=== PATIENT | female | born 2000 | race Caucasian/White ===

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

== ENCOUNTER 2023-02-05 18:27 | Emergency (ER) | payer MEDICAID, SELFPAY ==
[2023-02-05 18:28] VITALS: BP 110/66; PULSE 81; RESP 18; TEMP 35.9; O2SAT 100; BMI 25.7
[2023-02-05 19:43] LABS: Absolute Lymphocyte Count 2.12 X10^3/uL (0.83-4.51); Absolute Neutrophil Count 4.5 X10^3/uL (2.0-7.7); Basophil# 0.04 X10^3/uL; Basophil% 0.5 % (0-1); Eosinophil# 0.07 X10^3/uL; Hematocrit 36.8 % (37-47); Hemoglobin 12.6 g/dL (12.0-15.0); Lymphocyte # 2.12 X10^3/ul (0.83-4.51); Lymphocyte % 28.8 % (19-41); Mean Corp Hgb Conc 34.2 g/dL (32-36); Mean Corpuscular Hgb 31.5 pg (27.0-32.0); Monocyte# 0.61 X10^3/uL; Monocyte% 8.3 % (0-10); NRBC Flagged by Analyzer 0 % (0-5); Neutrophil % 61.1 % (47-70); Platelet Count 237 K/mm3 (150-450); RBC Distribution Width CV 12.6 % (11.6-14.6); RBC Distribution Width SD 42.7 fl (35.1-43.9); White Blood Count 7.4 K/mm3 (4.4-11.0)
[2023-02-05] MEDS: Ondansetron 4 MG/2 ML Vial IV (19:43)
[2023-02-05] MEDS: 0.9% Normal Saline (1000mL) 1,000 ML 1000 ML IV (19:43)
[2023-02-05 20:00] LABS: Internal QC Validated? YES +Cl - CLEAR BKGD; Pregnancy, Serum, hCG Quali. NEGATIVE Negative
[2023-02-05 20:07] LABS: ALB/GLOB Ratio 1.2 RATIO (0.9-2.4); AST(SGOT) 24 U/L (15-37); Alanine Aminotransfer ALT/SGPT 29 U/L (13-56); Alkaline Phosphatase 79 U/L (45-117); Anion Gap 4 (5-15); BUN 9 mg/dL (7-18); BUN/Creat Ratio 10.3 RATIO (10-20); Calcium,Total 8.7 mg/dL (8.5-10.1); Chloride 106 mmol/L (98-107); Creatinine, Serum 0.87 mg/dL (0.55-1.02); EST Glomerular Filtration Rate 88 mL/min (>60); Est Glom Filt Rate - Afr Amer 106 mL/min (>60); Estimated Creatinine Clearance 81.58 ml/min; Globulin 3.4 g/dL (2.2-4.2); Glucose 99 mg/dL (74-106); Lipase 32 U/L (13-75); Potassium 3.3 mmol/L (3.5-5.1); Protein, Total 7.4 g/dL (6.4-8.2); Sodium Level 138 mmol/L (136-145)
[2023-02-05 20:13] LABS: Bacteria 0 SEEN /hpf (None Seen); Color, Urine Yellow (Yellow); Glucose, Dipstick Normal (Normal); Ketone-Dipstick Negative (Negative); Leukocyte Esterase-Dipstick 500 /ul (Negative); Mucous, Urine 0 SEEN /hpf (<or=2+); Nitrite-Dipstick Negative (Negative); Occult Blood-Urine Negative /ul (Negative); Protein-Dipstick 15 mg/dl (Negative); Red Blood Cells-Urine 0 SEEN /hpf (0-5); Specific Gravity, Urine 1.015 (1.002-1.030); Urine Bilirubin Dipstick Negative (Negative); Urine Clarity Clear (Clear); Urine Urobilinogen Normal (Normal)
[2023-02-05 20:29] LABS: Squamous Epithelial Cells - UA 0-5 SEEN /hpf (5-10); White Blood Cells 5-10 SEEN /hpf (0-5)
--- NOTE | 2023-02-05 20:29 | ED.VIS.GI ---
HPI HPI - GI History of Present Illness Chief Complaint: Abd Pain Informant: patient Abdominal Pain/Flank Pain Onset: Today Context: Sudden Onset Timing: Continuous Quality: Aching and Cramping Location: RLQ and LLQ Worsened by: Nothing Relieved by: Nothing Nausea/Vomiting/Emesis GI Symptom: Positive for Nausea; Negative for Vomiting Diarrhea/Melena/Hematochezia GI Symptom: Negative for Diarrhea, Melena or Hematochezia Associated Symptoms Associated Symptoms: Positive for Frequency; Negative for Dysuria or Hematuria Narrative Narrative: Patient presents with abdominal pain that began today. Patient states she was having intercourse when the pain began. Patient states her pain is over her lower abdomen. Patient describes the pain as aching and cramping. Patient states everything makes it worse. Patient states nothing makes it better. Patient states the pain has been constant. Patient denies any fevers or chills. Patient admits to some nausea but denies any vomiting. Patient admits to some urinary frequency but denies any dysuria or hematuria. Patient denies any diarrhea, melena, or hematochezia. Patient denies any abnormal vaginal bleeding or discharge. [facility] Medical History ADHD Anxiety Contusion of right ankle Contusion of right foot Depression Kidney infection in mother during , antepartum Recurrent UTI (urinary tract infection) complicating Home Medications aripiprazole 5 mg tablet 5 mg PO DAILY 02/05/23 [History Last Taken Unknown] iron-vitamin B complex 50 mg-0.4 mg tablet 1 tab PO DAILY 02/05/23 [History Last Taken Unknown] sertraline 50 mg tablet 75 mg PO DAILY 02/05/23 [History Last Taken Unknown] sulfamethoxazole 800 mg-trimethoprim 160 mg tablet 1 tab PO BID #6 TABLETS 02/05/23 [Rx Last Taken Unknown] Allergy/AdvReac Type Severity Reaction Status Date / Time No Known Allergies Allergy Verified 02/05/23 18:28 Family History (Updated 02/09/21 @ 10:35 by Ana María Tay) Grandfather CVA (cerebral vascular accident) Grandmother Breast cancer Surgical History no surgical history no surgical history Social History (Updated 02/05/23 @ 20:[address] Alejandro Nunez, ) Electronic Cigarette Use: with nicotine ROS ROS ED Constitutional Constitutional ED: Denies chills or fever(s) Eyes Eyes: Denies blurry vision or change in vision ENT ENT ED: Denies rhinorrhea or sore throat Cardiovascular Cardiovascular: Denies chest pain or palpitations Respiratory/Chest Respiratory/Chest: Denies cough or dyspnea Gastrointestinal Gastrointestinal: Reports abdominal pain and nausea; Denies vomiting Genitourinary Genitourinary ED: Reports urinary frequency; Denies dysuria or hematuria Musculoskeletal Musculoskeletal: Denies back pain or neck pain Integumentary Denies abscess or rash Neurologic Neurologic: Denies headache(s) or weakness Allergic/Immunologic Allergic/Immunologic ED: Denies mouth swelling or urticaria EXAM Physical Exam Const Vital Signs: 02/05/23 18:28 Temperature 96.6 F L Temperature Source Temporal Pulse Rate 81 Respiratory Rate 18 Blood Pressure 110/66 Blood Pressure Mean 80 Pulse Ox 100 Oxygen Delivery Method Room Air Positive well nourished and well developed General Appearance ED: well developed and NAD HEENT Reports moist mucous membranes Neck supple and no JVD Resp normal respiratory effort and clear to auscultation bilaterally Cardio regular rate, regular rhythm and no murmurs GI normal to inspection, nondistended, normoactive bowel sounds Palpation: soft and tender LLQ, RLQ and suprapubic; Negative for guarding or rebound tenderness present Extremity normal to inspection General Extremety ED: Negative for edema or tenderness General Extremity: Negative for edema Neuro oriented x3, CN's II-XII intact bilaterally and no sensory deficits noted Sensorium / Orientation: alert Motor Exam: strength 5/5 throughout Psych mental status grossly normal Skin no rashes or lesions noted MDM MDM MDM Narrative Medical decision making narrative: Differential diagnosis includes appendicitis, urinary tract infection, ectopic , ureteral calculus, ovarian cyst, pyelonephritis, mesenteric adenitis, dehydration, and electrolyte abnormality. CBC will be obtained to assess for leukocytosis and anemia. Comprehensive metabolic profile will be obtained to assess for electrolyte abnormality, renal function, and hepatic function. Serum hCG will be obtained to assess for . Urinalysis will be obtained to assess for urinary tract infection. Lab Data Attestation: I reviewed the patient's lab results. Lab results narrative: CBC was reviewed and was within normal limits. Comprehensive metabolic profile was reviewed. Potassium was slightly low at 3.3. The remainder is within normal limits. Serum lipase was reviewed and was normal at 32. Serum hCG was reviewed and was negative. Urinalysis was reviewed. There is a leukocyte esterase of 500. There are 5-10 white blood cells. Labs: Laboratory Results - last 24 hr 02/05/23 02/05/23 18:45 20:05 WBC 7.4 RBC 4.00 L Hgb 12.6 Hct 36.8 L MCV 92.0 MCH 31.5 MCHC 34.2 RDW Std Deviation 42.7 RDW Coeff of Saleem 12.6 Plt Count 237 MPV 10.0 Immature Gran % (Auto) 0.300 Neut % (Auto) 61.1 Lymph % (Auto) 28.8 [place] % (Auto) 8.3 Eos % (Auto) 1.0 Baso % (Auto) 0.5 Absolute Neuts (auto) 4.5 Absolute Lymphs (auto) 2.12 Nucleated RBC % 0 Sodium 138 Potassium 3.3 L Chloride 106 Carbon Dioxide 28.0 Anion Gap 4 L BUN 9 Creatinine 0.87 Estim Creat Clear Calc 81.58 Est GFR (MDRD) Af Amer 106 Est GFR (MDRD) Non-Af 88 BUN/Creatinine Ratio 10.3 Glucose 99 Calcium 8.7 Total Bilirubin 1.00 AST 24 ALT 29 Alkaline Phosphatase 79 Total Protein 7.4 Albumin 4.0 Globulin 3.4 Albumin/Globulin Ratio 1.2 Lipase 32 Serum , Qual NEGATIVE Urine Color Yellow Urine Clarity Clear Urine pH 6.0 Ur Specific [place] 1.015 Urine Protein 15 H Urine Glucose (UA) Normal Urine Ketones Negative Urine Occult Blood Negative Urine Nitrite Negative Urine Bilirubin Negative Urine Urobilinogen Normal Ur Leukocyte Esterase 500 H Urine RBC 0 SEEN Urine WBC 5-10 SEEN Ur Squamous Epith Cells 0-5 SEEN Urine Bacteria 0 SEEN Urine Mucus 0 SEEN Treatment and Re-Evaluation :: Patient was given IV fluids and Zofran. Patient was advised of her findings. Urine culture was ordered. Patient was given a prescription for a short course of Bactrim. Patient was instructed to take Tylenol or ibuprofen as needed for pain. Patient was instructed to drink plenty of fluids. Patient was instructed to follow-up with her primary care physician in 5 to 7 days for further evaluation. Patient was instructed return if worse in any way. Patient understood and was agreeable with the plan. All questions were answered. Discharge Plan Triage Chief Complaint: Abd Pain ED Provider: Alejandro Nunez Dx/Rx/DC Orders Clinical Impression: Urinary tract infection, Lower abdominal pain Instructions: ED Cystitis Female Adult Prescriptions: New sulfamethoxazole-trimethoprim [sulfamethoxazole-trimethoprim] 800-160 mg tablet 1 tab PO BID Qty: 6 0RF No Action aripiprazole 5 mg tablet 5 mg PO DAILY Patient Comments: Take 1 tablet by mouth once daily. sertraline 50 mg tablet 75 mg PO DAILY Patient Comments: Take 1 and 1/2 tablets by mouth once daily. iron-vitamin B complex 50-0.4 mg tablet 1 tab PO DAILY Primary Care Provider: Tiara Mendez NP Referrals: Tiara Mendez NP, [employer] [Primary Care Provider] - 3-5 Days Disposition Disposition: Home, Self Care
[2023-02-05 21:23] VITALS: BP 101/61; PULSE 68; RESP 16; O2SAT 99
[2023-02-05] MEDS: Potassium Chloride Oral Tablet 20 MEQ 40 MEQ PO (21:24)
== END 2023-02-05 21:29 | disposition home or self-care (01) ==
PROVIDERS: Emergency Provider Emergency Medicine; PCP Nurse Practitioner Primary Care; Visit Provider Emergency Medicine
DX: N39.0 Urinary tract infection, site not specified (principal); R10.30 Lower abdominal pain, unspecified; F17.290 Nicotine dependence, other tobacco product, uncomplicated; F41.9 Anxiety disorder, unspecified; F32.A Depression, unspecified; Z79.899 Other long term (current) drug therapy
CPT/HCPCS: 80053; 81001; 83690; 84703; 85025; 96361; 96374; 99284; J7030; A4216; J2405

== ENCOUNTER 2023-02-17 07:32 | Emergency (ER) | payer MEDICAID, SELFPAY ==
[2023-02-17 07:33] VITALS: BP 93/60; PULSE 86; RESP 14; TEMP 36.6; O2SAT 99; BMI 26.4
--- NOTE | 2023-02-17 07:54 | ED.VIS.FEGU ---
HPI HPI - Female History of Present Illness Chief Complaint: Vag Bleeding Informant: patient Bleeding Issue: Positive for Vaginal bleeding Onset: Yesterday Current Severity: Heavy Maximum Severity: Heavy Associated Symptoms Associated Symptoms: Positive for Frequency; Negative for Dysuria, Urgency or Hematuria Narrative Narrative: 22-year-old female on Mirena usually has menstrual cycles every other month, presenting for abnormal heavy uterine bleeding that started yesterday and continued overnight about a pad every 1.5 hours, her last cycle was about a month ago so this 1 is unexpected. She is having pelvic cramping, soreness in her upper abdomen, nausea. No lightheadedness or near syncopal episodes or severe weakness. She presents here after she got off of work, around 7:30 AM. 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 Sexually active denies known has not tried a test. She denies any discharge prior to this. No fevers or chills. [facility] Medical History (Updated 02/17/23 @ 09:[address] Alonzo Martinez MD) ADHD Anxiety Bipolar disorder Contusion of right ankle Contusion of right foot Depression Kidney infection in mother during , antepartum Recurrent UTI (urinary tract infection) complicating Scoliosis Home Medications aripiprazole 5 mg tablet 5 mg PO DAILY 02/05/23 [History Last Taken Unknown] iron-vitamin B complex 50 mg-0.4 mg tablet 1 tab PO DAILY 02/05/23 [History Last Taken Unknown] sertraline 50 mg tablet 75 mg PO DAILY 02/05/23 [History Last Taken Unknown] Allergy/AdvReac Type Severity Reaction Status Date / Time No Known Allergies Allergy Verified 02/17/23 07:36 Family History (Updated 02/09/21 @ 10:35 by Ana María Tay) Grandfather CVA (cerebral vascular accident) Grandmother Breast cancer Social History Smoking Status: Current every day smoker tobacco type: e-cigarettes Electronic Cigarette Use: with nicotine ROS ROS ED Constitutional Constitutional ED: Denies chills or fever(s) Eyes Eyes: Denies change in vision or diplopia ENT ENT ED: Denies rhinorrhea or sore throat Cardiovascular Cardiovascular: Denies chest pain or palpitations Respiratory/Chest Respiratory/Chest: Denies cough or dyspnea Gastrointestinal Gastrointestinal: Reports abdominal pain and nausea; Denies diarrhea or vomiting Genitourinary Genitourinary ED: Reports as per HPI, urinary frequency and vaginal bleeding; Denies dysuria or hematuria Musculoskeletal Musculoskeletal: Denies back pain or neck pain Integumentary Denies abscess or rash Neurologic Neurologic: Denies headache(s), paresthesias or weakness Psychiatric Psychiatric: Denies depression or suicidal thoughts EXAM Physical Exam Const Vital Signs: 02/17/23 07:33 Temperature 97.8 F Temperature Source Temporal Pulse Rate 86 Respiratory Rate 14 Blood Pressure 93/60 Blood Pressure Mean 71 Pulse Ox 99 Oxygen Delivery Method Room Air Positive well nourished and well developed General Appearance ED: well developed and NAD HEENT Reports moist mucous membranes normocephalic and atraumatic Eyes PERRL and EOMs intact bilaterally Neck full ROM and supple Resp normal respiratory effort and clear to auscultation bilaterally Cardio regular rate, regular rhythm and no murmurs Rate: Negative for tachycardic GI non-distended GI Narrative: Subjectively tender throughout lower abdomen. Benign exam. Auscultation: normoactive bowel sounds Palpation: soft Speculum Exam - Vagina: vaginal bleeding Back/Spine no CVA tenderness General Back: other FROM Extremity normal to inspection General Extremety ED: Negative for edema, pulses abnormal or tenderness General Extremity: Negative for edema or pulses abnormal Neuro oriented x3, CN's II-XII intact bilaterally and no sensory deficits noted Sensorium / Orientation: awake and alert Motor Exam: strength 5/5 throughout Psych Mood & Affect: anxious Skin no rashes or lesions noted and no wounds MDM MDM MDM Narrative Medical decision making narrative: Obtained CBC in order to evaluate for anemia/blood loss, patient's hemoglobin is 14.5 and she clinically is not dehydrated or tachycardic, so I do not think this is hemoconcentrated, this is reassuring. serum negative. Stable clinically throughout her ER visit, urine was obtained given her urinary frequency today, it is negative for anything acute including infection, at this time uncomfortable with her going home and following up with her [employer] as an outpatient we discussed reasons to return she comfortable with that plan. Lab Data Attestation: I reviewed the patient's lab results. Labs: Laboratory Results - last 24 hr 02/17/23 02/17/23 08:02 08:32 WBC 6.4 RBC 4.67 Hgb 14.5 Hct 42.6 MCV 91.2 MCH 31.0 MCHC 34.0 RDW Std Deviation 41.7 RDW Coeff of Saleem 12.6 Plt Count 294 MPV 9.5 Immature Gran % (Auto) 0.300 Neut % (Auto) 66.7 Lymph % (Auto) 26.7 [place] % (Auto) 4.5 Eos % (Auto) 1.2 Baso % (Auto) 0.6 Absolute Neuts (auto) 4.3 Absolute Lymphs (auto) 1.71 Nucleated RBC % 0 Serum , Qual NEGATIVE Urine Color Straw Urine Clarity Clear Urine pH 7.0 Ur Specific [place] 1.005 Urine Protein Negative Urine Glucose (UA) Normal Urine Ketones Negative Urine Occult Blood 50 H Urine Nitrite Negative Urine Bilirubin Negative Urine Urobilinogen Normal Ur Leukocyte Esterase 100 H Urine RBC 0 SEEN Urine WBC 0-5 SEEN Ur Squamous Epith Cells 0 SEEN Urine Bacteria RARE Urine Mucus 0 SEEN Discharge Plan Triage Chief Complaint: Vag Bleeding ED Provider: Alonzo Martinez Dx/Rx/DC Orders Clinical Impression: DUB (dysfunctional uterine bleeding) Instructions: ED Dysfunctional Uterine Bleeding Prescriptions: No Action aripiprazole 5 mg tablet 5 mg PO DAILY Patient Comments: Take 1 tablet by mouth once daily. sertraline 50 mg tablet 75 mg PO DAILY Patient Comments: Take 1 and 1/2 tablets by mouth once daily. iron-vitamin B complex 50-0.4 mg tablet 1 tab PO DAILY Primary Care Provider: Tiara Mendez NP Referrals: Tiara Mendez NP, CERTIFIED [employer] INTERPRETER-C [Primary Care Provider] - 3-5 Days if not improving (or your gynecology practice) Disposition Disposition: Home, Self Care
[2023-02-17] MEDS: 0.9% Normal Saline (500mL Bag) 500 ML 999 ML IV (08:00)
[2023-02-17] MEDS: Ondansetron 4 MG/2 ML Vial IV (08:03)
[2023-02-17] MEDS: Ketorolac 15 MG/ML Vial IV (08:03)
[2023-02-17 08:15] LABS: Absolute Lymphocyte Count 1.71 X10^3/uL (0.83-4.51); Absolute Neutrophil Count 4.3 X10^3/uL (2.0-7.7); Basophil# 0.04 X10^3/uL; Basophil% 0.6 % (0-1); Eosinophil# 0.08 X10^3/uL; Eosinophils% 1.2 % (0-5); Hematocrit 42.6 % (37-47); Hemoglobin 14.5 g/dL (12.0-15.0); Lymphocyte # 1.71 X10^3/ul (0.83-4.51); Lymphocyte % 26.7 % (19-41); Mean Corpuscular Volume 91.2 fL (81-99); Mean Platelet Vol. 9.5 fl (6.2-12.0); Monocyte# 0.29 X10^3/uL; Monocyte% 4.5 % (0-10); NRBC Flagged by Analyzer 0 % (0-5); Neutrophil # 4.27 X10^3/uL (2.7-7.7); Neutrophil % 66.7 % (47-70); Platelet Count 294 K/mm3 (150-450); RBC Distribution Width CV 12.6 % (11.6-14.6); RBC Distribution Width SD 41.7 fl (35.1-43.9); Red Blood Count 4.67 M/mm3 (4.2-5.4); White Blood Count 6.4 K/mm3 (4.4-11.0)
[2023-02-17 08:23] LABS: Internal QC Validated? YES +Cl - CLEAR BKGD; Pregnancy, Serum, hCG Quali. NEGATIVE Negative
[2023-02-17 08:38] LABS: Mucous, Urine 0 SEEN /hpf (<or=2+); Red Blood Cells-Urine 0 SEEN /hpf (0-5); Squamous Epithelial Cells - UA 0 SEEN /hpf (5-10)
[2023-02-17 08:53] LABS: Color, Urine Straw (Yellow); Glucose, Dipstick Normal (Normal); Ketone-Dipstick Negative (Negative); Leukocyte Esterase-Dipstick 100 /ul (Negative); Nitrite-Dipstick Negative (Negative); Occult Blood-Urine 50 /ul (Negative); Protein-Dipstick Negative (Negative); Specific Gravity, Urine 1.005 (1.002-1.030); Urine Bilirubin Dipstick Negative (Negative); Urine Clarity Clear (Clear); Urine Urobilinogen Normal (Normal)
[2023-02-17 08:59] LABS: Bacteria RARE /hpf (None Seen); White Blood Cells 0-5 SEEN /hpf (0-5)
== END 2023-02-17 09:17 | disposition home or self-care (01) ==
PROVIDERS: Emergency Provider Emergency Medicine; PCP Nurse Practitioner Primary Care; Visit Provider Emergency Medicine
DX: N93.8 Other specified abnormal uterine and vaginal bleeding (principal); F31.9 Bipolar disorder, unspecified; F17.290 Nicotine dependence, other tobacco product, uncomplicated; F41.9 Anxiety disorder, unspecified; Z79.899 Other long term (current) drug therapy
CPT/HCPCS: 81001; 84703; 85025; 96374; 96375; 99283; J7040; A4216; J2405

== ENCOUNTER → 2023-05-22 | Outpatient (CLI) | payer MEDICAID, SELFPAY ==
--- OUTSIDE RECORDS SUMMARY | 2023-05-22 17:13 | XMS RPT_ITS | CCD ---
Author Name Unknown Address [address] [place] [address] Organization [facility] Care Team Providers Care Patient Liaison Name Role Phone Alvaro Godwin MD Primary Care Provider PHYSICIAN, NONE Primary Care Physician Unavailab Alvaro Alexander MD Primary Care Provider Alvaro Godwin MD Primary Care Provider KATHY GARCIA, SUMEET Primary Care Physician Unavailable Primary Care Provider UnavailLAXMI Arango Attending Unavailable SUMEET CHAVEZ Referring Unavailable ALVARO GODWIN Primary Care Unavailable SAMANTHA ALTMAN Attending Unavailable SELF Referring Unavailable MAIN HERNANDEZ Attending Unavailable SAMANTHA ALTMAN Referring Unavailable SAMANTHA ALTMAN Attending Unavailable TERRIE GUZMAN Attending Unavailable KATHY GARCIA, SUMEET Primary Care Jensen GARCIA, SUMEET Primary Care OSCAR [place] Attending Unavailable KATHY GARCIA, [facility] Primary Care ALBERTO Royal MD Attending Unavail able KATHY GARCIA, SUMEET Primary Care Unavai labdanny GARCIA, SUMEET Attending Jensen GARCIA, [facility] Primary Care OMAIRA Elaine Attending Un available ROSA GUERRERO DO Attending Unavailable KATHY GARCIA, [facility] Primary Care Unavai labdanny Medications Current Medications Medication Drug Class(es) Dates Sig (Normalized) Sig (Original) acetaminophen 500 mg oral tablet (2 sources) Start: 06-20-2022 take 1 tablet by mouth every four to six hours as needed for pain acetaminophen 500 mg oral tablet TAKE 1 TABLET EVERY 4 TO 6 HOURS NEEDED FOR PAIN Start Date: 06/20/22 Status: Ordered amoxicillin 500 mg oral capsule (1 source) Penicillin-class Antibacterial Start: 06-20-2022 take 1 capsule by mouth three times daily amoxicillin 500 mg oral capsule TAKE 1 CAPSULE THREE TIMES DAILY UNTIL GONE Start Date: 06/20/22 Status: Ordered ARIPiprazole 5 mg oral tablet (16 sources) Atypical Antipsychotic Start: 05-20-2022 End: 04-01-2023 Abilify 5 mg oral tablet Dose : 5 mg = 1 tab(s), Oral, qDay, # 30 tab(s), 0 Refill(s) Start Date: 05/30/22 Status: Ordered Completed/Discontinued Medications Medication Drug Class(es) Dates Sig (Normalized) Sig (Original) FLUoxetine 20 mg oral capsule (16 sources) Serotonin Reuptake Inhibitor Start: 02-14-2022 End: 03-16-2022 take 2 capsules by mouth once daily FLUoxetine (PROZAC) 20 mg capsule Take 2 capsules by mouth once daily. 60 capsule 0 02/14/2022 03/13/2022 Discontinued Problems Active Problems Problem Classification Problem Date Documented Date Episodic/Chronic Abdominal pain (1 source) Finding of sensation of abdomen; Translations: [Unspecified abdominal pain] Episodic Anxiety disorders (20 sources) Anxiety; Translations: [Anxiety disorder, unspecified] Onset: 02-20-2020 02-20-2020 Chronic Attention-deficit, conduct, and disruptive behavior disorders (20 sources) Attention deficit hyperactivity disorder, combined type; Translations: [Attention-deficit hyperactivity disorder, combined type] Onset: 04-10-2015 04-10-2015 Chronic Coma; stupor; and brain damage (4 sources) Daytime somnolence 06-20-2022 Episodic Complication of device; implant or graft (2 sources) Mechanical complication of intrauterine contraceptive device; Translations: [Displacement of intrauterine contraceptive device, initial encounter] Episodic Deficiency and other anemia (5 sources) Iron deficiency anemia 05-30-2022 Episodic Joint disorders and dislocations; trauma-related (20 sources) Disorder of left patellofemoral joint; Translations: [Patellofemoral disorders, left knee] Onset: 02-24-2019 02-24-2019 Chronic Malaise and fatigue (6 sources) Malaise and fatigue; Translations: [Other malaise] Episodic Menstrual disorders (2 sources) Menorrhagia; Translations: [Excessive and frequent menstruation with regular cycle] Chronic Mood disorders (20 sources) Depressive disorder; Translations: [Depression] Onset: 02-20-2020 02-20-2020 Chronic Other acquired deformities (20 sources) Scoliosis deformity of spine; Translations: [Scoliosis, unspecified] Onset: 08-20-2018 08-20-2018 Chronic Other complications of (1 source) Vomiting of ; Translations: [Vomiting of , unspecified] Onset: 05-06-2023 Episodic Other complications of (1 source) Urinary tract infection in ; Translations: [Unspecified infection of urinary tract in , unspecified trimester] Onset: 05-06-2023 Episodic Other connective tissue disease (2 sources) Pain in both feet; Translations: [Pain in right foot] Episodic Other connective tissue disease (1 source) Dysfunction of posterior tibial tendon; Translations: [Posterior tibial tendinitis, unspecified leg] Episodic Other injuries and conditions due to external causes (1 source) Injury of hip region; Translations: [Unspecified injury of right hip, initial encounter] Episodic Other non-traumatic joint disorders (1 source) Pain in right knee; Translations: [Pain in joint, lower leg] Episodic Other upper respiratory disease (1 source) Pain in throat; Translations: [Pain in throat] Episodic Other upper respiratory infections (1 source) Acute upper respiratory infection; Translations: [Acute upper respiratory infection, unspecified] Episodic Residual codes; unclassified (2 sources) Hypersomnia, unspecified; Translations: [Hypersomnia, unspecified] Onset: 10-14-2022 Chronic Spondylosis; intervertebral disc disorders; other back problems (1 source) Backache; Translations: [Dorsalgia, unspecified] Onset: 12-06-2022 Episodic Unclassified (4 sources) Wakes up during night 06-20-2022 Urinary tract infections (12 sources) Acute pyelonephritis; Translations: [Urinary tract infectious disease] Onset: 02-22-2023 11-19-2020 Episodic Past or Other Problems Problem Classification Problem Date Documented Date Episodic/Chronic Acquired foot deformities (20 sources) Acquired bilateral pes planus; Translations: [Flat foot [pes planus] (acquired), right foot] Onset: 08-14-2015 08-14-2015 Episodic Contraceptive and procreative management (20 sources) Patient encounter status; Translations: [Encounter for insertion of intrauterine contraceptive device] Onset: 07-07-2021 07-07-2021 Episodic Deficiency and other anemia (20 sources) Anemia; Translations: [Anemia, unspecified] Onset: 07-09-2021 07-09-2021 Episodic Genitourinary symptoms and ill-defined conditions (2 sources) Frequency of micturition; Translations: [Frequency of micturition] Onset: 05-30-2022 Episodic Headache; including migraine (20 sources) Headache; Translations: [Nonintractable headache] Onset: 07-28-2017 07-28-2017 Episodic Other aftercare (1 source) Other fdc (current) drug therapy; Translations: [Encounter for long-term (current) use of medications] Onset: 01-02-2023 Episodic Other connective tissue disease (20 sources) Tendinitis; Translations: [Enthesopathy, unspecified] Onset: 11-05-2021 11-05-2021 Episodic Other and delivery including normal (7 sources) ; Translations: [Urine test positive] Onset: 11-19-2020 11-19-2020 Episodic Results Test Name Value Interpretation Reference Range Facil ity Vital Signs Date Time Vital Sign Value Performing Clinician Facility 05-06-2023 20:45-0500 Diastolic Blood Pressure Non-Invasive 68 mm[Hg] [facility] 05-06-2023 20:45-0500 Heart rate 78 /min [facility] CHOUJAA DO [facility] 05-06-2023 20:45-0500 Systolic Blood Pressure Non-Invasive 126 mm[Hg] [facility] CHOUJAA DO [facility] 05-06-2023 19:42-0500 Body height 160 cm [facility] CHOUJAA DO [facility] 12-27-2023 19:42-0500 Body temperature 98.24 [degF] NIDAL CHOUJAA DO [facility] 05-06-2023 19:42-0500 Body weight 65.9 kg NIDAL CHOUJAA DO [facility] 05-06-2023 19:42-0500 Diastolic Blood Pressure Non-Invasive 86 mm[Hg] NIDAL CHOUJAA DO [facility] 05-06-2023 19:42-0500 Heart rate 66 /min NIDAL CHOUJAA DO [facility] 05-06-2023 19:42-0500 Respiratory rate 18 /min NIDAL CHOUJAA DO [facility] 05-06-2023 19:42-0500 Systolic Blood Pressure Non-Invasive 124 mm[Hg] NIDAL CHOUJAA DO [facility] 04-18-2023 13:41-0500 Body temperature 98.4 [degF] Ana María Cates PAPER CARRIER.FLANGING MACHINE OPERATOR Work Phone: [facility] 04-18-2023 13:41-0500 Body weight 66.68 kg Ana María Cates PAPER CARRIER.FLANGING MACHINE OPERATOR Work Phone: [facility] 04-18-2023 13:41-0500 Diastolic blood pressure 62 mm[Hg] Ana María Cates PAPER CARRIER.FLANGING MACHINE OPERATOR Work Phone: [facility] 04-18-2023 13:41-0500 Heart rate 95 /min Ana María Cates PAPER CARRIER.FLANGING MACHINE OPERATOR Work Phone: [facility] 04-18-2023 13:41-0500 Respiratory rate 16 /min Ana María Cates PAPER CARRIER.FLANGING MACHINE OPERATOR Work Phone: [facility] 04-18-2023 13:41-0500 SaO2% (BldA) [Mass fraction] 99 % Ana María Cates PAPER CARRIER.FLANGING MACHINE OPERATOR Work Phone: [facility] 04-18-2023 13:41-0500 Systolic blood pressure 110 mm[Hg] Ana María Sosags PAPER CARRIER.FLANGING MACHINE OPERATOR Work Phone: [facility] 02-22-2023 16:28-0400 Blood Pressure Location ROSA GUERRERO DO [facility] 02-22-2023 16:28-0400 Body temperature 98.6 [degF] ROSA GUERRERO DO [facility] 02-22-2023 16:28-0400 Diastolic Blood Pressure Non-Invasive 60 1 ROSA GUERRERO DO [facility] 02-22-2023 16:28-0400 Heart rate 98 /min ROSA GUERRERO DO [facility] 02-22-2023 16:28-0400 Respiratory rate 16 /min ROSA GUERRERO DO [facility] 02-22-2023 16:28-0400 Systolic Blood Pressure Non-Invasive 97 1 ROSA GUERRERO DO [facility] 02-19-2023 09:00-0400 Body height 157.5 cm Main Hernandez PAPER CARRIER.FLANGING MACHINE OPERATOR Work Phone: [facility] 02-19-2023 09:00-0400 Body weight 63.96 kg Main Hewilma PAPER CARRIER.FLANGING MACHINE OPERATOR Work Phone: [facility] 02-19-2023 09:00-0400 Diastolic blood pressure 70 mm[Hg] Main Heers PAPER CARRIER.FLANGING MACHINE OPERATOR Work Phone: [facility] 02-19-2023 09:00-0400 Systolic blood pressure 108 mm[Hg] Main Hernandez PAPER CARRIER.FLANGING MACHINE OPERATOR Work Phone: [facility] 12-06-2022 20:16-0400 Body temperature 98.6 [degF] ALBERTO SAWANT MD [facility] 12-06-2022 20:16-0400 Diastolic Blood Pressure Non-Invasive 65 1 ALBERTO SAWANT MD [facility] 12-06-2022 20:16-0400 Heart rate 106 /min ALBERTO SAWANT MD [facility] 12-06-2022 20:16-0400 Respiratory rate 25 /min ALBERTO SAWANT MD [facility] 12-06-2022 20:16-0400 Systolic Blood Pressure Non-Invasive 106 1 ALBERTO SAWANT MD [facility] 07-27-2022 14:58-0400 Diastolic Blood Pressure Non-Invasive [address] OSCAR ROBERTS MD [facility] 07-27-2022 14:58-0400 Heart rate 70 /min DR OSCAR ROBERTS MD [facility] 07-27-2022 14:58-0400 Respiratory rate 20 /min DR OSCAR ROBERTS MD [facility] 07-27-2022 14:58-0400 Systolic Blood Pressure Non-Invasive [address] OSCAR ROBERTS MD [facility] 07-27-2022 12:44-0400 Body temperature 97.52 [degF] DR OSCAR ROBERTS MD [facility] 07-27-2022 12:44-0400 Diastolic Blood Pressure Non-Invasive [address] OSCAR ROBERTS MD [facility] 07-27-2022 12:44-0400 Heart rate 96 /min DR OSCAR ROBERTS MD [facility] 07-27-2022 12:44-0400 Respiratory rate 20 /min DR OSCAR ROBERTS MD [facility] 07-27-2022 12:44-0400 Systolic Blood Pressure Non-Invasive [address] OSCAR ROBERTS MD [facility] 07-24-2022 14:56-0400 Body temperature 97.81 [degF] Hermann Elder PAPER CARRIER.FLANGING MACHINE OPERATOR Work Phone: [facility] 07-24-2022 14:56-0400 Body weight 61.51 kg Hermann Friedman PAPER CARRIER.FLANGING MACHINE OPERATOR Work Phone: [facility] 07-24-2022 14:56-0400 Diastolic blood pressure 58 mm[Hg] Hermann Elder PAPER CARRIER.FLANGING MACHINE OPERATOR Work Phone: [facility] 07-24-2022 14:56-0400 Heart rate 90 /min Hermann Elder PAPER CARRIER.FLANGING MACHINE OPERATOR Work Phone: [facility] 07-24-2022 14:56-0400 Respiratory rate 18 /min Hermann Elder PAPER CARRIER.FLANGING MACHINE OPERATOR Work Phone: [facility] 07-24-2022 14:56-0400 SaO2% (BldA) [Mass fraction] 98 % Hermann Elder PAPER CARRIER.FLANGING MACHINE OPERATOR Work Phone: [facility] 07-24-2022 14:56-0400 Systolic blood pressure 90 mm[Hg] Hermann Elder PAPER CARRIER.FLANGING MACHINE OPERATOR Work Phone: [facility] 02-28-2022 19:37-0400 Body height 157.5 cm JACKY MARTINEZ MD [facility] 02-28-2022 19:37-0400 Body temperature 97.88 [degF] JACKY MARTINEZ MD [facility] 02-28-2022 19:37-0400 Body weight 50 kg JACKY MARTINEZ MD [facility] 02-28-2022 19:37-0400 Diastolic blood pressure 68 mm[Hg] JACKY MARTINEZ MD [facility] 02-28-2022 19:37-0400 Heart rate 102 /min JACKY MARTINEZ MD [facility] 02-28-2022 19:37-0400 Height ZScore -0.90 JACKY MARTINEZ MD [facility] Encounters Encounter Date Encounter Type Care Provider Facility Start: 05-06-2023 End: 05-06-2023 Emergency department patient visit TERRIE PLATA Facility:B Start: 05-06-2023 End: 05-06-2023 Emergency department patient visit [facility] Start: 04-18-2023 End: 04-18-2023 ambulatory SELF Facility:[facility] Start: 04-18-2023 End: 04-18-2023 Patient encounter procedure Ana María Cates APRN.CNP Work Phone: [facility] Procedures Date Procedure Procedure Detail Performing Clinician Start: 04-18-2023 Urine test visual color cmprsn meths Ana María Cates APRN.CNP Work Phone: Start: 07-24-2022 STREP A MOLECULAR (POC) Tammi Mckeon PA-C Work Phone: Start: 05-20-2022 Follow-up visit Follow Up SAMANTHA ALTMAN Start: 01-14-2022 Adult depression scr eening assessment Alvaro Godwin MD Work Phone: Start: 01-07-2022 Radex foot complete minimum 3 views Dino Garzon Work Phone: Start: 11-12-2021 Us pelvic nonobstetr ic real-time image complete Mckenzie Garcia APRN.CNM Work Phone: Start: 10-03-2021 Adult depression scr eening assessment Alvaro Godwin MD Work Phone: Start: 08-29-2021 Urnls dip stick/tabl et rgnt auto w/o microscopy Amelia Benites MD Work Phone: Start: 04-16-2020 Adult depression scr eening assessment Amelia Benites MD Work Phone: Plan of Treatment Date Care Activity Detail Author Start: 08-11-2024 Urine microalbumin profile [facility] Start: 10-01-2023 CHLAMYDIA SCREENING (24) CHLAMYDIA SCREENING () [facility] Start: 10-01-2023 GC (GONORRHEA) SCREE HOLLY (18-24) GC (GONORRHEA) SCREENING () [facility] Start: 01-14-2023 Adult depression screening assessment DEPRESSION SCREENING [facility] Start: 01-09-2023 Covid-19 Vaccine (2022- season) Covid-19 Vaccine (2022- season) [facility] Start: 01-09-2023 Influenza vaccination [facility] Start: 10-03-2022 Adult depression screening assessment DEPRESSION SCREENING [facility] Start: 06-12-2022 CHLAMYDIA SCREENING (1824) CHLAMYDIA SCREENING (18-24) [facility] Start: 06-12-2022 GC (GONORRHEA) SCREE HOLLY (18-24) GC (GONORRHEA) SCREENING () [facility] Start: 04-16-2022 COVID-19 VACCINE (2 - Moderna series) COVID-19 VACCINE (2 - Moderna series) [facility] Start: 03-19-2022 COVID-19 VACCINE (2 - Moderna series) COVID-19 VACCINE (2 - Moderna series) [facility] Start: 01-09-2022 Influenza vaccination [facility] Start: 08-29-2021 End: 10-29-2021 Bacteria identified in Urine by Culture [facility] Work Phone: Immunizations Immunization Date Immunization Notes Care Provider Sara ball 02-19-2022 SARS-CoV-2 (COVID-19 ) mRNA-1273 vaccine SUMEET CHAVEZ PAPER CARRIER-FLANGING MACHINE OPERATOR [facility] [employer] 01-19-2020 influenza virus vacc ine, unspecified formulation SUMEET CHAVEZ PAPER CARRIER-FLANGING MACHINE OPERATOR [facility] [place] 01-19-2020 influenza, live, intranasal, quadrivalent Amelia Benites MD Work Phone: [facility] Work Phone: 02-11-2019 influenza virus vacc ine, unspecified formulation SUMEET CHAVEZ PAPER CARRIER-FLANGING MACHINE OPERATOR [facility] [employer] 02-11-2019 influenza, injectabl e, quadrivalent, preservative free Amelia Benites MD Work Phone: [facility] 08-16-2018 meningococcal polysaccharide (groups A, C, Y and W-135) diphtheria toxoid conjugate vaccine (MCV4P) Amelia Benites MD Work Phone: [facility] 06-19-2017 influenza virus vacc ine, unspecified formulation SUMEET WEEKSGAVIN PAPER CARRIER-FLANGING MACHINE OPERATOR [facility] [employer] 06-19-2017 influenza, injectabl e, quadrivalent, contains preservative Amelia Benites MD Work Phone: [facility] Work Phone: 04-25-2016 influenza, injectabl e, quadrivalent, preservative free Amelia Benites MD Work Phone: [facility] Work Phone: 08-14-2015 Human Papillomavirus 9-valent vaccine Amelia Benites MD Work Phone: [facility] 08-14-2015 Human Papillomavirus Quadval SUMEET CHAVEZ PAPER CARRIER-FLANGING MACHINE OPERATOR [facility] [employer] 04-10-2015 human papilloma viru s vaccine, quadrivalent Amelia Benites MD Work Phone: [facility] Work Phone: 04-10-2015 Human Papillomavirus Quadval SUMEET CHAVEZ PAPER CARRIER-FLANGING MACHINE OPERATOR [facility] [place] 04-10-2015 influenza virus vacc ine, unspecified formulation SUMEET CHAVEZ PAPER CARRIER-[facility] [place] 04-10-2015 influenza, injectabl e, quadrivalent, preservative free Amelia Benites MD Work Phone: [facility] Work Phone: 08-11-2014 human papilloma viru s vaccine, quadrivalent Amelia Benites MD Work Phone: [facility] 08-11-2014 Human Papillomavirus Quadval SUMEET WEEKSGAVIN PAPER CARRIER-[facility] 08-11-2014 meningococcal oligosaccharide (groups A, C, Y and W-135) diphtheria toxoid conjugate vaccine (MCV4O) Amelia Benites MD Work Phone: [facility] 08-11-2014 meningococcal polysaccharide (groups A, C, Y and W-135) diphtheria toxoid conjugate vaccine (MCV4P) SUMEET CHAVEZ PAPER CARRIER-[facility] 08-11-2014 tetanus toxoid, redu wade diphtheria toxoid, and acellular pertussis vaccine, adsorbed Amelia Benites MD Work Phone: [facility] 03-26-2013 influenza virus vacc ine, unspecified formulation Amelia Benites MD Work Phone: [facility] Work Phone: 05-21-2012 influenza virus vacc ine, unspecified formulation Amelia Benites MD Work Phone: [facility] 04-18-2011 influenza virus vacc ine, live, attenuated, for intranasal use Amelia Benites MD Work Phone: [facility] 03-02-2009 influenza virus vacc ine, unspecified formulation Amelia Benites MD Work Phone: [facility] Work Phone: 06-14-2008 hepatitis A vaccine, unspecified formulation Amelia Benites MD Work Phone: [facility] Work Phone: 06-14-2008 influenza virus vacc ine, unspecified formulation Amelia Benites MD Work Phone: [facility] Work Phone: 06-14-2008 varicella virus vaccine Amelia Benites MD Work Phone: [facility] Work Phone: 06-04-2007 diphtheria, tetanus toxoids and acellular pertussis vaccine Amelia Benites MD Work Phone: [facility] Work Phone: 06-04-2007 hepatitis A vaccine, unspecified formulation Amelia Benites MD Work Phone: [facility] Work Phone: 06-04-2007 poliovirus vaccine, inactivated Amelia Benites MD Work Phone: [facility] Work Phone: 06-08-2006 measles, mumps and rubella virus vaccine Amelia Benites MD Work Phone: [facility] Work Phone: 06-08-2006 measles, mumps, rube lla, and varicella virus vaccine Amelia Benites MD Work Phone: [facility] Work Phone: 06-18-2004 pneumococcal conjuga te vaccine, 7 valent Amelia Benites MD Work Phone: [facility] Work Phone: 09-07-2003 diphtheria, tetanus toxoids and acellular pertussis vaccine Amelia Benites MD Work Phone: [facility] Work Phone: 09-07-2003 haemophilus influenz ae type b vaccine, HbOC conjugate Amelia Benites MD Work Phone: [facility] Work Phone: 06-21-2003 measles, mumps and rubella virus vaccine Amelia Benites MD Work Phone: [facility] Work Phone: 06-21-2003 measles/mumps/rubell a virus vaccine SUMEET HCAVEZ PAPER CARRIER-FLANGING MACHINE OPERATOR [facility] [place] 03-10-2003 hepatitis B pediatri c vaccine SUMEET CHAVEZ PAPER CARRIER-FLANGING MACHINE OPERATOR [facility] [place] 03-10-2003 hepatitis B vaccine, pediatric or pediatric/adolescent dosage Amelia Benites MD Work Phone: [facility] Work Phone: 2002 diphtheria, tetanus toxoids and acellular pertussis vaccine Amelia Benites MD Work Phone: [facility] Work Phone: 2002 haemophilus influenz ae type b vaccine, HbOC conjugate Amelia Benites MD Work Phone: [facility] Work Phone: 2002 pneumococcal conjuga te vaccine, 7 valent Amelia Benites MD Work Phone: [facility] Work Phone: 2002 poliovirus vaccine, inactivated Amelia Benites MD Work Phone: [facility] Work Phone: 2002 diphtheria, tetanus toxoids and acellular pertussis vaccine Amelia Benites MD Work Phone: [facility] Work Phone: 2002 haemophilus influenz ae type b vaccine, HbOC conjugate Amelia Benites MD Work Phone: [facility] Work Phone: 2002 pneumococcal conjuga te vaccine, 7 valent Amelia Benites MD Work Phone: [facility] Work Phone: 2002 poliovirus vaccine, inactivated Amelia Benites MD Work Phone: [facility] Work Phone: 2002 diphtheria, tetanus toxoids and acellular pertussis vaccine Amelia Benites MD Work Phone: [facility] Work Phone: 2002 haemophilus influenz ae type b vaccine, HbOC conjugate Amelia Benites MD Work Phone: [facility] Work Phone: 2002 pneumococcal conjuga te vaccine, 7 valent Amelia Beniets MD Work Phone: [facility] Work Phone: 2002 poliovirus vaccine, inactivated Amelia Benites MD Work Phone: [facility] Work Phone: 2002 hepatitis B pediatri c vaccine [employer]ET [employer] [facility] 2002 hepatitis B vaccine, pediatric or pediatric/adolescent dosage Amelia Benites MD Work Phone: [facility] Work Phone: 2002 hepatitis B vaccine, pediatric or pediatric/adolescent dosage Amelia Benites MD Work Phone: [facility] Work Phone: Payers Date Payer Category Payer Medicaid [id number] 2019 Medicaid [employer] [id number] 2019-Present [phone] [address] [place] [address] Medicaid [id number] 2019 Medicaid [id number] 2019 Medicaid [id number] 2002 Unknown [id number] 2002 Unknown [id number] 2002 Unknown [id number] 2002 Unknown [id number] 2002 Unknown [id number] 2002 Unknown [id number] Social History Date Type Detail Facility Start: 10-13-2020 End: 12-27-2021 Tobacco smoking status NHIS Never smoked tobacco [facility] Start: 08-29-2021 End: 04-18-2023 Alcohol intake Current non-drinker of alcohol (finding) [facility] Start: 04-23-2011 End: 12-27-2021 Tobacco Comment mother outdoors [facility] Start: 2002 Sex Assigned At Not on file [facility] Start: 08-19-2021 End: 02-14-2022 Exposure to SARS-CoV-2 (event) Not sure [facility] Start: 10-04-2021 History SDOH Alcohol Frequency 1 [facility] Start: 10-04-2021 History SDOH Alcohol Std Drinks 98 [facility] Start: 10-04-2021 History SDOH Social Connections Phone 5 [facility] Start: 10-04-2021 End: 02-13-2022 History SDOH Social Connections Membership 2 [facility] Start: 10-04-2021 History SDOH Social Connections Living 7 [facility] Start: 10-04-2021 History SDOH Physica l Activity MPS 15 [facility] History of tobacco use Passive smoker [facility] Start: 12-27-2021 End: 02-19-2023 Tobacco use and exposure Smokeless tobacco non-user [facility] Sex Assigned At Female [facility] Start: 10-03-2021 End: 09-30-2022 History of Social function [facility] Start: 10-03-2021 End: 05-23-2023 Social connection and isolation panel [facility] Do you belong to any clubs or organizations such as alevism groups, unions, fraternal or athletic groups, or school groups? No [facility] How often do you att end meetings of the clubs or organizations you belong to? Patient refused [facility] Are you now , , , , never or living with a partner? Never [facility] How often to you hav e a drink containing alcohol? Never [facility] Do you feel stress - tense, restless, nervous, or anxious, or unable to sleep at night because your mind is troubled all the time - these days [OSQ] Very much [facility] (I/We) worried wheth er (my/our) food would run out before (I/we) got money to buy more. Never true [facility] Start: 02-19-2023 Tobacco Comment Vape only [facility] Functional Status Date Assessment Result Facility 05-06-2023 Functional Status Assistive Device None A [facility] 02-22-2023 Functional Status Independent [facility] 02-22-2023 Functional Status ID band on [facility] 12-06-2022 Functional Status Activity Yasmineglen yanghuan Independent [facility] 12-06-2022 Functional Status Standard Safet y ID band on, Call device within reach, Bed in low position, Wheels locked, Upper/Half-Length side-rails up, Phone within reach, personal items within reach, Bedside Cart Locked, Visitor at bedside [facility] 07-27-2022 Functional Status Independent [facility] 07-27-2022 Functional Status Standard Safet y ID band on, Call device within reach, Bed in low position, Wheels locked [facility] 02-28-2022 Functional Status ID band on, Call device within reach, Bed in low position, Wheels locked, Visitor at bedside [facility] Mental Status Date Assessment Result Facility 05-06-2023 Mental Status Orientation Oriented x 4 [facility] 02-22-2023 Mental Status Orientation Oriented x 4 [facility] 02-22-2023 Mental Status [facility]22 Mental Status Orientation Oriented x 4 [facility] 12-06-2022 Mental Status [facility] 07-27-2022 Mental Status Orientation Oriented x 4 [facility] 02-28-2022 Mental Status Orientation Oriented x 4 [facility] Clinical Notes 06-23-2016 to 05-10-2023 Ana María España APRN.[employer] - 04/18/2023 1:59 PM ESTTelephone Encounter - Mckenzie Tang RN - 02/23/2023 9:44 AM Main Moore APRN.[facility] - 02/19/2023 9:04 AM EDTLaboratory Note Date & Type Note Facility 05-10-2023 Note . MICRO - Microbiology PROCEDURE: Urine Culture [*1] SOURCE: Urine, Clean Catch BODY SITE: COLLECTED DATE/TIME: 05/06/2023 20:04 EST RECEIVED DATE/TIME: 05/07/2023 15:08 EST START DATE/TIME: 05/07/2023 15:08 EST FREE TEXT SOURCE: FINAL REPORTS Final Report [] Verified Date/Time/Personnel: 05/10/2023 08:01 EST >100,000 cfu/ml Escherichia coli >100,000 cfu/ml Lactobacillus jensenii Sensitivity testing is not recommended for one of the following reasons: 1. Established susceptibility patterns are available or 2. Interpretative criteria are not available. PRELIMINARY REPORTS Preliminary Report [] Verified Date/Time/Personnel: 05/09/2023 11:31 EST >100,000 cfu/ml Escherichia coli JULIO to follow >100,000 cfu/ml Lactobacillus jensenii Sensitivity testing is not recommended for one of the following reasons: 1. Established susceptibility patterns are available or 2. Interpretative criteria are not available. Preliminary Report [] Verified Date/Time/Personnel: 05/08/2023 08:55 EST Culture results pending. SUSCEPTIBILITY RESULTS Escherichia coli Antibiotic JULIO Dilut JULIO Inter Ampicillin >16 Resistant Ampicillin/ >16/8 Resistant Sulbactam Aztreonam <=4 Susceptible Cefazolin >16 Resistant Cefotaxime <=2 Susceptible Cefuroxime <=4 Susceptible Ciprofloxacin <=0.25 Susceptible Ertapenem <=0.5 Susceptible Gentamicin >8 Resistant ID Panel Not Not Applicable Applicable Imipenem <=1 Susceptible Levofloxacin <=0.5 Susceptible Meropenem <=1 Susceptible Minocycline <=4 Susceptible Nitrofurantoin <=32 Susceptible Piperacillin/ <=8 Susceptible Tazobactam Tobramycin 4 Susceptible Trimethoprim/ >2/38 Resistant Sulfa Lactobacillus jensenii Antibiotic JULIO Dilut JULIO Inter ID Panel Not Not Applicable Applicable Performing Locations *1: This test was performed at: [facility], [address] [place] [address], [id number] , [facility] ([place]) 05-06-2023 Hospital Discharg e instructions Patient Education 05/06/2023 20:08:11 Hyperemesis Gravidarum Hyperemesis Gravidarum Hyperemesis gravidarum is a severe form of morning sickness that can affect some women during . It may develop around the 5th week and last until the 16th week of . In some women, it may last longer. Symptoms include severe nausea and vomiting. This can lead to problems such as weight loss and dehydration. It's not clear what causes hyperemesis gravidarum. It may be from rising hormone levels early in the . It can be a serious threat to mother and fetus if symptoms are severe. Follow the advice below carefully. If your symptoms don't get better with home care measures, you may need to stay in the hospital. In the hospital, you may get IV (intravenous) fluids and medicines. Home care Diet Keep a log of the foods you eat and how they affect your symptoms. Don't eat foods that trigger your symptoms. Eat small meals often throughout the day rather than 3 large meals. This can help keep your stomach from being empty. An empty stomach can make nausea worse. Choose foods that are high in carbohydrates. Eating foods high in protein may also help. Limit greasy or spicy foods. Before getting out of bed in the morning, try eating crackers or dry toast. This may help settle your stomach. Drink cold, clear liquids. Drinking small amounts of liquids with electrolytes, such as sports drinks, may help as well. Medicine If needed, your healthcare provider may prescribe certain medicines to help ease nausea and vomiting. Your provider may suggest vitamin B6 and kymberly. Don t try any oyok-gmy-imiwtrz medicines or home remedies without talking with your provider first. Follow-up care Follow up with your healthcare provider, or as advised. When to seek medical advice Call your healthcare provider right away if any of these occur: Signs of dehydration. These include dry mouth, extreme thirst, dark urine or little urine output, dizziness, weakness, or fainting. Vomiting that won t stop Inability to keep down liquids Frequent diarrhea Weight loss or no weight gain over a 2-week period Severe constant pain in the lower right abdomen Fever of 100.4 F (38 C) or higher, or as directed by your healthcare provider [phone] [employer]. [address] [place] [address]. All rights reserved. This information is not intended as a substitute for professional medical care. Always follow your healthcare professional's instructions. Follow Up Care 05/06/2023 19:36:49 With:SUMEET CHAVEZ Address: [address] [place] [phone] When:2-4 days [facility] 05-06-2023 Note Discharge Instructions Thank you for allowing [facility] to assist you with your healthcare needs. The following is important discharge information regarding your hospital visit. Diagnosis from Today's Visit Nausea Nausea/vomiting in UTI (urinary tract infection) during What to Do Next Instructions from Your Care Team Discharge Return to Work, School, or Sports (Return to Work, School, or Sports) - Ordered -- 05/07/23, May return to: work, 05/06/23 20:04:00 EST Post Acute Orders No qualifying data available. You Need to Schedule the Following Appointments Follow Up with SUMEET CHAVEZ When Within 2-4 days Where: [address] [place] [phone] Allergies NKA Medications Please ask your primary doctor or pharmacist before taking any other medication not listed, including over the counter drugs, herbal medications, vitamins and or supplements as they may interact with your home medications. What How Much When Instructions Last Dose New cephalexin (cephalexin 500 mg oral capsule) 1 cap by mouth Four (4) times a day Duration: 7 Days Printed Prescription New doxylamine (doxylamine 25 mg oral tablet) 0.5 tab(s) by mouth Every 6 hours as needed for Nausea/Vomiting Duration: 7 Days Printed Prescription New pyridoxine (Vitamin B6 50 mg oral tablet) 0.5 tab(s) by mouth Every 6 hours as needed for Nausea/Vomiting Duration: 7 Days Printed Prescription Unchanged ARIPiprazole (Abilify 5 mg oral tablet) 1 tab(s) by mouth Once a day Unchanged multivitamin with minerals (Geritol Complete oral tablet) Take 1 tablet by mouth once daily. Unchanged sertraline (Zoloft 50 mg oral tablet) 1.5 tab(s) by mouth Once a day Duration: 90 Days Please take this list to your next doctor s visit. Bring all medications you take, including over the counter medications, herbals and other supplements with you to your doctor s visit. Patients and families are reminded to discard old lists and to update any records with all medication providers or retail pharmacies. Medication Leaflets cephalexin (sef a ISMAEL in) What is the most important information I should know about cephalexin? You should not use this medicine if you are allergic to cephalexin or to similar antibiotics, such as Ceftin, Cefzil, Omnicef, and others. Tell your doctor if you are allergic to any drugs, especially penicillins or other antibiotics. What is cephalexin? Cephalexin is a cephalosporin (SEF a low spor in) antibiotic that is used to treat bacterial infections of the lungs, ear, skin, bones, bladder, and kidneys. Cephalexin is used to treat infections in adults and children who are at least 1 year old. Cephalexin may also be used for purposes not listed in this medication guide. What should I discuss with my healthcare provider before taking cephalexin? You should not use this medicine if you are allergic to cephalexin or any other cephalosporin antibiotic (cefdinir, cefadroxil, cefoxitin, cefprozil, ceftriaxone, cefuroxime, Omnicef, and others). Tell your doctor if you have ever had: an allergy to any drug (especially penicillin); liver or kidney disease; or intestinal problems, such as colitis. The liquid form of cephalexin may contain sugar. This may affect you if you have diabetes. Tell your doctor if you are or breast-feeding. How should I take cephalexin? Follow all directions on your prescription label and read all medication guides or instruction sheets. Use the medicine exactly as directed. Do not use cephalexin to treat any condition that has not been checked by your doctor. Measure liquid medicine carefully. Use the dosing syringe provided, or use a medicine dose-measuring device (not a kitchen spoon). Use this medicine for the full prescribed length of time, even if your symptoms quickly improve. Skipping doses can increase your risk of infection that is resistant to medication. Cephalexin will not treat a viral infection such as the flu or a common cold. Do not share cephalexin with another person, even if they have the same symptoms you have. This medicine can affect the results of certain medical tests. Tell any doctor who treats you that you are using cephalexin. Store the tablets and capsules at room temperature away from moisture, heat, and light. Store the liquid medicine in the refrigerator. Throw away any unused liquid after 14 days. What happens if I miss a dose? Take the medicine as soon as you can, but skip the missed dose if it is almost time for your next dose. Do not take two doses at one time. What happens if I overdose? Seek emergency medical attention or call the Poison Help line at . Overdose symptoms may include nausea, vomiting, stomach pain, diarrhea, and blood in your urine. What should I avoid while taking cephalexin? Antibiotic medicines can cause diarrhea, which may be a sign of a new infection. If you have diarrhea that is watery or bloody, call your doctor before using anti-diarrhea medicine. What are the possible side effects of cephalexin? Get emergency medical help if you have signs of an allergic reaction (hives, difficult breathing, swelling in your face or throat) or a severe skin reaction (fever, sore throat, burning eyes, skin pain, red or purple skin rash with blistering and peeling). Call your doctor at once if you have: severe stomach pain, diarrhea that is watery or bloody (even if it occurs months after your last dose); unusual tiredness, feeling light-headed or short of breath; easy bruising, unusual bleeding, purple or red spots under your skin; a seizure; pale skin, cold hands and feet; yellowed skin, dark colored urine; fever, weakness; or pain in your side or lower back, painful urination. Common side effects may include: diarrhea; nausea, vomiting; indigestion, stomach pain; or vaginal itching or discharge. This is not a complete list of side effects and others may occur. Call your doctor for medical advice about side effects. You may report side effects to FDA at 0-026-TIZ-8267. What other drugs will affect cephalexin? Tell your doctor about all your other medicines, especially: metformin; or probenecid. This list is not complete. Other drugs may affect cephalexin, including prescription and wlgg-bvl-cmykmab medicines, vitamins, and herbal products. Not all possible drug interactions are listed here. Where can I get more information? Your pharmacist can provide more information about cephalexin. Remember, keep this and all other medicines out of the reach of children, never share your medicines with others, and use this medication only for the indication prescribed. Every effort has been made to ensure that the information provided by [employer]') is accurate, up-to-date, and complete, but no guarantee is made to that effect. Drug information contained herein may be time sensitive. [employer] information has been compiled for use by healthcare practitioners and consumers in the [place] and therefore [employer] does not warrant that uses outside of the [place] are appropriate, unless specifically indicated otherwise. [employer]'s drug information does not endorse drugs, diagnose patients or recommend therapy. [employer] drug information is an informational resource designed to assist licensed healthcare practitioners in caring for their patients and/or to serve consumers viewing this service as a supplement to, and not a substitute for, the expertise, skill, knowledge and judgment of healthcare practitioners. The absence of a warning for a given drug or drug combination in no way should be construed to indicate that the drug or drug combination is safe, effective or appropriate for any given patient. [employer] does not assume any responsibility for any aspect of healthcare administered with the aid of information [employer] provides. The information contained herein is not intended to cover all possible uses, directions, precautions, warnings, drug interactions, allergic reactions, or adverse effects. If you have questions about the drugs you are taking, check with your doctor, nurse or pharmacist. Copyright 3370-2559 [employer] Version: 12.. Revision Date: 12/10/2022. doxylamine (dox IL a en) [employer] What is the most important information I should know about doxylamine? Follow all directions on your medicine label and package. Tell each of your healthcare providers about all your medical conditions, allergies, and all medicines you use. What is doxylamine? Doxylamine is an antihistamine that reduces the effects of natural chemical histamine in the body. Histamine can produce symptoms of sneezing, itching, watery eyes, and runny nose. Antihistamines can cause drowsiness and are sometimes used a sleep aids. Doxylamine is used to treat sneezing, runny nose, watery eyes, hives, skin rash, itching, and other cold or allergy symptoms. Doxylamine is also used as a short-term treatment for sleep problems (insomnia). Doxylamine may also be used for purposes not listed in this medication guide. What should I discuss with my health care provider before taking doxylamine? You should not use doxylamine if you are allergic to it. Ask a doctor or pharmacist if it is safe for you to take this medicine if you have other medical conditions, especially: glaucoma; an enlarged prostate; problems with urination; or asthma, bronchitis, emphysema, or other chronic lung disease. Older adults may be more sensitive to the effects of this medicine. Doxylamine is not expected to be harmful to an unborn baby. Do not use this medicine without a doctor's advice if you are . Doxylamine may pass into breast milk and may harm a nursing baby. Antihistamines may also slow breast milk production. Do not use this medicine without a doctor's advice if you are breast-feeding a baby. How should I take doxylamine? Use exactly as directed on the label, or as prescribed by your doctor. Do not use in larger or smaller amounts or for longer than recommended. This medicine is usually taken only for a short time until your symptoms clear up. Do not use doxylamine to treat insomnia in a child younger than 12 years old. Ask a doctor before using this medicine to treat cold or allergy symptoms in a child younger than 6 years old. Always ask a doctor before giving a cold or allergy medicine to a child. can occur from the misuse of these medicines in very young children. Take this medicine with food or milk if it upsets your stomach. To treat insomnia, it is best to take doxylamine only when you can devote several hours to sleep. Follow your doctor's instructions. Call your doctor if your cold or allergy symptoms do not improve after 7 days of treatment, or if your sleep problems do not improve after 2 weeks of treatment. This medication can cause you to have unusual results with allergy skin tests. Tell any doctor who treats you that you are taking an antihistamine. Store at room temperature away from moisture and heat. What happens if I miss a dose? Take the missed dose as soon as you remember. Skip the missed dose if it is almost time for your next scheduled dose. Do not take extra medicine to make up the missed dose. When treating insomnia, if it is almost your normal waking hour, skip the missed dose and wait until you are ready for bed again. What happens if I overdose? Seek emergency medical attention or call the Poison Help line at . Overdose symptoms may include severe forms of some of the side effects listed in this medication guide. What should I avoid while taking doxylamine? This medicine may cause blurred vision and may impair your thinking or reactions. Be careful if you drive or do anything that requires you to be alert and able to see clearly. Ask a doctor or pharmacist before using any other cold, cough, allergy, or sleep medicine. Many combination medicines contain antihistamines. Taking certain products together can cause you to get too much of this medicine. Ask a doctor or pharmacist before using any other cold, cough, allergy, or sleep medicine. Antihistamines are contained in many combination medicines. Taking certain products together can cause you to get too much of a certain drug. Check the label to see if a medicine contains an antihistamine. Drinking alcohol can increase certain side effects of doxylamine. Avoid becoming overheated or dehydrated during exercise and in hot weather. Doxylamine can decrease sweating and you may be more prone to heat stroke. What are the possible side effects of doxylamine? Get emergency medical help if you have signs of an allergic reaction: hives; difficulty breathing; swelling of your face, lips, tongue, or throat. Call your doctor at once if you have: confusion, hallucinations; severe dizziness or drowsiness; or little or no urinating. Common side effects may include: blurred vision; dry mouth, nose, or throat; constipation; or mild dizziness or drowsiness. Side effects such as dry mouth, constipation, and confusion may be more likely in older adults. This is not a complete list of side effects and others may occur. Call your doctor for medical advice about side effects. You may report side effects to FDA at 6-389-FVK-3861. What other drugs will affect doxylamine? Ask a doctor or pharmacist before using this medicine if you are also using any other drugs, including prescription and hnvs-ubm-mybqlen medicines, vitamins, and herbal products. Some medicines can cause unwanted or dangerous effects when used together. Not all possible interactions are listed in this medication guide. Taking this medicine with other drugs that make you sleepy or slow your breathing can worsen these effects. Ask your doctor before taking doxylamine with a sleeping pill, narcotic pain medicine, muscle relaxer, or medicine for anxiety, depression, or seizures. Where can I get more information? Your pharmacist can provide more information about doxylamine. Remember, keep this and all other medicines out of the reach of children, never share your medicines with others, and use this medication only for the indication prescribed. Every effort has been made to ensure that the information provided by [employer]') is accurate, up-to-date, and complete, but no guarantee is made to that effect. Drug information contained herein may be time sensitive. [employer] information has been compiled for use by healthcare practitioners and consumers in the [place] and therefore [employer] does not warrant that uses outside of the [place] are appropriate, unless specifically indicated otherwise. [employer] drug information does not endorse drugs, diagnose patients or recommend therapy. [employer] drug information is an informational resource designed to assist licensed healthcare practitioners in caring for their patients and/or to serve consumers viewing this service as a supplement to, and not a substitute for, the expertise, skill, knowledge and judgment of healthcare practitioners. The absence of a warning for a given drug or drug combination in no way should be construed to indicate that the drug or drug combination is safe, effective or appropriate for any given patient. [employer] does not assume any responsibility for any aspect of healthcare administered with the aid of information [employer] provides. The information contained herein is not intended to cover all possible uses, directions, precautions, warnings, drug interactions, allergic reactions, or adverse effects. If you have questions about the drugs you are taking, check with your doctor, nurse or pharmacist. Copyright 9355-4625 [employer] Version: 3.03. Revision Date: 05/21/2015. pyridoxine (vitamin B6) (PIR ih DOX een) Vitamin B6 What is the most important information I should know about pyridoxine? Follow all directions on your medicine label and package. Tell each of your healthcare providers about all your medical conditions, allergies, and all medicines you use. What is pyridoxine? Pyridoxine is vitamin B6. Vitamins occur naturally in foods such as meat, poultry, nuts, whole grains, bananas, and avocados. Vitamin B6 is important for many processes in the body. Pyridoxine is used to treat or prevent vitamin B6 deficiency. It is also used to treat a certain type of anemia (lack of red blood cells). Pyridoxine injection is also used to treat some types of seizure in babies. Pyridoxine taken by mouth (oral) is available without a prescription. Injectable pyridoxine must be given by a healthcare professional. Pyridoxine may also be used for purposes not listed in this medication guide. What should I discuss with my healthcare provider before using pyridoxine? You should not use pyridoxine if you have ever had an allergic reaction to it. Ask a doctor or pharmacist if it is safe for you to use this medicine if: you have any other medical conditions; you take other medications or herbal products; or you are allergic to any drugs or foods. To make sure you can safely receive injectable pyridoxine, tell your doctor if you have heart disease or kidney disease. Ask a doctor before using this medicine if you are or breast-feeding. Your dose needs may be different. High doses of pyridoxine can harm a nursing baby. Do not give this medicine to a child without medical advice. How should I use pyridoxine? Follow all directions on your prescription label. Do not use this medicine in larger or smaller amounts or for longer than recommended. Pyridoxine tablets are taken by mouth. Injectable pyridoxine is injected into a muscle or into a vein through an IV. You may be shown how to use injections at home. Do not give yourself this medicine if you do not understand how to use the injection and properly dispose of needles, IV tubing, and other items used. The recommended dietary allowance of pyridoxine increases with age. Follow your healthcare provider's instructions. You may also consult the Office of Dietary Supplements of the National Institutes of Health, or the U.S. Department of Agriculture (USDA) Nutrient Database (formerly 'Recommended Daily Allowances') listings for more information. Pyridoxine may be only part of a complete program of treatment that also includes a special diet. Follow the diet plan created for you by your doctor or nutrition counselor. Get familiar with the list of foods you should eat or avoid to help control your condition. Store at room temperature away from moisture and heat. What happens if I miss a dose? Use the missed dose as soon as you remember. Skip the missed dose if it is almost time for your next scheduled dose. Do not Use extra medicine to make up the missed dose. What happens if I overdose? Seek emergency medical attention or call the Poison Help line at . What should I avoid while using pyridoxine? Follow your doctor's instructions about any restrictions on food, beverages, or activity. What are the possible side effects of pyridoxine? Get emergency medical help if you have signs of an allergic reaction: hives; difficult breathing; swelling of your face, lips, tongue, or throat. Call your doctor at once if you have: decreased sensation to touch, temperature, and vibration; loss of balance or coordination; numbness in your feet or around your mouth; clumsiness in your hands; or feeling tired. Common side effects may include: nausea; headache; drowsiness; or mild numbness or tingling. This is not a complete list of side effects and others may occur. Call your doctor for medical advice about side effects. You may report side effects to FDA at 9-464-HSS-8237. What other drugs will affect pyridoxine? Other drugs may interact with pyridoxine, including prescription and kbpv-dxk-furmtxp medicines, vitamins, and herbal products. Tell each of your health care providers about all medicines you use now and any medicine you start or stop using. Where can I get more information? Your pharmacist can provide more information about pyridoxine. Remember, keep this and all other medicines out of the reach of children, never share your medicines with others, and use this medication only for the indication prescribed. Every effort has been made to ensure that the information provided by [employer]') is accurate, up-to-date, and complete, but no guarantee is made to that effect. Drug information contained herein may be time sensitive. [employer] information has been compiled for use by healthcare practitioners and consumers in the [place] and therefore [employer] does not warrant that uses outside of the [place] are appropriate, unless specifically indicated otherwise. [employer] drug information does not endorse drugs, diagnose patients or recommend therapy. [employer] drug information is an informational resource designed to assist licensed healthcare practitioners in caring for their patients and/or to serve consumers viewing this service as a supplement to, and not a substitute for, the expertise, skill, knowledge and judgment of healthcare practitioners. The absence of a warning for a given drug or drug combination in no way should be construed to indicate that the drug or drug combination is safe, effective or appropriate for any given patient. [employer] does not assume any responsibility for any aspect of healthcare administered with the aid of information [employer] provides. The information contained herein is not intended to cover all possible uses, directions, precautions, warnings, drug interactions, allergic reactions, or adverse effects. If you have questions about the drugs you are taking, check with your doctor, nurse or pharmacist. Copyright 7486-6762 [employer] Version: 2.04. Revision Date: 09/12/2016. Education Materials Hyperemesis Gravidarum Hyperemesis gravidarum is a severe form of morning sickness that can affect some women during . It may develop around the 5th week and last until the 16th week of . In some women, it may last longer. Symptoms include severe nausea and vomiting. This can lead to problems such as weight loss and dehydration. It's not clear what causes hyperemesis gravidarum. It may be from rising hormone levels early in the . It can be a serious threat to mother and fetus if symptoms are severe. Follow the advice below carefully. If your symptoms don't get better with home care measures, you may need to stay in the hospital. In the hospital, you may get IV (intravenous) fluids and medicines. Home care Diet Keep a log of the foods you eat and how they affect your symptoms. Don't eat foods that trigger your symptoms. Eat small meals often throughout the day rather than 3 large meals. This can help keep your stomach from being empty. An empty stomach can make nausea worse. Choose foods that are high in carbohydrates. Eating foods high in protein may also help. Limit greasy or spicy foods. Before getting out of bed in the morning, try eating crackers or dry toast. This may help settle your stomach. Drink cold, clear liquids. Drinking small amounts of liquids with electrolytes, such as sports drinks, may help as well. Medicine If needed, your healthcare provider may prescribe certain medicines to help ease nausea and vomiting. Your provider may suggest vitamin B6 and kymberly. Don t try any dtoh-pqe-pntpodp medicines or home remedies without talking with your provider first. Follow-up care Follow up with your healthcare provider, or as advised. When to seek medical advice Call your healthcare provider right away if any of these occur: Signs of dehydration. These include dry mouth, extreme thirst, dark urine or little urine output, dizziness, weakness, or fainting. Vomiting that won t stop Inability to keep down liquids Frequent diarrhea Weight loss or no weight gain over a 2-week period Severe constant pain in the lower right abdomen Fever of 100.4 F (38 C) or higher, or as directed by your healthcare provider [id number] [employer]. [address] [place] [address], [place] [address]. All rights reserved. This information is not intended as a substitute for professional medical care. Always follow your healthcare professional's instructions. Additional Information VACCINATE! IT SAVES LIVES! Members of the community who have not yet received the COVID-19 vaccine and would like to receive it can visit one of [facility] vaccine clinics. There are many vaccine clinic locations within the [facility]. For locations and available times, please visit [email or web address] .[email or web address] It is important to note that some COVID mobile vaccine clinics are held outdoors and may be canceled in rainy or stormy conditions. To learn more about pediatric vaccinations (ages 5-11), we invite you to visit the [facility] webpage. [email or web address].[email or web address].org/ pages/9281-Hcgua-Aqbfgkmysla-Fr njdyyqaq-Mcnsa-Urfmscrzv.html To learn more about the COVID-19 vaccine, we invite you to visit the CDC website for a list of frequently asked questions. https://www.cdc.gov/coronavirus /2019-ncov/vaccines/faq.html [facility] Patient Portal Access Instructions: Stay connected with your healthcare team and access your personal medical information anytime with the [employer] Patient Portal. If you would like a full copy of your medical records please contact the [facility] Medical Records Department Thursday through Thursday between 8a.m. and 4:30p.m. Please follow the directions below to access the portal: 1.Access the email account you provided upon registration to the [facility].2.Look for an invitation email from [facility].3.Open the email and access the invitation link: Accept Invitation to [facility]4.Fill in the required condon to create your account. Sign into [email or web address] with your username and password that you created in the above steps to stay up to date. You can then view a summary of results, a summary of your visits, and the ability to download your summaries to your computer or send the information securely to a physician. Remember that your healthcare information is confidential, so carefully consider who you will allow to register on the [facility] Patient Portal for access to your information. You can also access the [facility] Patient Portal on the [employer] yamileth. Simply click on Health Records under Health Data and then click on the [employer] logo. HOW TO SAFELY DISPOSE OF PRESCRIPTION MEDICATIONS Please use one of the following methods to safely dispose of your unused medications. 1.Use a drug disposal kit: the drug disposal pouch allows you to safely discard your old and unused drugs. Ask your nurse to give you one when you are discharged.2.Visit a local take-back location: Many local pharmacies and police departments have programs that collect old and unwanted prescription drugs. Call your local pharmacy or go to http://bit.Lotame/1S9Zd1r to find one close to you.3.Make use of household items: Use cat litter or old coffee grounds to dispose medications if other options are not available. Mix your drugs with these household products, seal them in an airtight container and throw it into the garbage. Call [facility]: [phone] to be sure your drugs can be disposed of in this way. Some medicines may require a different approach.4.Never flush your medications down the toilet. IF YOU HAVE BEEN PRESCRIBED AN OPIOIDS FOR PAIN If you have been prescribed an opioid (such as hydrocodone, oxycodone or morphine), it is critical to understand the possible side effects and risks of opioid pain medications. Even when taken as directed, opioids can have several side effects including: Tolerance, meaning you might need to take more of a medication for the same pain relief. Nausea, vomiting and/or constipation. Sleepiness, dizziness, dry mouth, confusion, depression or itching. Physical dependence, meaning you have withdrawal symptoms when a medication is stopped ? this can develop within a few days. KNOW YOUR RESPONSIBILITIES It is important to know exactly how much and how often to take the opioid pain medications you are prescribed. Never take opioids in higher amounts or more often than prescribed. Do not combine opioids with alcohol or other drugs that cause drowsiness, such as benzodiazepines, also known as benzos, including diazepam and alprazolam, muscle relaxants or sleep aids. Never sell or share prescription opioids. This is illegal. Store opioids in a secure place and out of reach of others (including children, family, friends and visitors). The last page(s) of this document has been signed and retained as a CHART COPY Signatures Patient Education Materials Hyperemesis Gravidarum Medication Leaflets cephalexin, doxylamine, pyridoxine (vitamin B6) My discharge plan and instructions have been reviewed and explained to me and I,XIN GARCIA understand my current condition and have read and understand these discharge instructions. I have received a written copy of the plan/instructions. If I have questions, I am aware that I should contact my doctor. 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 Jese 04-18-2023 Note HNO ID: [id number] Author: Ana María Cates APRN.KYRA Service: ? Author Type: Nurse Practitioner Type: Progress Notes Filed: 04/18/2023 2:13 PM Note Text: This note was created using [employer]. Subjective Xin Garcia is a 22 year old female. 22 year old female with PMH ADHD, depression and bipolar presents for confirmation. Home this morning POSITIVE. LMP-03/23/23 Denies vaginal bleeding Denies vaginal discharge. Denies abdominal pain Denies N/V/D This would maker her a States this is a wanted and expected They present today as the lines were faint this morning. Endorses she vapes, and will be quitting. Has vitamins at home. The history is provided by the patient. No bilingual speech language pathologist was used. Female Gu Problem The problem occurs continuously. The problem has been unchanged. The patient is experiencing no pain. Pertinent negatives include no chest pain, no anorexia, no chills, no fever, no abdominal pain, no diarrhea, no nausea, no vomiting, no dysuria, no frequency, no hematuria, no pelvic pain, no urgency, no vaginal bleeding, no vaginal discharge, no vaginal pain, no headaches, no sore throat, no back pain, no flank pain, no joint pain, no cough, no shortness of breath, no rash and no dyspareunia. There has been no history of trauma. Urine output has been normal. The last void occurred Less than 6 hours ago. She is currently Sexually active. She has 1 sexual partner. Contraceptives used include nothing. She is . She has missed her period. The patient's menstrual history has been irregular. She has had prior pregnancies. There were no sick contacts. She has received no recent medical care. PAST MEDICAL HISTORY Diagnosis Date Achilles tendonitis, bilateral 01/23/2016 Nonorganic enuresis Pyelonephritis during 11/05/2021 Sprain of ankle 06/23/2016 PAST SURGICAL HISTORY Procedure Laterality Date NONE ALLERGIES Patient has no known allergies. MEDICATIONS ARIPiprazole (ABILIFY) 5 mg tablet Take 1 tablet by mouth once daily. sertraline (ZOLOFT) 50 mg tablet Take 1.5 tablets by mouth once daily. mv, min #36-iron,carbonyl-FA (GERITOL COMPLETE) 16 mg iron- 0.38 mg tab Take 1 tablet by mouth once daily. FAMILY HISTORY Problem Relation Age of Onset Allergies Mother sulfa, naproxine Allergies Father PCN No Known Problems Sister No Known Problems Sister No Known Problems Brother No Known Problems Maternal Grandmother No Known Problems Maternal Grandfather No Known Problems Paternal Grandmother No Known Problems Paternal Grandfather Social History Tobacco Use Smoking status: Never Passive exposure: Yes Smokeless tobacco: Never Tobacco comments: Vape only Vaping Use Vaping Use: Never used Substance Use Topics Alcohol use: No Drug use: No Review of Systems Constitutional: Negative for chills and fever. HENT: Negative for sore throat. Respiratory: Negative for cough and shortness of breath. Cardiovascular: Negative for chest pain. Gastrointestinal: Negative for abdominal pain, anorexia, diarrhea, nausea and vomiting. Genitourinary: Negative for dyspareunia, dysuria, flank pain, frequency, hematuria, pelvic pain, urgency, vaginal bleeding, vaginal discharge and vaginal pain. Musculoskeletal: Negative for back pain and joint pain. Skin: Negative for rash. Neurological: Negative for headaches. Objective BP 110/62 Pulse 95 Temp 36.9 ?C (98.4 ?F) Resp 16 Wt 66.7 kg (147 lb) LMP 03/23/2023 SpO2 99% BMI 26.89 kg/m? Physical Exam Vitals and nursing note reviewed. Constitutional: General: She is not in acute distress. Appearance: Normal appearance. She is normal weight. She is not ill-appearing, toxic-appearing or diaphoretic. HENT: Head: Normocephalic and atraumatic. Right Ear: Ear canal and external ear normal. Left Ear: Ear canal and external ear normal. Nose: Nose normal. No congestion or rhinorrhea. Mouth/Throat: Mouth: Mucous membranes are moist. Pharynx: No oropharyngeal exudate or posterior oropharyngeal erythema. Eyes: General: Right eye: No discharge. Left eye: No discharge. Extraocular Movements: Extraocular movements intact. Conjunctiva/sclera: Conjunctivae normal. Pupils: Pupils are equal, round, and reactive to light. Cardiovascular: Rate and Rhythm: Normal rate and regular rhythm. Pulses: Normal pulses. Heart sounds: Normal heart sounds. No murmur heard. No friction rub. Pulmonary: Effort: Pulmonary effort is normal. No respiratory distress. Breath sounds: Normal breath sounds. No stridor. No wheezing, rhonchi or rales. Chest: Chest wall: No tenderness. Abdominal: General: Abdomen is flat. There is no distension. Palpations: Abdomen is soft. There is no mass. Tenderness: There is no abdominal tenderness. There is no right CVA tenderness, left CVA tenderness, guarding or octavia (more content not included)... [facility] 04-18-2023 History of Presen t illness Narrative This note was created using [employer]. Subjective Xin Garcia is a 22 year old female. 22 year old female with PMH ADHD, depression and bipolar presents for confirmation. Home this morning POSITIVE. LMP-03/23/23 Denies vaginal bleeding Denies vaginal discharge. Denies abdominal pain Denies N/V/D This would maker her a States this is a wanted and expected They present today as the lines were faint this morning. Endorses she vapes, and will be quitting. Has vitamins at home. The history is provided by the patient. No bilingual speech language pathologist was used. Female Gu Problem The problem occurs continuously. The problem has been unchanged. The patient is experiencing no pain. Pertinent negatives include no chest pain, no anorexia, no chills, no fever, no abdominal pain, no diarrhea, no nausea, no vomiting, no dysuria, no frequency, no hematuria, no pelvic pain, no urgency, no vaginal bleeding, no vaginal discharge, no vaginal pain, no headaches, no sore throat, no back pain, no flank pain, no joint pain, no cough, no shortness of breath, no rash and no dyspareunia. There has been no history of trauma. Urine output has been normal. The last void occurred Less than 6 hours ago. She is currently Sexually active. She has 1 sexual partner. Contraceptives used include nothing. She is . She has missed her period. The patient's menstrual history has been irregular. She has had prior pregnancies. There were no sick contacts. She has received no recent medical care. PAST MEDICAL HISTORY Diagnosis Date Achilles tendonitis, bilateral 01/23/2016 Nonorganic enuresis Pyelonephritis during 11/05/2021 Sprain of ankle 06/23/2016 PAST SURGICAL HISTORY Procedure Laterality Date NONE ALLERGIES Patient has no known allergies. MEDICATIONS ARIPiprazole (ABILIFY) 5 mg tablet Take 1 tablet by mouth once daily. sertraline (ZOLOFT) 50 mg tablet Take 1.5 tablets by mouth once daily. mv, min #36-iron,carbonyl-FA (GERITOL COMPLETE) 16 mg iron- 0.38 mg tab Take 1 tablet by mouth once daily. FAMILY HISTORY Problem Relation Age of Onset Allergies Mother sulfa, naproxine Allergies Father PCN No Known Problems Sister No Known Problems Sister No Known Problems Brother No Known Problems Maternal Grandmother No Known Problems Maternal Grandfather No Known Problems Paternal Grandmother No Known Problems Paternal Grandfather Social History Tobacco Use Smoking status: Never Passive exposure: Yes Smokeless tobacco: Never Tobacco comments: Vape only Vaping Use Vaping Use: Never used Substance Use Topics Alcohol use: No Drug use: No Review of Systems Constitutional: Negative for chills and fever. HENT: Negative for sore throat. Respiratory: Negative for cough and shortness of breath. Cardiovascular: Negative for chest pain. Gastrointestinal: Negative for abdominal pain, anorexia, diarrhea, nausea and vomiting. Genitourinary: Negative for dyspareunia, dysuria, flank pain, frequency, hematuria, pelvic pain, urgency, vaginal bleeding, vaginal discharge and vaginal pain. Musculoskeletal: Negative for back pain and joint pain. Skin: Negative for rash. Neurological: Negative for headaches. Objective BP 110/62 Pulse 95 Temp 36.9 C (98.4 F) Resp 16 Wt 66.7 kg (147 lb) LMP 03/23/2023 SpO2 99% BMI 26.89 kg/m Physical Exam Vitals and nursing note reviewed. Constitutional: General: She is not in acute distress. Appearance: Normal appearance. She is normal weight. She is not ill-appearing, toxic-appearing or diaphoretic. HENT: Head: Normocephalic and atraumatic. Right Ear: Ear canal and external ear normal. Left Ear: Ear canal and external ear normal. Nose: Nose normal. No congestion or rhinorrhea. Mouth/Throat: Mouth: Mucous membranes are moist. Pharynx: No oropharyngeal exudate or posterior oropharyngeal erythema. Eyes: General: Right eye: No discharge. Left eye: No discharge. Extraocular Movements: Extraocular movements intact. Conjunctiva/sclera: Conjunctivae normal. Pupils: Pupils are equal, round, and reactive to light. Cardiovascular: Rate and Rhythm: Normal rate and regular rhythm. Pulses: Normal pulses. Heart sounds: Normal heart sounds. No murmur heard. No friction rub. Pulmonary: Effort: Pulmonary effort is normal. No respiratory distress. Breath sounds: Normal breath sounds. No stridor. No wheezing, rhonchi or rales. Chest: Chest wall: No tenderness. Abdominal: General: Abdomen is flat. There is no distension. Palpations: Abdomen is soft. There is no mass. Tenderness: There is no abdominal tenderness. There is no right CVA tenderness, left CVA tenderness, guarding or rebound. Hernia: No hernia is present. Musculoskeletal: General: No swelling, tenderness, deformity or signs of injury. Normal range of motion. Cervical back: Normal range of motion and neck supple. No rigidity. Right lower leg: No edema. Left lower leg: No edema. Lymphadenopathy: Cervical: No cervical adenopathy. Skin: General: Skin is warm and dry. Capillary Refill: Capillary refill takes less than 2 seconds. Coloration: Skin is not jaundiced or pale. Findings: No bruising, erythema, lesion or rash. Neurological: General: No focal deficit present. Mental Status: She is alert and oriented to person, place, and time. Cranial Nerves: No cranial nerve deficit. Sensory: No sensory deficit. Motor: No weakness. Coordination: Coordination normal. Gait: Gait normal. Psychiatric: Mood and Affect: Mood normal. Behavior: Behavior normal. Thought Content: Thought content normal. Judgment: Judgment normal. Assessment and Plan ASSESSMENT/PLAN: 1. Missed period - ICD9: 626.4, ICD10: N92.6 (primary diagnosis) LMP 03/23/23 - HCG QUAL UR B/O 2. Positive urine test - ICD9: V72.42, ICD10: Z32.01 Positive units-HCG here in clinic Advised patient to stop smoking Call [facility] Thursday to set up first appointment. Ana María Cates, SUNNY.FLANGING MACHINE OPERATOR documented in this encounter [facility] 02-23-2023 Miscellaneous Notes Pt calling states having irregular bleeding since IUD removed last week. Went to [facility] ER- just advised to follow up with FURNITURE PAINTER. Pt is using tampons- advised to use asha pads as easier to gauge amount and frequency. Denies being symptomatic. Advised cycles may be irregular as well as bleeding for a couple months while body adjusts to no hormones. Bleeding and pain precautions reviewed. documented in this encounter [facility] 02-22-2023 Hospital Discharg e instructions Patient Education 02/22/2023 17:21:26 Urinary Tract Infections in Women Urinary Tract Infections in Women Urinary tract infections (UTIs) are most often caused by bacteria. These bacteria enter the urinary tract. The bacteria may come from outside the body. Or they may travel from the skin outside the rectum or vagina into the urethra. Female anatomy makes it easy for bacteria from the bowel to enter a woman s urinary tract, which is the most common source of UTI. This means women develop UTIs more often than men. Pain in or around the urinary tract is a common UTI symptom. But the only way to know for sure if you have a UTI for the healthcare provider to test your urine. The two tests that may be done are the urinalysis and urine culture. Types of UTIs Cystitis. A bladder infection (cystitis) is the most common UTI in women. You may have urgent or frequent urination. You may also have pain, burning when you urinate, and bloody urine. Urethritis. This is an inflamed urethra, which is the tube that carries urine from the bladder to outside the body. You may have lower stomach or back pain. You may also have urgent or frequent urination. Pyelonephritis. This is a kidney infection. If not treated, it can be serious and damage your kidneys. In severe cases, you may need to stay in the hospital. You may have a fever and lower back pain. Medicines to treat a UTI Most UTIs are treated with antibiotics. These kill the bacteria. The length of time you need to take them depends on the type of infection. It may be as short as 3 days. If you have repeated UTIs, you may need a low-dose antibiotic for several months. Take antibiotics exactly as directed. Don t stop taking them until all of the medicine is gone. If you stop taking the antibiotic too soon, the infection may not go away. You may also develop a resistance to the antibiotic. This can make it much harder to treat. Lifestyle changes to treat and prevent UTIs The lifestyle changes below will help get rid of your UTI. They may also help prevent future UTIs. Drink plenty of fluids. This includes water, juice, or other caffeine-free drinks. Fluids help flush bacteria out of your body. Empty your bladder. Always empty your bladder when you feel the urge to urinate. And always urinate before going to sleep. Urine that stays in your bladder can lead to infection. Try to urinate before and after sex as well. Practice good personal hygiene. Wipe yourself from front to back after using the toilet. This helps keep bacteria from getting into the urethra. Use condoms during sex. These help prevent UTIs caused by sexually transmitted bacteria. Also don't use spermicides during sex. These can increase the risk for UTIs. Choose other forms of control instead. For women who tend to get UTIs after sex, a low-dose of a preventive antibiotic may be used. Be sure to discuss this option with your healthcare provider. Follow up with your healthcare provider as directed. He or she may test to make sure the infection has cleared. If needed, more treatment may be started. [id number] [employer]. [address] [place] [address]. All rights reserved. This information is not intended as a substitute for professional medical care. Always follow your healthcare professional's instructions. Follow Up Care 02/22/2023 16:14:10 With:SUMEET CHAVEZ APRN-FLANGING MACHINE OPERATOR Address: [address] [place] [address] [place] [address] [phone] When:2-4 days [facility] 02-22-2023 Emergency department Discharge summary Discharge Instructions Thank you for allowing [facility] to assist you with your healthcare needs. The following is important discharge information regarding your hospital visit. Diagnosis from Today's Visit UTI - Urinary tract infection Vaginal bleeding What to Do Next Instructions from Your Care Team No qualifying data available. Post Acute Orders No qualifying data available. You Need to Schedule the Following Appointments Follow Up with SUMEET CHAEVZ When Within 2-4 days Where: [address] [facility] [place] [address]- [phone] Allergies NKA Medications Please ask your primary doctor or pharmacist before taking any other medication not listed, including over the counter drugs, herbal medications, vitamins and or supplements as they may interact with your home medications. What How Much When Instructions Last Dose New cephalexin (cephalexin 500 mg oral capsule) 1 cap by mouth Every 12 hours Duration: 7 Days Printed Prescription Unchanged ARIPiprazole (Abilify 5 mg oral tablet) 1 tab(s) by mouth Once a day Unchanged multivitamin with minerals (Geritol Complete oral tablet) Take 1 tablet by mouth once daily. Unchanged sertraline (Zoloft 50 mg oral tablet) 1.5 tab(s) by mouth Once a day Duration: 90 Days Please take this list to your next doctor s visit. Bring all medications you take, including over the counter medications, herbals and other supplements with you to your doctor s visit. Patients and families are reminded to discard old lists and to update any records with all medication providers or retail pharmacies. Education Materials Urinary Tract Infections in Women Urinary tract infections (UTIs) are most often caused by bacteria. These bacteria enter the urinary tract. The bacteria may come from outside the body. Or they may travel from the skin outside the rectum or vagina into the urethra. Female anatomy makes it easy for bacteria from the bowel to enter a woman s urinary tract, which is the most common source of UTI. This means women develop UTIs more often than men. Pain in or around the urinary tract is a common UTI symptom. But the only way to know for sure if you have a UTI for the healthcare provider to test your urine. The two tests that may be done are the urinalysis and urine culture. Types of UTIs Cystitis. A bladder infection (cystitis) is the most common UTI in women. You may have urgent or frequent urination. You may also have pain, burning when you urinate, and bloody urine. Urethritis. This is an inflamed urethra, which is the tube that carries urine from the bladder to outside the body. You may have lower stomach or back pain. You may also have urgent or frequent urination. Pyelonephritis. This is a kidney infection. If not treated, it can be serious and damage your kidneys. In severe cases, you may need to stay in the hospital. You may have a fever and lower back pain. Medicines to treat a UTI Most UTIs are treated with antibiotics. These kill the bacteria. The length of time you need to take them depends on the type of infection. It may be as short as 3 days. If you have repeated UTIs, you may need a low-dose antibiotic for several months. Take antibiotics exactly as directed. Don t stop taking them until all of the medicine is gone. If you stop taking the antibiotic too soon, the infection may not go away. You may also develop a resistance to the antibiotic. This can make it much harder to treat. Lifestyle changes to treat and prevent UTIs The lifestyle changes below will help get rid of your UTI. They may also help prevent future UTIs. Drink plenty of fluids. This includes water, juice, or other caffeine-free drinks. Fluids help flush bacteria out of your body. Empty your bladder. Always empty your bladder when you feel the urge to urinate. And always urinate before going to sleep. Urine that stays in your bladder can lead to infection. Try to urinate before and after sex as well. Practice good personal hygiene. Wipe yourself from front to back after using the toilet. This helps keep bacteria from getting into the urethra. Use condoms during sex. These help prevent UTIs caused by sexually transmitted bacteria. Also don't use spermicides during sex. These can increase the risk for UTIs. Choose other forms of control instead. For women who tend to get UTIs after sex, a low-dose of a preventive antibiotic may be used. Be sure to discuss this option with your healthcare provider. Follow up with your healthcare provider as directed. He or she may test to make sure the infection has cleared. If needed, more treatment may be started. [id number] [employer]. [address] [place] [address], [place] [address]. All rights reserved. This information is not intended as a substitute for professional medical care. Always follow your healthcare professional's instructions. Additional Information VACCINATE! IT SAVES LIVES! Members of the community who have not yet received the COVID-19 vaccine and would like to receive it can visit one of [facility] vaccine clinics. There are many vaccine clinic locations within the [facility]. For locations and available times, please visit www.gettheshot.coronavirus.[place] .gov/. It is important to note that some COVID mobile vaccine clinics are held outdoors and may be canceled in rainy or stormy conditions. To learn more about pediatric vaccinations (ages 5-11), we invite you to visit the [facility] webpage. https://[email or web address].org/ [email or web address]-Cagxj-Ngpdvvlavby-Fr zeyxoxgu-Eqfrj-[email or web address].html To learn more about the COVID-19 vaccine, we invite you to visit the CDC website for a list of frequently asked questions. https://www.cdc.gov/coronavirus /2019-ncov/vaccines/faq.html [facility] Patient Portal Access Instructions: Stay connected with your healthcare team and access your personal medical information anytime with the [facility] Patient Portal. If you would like a full copy of your medical records please contact the [facility] Medical Records Department Thursday through Thursday between 8a.m. and 4:30p.m. Please follow the directions below to access the portal: 1.Access the email account you provided upon registration to the hospital.2.Look for an invitation email from [facility].3.Open the email and access the invitation link: Accept Invitation to [facility]4.Fill in the required condon to create your account. Sign into www.Well with your username and password that you created in the above steps to stay up to date. You can then view a summary of results, a summary of your visits, and the ability to download your summaries to your computer or send the information securely to a physician. Remember that your healthcare information is confidential, so carefully consider who you will allow to register on the [facility] Patient Portal for access to your information. You can also access the [facility] Patient Portal on the [employer] yamileth. Simply click on Health Records under Health Data and then click on the [employer] logo. HOW TO SAFELY DISPOSE OF PRESCRIPTION MEDICATIONS Please use one of the following methods to safely dispose of your unused medications. 1.Use a drug disposal kit: the drug disposal pouch allows you to safely discard your old and unused drugs. Ask your nurse to give you one when you are discharged.2.Visit a local take-back location: Many local pharmacies and police departments have programs that collect old and unwanted prescription drugs. Call your local pharmacy or go to http://[employer].Lotame/7Y1Jk7j to find one close to you.3.Make use of household items: Use cat litter or old coffee grounds to dispose medications if other options are not available. Mix your drugs with these household products, seal them in an airtight container and throw it into the garbage. Call [facility]: [phone] to be sure your drugs can be disposed of in this way. Some medicines may require a different approach.4.Never flush your medications down the toilet. IF YOU HAVE BEEN PRESCRIBED AN OPIOIDS FOR PAIN If you have been prescribed an opioid (such as hydrocodone, oxycodone or morphine), it is critical to understand the possible side effects and risks of opioid pain medications. Even when taken as directed, opioids can have several side effects including: Tolerance, meaning you might need to take more of a medication for the same pain relief. Nausea, vomiting and/or constipation. Sleepiness, dizziness, dry mouth, confusion, depression or itching. Physical dependence, meaning you have withdrawal symptoms when a medication is stopped ? this can develop within a few days. KNOW YOUR RESPONSIBILITIES It is important to know exactly how much and how often to take the opioid pain medications you are prescribed. Never take opioids in higher amounts or more often than prescribed. Do not combine opioids with alcohol or other drugs that cause drowsiness, such as benzodiazepines, also known as benzos, including diazepam and alprazolam, muscle relaxants or sleep aids. Never sell or share prescription opioids. This is illegal. Store opioids in a secure place and out of reach of others (including children, family, friends and visitors). The last page(s) of this document has been signed and retained as a CHART COPY Signatures Patient Education Materials Urinary Tract Infections in Women Medication Leaflets My discharge plan and instructions have been reviewed and explained to me and I,XIN GARCIA understand my current condition and have read and understand these discharge instructions. I have received a written copy of the plan/instructions. If I have questions, I am aware that I should contact my doctor. 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 Author Type: Nurse Practitioner Type: Progress Notes Filed: 02/19/2023 9:12 AM Note Text: Xin presents for removal of IUD due to desire for . Pt had Mirena IUD placed 06/12/2021. UNIVERSAL PROTOCOL / SAFETY CHECKLIST Procedure to be Performed: IUD removal Sign In: A Moment of CARE was completed. Personnel directly involved with the procedure wore the appropriate PPE (Personal Protective Equipment). Special equipment: ring forceps Patient/Surrogate Stated/Verified: PATIENT VERIFIED(optional for EMERGENT procedures): Patient name, Date of , Relevant allergies, and The intended procedure Time Out Communication: Intended patient and procedure match the source documents. Consent documented and matches the intended procedure. No relevant labs, photos, and/or imaging studies were applicable for review. No correct side/site applicable for marking and visibility. No medications required for procedure. No fire risk assessment and interventions applicable. No implant(s) inserted. Sign Out: SIGN OUT (optional for EMERGENT procedures): No specimen collected. All instruments, equipment, possible retained foreign bodies accounted for. Post-procedure follow-up management communicated and Plan of Care Visit completed when applicable. Main Hernandez APRN.FLANGING MACHINE OPERATOR PROCEDURE: Speculum placed in vagina, IUD string visualized and grasped with ring forceps. ASSESSMENT/PLAN: IUD removed without difficulty, intact, and patient tolerated procedure well. Contraception plans: none Reviewed pre-conception guidelines including folic acid supplementation, optimal timing of intercourse, avoidance of smoking, alcohol, exposure to environmental chemicals and need for evaluation if not within 12 months. Main Hernandez APRN.CNP [facility] 02-19-2023 History of Presen t illness Narrative Xin presents for removal of IUD due to desire for . Pt had Mirena IUD placed 06/12/2021. UNIVERSAL PROTOCOL / SAFETY CHECKLIST Procedure to be Performed: IUD removal Sign In: A Moment of CARE was completed. Personnel directly involved with the procedure wore the appropriate PPE (Personal Protective Equipment). Special equipment: ring forceps Patient/Surrogate Stated/Verified: PATIENT VERIFIED(optional for EMERGENT procedures): Patient name, Date of , Relevant allergies, and The intended procedure Time Out Communication: Intended patient and procedure match the source documents. Consent documented and matches the intended procedure. No relevant labs, photos, and/or imaging studies were applicable for review. No correct side/site applicable for marking and visibility. No medications required for procedure. No fire risk assessment and interventions applicable. No implant(s) inserted. Sign Out: SIGN OUT (optional for EMERGENT procedures): No specimen collected. All instruments, equipment, possible retained foreign bodies accounted for. Post-procedure follow-up management communicated and Plan of Care Visit completed when applicable. Main Hernandez APRN.CNP PROCEDURE: Speculum placed in vagina, IUD string visualized and grasped with ring forceps. ASSESSMENT/PLAN: IUD removed without difficulty, intact, and patient tolerated procedure well. Contraception plans: none Reviewed pre-conception guidelines including folic acid supplementation, optimal timing of intercourse, avoidance of smoking, alcohol, exposure to environmental chemicals and need for evaluation if not within 12 months. Main Hernandez APRN.CNP documented in this encounter [facility] 01-01-2023 Note HNO ID: [id number] Author: Samantha Altman APRN.CNP Service: ? Author Type: Nurse Practitioner Type: Progress Notes Filed: 01/01/2023 10:44 PM Note Text: PSYC FOLLOW UP - PSYCHIATRIC PROGRESS NOTE DIAGNOSIS: Bipolar 2 disorder Generalized Anxiety Disorder GAF: -70-61 Some mild symptoms or some difficulty in social, occupational, or school functioning, but generally functioning pretty well. TREATMENT PLAN: Continue Abilify and Zoloft at the same dose. Complete monitoring lab work prior to the next appointment. Follow up in 3 months. Collaborate with her sleep medicine provider at [facility]. The effects and side effects of all the medications were reviewed in detail with the patient. She is in agreement with the treatment plan and aware to reach out with any questions, concerns, or worsening of symptoms prior to the next appointment. Patient denies any involuntary movement related side effects. CC: Follow up regarding mood and anxiety symptoms. With the patient consent, visit was performed virtually. I have communicated my name and active licensure. The patient's identity and physical location were verified at the time of this visit. Either the patient or their legal telephone claims representative has been informed of the risks and benefits of -- and alternatives to -- treatment through a remote evaluation and consents to proceed with the evaluation remotely. HPI: Xin Garcia is a 22 year old Female with a history of Bipolar disorder and Generalized Anxiety Disorder presenting today for follow-up. Date of last visit: 05/20/2022 Plan from last visit: Increase Abilify to address her mood and irritability related symptoms. Continue Zoloft at the same dose. Follow up in 4 weeks. Today Xin shares that she is doing okay. Her son is struggling with some viral illness. He is doing better now than he was before. Son will be 2 in February. She is trying to find a new job. Lost job at [employer]. She was working an overnight shift and it was hard with sleep and her son. 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 She has been consistent in taking her Abilify and Zoloft. Reports doing well in managing her symptoms. Her sleep has been difficult to maintain. She has been struggling to stay asleep. Feels tired during the day. She has a hard time falling back asleep if she wakes up. She has been eating more. She has gained more weight. Reports craving sugar. Has a PCP through [facility]. Interval Progress: Slightly improved Risks and benefits of the medication, including any black box warnings, were discussed with the patient. Social History: See HPI PATIENT DATA: Generalized Anxiety Disorder Scale (BALJINDER-7) BALJINDER - 7 SCORES 05/20/2022 08/25/2022 12/28/2022 BALJINDER-7 Score 10 8 8 (0-4) minimal anxiety, (5-9) mild anxiety, (10-14) moderate anxiety, (15-21) severe anxiety Patient Health Questionnaire (PHQ-9) PHQ-9 05/20/2022 08/25/2022 12/28/2022 Score 11 8 9 (0-4) minimal depression, (5-9) mild depression, (10-14) moderate depression, (15-19) moderately severe depression, (20-27) severe depression ROS: See HPI General: Negative for fever, malaise, unintentional weight loss HEENT: Negative for recent changes in vision or hearing, no nasal drainage Respiratory: Negative for cough, wheezing or SOB Cardiovascular: Negative for chest pain GI: Negative for nausea, vomiting, change in bowel habits MUSCULOSKELETAL: Negative for acute back or joint pain SKIN: Negative for rash NEURO: Negative for headaches, seizures, focal neurological deficits All other systems negative. VITAL SIGNS: BP Temp Pulse Resp SpO2 MENTAL STATUS EXAMINATION: Appearance: Appropriately groomed, appears stated age Behavior: Appropriately engaged Psychomotor: No psychomotor agitation Cognition Level of Consciousness: Awake and alert. No fluctuation in wakefulness. Orientation: Grossly oriented Memory: Intact Attention/Concentration: Good Fund of Knowledge: Able to demonstrate an awareness of current events. Mood: Euthymic Affect: Congruent to mood Speech/Language: Appropriate tone, prosody, duy, phonetics, and syntax Thought Form: Goal-directed. No loosening of associations. Thought Content: No delusions noted or endorsed. Perceptual Disturbances: Did not appear to respond to auditory stimuli. Safety: Suicidal Ideations: No suicidal ideation, intent or plan. Homicidal Ideations: No homicidal ideation, intent or plan. Insight: Appropriate Judgment: Appropriate I spent a total of 28 minutes on the date of the service which included preparing to see the patient, lioe-ut-imme patient care, completing clinical documentation, communicating with other healthcare providers and counseling and educating the patient/family/caregiver, ordering medications/labs. Samantha Altman, SUNNY.FLANGING MACHINE OPERATOR January 01, 2023 11:09 AM This note was partially generated using [employer] (more content not included)... [facility] 12-23-2022 Miscellaneous Notes Pt called back and scheduled appt for 01/01. She is completely out of her medications. Asking if these can be sent now that she has f/u. LMTC needs to schedule FU prior to refills being sent Patient has been identified by name and date of : Yes Last office visit in this department: Visit date not found RX INSTRUCTIONS: Patient aware RX will be sent to pharmacy. No need to notify patient. Patient phones requesting refills as follows: Requested Prescriptions Pending Prescriptions Disp Refills ARIPiprazole (ABILIFY) 5 mg tablet 30 tablet 1 Sig: Take 1 tablet by mouth once daily. Please review and advise. Ruth Jose documented in this encounter [facility] 12-15-2022 Miscellaneous Notes Spoke to sleep center and she will fax recent note over. Spoke to patient and she will call in to schedule a Fu with Samantha since we have not seen her since May. Please refer to tele enc from 12/01/22. Patient calling again to report that her sleep specialist is still trying to contact provider's office to get clearance on a new medication they would like to prescribe. They have sent fax and have been attempting to contact the office multiple times. Please contact Omaira Burns CNP in [facility] at [phone] to discuss plan of care. documented in this encounter [facility] 12-06-2022 Hospital Discharg e instructions Patient Education 12/06/2022 21:07:34 Back Exercises, Lumbar Exercises to Strengthen Your Lower Back Strong lower back and abdominal muscles work together to support your spine. The exercises below will help strengthen the lower back. It is important that you begin exercising slowly and increase levels gradually. Always begin any exercise program with stretching. If you feel pain while doing any of these exercises, stop and talk to your doctor about a more specific exercise program that better suits your condition. Low back stretch The point of stretching is to make you more flexible and increase your range of motion. Stretch only as much as you are able. Stretch slowly. Do not push your stretch to the limit. If at any point you feel pain while stretching, this is your (temporary) limit. Lie on your back with your knees bent and both feet on the ground. Slowly raise your left knee to your chest as you flatten your lower back against the floor. Hold for 5 seconds. Relax and repeat the exercise with your right knee. Do 10 of these exercises for each leg. Repeat hugging both knees to your chest at the same time. Building lower back strength Start your exercise routine with 10 to 30 minutes a day, 1 to 3 times a day. Initial exercises Lying on your back: 1. Ankle pumps: Move your foot up and down, towards your head, and then away. Repeat 10 times with each foot. 2. Heel slides: Slowly bend your knee, drawing the heel of your foot towards you. Then slide your heel/foot from you, straightening your knee. Do not lift your foot off the floor (this is not a leg lift). 3. Abdominal contraction: Bend your knees and put your hands on your stomach. Tighten your stomach muscles. Hold for 5 seconds, then relax. Repeat 10 times. 4. Straight leg raise: Bend one leg at the knee and keep the other leg straight. Tighten your stomach muscles. Slowly lift your straight leg 6 to 12 inches off the floor and hold for up to 5 seconds. Repeat 10 times on each side. Standin. Wall squats: Stand with your back against the wall. Move your feet about 12 inches away from the wall. Tighten your stomach muscles, and slowly bend your knees until they are at about a 45 degree angle. Do not go down too far. Hold about 5 seconds. Then slowly return to your starting position. Repeat 10 times. 2. Heel raises: Stand facing the wall. Slowly raise the heels of your feet up and down, while keeping your toes on the floor. If you have trouble balancing, you can touch the wall with your hands. Repeat 10 times. More advanced exercises When you feel comfortable enough, try these exercises. 1. Kneeling lumbar extension: Begin on your hands and knees. At the same time, raise and straighten your right arm and left leg until they are parallel to the ground. Hold for 2 seconds and come back slowly to a starting position. Repeat with left arm and right leg, alternating 10 times. 2. Prone lumbar extension: Lie face down, arms extended overhead, palms on the floor. At the same time, raise your right arm and left leg as high as comfortably possible. Hold for 10 seconds and slowly return to start. Repeat with left arm and right leg, alternating 10 times. Gradually build up to 20 times. (Advanced: Repeat this exercise raising both arms and both legs a few inches off the floor at the same time. Hold for 5 seconds and release.) 3. Pelvic tilt: Lie on the floor on your back with your knees bent at 90 degrees. Your feet should be flat on the floor. Inhale, exhale, then slowly contract your abdominal muscles bringing your navel toward your spine. Let your pelvis rock back until your lower back is flat on the floor. Hold for 10 seconds while breathing smoothly. 4. Abdominal crunch: Perform a pelvic tilt (above) flattening your lower back against the floor. Holding the tension in your abdominal muscles, take another breath and raise your shoulder blades off the ground (this is not a full sit-up). Keep your head in line with your body (don t bend your neck forward). Hold for 2 seconds, then slowly lower. [id number] [employer]. [address] [place] [address]. All rights reserved. This information is not intended as a substitute for professional medical care. Always follow your healthcare professional's instructions. Follow Up Care 12/06/2022 20:09:52 With:SUMEET CHAVEZ Address: [address] [place] [address] [place] [address] [phone] When:2-4 days [facility] 12-06-2022 Note Discharge Instructions Thank you for allowing [facility] to assist you with your healthcare needs. The following is important discharge information regarding your hospital visit. Diagnosis from Today's Visit Back pain What to Do Next Instructions from Your Care Team Discharge Return to Work, School, or Sports (Return to Work, School, or Sports) - Ordered -- May return to: work, please excuse on 12/03/22, 12/06/22 21:07:00 EDT Post Acute Orders No qualifying data available. You Need to Schedule the Following Appointments Follow Up with SUMEET CHAVEZ When Within 2-4 days Where: [address] [facility] [place] [address]- [phone] Allergies NKA Medications Please ask your primary doctor or pharmacist before taking any other medication not listed, including over the counter drugs, herbal medications, vitamins and or supplements as they may interact with your home medications. What How Much When Instructions Last Dose New cyclobenzaprine (cyclobenzaprine 10 mg oral tablet) 1 tab(s) by mouth Three (3) times a day Duration: 7 Days Printed Prescription Please take this list to your next doctor s visit. Bring all medications you take, including over the counter medications, herbals and other supplements with you to your doctor s visit. Patients and families are reminded to discard old lists and to update any records with all medication providers or retail pharmacies. Education Materials Exercises to Strengthen Your Lower Back Strong lower back and abdominal muscles work together to support your spine. The exercises below will help strengthen the lower back. It is important that you begin exercising slowly and increase levels gradually. Always begin any exercise program with stretching. If you feel pain while doing any of these exercises, stop and talk to your doctor about a more specific exercise program that better suits your condition. Low back stretch The point of stretching is to make you more flexible and increase your range of motion. Stretch only as much as you are able. Stretch slowly. Do not push your stretch to the limit. If at any point you feel pain while stretching, this is your (temporary) limit. Lie on your back with your knees bent and both feet on the ground. Slowly raise your left knee to your chest as you flatten your lower back against the floor. Hold for 5 seconds. Relax and repeat the exercise with your right knee. Do 10 of these exercises for each leg. Repeat hugging both knees to your chest at the same time. Building lower back strength Start your exercise routine with 10 to 30 minutes a day, 1 to 3 times a day. Initial exercises Lying on your back: 1. Ankle pumps: Move your foot up and down, towards your head, and then away. Repeat 10 times with each foot. 2. Heel slides: Slowly bend your knee, drawing the heel of your foot towards you. Then slide your heel/foot from you, straightening your knee. Do not lift your foot off the floor (this is not a leg lift). 3. Abdominal contraction: Bend your knees and put your hands on your stomach. Tighten your stomach muscles. Hold for 5 seconds, then relax. Repeat 10 times. 4. Straight leg raise: Bend one leg at the knee and keep the other leg straight. Tighten your stomach muscles. Slowly lift your straight leg 6 to 12 inches off the floor and hold for up to 5 seconds. Repeat 10 times on each side. Standin. Wall squats: Stand with your back against the wall. Move your feet about 12 inches away from the wall. Tighten your stomach muscles, and slowly bend your knees until they are at about a 45 degree angle. Do not go down too far. Hold about 5 seconds. Then slowly return to your starting position. Repeat 10 times. 2. Heel raises: Stand facing the wall. Slowly raise the heels of your feet up and down, while keeping your toes on the floor. If you have trouble balancing, you can touch the wall with your hands. Repeat 10 times. More advanced exercises When you feel comfortable enough, try these exercises. 1. Kneeling lumbar extension: Begin on your hands and knees. At the same time, raise and straighten your right arm and left leg until they are parallel to the ground. Hold for 2 seconds and come back slowly to a starting position. Repeat with left arm and right leg, alternating 10 times. 2. Prone lumbar extension: Lie face down, arms extended overhead, palms on the floor. At the same time, raise your right arm and left leg as high as comfortably possible. Hold for 10 seconds and slowly return to start. Repeat with left arm and right leg, alternating 10 times. Gradually build up to 20 times. (Advanced: Repeat this exercise raising both arms and both legs a few inches off the floor at the same time. Hold for 5 seconds and release.) 3. Pelvic tilt: Lie on the floor on your back with your knees bent at 90 degrees. Your feet should be flat on the floor. Inhale, exhale, then slowly contract your abdominal muscles bringing your navel toward your spine. Let your pelvis rock back until your lower back is flat on the floor. Hold for 10 seconds while breathing smoothly. 4. Abdominal crunch: Perform a pelvic tilt (above) flattening your lower back against the floor. Holding the tension in your abdominal muscles, take another breath and raise your shoulder blades off the ground (this is not a full sit-up). Keep your head in line with your body (don t bend your neck forward). Hold for 2 seconds, then slowly lower. [phone] [employer]. [address] [place] [address], [place] [address]. All rights reserved. This information is not intended as a substitute for professional medical care. Always follow your healthcare professional's instructions. Additional Information VACCINATE! IT SAVES LIVES! Members of the community who have not yet received the COVID-19 vaccine and would like to receive it can visit one of [facility] vaccine clinics. There are many vaccine clinic locations within the [facility]. For locations and available times, please visit www.[email or web address].[place] .gov/. It is important to note that some COVID mobile vaccine clinics are held outdoors and may be canceled in rainy or stormy conditions. To learn more about pediatric vaccinations (ages 5-11), we invite you to visit the [facility] webpage. [email or web address].[email or web address].org/ pages/4040-Onxoz-Syhzbjxrxsi-Fr uqjeyezl-Uhqku-Qlgbccigq.html To learn more about the COVID-19 vaccine, we invite you to visit the CDC website for a list of frequently asked questions. https://www.cdc.gov/coronavirus /2019-ncov/vaccines/faq.html [facility] Patient Portal Access Instructions: Stay connected with your healthcare team and access your personal medical information anytime with the [facility] Patient Portal. If you would like a full copy of your medical records please contact the [facility] Medical Records Department Thursday through Thursday between 8a.m. and 4:30p.m. Please follow the directions below to access the portal: 1.Access the email account you provided upon registration to the [facility].2.Look for an invitation email from [facility].3.Open the email and access the invitation link: Accept Invitation to [facility]4.Fill in the required condon to create your account. Sign into [email or web address] with your username and password that you created in the above steps to stay up to date. You can then view a summary of results, a summary of your visits, and the ability to download your summaries to your computer or send the information securely to a physician. Remember that your healthcare information is confidential, so carefully consider who you will allow to register on the [facility] Patient Portal for access to your information. You can also access the [facility] Patient Portal on the [employer]. Simply click on Health Records under Health Data and then click on the [facility] logo. HOW TO SAFELY DISPOSE OF PRESCRIPTION MEDICATIONS Please use one of the following methods to safely dispose of your unused medications. 1.Use a drug disposal kit: the drug disposal pouch allows you to safely discard your old and unused drugs. Ask your nurse to give you one when you are discharged.2.Visit a local take-back location: Many local pharmacies and police departments have programs that collect old and unwanted prescription drugs. Call your local pharmacy or go to http://[employer].Lotame/6H4Ki7i to find one close to you.3.Make use of household items: Use cat litter or old coffee grounds to dispose medications if other options are not available. Mix your drugs with these household products, seal them in an airtight container and throw it into the garbage. Call [facility]: [phone] to be sure your drugs can be disposed of in this way. Some medicines may require a different approach.4.Never flush your medications down the toilet. IF YOU HAVE BEEN PRESCRIBED AN OPIOIDS FOR PAIN If you have been prescribed an opioid (such as hydrocodone, oxycodone or morphine), it is critical to understand the possible side effects and risks of opioid pain medications. Even when taken as directed, opioids can have several side effects including: Tolerance, meaning you might need to take more of a medication for the same pain relief. Nausea, vomiting and/or constipation. Sleepiness, dizziness, dry mouth, confusion, depression or itching. Physical dependence, meaning you have withdrawal symptoms when a medication is stopped ? this can develop within a few days. KNOW YOUR RESPONSIBILITIES It is important to know exactly how much and how often to take the opioid pain medications you are prescribed. Never take opioids in higher amounts or more often than prescribed. Do not combine opioids with alcohol or other drugs that cause drowsiness, such as benzodiazepines, also known as benzos, including diazepam and alprazolam, muscle relaxants or sleep aids. Never sell or share prescription opioids. This is illegal. Store opioids in a secure place and out of reach of others (including children, family, friends and visitors). The last page(s) of this document has been signed and retained as a CHART COPY Signatures Patient Education Materials Back Exercises, Lumbar Medication Leaflets My discharge plan and instructions have been reviewed and explained to me and I,XIN GARCIA understand my current condition and have read and understand these discharge instructions. I have received a written copy of the plan/instructions. If I have questions, I am aware that I should contact my doctor. 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 Author Type: Floral Specialist Type: Progress Notes Filed: 09/30/2022 2:40 PM Note Text: Xin is a 22 year old who presents for an annual gynecologic exam with complaints, pelvic pain. Started about 3 days ago and her menses started about 5 days ago. She says that she needs a super plus tampon even though she has Mirena. She says that she has not been able to feel the strings lately. And my ovaries hurt. Presents: alone Menses: cycles every 60 days and 3-5 days of flow. Contraception: IUD, MIrena HPV vaccine: N/A Last pap smear: never Sexually active: Yes OB History T1 L0 SAB0 IAB0 Ectopic0 Multiple0 Live Births0 Datapower Developer History LMP: LMP Unknown, IUD Age at Menarche: Age at First : 20 Age at Menopause: Datapower Developer History Comments: Sexual Activity: Not Asked; No partner data on record Contraception: No contraception data on record PAST MEDICAL HISTORY Diagnosis Date Achilles tendonitis, bilateral 01/23/2016 Nonorganic enuresis Pyelonephritis during 11/05/2021 Sprain of ankle 06/23/2016 PAST SURGICAL HISTORY Procedure Laterality Date NONE FAMILY HISTORY Problem Relation Age of Onset Allergies Mother sulfa, naproxine Allergies Father PCN No Known Problems Sister No Known Problems Sister No Known Problems Brother No Known Problems Maternal Grandmother No Known Problems Maternal Grandfather No Known Problems Paternal Grandmother No Known Problems Paternal Grandfather SOCIAL HISTORY Social History Tobacco Use Smoking status: Never Passive exposure: Yes Smokeless tobacco: Never Tobacco comments: mother outdoors Vaping Use Vaping Use: Never used Substance Use Topics Alcohol use: No Drug use: No REVIEW OF SYSTEMS Abdomen: No bloating, early satiety, indigestion, or increased flatulence. Attests to abdominal pain but no nausea, vomiting, diarrhea, or constipation. Bladder: No dysuria, gross hematuria, urinary frequency, urinary urgency, or incontinence. Breast: No breast lumps, nipple d/c, overlying skin changes, redness or skin retraction. Allergies and current medication updated:Yes EXAM: There were no vitals taken for this visit. GENERAL: pleasant, in no apparent distress HEENT: Normocephalic, atraumatic, mucus membranes moist, and no lesions NECK: full range of motion DERMATOLOGY: Normal, without lesions, non-icteric, and non-hirsute BREAST: deferred CHEST: Normal inspiratory effort ABDOMEN: soft, non-tender, no hernia, and no masses PELVIC: external genitalia normal, normal Bartholin's glands, urethra, Merced's glands, no vulvar lesions, good vaginal support, physiologic discharge present, normal appearing perineal body and perianal region, strings are visible, but there is significant odor and the cervix is friable BIMANUAL: uterus normal size, shape and consistency, no adnexal masses, but with CMT and uterine tenderness NEURO: alert and oriented x3,exam grossly non-focal EXTREMITIES: normal ASSESSMENT/PLAN: 1) Health maintenance: Pap starting at the age of 21. IUD strings visible 2) Contraception: IUD. 3) STD screening: Accepted STD check for Gonorrhea and Chlamydia. 4) Follow up one year or sooner as needed. 5) Likely PID. Treat with 500mg rocephin, 500mg metronidazole bid x14 days plus 100mg doxycycline bid for 14 days. Follow up in 3 weeks. 6) Gc/CH today. Medical Decision Making: Problems: Moderate: New problem with uncertain prognosis Data: Unique test(s) ordered: 1 Risk: Moderate: Drug management and Moderate risk from testing/treatment Medical Decision Making Level: 4 - Moderate Laxmi Jessica APRN.CNM [facility] 08-18-2022 Miscellaneous Notes Message to call office to schedule. Needs to schedule an appointment and then refills will be provided. Was last seen in May. documented in this encounter [facility] 07-29-2022 Note . MICRO - Microbiology PROCEDURE: Urine Culture [*1] SOURCE: Urine BODY SITE: COLLECTED DATE/TIME: 07/27/2022 13:12 EDT RECEIVED DATE/TIME: 07/28/2022 15:13 EDT START DATE/TIME: 07/28/2022 15:13 EDT FREE TEXT SOURCE: FINAL REPORTS Final Report [] Verified Date/Time/Personnel: 07/29/2022 14:59 EDT >100,000 cfu/ml Multiple bacterial morphotypes present. Probable Contamination. Suggest recollection if clinically indicated. Performing Locations *1: This test was performed at: [facility], [address] [place] [address], [phone] , [facility] ([place]) 07-27-2022 Hospital Discharg e instructions Patient Education 07/27/2022 14:53:46 Bladder Infection, Female (Adult) Bladder Infection, Female (Adult) Urine is normally doesn't have any bacteria in it. But bacteria can get into the urinary tract from the skin around the rectum. Or they can travel in the blood from elsewhere in the body. Once they are in your urinary tract, they can cause infection in the urethra (urethritis), the bladder (cystitis), or the kidneys (pyelonephritis). The most common place for an infection is in the bladder. This is called a bladder infection. This is one of the most common infections in women. Most bladder infections are easily treated. They are not serious unless the infection spreads to the kidney. The phrases bladder infection, UTI, and cystitis are often used to describe the same thing. But they are not always the same. Cystitis is an inflammation of the bladder. The most common cause of cystitis is an infection. Symptoms The infection causes inflammation in the urethra and bladder. This causes many of the symptoms. The most common symptoms of a bladder infection are: Pain or burning when urinating Having to urinate more often than usual Urgent need to urinate Only a small amount of urine comes out Blood in urine Abdominal discomfort. This is usually in the lower abdomen above the pubic bone. Cloudy urine Strong- or bad-smelling urine Unable to urinate (urinary retention) Unable to hold urine in (urinary incontinence) Fever Loss of appetite Confusion (in older adults) Causes Bladder infections are not contagious. You can't get one from someone else, from a toilet seat, or from sharing a bath. The most common cause of bladder infections is bacteria from the bowels. The bacteria get onto the skin around the opening of the urethra. From there, they can get into the urine and travel up to the bladder, causing inflammation and infection. This usually happens because of: Wiping improperly after urinating. Always wipe from front to back. Bowel incontinence Procedures such as having a catheter inserted Older age Not emptying your bladder. This can allow bacteria a chance to grow in your urine. Dehydration Constipation Sex Use of a diaphragm for control Treatment Bladder infections are diagnosed by a urine test. They are treated with antibiotics and usually clear up quickly without complications. Treatment helps prevent a more serious kidney infection. Medicines Medicines can help in the treatment of a bladder infection: Take antibiotics until they are used up, even if you feel better. It is important to finish them to make sure the infection has cleared. You can use acetaminophen or ibuprofen for pain, fever, or discomfort, unless another medicine was prescribed. If you have chronic liver or kidney disease, talk with your healthcare provider before using these medicines. Also talk with your provider if you've ever had a stomach ulcer or gastrointestinal bleeding, or are taking blood-thinner medicines. If you are given phenazopydridine to reduce burning with urination, it will cause your urine to become a bright orange color. This can stain clothing. Care and prevention These self-care steps can help prevent future infections: Drink plenty of fluids to prevent dehydration and flush out your bladder. Do this unless you must restrict fluids for other health reasons, or your doctor told you not to. Proper cleaning after going to the bathroom is important. Wipe from front to back after using the toilet to prevent the spread of bacteria. Urinate more often. Don't try to hold urine in for a long time. Wear loose-fitting clothes and cotton underwear. Avoid tight-fitting pants. Improve your diet and prevent constipation. Eat more fresh fruit and vegetables, and fiber, and less junk and fatty foods. Avoid sex until your symptoms are gone. Avoid caffeine, alcohol, and spicy foods. These can irritate your bladder. Urinate right after intercourse to flush out your bladder. If you use control pills and have frequent bladder infections, discuss it with your doctor. Follow-up care Call your healthcare provider if all symptoms are not gone after 3 days of treatment. This is especially important if you have repeat infections. If a culture was done, you will be told if your treatment needs to be changed. If directed, you can call to find out the results. If X-rays were done, you will be told if the results will affect your treatment. Call 911 Call 911 if any of the following occur: Trouble breathing Hard to wake up or confusion Fainting or loss of consciousness Rapid heart rate When to seek medical advice Call your healthcare provider right away if any of these occur: Fever of 100.4 F (38.0 C) or higher, or as directed by your healthcare provider Symptoms are not better by the third day of treatment Back or belly (abdominal) pain that gets worse Repeated vomiting, or unable to keep medicine down Weakness or dizziness Vaginal discharge Pain, redness, or swelling in the outer vaginal area (labia) [id number] [employer]. [address] [place] [address], [place] [address]. All rights reserved. This information is not intended as a substitute for professional medical care. Always follow your healthcare professional's instructions. 07/27/2022 13:19:32 Neck Spasm, No Trauma Neck Spasm A spasm of the neck muscles can happen after a sudden awkward neck movement. Sleeping with your neck in a crooked position can also cause spasm. Some people respond to emotional stress by tensing the muscles of their neck, shoulders, and upper back. If neck spasm lasts long enough, it can cause a headache. The treatment described below will usually help the pain to go away in 5 to 7 days. Pain that continues may need further evaluation or other types of treatment such as physical therapy. Home care Rest and relax the muscles. Use a comfortable pillow that supports the head and keeps the spine in a neutral position. The position of the head should not be tilted forward or backward. A rolled up towel may help for a custom fit. Some people find relief with heat. Heat can be applied with either a warm shower or bath or a moist towel heated in the microwave and massage. Others prefer cold packs. You can make an ice pack by filling a plastic bag that seals at the top with ice cubes or crushed ice and then wrapping it with a thin towel. Try both and use the method that feels best for 15 to 20 minutes, several times a day. Whether using ice or heat, be careful that you don't injure your skin. Never put ice directly on the skin. Always wrap the ice in a towel or other type of cloth. This is very important, especially in people with poor skin sensation. Try to reduce your stress level. Emotional stress can lead to neck muscle tension and get in the way of or delay the healing process. You may use rzhb-kws-lpbzedx pain medicine to control pain, unless another medicine was prescribed. If you have chronic liver or kidney disease or ever had a stomach ulcer or gastrointestinal bleeding, talk with your healthcare provider before using these medicines. Follow-up care Follow up with your healthcare provider if your symptoms don't show signs of improvement after one week. Physical therapy or further tests may be needed. If X-rays, CT scans, or MRI scans were taken, you will be told of any new findings that may affect your care. Call 911 Call 911 if you have: Sudden weakness or numbness in one or both arms or legs Neck swelling, trouble with or painful swallowing Trouble breathing Chest pain When to seek medical advice Call your healthcare provider right away if any of these occur: Pain becomes worse or spreads into one or both arms or legs Increasing headache with nausea or vomiting Fever of 100.4 F (38 C) or higher, or as directed by your healthcare provider Bree [phone] [employer]. [address] [place] [address]. All rights reserved. This information is not intended as a substitute for professional medical care. Always follow your healthcare professional's instructions. 07/27/2022 13:19:25 Neck Pain Neck Pain There are several possible causes of neck pain when there is no injury: You can get a minor ligament sprain or muscle strain from a sudden minor neck movement. Sleeping with your neck in an awkward position can also cause this. Some people respond to emotional stress by tensing the muscles of their neck, shoulders, and upper back. Chronic spasm in these muscles can cause neck pain and sometimes headaches. Gradual wear and tear of the joints in the spine can cause degenerative arthritis. This can be a source of occasional or chronic neck pain. The spinal disks may bulge and put pressure on a nearby spinal nerve. This can happen as a natural result of aging or repeated small injuries to the neck. The spinal disks are the cushions between each spinal bone. This causes tingling, pain, or numbness that spreads from the neck to the shoulder, arm, or hand on one side. Acute neck pain usually gets better in 1 to 2 weeks. Neck pain related to disk disease, arthritis in the spinal joints, or spinal stenosis can become chronic and last for months or years. Spinal stenosis is narrowing of the spinal canal. X-rays are usually not ordered for the initial evaluation of neck pain. However, X-rays may be done if you had a forceful physical injury, such as a car accident or fall. If pain continues and doesn t respond to medical treatment, X-rays and other tests may be done at a later time. Home care Rest and relax the muscles. Use a comfortable pillow that supports the head. It should also help keep the spine in a neutral position. The position of the head should not be tilted forward or backward. A rolled up towel may help for a custom fit. Some people find relief with heat. Heat can be applied with either a warm shower or bath or a moist towel heated in the microwave and massage. Others prefer cold packs. You can make an ice pack by filling a plastic bag that seals at the top with ice cubes or crushed ice and then wrapping it with a thin towel. Try both and use the method that feels best for 15 to 20 minutes, several times a day. Whether using ice or heat, be careful that you do not injure your skin. Never put ice directly on the skin. Always wrap the ice in a towel or other type of cloth.This is very important, especially in people with poor skin sensations. Try to reduce your stress level. Emotional stress can lead to neck muscle tension and get in the way of or delay the healing process. You may use bnkm-vuk-hyfnnwo pain medicine to control pain, unless another medicine was prescribed. If you have chronic liver or kidney disease or ever had a stomach ulcer or GI bleeding, talk with your healthcare provider before using these medicines. Follow-up care Follow up with your healthcare provider if your symptoms do not show signs of improvement after one week. Physical therapy or further tests may be needed. If X-rays, CT scans, or MRI scans were taken, you will be told of any new findings that may affect your care. Call 911 Call 911 if you have: Sudden weakness or numbness in one or both arms Neck swelling, difficulty or painful swallowing Difficulty breathing Chest pain When to seek medical advice Call your healthcare provider right away if any of these occur: Pain becomes worse or spreads into one or both arm Increasing headache Fever of 100.4 F (38 C) or higher, or as directed by your healthcare provider [id number] [employer]. [address] [place] [address], [place] [address]. All rights reserved. This information is not intended as a substitute for professional medical care. Always follow your healthcare professional's instructions. 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 The following is important discharge information regarding your hospital visit. Diagnosis from Today's Visit Neck pain What to Do Next Instructions from Your Care Team No qualifying data available. Post Acute Orders No qualifying data available. You Need to Schedule the Following Appointments Follow Up with SUMEET CHAVEZ When Within 2-4 days Where: [address] [facility] [place] [address]- [phone] Allergies NKA Medications Please ask your primary doctor or pharmacist before taking any other medication not listed, including over the counter drugs, herbal medications, vitamins and or supplements as they may interact with your home medications. What How Much When Instructions Last Dose New cephalexin (cephalexin 500 mg oral capsule) 1 cap by mouth Every 12 hours Duration: 3 Days Printed Prescription New cyclobenzaprine (cyclobenzaprine 5 mg oral tablet) 1 tab(s) by mouth Three (3) times a day as needed for Muscle spasm Duration: 3 Days Printed Prescription Unchanged acetaminophen (acetaminophen 500 mg oral tablet) TAKE 1 TABLET EVERY 4 TO 6 HOURS NEEDED FOR PAIN Unchanged amoxicillin (amoxicillin 500 mg oral capsule) TAKE 1 CAPSULE THREE TIMES DAILY UNTIL GONE Unchanged ARIPiprazole (Abilify 5 mg oral tablet) 1 tab(s) by mouth Once a day Unchanged multivitamin with minerals (Geritol Complete oral tablet) Take 1 tablet by mouth once daily. Unchanged sertraline (Zoloft) 75 Milligram by mouth Once a day Please take this list to your next doctor s visit. Bring all medications you take, including over the counter medications, herbals and other supplements with you to your doctor s visit. Patients and families are reminded to discard old lists and to update any records with all medication providers or retail pharmacies. Medication Leaflets cephalexin (sef a ISMAEL in) Keflex What is the most important information I should know about cephalexin? You should not use this medicine if you are allergic to cephalexin or to similar antibiotics, such as Ceftin, Cefzil, Omnicef, and others. Tell your doctor if you are allergic to any drugs, especially penicillins or other antibiotics. What is cephalexin? Cephalexin is a cephalosporin (SEF a low spor in) antibiotic that is used to treat bacterial infections of the lungs, ear, skin, bones, bladder, and kidneys. Cephalexin is used to treat infections in adults and children who are at least 1 year old. Cephalexin may also be used for purposes not listed in this medication guide. What should I discuss with my healthcare provider before taking cephalexin? You should not use this medicine if you are allergic to cephalexin or any other cephalosporin antibiotic (cefdinir, cefadroxil, cefoxitin, cefprozil, ceftriaxone, cefuroxime, Omnicef, and others). Tell your doctor if you have ever had: an allergy to any drug (especially penicillin); liver or kidney disease; or intestinal problems, such as colitis. The liquid form of cephalexin may contain sugar. This may affect you if you have diabetes. Tell your doctor if you are or breast-feeding. How should I take cephalexin? Follow all directions on your prescription label and read all medication guides or instruction sheets. Use the medicine exactly as directed. Do not use cephalexin to treat any condition that has not been checked by your doctor. Measure liquid medicine carefully. Use the dosing syringe provided, or use a medicine dose-measuring device (not a kitchen spoon). Use this medicine for the full prescribed length of time, even if your symptoms quickly improve. Skipping doses can increase your risk of infection that is resistant to medication. Cephalexin will not treat a viral infection such as the flu or a common cold. Do not share cephalexin with another person, even if they have the same symptoms you have. This medicine can affect the results of certain medical tests. Tell any doctor who treats you that you are using cephalexin. Store the tablets and capsules at room temperature away from moisture, heat, and light. Store the liquid medicine in the refrigerator. Throw away any unused liquid after 14 days. What happens if I miss a dose? Take the medicine as soon as you can, but skip the missed dose if it is almost time for your next dose. Do not take two doses at one time. What happens if I overdose? Seek emergency medical attention or call the Poison Help line at . Overdose symptoms may include nausea, vomiting, stomach pain, diarrhea, and blood in your urine. What should I avoid while taking cephalexin? Antibiotic medicines can cause diarrhea, which may be a sign of a new infection. If you have diarrhea that is watery or bloody, call your doctor before using anti-diarrhea medicine. What are the possible side effects of cephalexin? Get emergency medical help if you have signs of an allergic reaction (hives, difficult breathing, swelling in your face or throat) or a severe skin reaction (fever, sore throat, burning eyes, skin pain, red or purple skin rash with blistering and peeling). Call your doctor at once if you have: severe stomach pain, diarrhea that is watery or bloody (even if it occurs months after your last dose); unusual tiredness, feeling light-headed or short of breath; easy bruising, unusual bleeding, purple or red spots under your skin; a seizure; pale skin, cold hands and feet; yellowed skin, dark colored urine; fever, weakness; or pain in your side or lower back, painful urination. Common side effects may include: diarrhea; nausea, vomiting; indigestion, stomach pain; or vaginal itching or discharge. This is not a complete list of side effects and others may occur. Call your doctor for medical advice about side effects. You may report side effects to FDA at 9-462-FDK-9619. What other drugs will affect cephalexin? Tell your doctor about all your other medicines, especially: metformin; or probenecid. This list is not complete. Other drugs may affect cephalexin, including prescription and vyvy-vcz-vxawhyb medicines, vitamins, and herbal products. Not all possible drug interactions are listed here. Where can I get more information? Your pharmacist can provide more information about cephalexin. Remember, keep this and all other medicines out of the reach of children, never share your medicines with others, and use this medication only for the indication prescribed. Every effort has been made to ensure that the information provided by [employer] is accurate, up-to-date, and complete, but no guarantee is made to that effect. Drug information contained herein may be time sensitive. [employer] information has been compiled for use by healthcare practitioners and consumers in the [place] and therefore [employer] does not warrant that uses outside of the [place] are appropriate, unless specifically indicated otherwise. [employer]'s drug information does not endorse drugs, diagnose patients or recommend therapy. [employer] drug information is an informational resource designed to assist licensed healthcare practitioners in caring for their patients and/or to serve consumers viewing this service as a supplement to, and not a substitute for, the expertise, skill, knowledge and judgment of healthcare practitioners. The absence of a warning for a given drug or drug combination in no way should be construed to indicate that the drug or drug combination is safe, effective or appropriate for any given patient. [facility] does not assume any responsibility for any aspect of healthcare administered with the aid of information [employer] provides. The information contained herein is not intended to cover all possible uses, directions, precautions, warnings, drug interactions, allergic reactions, or adverse effects. If you have questions about the drugs you are taking, check with your doctor, nurse or pharmacist. Copyright 7630-8465 [employer] Version: 10.03. Revision Date: 05/14/2020. cyclobenzaprine (kylie baum) Waylon, Halima Pac with Cyclobenzaprine, Fexmid What is the most important information I should know about cyclobenzaprine? You should not use cyclobenzaprine if you have a thyroid disorder, heart block, congestive heart failure, a heart rhythm disorder, or you have recently had a heart attack. Do not use cyclobenzaprine if you have taken an MAO inhibitor in the past 14 days, such as isocarboxazid, linezolid, phenelzine, rasagiline, selegiline, or tranylcypromine. What is cyclobenzaprine? Cyclobenzaprine is a muscle relaxant. It works by blocking nerve impulses (or pain sensations) that are sent to your brain. Cyclobenzaprine is used together with rest and physical therapy to relieve muscle spasms caused by painful conditions such as an injury. Cyclobenzaprine may also be used for purposes not listed in this medication guide. What should I discuss with my healthcare provider before taking cyclobenzaprine? You should not use cyclobenzaprine if you are allergic to it, or if you have: a thyroid disorder; heart block, heart rhythm disorder, congestive heart failure; or if you have recently had a heart attack. Cyclobenzaprine is not approved for use by anyone younger than 15 years old. Do not use cyclobenzaprine if you have taken an MAO inhibitor in the past 14 days. A dangerous drug interaction could occur. MAO inhibitors include isocarboxazid, linezolid, phenelzine, rasagiline, selegiline, and tranylcypromine. Some medicines can interact with cyclobenzaprine and cause a serious condition called serotonin syndrome. Be sure your doctor knows if you also take stimulant medicine, opioid medicine, herbal products, or medicine for depression, mental illness, Parkinson's disease, migraine headaches, serious infections, or prevention of nausea and vomiting. Ask your doctor before making any changes in how or when you take your medications. Tell your doctor if you have ever had: liver disease; glaucoma; enlarged prostate; or problems with urination. It is not known whether this medicine will harm an unborn baby. Tell your doctor if you are or plan to become . It may not be safe to breast-feed while using this medicine. Ask your doctor about any risk. Older adults may be more sensitive to the effects of this medicine. How should I take cyclobenzaprine? Follow all directions on your prescription label and read all medication guides or instruction sheets. Your doctor may occasionally change your dose. Use the medicine exactly as directed. Cyclobenzaprine is usually taken once daily for only 2 or 3 weeks. Follow your doctor's dosing instructions very carefully. Swallow the capsule whole and do not crush, chew, break, or open it. Take the medicine at the same time each day. Call your doctor if your symptoms do not improve after 3 weeks, or if they get worse. Store at room temperature away from moisture, heat, and light. What happens if I miss a dose? Take the medicine as soon as you can, but skip the missed dose if it is almost time for your next dose. Do not take two doses at one time. What happens if I overdose? Seek emergency medical attention or call the Poison Help line at . An overdose of cyclobenzaprine can be fatal. Overdose symptoms may include severe drowsiness, vomiting, fast heartbeats, tremors, agitation, or hallucinations. What should I avoid while taking cyclobenzaprine? Avoid driving or hazardous activity until you know how this medicine will affect you. Your reactions could be impaired. Avoid drinking alcohol. Dangerous side effects could occur. What are the possible side effects of cyclobenzaprine? Get emergency medical help if you have signs of an allergic reaction: hives; difficult breathing; swelling of your face, lips, tongue, or throat. Stop using cyclobenzaprine and call your doctor at once if you have: fast or irregular heartbeats; chest pain or pressure, pain spreading to your jaw or shoulder; or sudden numbness or weakness (especially on one side of the body), slurred speech, balance problems. Seek medical attention right away if you have symptoms of serotonin syndrome, such as: agitation, hallucinations, fever, sweating, shivering, fast heart rate, muscle stiffness, twitching, loss of coordination, nausea, vomiting, or diarrhea. Serious side effects may be more likely in older adults. Common side effects may include: drowsiness, tiredness; headache, dizziness; dry mouth; or upset stomach, nausea, constipation. This is not a complete list of side effects and others may occur. Call your doctor for medical advice about side effects. You may report side effects to FDA at 8-464-TAT-0568. What other drugs will affect cyclobenzaprine? Using cyclobenzaprine with other drugs that make you drowsy can worsen this effect. Ask your doctor before using opioid medication, a sleeping pill, a muscle relaxer, or medicine for anxiety or seizures. Tell your doctor about all your other medicines, especially: bupropion (Zyban, for smoking cessation); meperidine; tramadol; verapamil; cold or allergy medicine that contains an antihistamine (Benadryl and others); medicine to treat Parkinson's disease; medicine to treat excess stomach acid, stomach ulcer, motion sickness, or irritable bowel syndrome; medicine to treat overactive bladder; or bronchodilator asthma medication. This list is not complete. Other drugs may affect cyclobenzaprine, including prescription and fpeh-mkc-diszcsf medicines, vitamins, and herbal products. Not all possible drug interactions are listed here. Where can I get more information? Your pharmacist can provide more information about cyclobenzaprine. Remember, keep this and all other medicines out of the reach of children, never share your medicines with others, and use this medication only for the indication prescribed. Every effort has been made to ensure that the information provided by [employer] ('[employer]') is accurate, up-to-date, and complete, but no guarantee is made to that effect. Drug information contained herein may be time sensitive. [employer] information has been compiled for use by healthcare practitioners and consumers in the [place] and therefore [employer] does not warrant that uses outside of the [place] are appropriate, unless specifically indicated otherwise. [employer] drug information does not endorse drugs, diagnose patients or recommend therapy. [employer] drug information is an informational resource designed to assist licensed healthcare practitioners in caring for their patients and/or to serve consumers viewing this service as a supplement to, and not a substitute for, the expertise, skill, knowledge and judgment of healthcare practitioners. The absence of a warning for a given drug or drug combination in no way should be construed to indicate that the drug or drug combination is safe, effective or appropriate for any given patient. [facility] does not assume any responsibility for any aspect of healthcare administered with the aid of information [employer] provides. The information contained herein is not intended to cover all possible uses, directions, precautions, warnings, drug interactions, allergic reactions, or adverse effects. If you have questions about the drugs you are taking, check with your doctor, nurse or pharmacist. Copyright 7177-6184 [employer] Version: 5.01. Revision Date: 02/03/2018. Education Materials Bladder Infection, Female (Adult) Urine is normally doesn't have any bacteria in it. But bacteria can get into the urinary tract from the skin around the rectum. Or they can travel in the blood from elsewhere in the body. Once they are in your urinary tract, they can cause infection in the urethra (urethritis), the bladder (cystitis), or the kidneys (pyelonephritis). The most common place for an infection is in the bladder. This is called a bladder infection. This is one of the most common infections in women. Most bladder infections are easily treated. They are not serious unless the infection spreads to the kidney. The phrases bladder infection, UTI, and cystitis are often used to describe the same thing. But they are not always the same. Cystitis is an inflammation of the bladder. The most common cause of cystitis is an infection. Symptoms The infection causes inflammation in the urethra and bladder. This causes many of the symptoms. The most common symptoms of a bladder infection are: Pain or burning when urinating Having to urinate more often than usual Urgent need to urinate Only a small amount of urine comes out Blood in urine Abdominal discomfort. This is usually in the lower abdomen above the pubic bone. Cloudy urine Strong- or bad-smelling urine Unable to urinate (urinary retention) Unable to hold urine in (urinary incontinence) Fever Loss of appetite Confusion (in older adults) Causes Bladder infections are not contagious. You can't get one from someone else, from a toilet seat, or from sharing a bath. The most common cause of bladder infections is bacteria from the bowels. The bacteria get onto the skin around the opening of the urethra. From there, they can get into the urine and travel up to the bladder, causing inflammation and infection. This usually happens because of: Wiping improperly after urinating. Always wipe from front to back. Bowel incontinence Procedures such as having a catheter inserted Older age Not emptying your bladder. This can allow bacteria a chance to grow in your urine. Dehydration Constipation Sex Use of a diaphragm for control Treatment Bladder infections are diagnosed by a urine test. They are treated with antibiotics and usually clear up quickly without complications. Treatment helps prevent a more serious kidney infection. Medicines Medicines can help in the treatment of a bladder infection: Take antibiotics until they are used up, even if you feel better. It is important to finish them to make sure the infection has cleared. You can use acetaminophen or ibuprofen for pain, fever, or discomfort, unless another medicine was prescribed. If you have chronic liver or kidney disease, talk with your healthcare provider before using these medicines. Also talk with your provider if you've ever had a stomach ulcer or gastrointestinal bleeding, or are taking blood-thinner medicines. If you are given phenazopydridine to reduce burning with urination, it will cause your urine to become a bright orange color. This can stain clothing. Care and prevention These self-care steps can help prevent future infections: Drink plenty of fluids to prevent dehydration and flush out your bladder. Do this unless you must restrict fluids for other health reasons, or your doctor told you not to. Proper cleaning after going to the bathroom is important. Wipe from front to back after using the toilet to prevent the spread of bacteria. Urinate more often. Don't try to hold urine in for a long time. Wear loose-fitting clothes and cotton underwear. Avoid tight-fitting pants. Improve your diet and prevent constipation. Eat more fresh fruit and vegetables, and fiber, and less junk and fatty foods. Avoid sex until your symptoms are gone. Avoid caffeine, alcohol, and spicy foods. These can irritate your bladder. Urinate right after intercourse to flush out your bladder. If you use control pills and have frequent bladder infections, discuss it with your doctor. Follow-up care Call your healthcare provider if all symptoms are not gone after 3 days of treatment. This is especially important if you have repeat infections. If a culture was done, you will be told if your treatment needs to be changed. If directed, you can call to find out the results. If X-rays were done, you will be told if the results will affect your treatment. Call 911 Call 911 if any of the following occur: Trouble breathing Hard to wake up or confusion Fainting or loss of consciousness Rapid heart rate When to seek medical advice Call your healthcare provider right away if any of these occur: Fever of 100.4 F (38.0 C) or higher, or as directed by your healthcare provider Symptoms are not better by the third day of treatment Back or belly (abdominal) pain that gets worse Repeated vomiting, or unable to keep medicine down Weakness or dizziness Vaginal discharge Pain, redness, or swelling in the outer vaginal area (labia) [id number] [employer]. [address] [place] [address]. All rights reserved. This information is not intended as a substitute for professional medical care. Always follow your healthcare professional's instructions. Neck Spasm A spasm of the neck muscles can happen after a sudden awkward neck movement. Sleeping with your neck in a crooked position can also cause spasm. Some people respond to emotional stress by tensing the muscles of their neck, shoulders, and upper back. If neck spasm lasts long enough, it can cause a headache. The treatment described below will usually help the pain to go away in 5 to 7 days. Pain that continues may need further evaluation or other types of treatment such as physical therapy. Home care Rest and relax the muscles. Use a comfortable pillow that supports the head and keeps the spine in a neutral position. The position of the head should not be tilted forward or backward. A rolled up towel may help for a custom fit. Some people find relief with heat. Heat can be applied with either a warm shower or bath or a moist towel heated in the microwave and massage. Others prefer cold packs. You can make an ice pack by filling a plastic bag that seals at the top with ice cubes or crushed ice and then wrapping it with a thin towel. Try both and use the method that feels best for 15 to 20 minutes, several times a day. Whether using ice or heat, be careful that you don't injure your skin. Never put ice directly on the skin. Always wrap the ice in a towel or other type of cloth. This is very important, especially in people with poor skin sensation. Try to reduce your stress level. Emotional stress can lead to neck muscle tension and get in the way of or delay the healing process. You may use oksn-xhs-kswyglg pain medicine to control pain, unless another medicine was prescribed. If you have chronic liver or kidney disease or ever had a stomach ulcer or gastrointestinal bleeding, talk with your healthcare provider before using these medicines. Follow-up care Follow up with your healthcare provider if your symptoms don't show signs of improvement after one week. Physical therapy or further tests may be needed. If X-rays, CT scans, or MRI scans were taken, you will be told of any new findings that may affect your care. Call 911 Call 911 if you have: Sudden weakness or numbness in one or both arms or legs Neck swelling, trouble with or painful swallowing Trouble breathing Chest pain When to seek medical advice Call your healthcare provider right away if any of these occur: Pain becomes worse or spreads into one or both arms or legs Increasing headache with nausea or vomiting Fever of 100.4 F (38 C) or higher, or as directed by your healthcare provider Bree [id number] [employer]. [address] [place] [address]. All rights reserved. This information is not intended as a substitute for professional medical care. Always follow your healthcare professional's instructions. Neck Pain There are several possible causes of neck pain when there is no injury: You can get a minor ligament sprain or muscle strain from a sudden minor neck movement. Sleeping with your neck in an awkward position can also cause this. Some people respond to emotional stress by tensing the muscles of their neck, shoulders, and upper back. Chronic spasm in these muscles can cause neck pain and sometimes headaches. Gradual wear and tear of the joints in the spine can cause degenerative arthritis. This can be a source of occasional or chronic neck pain. The spinal disks may bulge and put pressure on a nearby spinal nerve. This can happen as a natural result of aging or repeated small injuries to the neck. The spinal disks are the cushions between each spinal bone. This causes tingling, pain, or numbness that spreads from the neck to the shoulder, arm, or hand on one side. Acute neck pain usually gets better in 1 to 2 weeks. Neck pain related to disk disease, arthritis in the spinal joints, or spinal stenosis can become chronic and last for months or years. Spinal stenosis is narrowing of the spinal canal. X-rays are usually not ordered for the initial evaluation of neck pain. However, X-rays may be done if you had a forceful physical injury, such as a car accident or fall. If pain continues and doesn t respond to medical treatment, X-rays and other tests may be done at a later time. Home care Rest and relax the muscles. Use a comfortable pillow that supports the head. It should also help keep the spine in a neutral position. The position of the head should not be tilted forward or backward. A rolled up towel may help for a custom fit. Some people find relief with heat. Heat can be applied with either a warm shower or bath or a moist towel heated in the microwave and massage. Others prefer cold packs. You can make an ice pack by filling a plastic bag that seals at the top with ice cubes or crushed ice and then wrapping it with a thin towel. Try both and use the method that feels best for 15 to 20 minutes, several times a day. Whether using ice or heat, be careful that you do not injure your skin. Never put ice directly on the skin. Always wrap the ice in a towel or other type of cloth.This is very important, especially in people with poor skin sensations. Try to reduce your stress level. Emotional stress can lead to neck muscle tension and get in the way of or delay the healing process. You may use kneb-jpc-qbcbtio pain medicine to control pain, unless another medicine was prescribed. If you have chronic liver or kidney disease or ever had a stomach ulcer or GI bleeding, talk with your healthcare provider before using these medicines. Follow-up care Follow up with your healthcare provider if your symptoms do not show signs of improvement after one week. Physical therapy or further tests may be needed. If X-rays, CT scans, or MRI scans were taken, you will be told of any new findings that may affect your care. Call 911 Call 911 if you have: Sudden weakness or numbness in one or both arms Neck swelling, difficulty or painful swallowing Difficulty breathing Chest pain When to seek medical advice Call your healthcare provider right away if any of these occur: Pain becomes worse or spreads into one or both arm Increasing headache Fever of 100.4 F (38 C) or higher, or as directed by your healthcare provider [id number] [employer]. [address] [place] [address], [place] [address]. All rights reserved. This information is not intended as a substitute for professional medical care. Always follow your healthcare professional's instructions. Additional Information VACCINATE! IT SAVES LIVES! Members of the community who have not yet received the COVID-19 vaccine and would like to receive it can visit one of [facility] vaccine clinics. There are many vaccine clinic locations within the [facility]. For locations and available times, please visit www.[email or web address].[place] .gov/. It is important to note that some COVID mobile vaccine clinics are held outdoors and may be canceled in rainy or stormy conditions. To learn more about pediatric vaccinations (ages 5-11), we invite you to visit the [facility] webpage. [email or web address].[email or web address]/ pages/[email or web address]-Jnoao-Zsjuqjclctl-Fr ubeksyid-Yjlqv-Bezrpfnit.html To learn more about the COVID-19 vaccine, we invite you to visit the CDC website for a list of frequently asked questions. https://www.cdc.gov/coronavirus /2019-ncov/vaccines/faq.html [facility] Patient Portal Access Instructions: Stay connected with your healthcare team and access your personal medical information anytime with the [facility] Patient Portal. If you would like a full copy of your medical records please contact the [facility] Medical Records Department Thursday through Thursday between 8a.m. and 4:30p.m. Please follow the directions below to access the portal: 1.Access the email account you provided upon registration to the [facility].2.Look for an invitation email from [facility].3.Open the email and access the invitation link: Accept Invitation to [employer]4.Fill in the required condon to create your account. Sign into [email or web address] with your username and password that you created in the above steps to stay up to date. You can then view a summary of results, a summary of your visits, and the ability to download your summaries to your computer or send the information securely to a physician. Remember that your healthcare information is confidential, so carefully consider who you will allow to register on the [facility] Patient Portal for access to your information. You can also access the [facility] Patient Portal on the [employer]. Simply click on Health Records under Health Data and then click on the [facility] logo. HOW TO SAFELY DISPOSE OF PRESCRIPTION MEDICATIONS Please use one of the following methods to safely dispose of your unused medications. 1.Use a drug disposal kit: the drug disposal pouch allows you to safely discard your old and unused drugs. Ask your nurse to give you one when you are discharged.2.Visit a local take-back location: Many local pharmacies and police departments have programs that collect old and unwanted prescription drugs. Call your local pharmacy or go to http://[employer].Lotame/7H6Fy3m to find one close to you.3.Make use of household items: Use cat litter or old coffee grounds to dispose medications if other options are not available. Mix your drugs with these household products, seal them in an airtight container and throw it into the garbage. Call [facility]: [phone] to be sure your drugs can be disposed of in this way. Some medicines may require a different approach.4.Never flush your medications down the toilet. IF YOU HAVE BEEN PRESCRIBED AN OPIOIDS FOR PAIN If you have been prescribed an opioid (such as hydrocodone, oxycodone or morphine), it is critical to understand the possible side effects and risks of opioid pain medications. Even when taken as directed, opioids can have several side effects including: Tolerance, meaning you might need to take more of a medication for the same pain relief. Nausea, vomiting and/or constipation. Sleepiness, dizziness, dry mouth, confusion, depression or itching. Physical dependence, meaning you have withdrawal symptoms when a medication is stopped ? this can develop within a few days. KNOW YOUR RESPONSIBILITIES It is important to know exactly how much and how often to take the opioid pain medications you are prescribed. Never take opioids in higher amounts or more often than prescribed. Do not combine opioids with alcohol or other drugs that cause drowsiness, such as benzodiazepines, also known as benzos, including diazepam and alprazolam, muscle relaxants or sleep aids. Never sell or share prescription opioids. This is illegal. Store opioids in a secure place and out of reach of others (including children, family, friends and visitors). The last page(s) of this document has been signed and retained as a CHART COPY Signatures Patient Education Materials Bladder Infection, Female (Adult) Neck Spasm, No Trauma Neck Pain Medication Leaflets cephalexin, cyclobenzaprine My discharge plan and instructions have been reviewed and explained to me and I,XIN GARCIA understand my current condition and have read and understand these discharge instructions. I have received a written copy of the plan/instructions. If I have questions, I am aware that I should contact my doctor. 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 Multiplanar reformatted images are provided for review. MIP images are provided for review. Stenosis of the internal carotid arteries measured using NASCET criteria. Automated exposure control, iterative reconstruction, and/or weight based adjustment of the mA/kV was utilized to reduce the radiation dose to as low as reasonably achievable. COMPARISON: None. HISTORY: ORDERING SYSTEM PROVIDED HISTORY: Reason for Exam: neck pain, dizziness, radiculopathy FINDINGS: AORTIC ARCH/ARCH VESSELS: No dissection or arterial injury. No significant stenosis of the brachiocephalic or subclavian arteries. CAROTID ARTERIES: No dissection, arterial injury, or hemodynamically significant stenosis by NASCET criteria. VERTEBRAL ARTERIES: No dissection, arterial injury, or significant stenosis. SOFT TISSUES: The lung apices are clear. No cervical or superior mediastinal lymphadenopathy. The larynx and pharynx are unremarkable. No acute abnormality of the salivary and thyroid glands. BONES: No acute osseous abnormality. IMPRESSION: No hemodynamically significant stenosis, occlusion, or evidence of vascular injury. I have personally reviewed the images of this examination and agree with the resident's findings and interpretation. Interpreted by: Angelito Mishra DO Preliminary Report By: Zoila Thompson Electronically signed By Angelito Mishra DO Dictated Date: 07/27/2022 2:23:06 PM Prelim Date: 07/27/2022 2:27:13 PM Sign Date: 07/27/2022 2:37:27 PM Ordering Provider: [facility] 07-27-2022 Note ORIGINAL EXAMINATION: CTA OF THE NECK 07/27/2022 2:10 pm TECHNIQUE: CTA of the neck was performed with the administration of intravenous contrast. Multiplanar reformatted images are provided for review. MIP images are provided for review. Stenosis of the internal carotid arteries measured using NASCET criteria. Automated exposure control, iterative reconstruction, and/or weight based adjustment of the mA/kV was utilized to reduce the radiation dose to as low as reasonably achievable. COMPARISON: None. HISTORY: ORDERING SYSTEM PROVIDED HISTORY: Reason for Exam: neck pain, dizziness, radiculopathy FINDINGS: AORTIC ARCH/ARCH VESSELS: No dissection or arterial injury. No significant stenosis of the brachiocephalic or subclavian arteries. CAROTID ARTERIES: No dissection, arterial injury, or hemodynamically significant stenosis by NASCET criteria. VERTEBRAL ARTERIES: No dissection, arterial injury, or significant stenosis. SOFT TISSUES: The lung apices are clear. No cervical or superior mediastinal lymphadenopathy. The larynx and pharynx are unremarkable. No acute abnormality of the salivary and thyroid glands. BONES: No acute osseous abnormality. IMPRESSION: No hemodynamically significant stenosis, occlusion, or evidence of vascular injury. I have personally reviewed the images of this examination and agree with the resident's findings and interpretation. Interpreted by: Angelito Tad, DO Preliminary Report By: Zoila Thompson Electronically signed By Angelito Mishra DO Dictated Date: 07/27/2022 2:23:06 PM Prelim Date: 07/27/2022 2:27:13 PM Sign Date: 07/27/2022 2:37:27 PM Ordering Provider: [facility] 07-25-2022 Miscellaneous Notes Patient notified of results. Patient verbalizes understanding. Daisy Bartlett RN Left message for pt to call back. Ailyn Trinidad MA Negative for COVID and flu documented in this encounter [facility] 07-24-2022 Note HNO ID: [id number] Author: Hermann Friedman APRN.FLANGING MACHINE OPERATOR Service: ? Author Type: Nurse Practitioner Type: Progress Notes Filed: 07/24/2022 3:50 PM Note Text: Subjective HPI HPI Xin Garcia is a 22 year old female who presents today for CC of cough, st, headache. This started 3 days ago. Has tried otc medication for relief. Symptoms are worsened by nothing. Risk factors sick exposures at work. Nonsmoker. Denies possibility of being . .Patient presents with: Throat Problem: Pt reported throat pain, x3 days. PAST MEDICAL HISTORY Diagnosis Date Achilles tendonitis, bilateral 01/23/2016 Nonorganic enuresis Pyelonephritis during 11/05/2021 Sprain of ankle 06/23/2016 PAST SURGICAL HISTORY Procedure Laterality Date NONE ALLERGIES Patient has no known allergies. MEDICATIONS mv, min #36-iron,carbonyl-FA (GERITOL COMPLETE) 16 mg iron- 0.38 mg tab Take 1 tablet by mouth once daily. ARIPiprazole (ABILIFY) 5 mg tablet Take 1 tablet by mouth once daily. sertraline (ZOLOFT) 50 mg tablet Take 1.5 tablets by mouth once daily. FAMILY HISTORY Problem Relation Age of Onset Allergies Mother sulfa, naproxine Allergies Father PCN No Known Problems Sister No Known Problems Sister No Known Problems Brother No Known Problems Maternal Grandmother No Known Problems Maternal Grandfather No Known Problems Paternal Grandmother No Known Problems Paternal Grandfather Social History Tobacco Use Smoking status: Never Passive exposure: Yes Smokeless tobacco: Never Tobacco comments: mother outdoors Vaping Use Vaping Use: Never used Substance Use Topics Alcohol use: No Drug use: No ROS Objective Blood pressure 90/58, pulse 90, temperature 36.6 ?C (97.8 ?F), temperature source Tympanic, resp. rate 18, weight 61.5 kg (135 lb 9.6 oz), SpO2 98 %, not currently . Physical Exam Constitutional: General: She is not in acute distress. Appearance: She is not toxic-appearing or diaphoretic. HENT: Head: Normocephalic and atraumatic. Right Ear: Hearing, tympanic membrane, ear canal and external ear normal. Left Ear: Hearing, tympanic membrane, ear canal and external ear normal. Nose: Nose normal. Mouth/Throat: Pharynx: Uvula midline. Posterior oropharyngeal erythema present. No pharyngeal swelling, oropharyngeal exudate or uvula swelling. Eyes: General: Lids are normal. No scleral icterus. Right eye: No discharge. Left eye: No discharge. Conjunctiva/sclera: Conjunctivae normal. Pupils: Pupils are equal, round, and reactive to light. Neck: Trachea: Trachea normal. Cardiovascular: Rate and Rhythm: Normal rate and regular rhythm. Heart sounds: Normal heart sounds. Pulmonary: Effort: Pulmonary effort is normal. Breath sounds: Normal breath sounds. Musculoskeletal: Cervical back: Normal range of motion and neck supple. Lymphadenopathy: Cervical: Cervical adenopathy present. Right cervical: Superficial cervical adenopathy present. Left cervical: Superficial cervical adenopathy present. Skin: Findings: No rash. Neurological: Mental Status: She is alert and oriented to person, place, and time. ASSESSMENT/PLAN: 1. URI, acute - ICD9: 465.9, ICD10: J06.9 (primary diagnosis) - Discussed viral etiology and rationale for treatment. - Symptomatic treatment with prn analgesia - Supportive care with fluids and rest - Follow up in 3-5 days if symptoms persist or sooner if worsening of symptoms - PREDNISONE 20 MG TABLET - COVID WITH FLUA+B, ROUTINE 2. Throat pain - ICD9: 784.1, ICD10: R07.0 Neg, viral - STREP A MOLECULAR (POC) - PREDNISONE 20 MG TABLET - COVID WITH FLUA+B, ROUTINE Hermann Friedman APRN.KYRA [facility] 07-24-2022 History of Presen t illness Narrative Subjective HPI HPI Xin Garcia is a 22 year old female who presents today for CC of cough, st, headache. This started 3 days ago. Has tried otc medication for relief. Symptoms are worsened by nothing. Risk factors sick exposures at work. Nonsmoker. Denies possibility of being . .Patient presents with: Throat Problem: Pt reported throat pain, x3 days. PAST MEDICAL HISTORY Diagnosis Date Achilles tendonitis, bilateral 01/23/2016 Nonorganic enuresis Pyelonephritis during 11/05/2021 Sprain of ankle 06/23/2016 PAST SURGICAL HISTORY Procedure Laterality Date NONE ALLERGIES Patient has no known allergies. MEDICATIONS mv, min #36-iron,carbonyl-FA (GERITOL COMPLETE) 16 mg iron- 0.38 mg tab Take 1 tablet by mouth once daily. ARIPiprazole (ABILIFY) 5 mg tablet Take 1 tablet by mouth once daily. sertraline (ZOLOFT) 50 mg tablet Take 1.5 tablets by mouth once daily. FAMILY HISTORY Problem Relation Age of Onset Allergies Mother sulfa, naproxine Allergies Father PCN No Known Problems Sister No Known Problems Sister No Known Problems Brother No Known Problems Maternal Grandmother No Known Problems Maternal Grandfather No Known Problems Paternal Grandmother No Known Problems Paternal Grandfather Social History Tobacco Use Smoking status: Never Passive exposure: Yes Smokeless tobacco: Never Tobacco comments: mother outdoors Vaping Use Vaping Use: Never used Substance Use Topics Alcohol use: No Drug use: No ROS Objective Blood pressure 90/58, pulse 90, temperature 36.6 C (97.8 F), temperature source Tympanic, resp. rate 18, weight 61.5 kg (135 lb 9.6 oz), SpO2 98 %, not currently . Physical Exam Constitutional: General: She is not in acute distress. Appearance: She is not toxic-appearing or diaphoretic. HENT: Head: Normocephalic and atraumatic. Right Ear: Hearing, tympanic membrane, ear canal and external ear normal. Left Ear: Hearing, tympanic membrane, ear canal and external ear normal. Nose: Nose normal. Mouth/Throat: Pharynx: Uvula midline. Posterior oropharyngeal erythema present. No pharyngeal swelling, oropharyngeal exudate or uvula swelling. Eyes: General: Lids are normal. No scleral icterus. Right eye: No discharge. Left eye: No discharge. Conjunctiva/sclera: Conjunctivae normal. Pupils: Pupils are equal, round, and reactive to light. Neck: Trachea: Trachea normal. Cardiovascular: Rate and Rhythm: Normal rate and regular rhythm. Heart sounds: Normal heart sounds. Pulmonary: Effort: Pulmonary effort is normal. Breath sounds: Normal breath sounds. Musculoskeletal: Cervical back: Normal range of motion and neck supple. Lymphadenopathy: Cervical: Cervical adenopathy present. Right cervical: Superficial cervical adenopathy present. Left cervical: Superficial cervical adenopathy present. Skin: Findings: No rash. Neurological: Mental Status: She is alert and oriented to person, place, and time. ASSESSMENT/PLAN: 1. URI, acute - ICD9: 465.9, ICD10: J06.9 (primary diagnosis) - Discussed viral etiology and rationale for treatment. - Symptomatic treatment with prn analgesia - Supportive care with fluids and rest - Follow up in 3-5 days if symptoms persist or sooner if worsening of symptoms - PREDNISONE 20 MG TABLET - COVID WITH FLUA+B, ROUTINE 2. Throat pain - ICD9: 784.1, ICD10: R07.0 Neg, viral - STREP A MOLECULAR (POC) - PREDNISONE 20 MG TABLET - COVID WITH FLUA+B, ROUTINE Hermann Friedman APRN.FLANGING MACHINE OPERATOR documented in this encounter [facility] 06-02-2022 Note . MICRO - Microbiology PROCEDURE: Urine Culture [*1] SOURCE: Urine, Clean Catch BODY SITE: COLLECTED DATE/TIME: 05/30/2022 15:45 EST RECEIVED DATE/TIME: 05/31/2022 14:01 EST START DATE/TIME: 05/31/2022 14:01 EST FREE TEXT SOURCE: FINAL REPORTS Final Report [] Verified Date/Time/Personnel: 06/02/2022 08:00 EST >100,000 cfu/ml Escherichia coli PRELIMINARY REPORTS Preliminary Report [] Verified Date/Time/Personnel: 2022 12:18 EST >100,000 cfu/ml Escherichia coli JULIO to follow SUSCEPTIBILITY RESULTS Escherichia coli Antibiotic JULIO Dilut JULIO Inter Ampicillin <=8 Susceptible Ampicillin/ <=4/2 Susceptible Sulbactam Aztreonam <=4 Susceptible Cefazolin <=2 Susceptible Ciprofloxacin <=0.25 Susceptible Ertapenem <=0.5 Susceptible Gentamicin <=2 Susceptible Imipenem <=1 Susceptible Levofloxacin <=0.5 Susceptible Meropenem <=1 Susceptible Minocycline >8 Resistant Nitrofurantoin <=32 Susceptible Trimethoprim/ <=0.5/9.5 Susceptible Sulfa Performing Locations *1: This test was performed at: [facility], [address] [place] [address], [id number] , [facility] ([place]) 05-30-2022 Evaluation + Plan note Future Scheduled TestsThyroid Stimulating Hormone 05/30/22Free T4 05/30/22Complete Blood Count 05/30/22Complete Metabolic Panel 05/30/22 [facility] 05-20-2022 Note HNO ID: [id number] Author: Samantha Altman APRN.FLANGING MACHINE OPERATOR Service: ? Author Type: Nurse Practitioner Type: Progress Notes Filed: 05/20/2022 3:23 PM Note Text: PSYC FOLLOW UP - PSYCHIATRIC PROGRESS NOTE DIAGNOSIS: Bipolar 2 disorder Generalized Anxiety Disorder GAF: -70-61 Some mild symptoms or some difficulty in social, occupational, or school functioning, but generally functioning pretty well. TREATMENT PLAN: Increase Abilify to address her mood and irritability related symptoms. Continue Zoloft at the same dose. Follow up in 4 weeks. Medication Update: Abilify 5 mg - take 1 tablet once daily. Continue Zoloft at the same dose. The effects and side effects of all the medications were reviewed in detail with the patient. She is in agreement with the treatment plan and aware to reach out with any questions, concerns, or worsening of symptoms prior to the next appointment. Patient denies any involuntary movement related side effects. CC: Follow up regarding mood and anxiety With the patient consent, visit was performed virtually. HPI: Xin Garcia is a 21 year old Female with a history of Bipolar 2 disorder and BALJINDER presenting today for follow-up. Date of last visit: 04/18/2022 Plan from last visit: 1. Start Abilify to help with her mood concerns. 2. Continue Zoloft at the same dose. Today Xin shares that she has been feeling tired all the time since she had her baby. She is not sleeping well at night. She wakes up 3 or 4 times a night. Sometimes she struggles to fall back asleep. She reports that Abilify helped with her mood but not as much as she was anticipating. She continues to struggle with irritability. Her mother in law was present and she reports that she has noticed significant improvement in patient's mood and irritability. The Zoloft supports her anxiety well. Denies any side effects from Zoloft. She continues to work at [employer]. She denies any additional work related stress. Her son is doing well. Reports that the holidays were stressful due to various commitments and her son's schedule. Interval Progress: Slightly improved Risks and benefits of the medication, including any black box warnings, were discussed with the patient. Social History: See HPI PATIENT DATA: Generalized Anxiety Disorder Scale (BALJINDER-7) BALJINDER - 7 SCORES 04/14/2022 05/13/2022 05/20/2022 BALJINDER-7 Score 7 10 10 (0-4) minimal anxiety, (5-9) mild anxiety, (10-14) moderate anxiety, (15-21) severe anxiety Patient Health Questionnaire (PHQ-9) PHQ-9 04/14/2022 05/13/2022 05/20/2022 Score 7 11 11 (0-4) minimal depression, (5-9) mild depression, (10-14) moderate depression, (15-19) moderately severe depression, (20-27) severe depression ROS: General: Negative for fever, malaise, unintentional weight loss HEENT: Negative for recent changes in vision or hearing, no nasal drainage Respiratory: Negative for cough, wheezing or SOB Cardiovascular: Negative for chest pain GI: Negative for nausea, vomiting, change in bowel habits MUSCULOSKELETAL: Negative for acute back or joint pain SKIN: Negative for rash NEURO: Negative for headaches, seizures, focal neurological deficits All other systems negative. VITAL SIGNS: BP Temp Pulse Resp SpO2 MENTAL STATUS EXAMINATION: Appearance: Appropriately groomed, appears stated age Behavior: Appropriately engaged Psychomotor: No psychomotor agitation Cognition Level of Consciousness: Awake and alert. No fluctuation in wakefulness. Orientation: Grossly oriented Memory: Intact Attention/Concentration: Good Fund of Knowledge: Able to demonstrate an awareness of current events. Mood: Euthymic Affect: Congruent Speech/Language: Appropriate tone, prosody, duy, phonetics, and syntax Thought Form: Goal-directed. No loosening of associations. Thought Content: No delusions noted or endorsed. Perceptual Disturbances: Did not appear to respond to auditory stimuli. Safety: Suicidal Ideations: No suicidal ideation, intent or plan. Homicidal Ideations: No homicidal ideation, intent or plan. Insight: Appropriate Judgment: Appropriate I spent a total of 28 minutes on the date of the service which included preparing to see the patient, [id number] patient care, completing clinical documentation, and counseling and educating the patient/family/caregiver, ordering medications/labs. Samantha Altman APRN.CNP May 20, 2022 3:00 PM This note was partially generated using [employer] voice recognition system. Note was reviewed for accuracy. There may be minor misspellings or grammar miscues with [employer] voice recognition. [facility] 05-20-2022 Instructions Samantha Altman APRN.CNP - 05/20/2022 3:22 PM EST Theo Benavidez, It was good to talk with you today. Below is a summary of the plan that we discussed during your appointment for reference. Of course, if you have any questions or concerns do not hesitate to reach out to me via a message or call. Samantha Montesinos APRN.CNP PLAN AND FOLLOW UP: YOU SHOULD SEEK IMMEDIATE MEDICAL ATTENTION AT THE NEAREST EMERGENCY DEPARTMENT OR BY CALLING 911, IF ANY OF THE FOLLOWING OCCURS: - New or worsening thoughts of harming yourself (suicidal thoughts) or others (homicidal thoughts) - Not feeling safe at home or worrying about your ability to remain safe at home If you are having thoughts of harming yourself or others, then you can: - Call the National Suicide Hotline at 8-547-SCINLNS ( ) or 0-491-097-TALK (4058) - Text 4HOPE to 326265 Medication Update: Abilify 5 mg - take 1 tablet once daily. Continue Zoloft at the same dose. Next appointment: --Schedule in 4 weeks or sooner if needed -- You may call the department appointment line at [phone] to schedule your appointment. -- Please call my nurse Eduarda at [phone] or send me a message in [employer] with any questions or concerns between appointments. documented in this encounter [facility] 05-20-2022 History of Presen t illness Narrative Images from the original note were not included. PSYC FOLLOW UP - PSYCHIATRIC PROGRESS NOTE DIAGNOSIS: Bipolar 2 disorder Generalized Anxiety Disorder GAF: -70-61 Some mild symptoms or some difficulty in social, occupational, or school functioning, but generally functioning pretty well. TREATMENT PLAN: Increase Abilify to address her mood and irritability related symptoms. Continue Zoloft at the same dose. Follow up in 4 weeks. Medication Update: Abilify 5 mg - take 1 tablet once daily. Continue Zoloft at the same dose. The effects and side effects of all the medications were reviewed in detail with the patient. She is in agreement with the treatment plan and aware to reach out with any questions, concerns, or worsening of symptoms prior to the next appointment. Patient denies any involuntary movement related side effects. CC: Follow up regarding mood and anxiety With the patient consent, visit was performed virtually. HPI: Xin Garcia is a 21 year old Female with a history of Bipolar 2 disorder and BALJINDER presenting today for follow-up. Date of last visit: 04/18/2022 Plan from last visit: 1. Start Abilify to help with her mood concerns. 2. Continue Zoloft at the same dose. Today Xin shares that she has been feeling tired all the time since she had her baby. She is not sleeping well at night. She wakes up 3 or 4 times a night. Sometimes she struggles to fall back asleep. She reports that Abilify helped with her mood but not as much as she was anticipating. She continues to struggle with irritability. Her mother in law was present and she reports that she has noticed significant improvement in patient's mood and irritability. The Zoloft supports her anxiety well. Denies any side effects from Zoloft. She continues to work at [employer]. She denies any additional work related stress. Her son is doing well. Reports that the holidays were stressful due to various commitments and her son's schedule. Interval Progress: Slightly improved Risks and benefits of the medication, including any black box warnings, were discussed with the patient. Social History: See HPI PATIENT DATA: Generalized Anxiety Disorder Scale (BALJINDER-7) BALJINDER - 7 SCORES 04/14/2022 05/13/2022 05/20/2022 BALJINDER-7 Score 7 10 10 (0-4) minimal anxiety, (5-9) mild anxiety, (10-14) moderate anxiety, (15-21) severe anxiety Patient Health Questionnaire (PHQ-9) PHQ-9 04/14/2022 05/13/2022 05/20/2022 Score 7 11 11 (0-4) minimal depression, (5-9) mild depression, (10-14) moderate depression, (15-19) moderately severe depression, (20-27) severe depression ROS: General: Negative for fever, malaise, unintentional weight loss HEENT: Negative for recent changes in vision or hearing, no nasal drainage Respiratory: Negative for cough, wheezing or SOB Cardiovascular: Negative for chest pain GI: Negative for nausea, vomiting, change in bowel habits MUSCULOSKELETAL: Negative for acute back or joint pain SKIN: Negative for rash NEURO: Negative for headaches, seizures, focal neurological deficits All other systems negative. VITAL SIGNS: BP Temp Pulse Resp SpO2 MENTAL STATUS EXAMINATION: Appearance: Appropriately groomed, appears stated age Behavior: Appropriately engaged Psychomotor: No psychomotor agitation Cognition Level of Consciousness: Awake and alert. No fluctuation in wakefulness. Orientation: Grossly oriented Memory: Intact Attention/Concentration: Good Fund of Knowledge: Able to demonstrate an awareness of current events. Mood: Euthymic Affect: Congruent Speech/Language: Appropriate tone, prosody, duy, phonetics, and syntax Thought Form: Goal-directed. No loosening of associations. Thought Content: No delusions noted or endorsed. Perceptual Disturbances: Did not appear to respond to auditory stimuli. Safety: Suicidal Ideations: No suicidal ideation, intent or plan. Homicidal Ideations: No homicidal ideation, intent or plan. Insight: Appropriate Judgment: Appropriate I spent a total of 28 minutes on the date of the service which included preparing to see the patient, [id number] patient care, completing clinical documentation, and counseling and educating the patient/family/caregiver, ordering medications/labs. Samantha Altman APRN.CNP May 20, 2022 3:00 PM This note was partially generated using [employer] voice recognition system. Note was reviewed for accuracy. There may be minor misspellings or grammar miscues with [employer] voice recognition. documented in this encounter [facility] 04-18-2022 Instructions Samantha Altman APRN.CNP - 04/18/2022 1:43 PM EST Theo Benavidez, It was good to meet and talk with you today. Below is a summary of the plan that we discussed during your appointment for reference. Of course, if you have any questions or concerns do not hesitate to reach out to me via a message or call. Best, Samantha Altman APRN.CNP PLAN AND FOLLOW UP: YOU SHOULD SEEK IMMEDIATE MEDICAL ATTENTION AT THE NEAREST EMERGENCY DEPARTMENT OR BY CALLING 911, IF ANY OF THE FOLLOWING OCCURS: - New or worsening thoughts of harming yourself (suicidal thoughts) or others (homicidal thoughts) - Not feeling safe at home or worrying about your ability to remain safe at home If you are having thoughts of harming yourself or others, then you can: - Call the National Suicide Hotline at 4-164-OOZDGPB ( ) or 2-139-107-TALK (7227) - Text 4HJWR to 218386 Medication Update: - Abilify (Aripiprazole) 2 mg - take 1 tablet once daily. - Continue Zoloft at the same dose. Next appointment: --Schedule in 4 weeks or sooner if needed -- You may call the department appointment line at [phone] to schedule your appointment. -- Please call my nurse Eduarda at [phone] or send me a message in [employer] with any questions or concerns between appointments. documented in this encounter [facility] 04-18-2022 History of Presen t illness Narrative Images from the original note were not included. PSYC NEW - PSYCHIATRIC ASSESSMENT Patient was seen for an initial evaluation. With the patient consent, visit was performed virtually. All information is from Patient report except when noted. This evaluation is NOT intended for forensic, disability or child custody purposes. AGE: [age] year old RACE: White MARITAL STATUS: Significant other. In relationship with son's dad. They have been together for 6 to 7 years. 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 REFERRAL SOURCE: PCP - Dr. Godwin CHIEF COMPLAINT: So I have been seeing Dr. Godwin since I was born. A few years ago, I got diagnosed with BALJINDER and Depression. I had my son in February 2021, and I am struggling with post depression. HPI: Today she shares that she started struggling with post depression after giving to her son. She has been struggling with more feelings of depression. She has a lack of motivation. She has been taking Zoloft 75 mg and has noticed it helping with her sadness. She felt that when she tried the Prozac, she was not herself and experienced more irritability. Denies any side effects from the Zoloft. She is no longer breast feeding. When she was younger, she experienced episodes of depression. She would isolate in her room and her appetite would decrease. She suffered with a lack of desire to do anything. These episodes would occur 2 to 3 times a month. She has noticed that she also experiences high energy episodes. During these episodes she has more energy, also notices increase in irritability. She denies any risky or impulsive behavior. She feels that small things set her off easily. She has spent more money and it has caused her financial trouble. Xin shares that in the past she was diagnosed with ADHD in [address] Godwin. She was prescribed Adderall in the past. She felt like she was not herself on the medication and she was more quiet. She has not taken any other ADHD medications besides that. Her ADHD symptoms are worse in a classroom setting. It is not interfering with her current work situation. Sleep: concerns with falling asleep, has a hard time shutting her brain off. She is tired but has a hard time going to sleep. Son is sleeping through the night. Interest: no interest Guilt: none Energy: fluctuates with mood or stress Concentration: fluctuates. Has a history of ADHD diagnosis. Appetite: decreased. Has been low since May 2 years ago when she had Carbon. Psychomotor Activity: psychomotor activity was WNL. Suicide: None Phobias: no irrational fears Memory: Fair, Short term Anxiety: moderate. She does not like being around a lot of people. Experiences panic attacks on a daily basis. She notices somatic symptoms such as heart palpitations, dizziness, shaking, shortness of breath, and chest tightness. She is able to pull herself out of the panic attack in 2 months. Does not know what triggers her panic symptoms. Seems that they are more random. Obsessions: none Compulsions: cleaning, need for symmetry, and organizing Margarita: Inflated self esteem. Pt reports decreased need for sleep. Racing of thoughts Easily distractable Increase in goal-directed activity. PTSD: The patient denies being expose to or witnessing traumatic events. Self Mutilation: Denies PAST MEDICAL HISTORY Diagnosis Date Achilles tendonitis, bilateral 01/23/2016 Nonorganic enuresis Pyelonephritis during 11/05/2021 Sprain of ankle 06/23/2016 PAST SURGICAL HISTORY Procedure Laterality Date NONE Current Outpatient Medications Medication Sig Dispense Refill sertraline (ZOLOFT) 50 mg tablet Take 1.5 tablets by mouth once daily. 45 tablet 0 mv, min #36-iron,carbonyl-FA (GERITOL COMPLETE) 16 mg iron- 0.38 mg tab Take 1 tablet by mouth once daily. 30 tablet 2 No current facility-administered medications for this visit. VITAL SIGNS: There were no vitals filed for this visit. ROS: Patient is concerned about being underweight. PSYCHIATRIC HISTORY: Prior Diagnosis: ADHD, Anxiety Disorder, and Major Depressive Disorder Prior Provider: No prior psychiatrist Therapist: No prior therapist Current Black Puller: No Last Hospitalization: Denies hospitalization. ECT: No Previous Discontinued Psychiatric Med Trials: Adderall. See HPI SUBSTANCE USE HISTORY: Nicotine: Vaping. Takes her 2 weeks to finish the cartridge. She has decreased her smoking. Caffeine: Jo-Ann, 1-2 /day, drinks 4 six ounce cups of black sweet tea a day Alcohol: Occasionally for special events and holidays. Marijuana: Positive for previous use history. Does not like how it makes her feel. Cocaine: No history of use or dependence Opiods: No history of use or dependence SPIRITUALITY: No PFSH: Xin Garcia is the 2nd of 4 siblings. The patient was born and raised in [place], [place]. She completed Grade School. She described her childhood as chaotic and adventurous. The patient lives with boyfriend, boyfriend's father and his family, patient's son. They have 3 dogs, 1 cat and a gold fish. Service: None Legal: Pt. denied any past legal history FAMILY PSYCHIATRIC HISTORY: Sister - Bipolar disorder?, ADHD, Anxiety Mother - Depression, Anxiety PATIENT DATA: Generalized Anxiety Disorder Scale (BALJINDER-7) BALJINDER - 7 SCORES 04/14/2022 BALJINDER-7 Score 7 (0-4) minimal anxiety, (5-9) mild anxiety, (10-14) moderate anxiety, (15-21) severe anxiety Patient Health Questionnaire (PHQ-9) PHQ-9 01/13/2022 02/13/2022 04/14/2022 Score 8 8 7 (0-4) minimal depression, (5-9) mild depression, (10-14) moderate depression, (15-19) moderately severe depression, (20-27) severe depression PROMIS Global Health PROMIS Global Health - (T-Scores - the mean of general population = 50. Five points is a clinically meaningful difference.) 04/14/2022 Physical T-Score 42.3 Mental T-Score 43.5 MENTAL STATUS EXAMINATION: Appearance: Casually dressed Behavior: Behaves appropriately during the encounter Social relatedness: Euthymic Speech/Language: The patient demonstrates appropriate tone, prosody, duy, phonetics, and syntax Mood: sad Affect: Full and appropriate to topic Orientation: Person, Place, Time and Situation Associations: Intact and linear Hallucinations: None Delusions: None Suicidal Ideation: No suicidal ideation, intent or plan. Homicidal Ideation: No homicidal ideation, intent or plan. Insight: Appropriate Judgment: Appropriate DIAGNOSIS: PRIMARY: Mood Disorder Bipolar II Disorder SECONDARY: Anxiety Disorder Generalized Anxiety Disorder Other : None GAF: -60-51 Moderate symptoms or moderate difficulty in social, occupational or school functioning. PLAN: 1. Start Abilify to help with her mood concerns. 2. Continue Zoloft at the same dose. Medication Update: - Abilify (Aripiprazole) 2 mg - take 1 tablet once daily. - Continue Zoloft at the same dose. The effects and side effects of all the medications were reviewed in detail with the patient. She is in agreement with the treatment plan and aware to reach out with any questions, concerns, or worsening of symptoms prior to the next appointment. DISPOSITION: Follow up with this provider in 4 weeks. I spent a total of 60 minutes on the date of the service which included preparing to see the patient, qvpw-pg-xoru patient care, completing clinical documentation, obtaining and/or reviewing separately obtained history, counseling and educating the patient/family/caregiver, ordering medications, tests, or procedures, communicating with other HCPs (not separately reported), independently interpreting results (not separately reported), and communicating results to the patient/family/caregiver. ADD ON PSYCHOTHERAPY CODE : No SIGNATURE: Samantha Altman APRN.CNP PATIENT NAME: Xin Garcia DATE: April 18, 2022 TIME: 1:00 PM PAGER : documented in this encounter [facility] 03-14-2022 Miscellaneous Notes Patient scheduled 04/18. Consult order has been placed. This note was partially generated using [employer] voice recognition system, and there may be some incorrect words, spellings, and punctuation that were not noted in checking the note before saving. Alvaro Godwin MD Hi Dr. Godwin, yes, Behavioral Health is psychiatry, I just want to make sure that the patients insurance covers correctly with the referral. Is Behavioral Health able to prescribe antidepressants? That is the primary purpose of this referral. This note was partially generated using [employer] voice recognition system, and there may be some incorrect words, spellings, and punctuation that were not noted in checking the note before saving. Alvaro Godwin MD Please change order to CONSULT TO BEHAVIORAL HEALTH and re route back. Thank you!!! Patient is being referred for consult to psychiatry by Dr. Godwin. Please contact the patient to advise on plan of care. Thank you. documented in this encounter [facility] 03-13-2022 Miscellaneous Notes Spoke with patient. Med check scheduled for one month with PCP. Transferred to [facility] to schedule with psychiatry. Marisela Guerrier RN 1. The referral request is actually for psychiatry. Please help the patient with this referral. The order has been entered into the computer. 2. Prescription generated for Zoloft 75 mg daily. I have already advised the patient to start the Zoloft the day after stopping the Prozac. She will need a follow-up visit in 1 month. Please help the patient's schedule this. This note was partially generated using [employer] voice recognition system, and there may be some incorrect words, spellings, and punctuation that were not noted in checking the note before saving. Alvaro Godwin MD Referral for Psychology. Pt would also like to switch medication from Prozac to 75mg of Zoloft. Pt spoke with Dr. Godwin regarding the changes while at child's appointment. Moon Hooper LPN documented in this encounter [facility] 02-28-2022 Hospital Discharg e instructions Patient Education 02/28/2022 20:22:12 Pleurisy Pleurisy If you have pleurisy, the lining around your lungs is inflamed. This is most often due to a viral infection or pneumonia. It usually lasts for 10 to 14 days. It may cause sharp pain with breathing, coughing, sneezing, and movement. Antibiotics are usually not prescribed for this condition unless bacterial pneumonia is also present. The following tips will help you care for your condition at home: If symptoms are severe, rest at home for the first 2 to 3 days. When you resume activity, don't let yourself get too tired. Don't smoke. Also stay away from secondhand smoke. You may use eoix-msg-dldbadl medicines to control pain, unless another pain medicine was prescribed. (Note: If you have chronic liver or kidney disease or have ever had a stomach ulcer or gastrointestinal bleeding, talk with your healthcare provider before using these medicines. Also talk to your provider if you are taking medicine to prevent blood clots.) Aspirin should never be given to anyone younger than 18 years of age who is ill with a viral infection or fever. It may cause severe liver or brain damage. Follow-up care Follow up with your healthcare provider, or as advised. When to seek medical advice Call your healthcare provider right away if any of these occur: Fever of 100.4 F (38 C) or higher, or as directed by your healthcare provider Coughing up lots of colored sputum (mucus) or light, blood-tinged sputum Redness, pain, or swelling of the leg Call 911 Call 911 if any of these occur: Increasing shortness of breath Increasing chest pain, or pain that spreads to the neck, arm, or back Coughing up blood [id number] [employer]. [address] [place] [id number]. All rights reserved. This information is not intended as a substitute for professional medical care. Always follow your healthcare professional's instructions. 02/28/2022 20:21:16 Pleurisy Pleurisy If you have pleurisy, the lining around your lungs is inflamed. This is most often due to a viral infection or pneumonia. It usually lasts for 10 to 14 days. It may cause sharp pain with breathing, coughing, sneezing, and movement. Antibiotics are usually not prescribed for this condition unless bacterial pneumonia is also present. The following tips will help you care for your condition at home: If symptoms are severe, rest at home for the first 2 to 3 days. When you resume activity, don't let yourself get too tired. Don't smoke. Also stay away from secondhand smoke. You may use gvmj-pri-eevowod medicines to control pain, unless another pain medicine was prescribed. (Note: If you have chronic liver or kidney disease or have ever had a stomach ulcer or gastrointestinal bleeding, talk with your healthcare provider before using these medicines. Also talk to your provider if you are taking medicine to prevent blood clots.) Aspirin should never be given to anyone younger than 18 years of age who is ill with a viral infection or fever. It may cause severe liver or brain damage. Follow-up care Follow up with your healthcare provider, or as advised. When to seek medical advice Call your healthcare provider right away if any of these occur: Fever of 100.4 F (38 C) or higher, or as directed by your healthcare provider Coughing up lots of colored sputum (mucus) or light, blood-tinged sputum Redness, pain, or swelling of the leg Call 911 Call 911 if any of these occur: Increasing shortness of breath Increasing chest pain, or pain that spreads to the neck, arm, or back Coughing up blood [phone] [employer]. [address] [place] [address]. All rights reserved. This information is not intended as a substitute for professional medical care. Always follow your healthcare professional's instructions. 02/28/2022 20:21:04 Viral Syndrome (Adult) Viral Syndrome (Adult) A viral illness may cause a number of symptoms such as fever. Other symptoms depend on the part of the body that the virus affects. If it settles in your nose, throat, and lungs, it may cause cough, sore throat, congestion, runny nose, headache, earache and other ear symptoms, or shortness of breath. If it settles in your stomach and intestinal tract, it may cause nausea, vomiting, cramping, and diarrhea. Sometimes it causes generalized symptoms like aching all over, feeling tired, loss of energy, or loss of appetite. A viral illness usually lasts anywhere from several days to several weeks, but sometimes it lasts longer. In some cases, a more serious infection can look like a viral syndrome in the first few days of the illness. You may need another exam and additional tests to know the difference. Watch for the warning signs listed below for when to seek medical advice. Home care Follow these guidelines for taking care of yourself at home: If symptoms are severe, rest at home for the first 2 to 3 days. Stay away from cigarette smoke - both your smoke and the smoke from others. You may use sidn-pco-bcnpqoo acetaminophen or ibuprofen for fever, muscle aching, and headache, unless another medicine was prescribed for this. If you have chronic liver or kidney disease or ever had a stomach ulcer or gastrointestinal bleeding, talk with your healthcare provider before using these medicines. No one who is younger than 18 and ill with a fever should take aspirin. It may cause severe disease or . Your appetite may be poor, so a light diet is fine. Avoid dehydration by drinking 8 to 12, 8-ounce glasses of fluids each day. This may include water; orange juice; lemonade; apple, grape, and cranberry juice; clear fruit drinks; electrolyte replacement and sports drinks; and decaffeinated teas and coffee. If you have been diagnosed with a kidney disease, ask your healthcare provider how much and what types of fluids you should drink to prevent dehydration. If you have kidney disease, drinking too much fluid can cause it build up in the your body and be dangerous to your health. Lehr-euz-khagyrl remedies won't shorten the length of the illness but may be helpful for symptoms such as cough, sore throat, nasal and sinus congestion, or diarrhea. Don't use decongestants if you have high blood pressure. Follow-up care Follow up with your healthcare provider if you do not improve over the next week. Call 911 Call 911 if any of the following occur: Convulsion Feeling weak, dizzy, or like you are going to faint Chest pain, or more than mild shortness of breath When to seek medical advice Call your healthcare provider right away if any of these occur: Cough with lots of colored sputum (mucus) or blood in your sputum Chest pain, shortness of breath, wheezing, or trouble breathing Severe headache; face, neck, or ear pain Severe, constant pain in the lower right side of your belly (abdominal) Continued vomiting (can t keep liquids down) Frequent diarrhea (more than 5 times a day); blood (red or black color) or mucus in diarrhea Feeling weak, dizzy, or like you are going to faint Extreme thirst Fever of 100.4 F (38 C) or higher, or as directed by your healthcare provider [phone] [employer]. [address] [place] [address]. All rights reserved. This information is not intended as a substitute for professional medical care. Always follow your healthcare professional's instructions. Follow Up Care 02/28/2022 19:34:49 With:Follow up with primary care provider Address:Unknown When:2-4 days Comments:Schedule appointment for follow-up if your symptoms or not improving.Do not smoke. Drink plenty of fluids and rest.Use a vaporizer at bedside to help with cough and congestion as needed.Use Tylenol, Advil or Aleve for pain and fever as needed.May use wmlu-mtn-kyeimfl cough and cold medicines like Robitussin for symptomatic relief as needed.Return to the ED if symptoms worsen. [facility] 02-28-2022 Note Discharge Instructions Thank you for allowing [facility] to assist you with your healthcare needs. The following is important discharge information regarding your hospital visit. Diagnosis from Today's Visit Chest pain Cough What to Do Next Instructions from Your Care Team No qualifying data available. Post Acute Orders No qualifying data available. You Need to Schedule the Following Appointments Follow Up with Follow up with primary care provider When Within 2-4 days Why: Schedule appointment for follow-up if your symptoms or not improving. Do not smoke. Drink plenty of fluids and rest. Use a vaporizer at bedside to help with cough and congestion as needed. Use Tylenol, Advil or Aleve for pain and fever as needed. May use uvwq-pyd-shaqkhd cough and cold medicines like Robitussin for symptomatic relief as needed. Return to the ED if symptoms worsen. Allergies NKA Medications Please ask your primary doctor or pharmacist before taking any other medication not listed, including over the counter drugs, herbal medications, vitamins and or supplements as they may interact with your home medications. What How Much When Why Instructions Last Dose Unchanged ferrous sulfate 65 Milligram by mouth Once a day Unchanged multivitamin, ( Multivitamins with Vitamin B Complex, Vitamin C, Minerals and L-Methylfolate oral capsule) 1 cap by mouth Every day Unchanged promethazine (Phenergan ORAL use promethazine ) 12.5 Milligram by mouth Every 6 hours as needed for as needed for nausea/vomiting Pharyngitis Unchanged sertraline (Zoloft 100 mg oral tablet) 1 tab(s) by mouth Once a day Please take this list to your next doctor s visit. Bring all medications you take, including over the counter medications, herbals and other supplements with you to your doctor s visit. Patients and families are reminded to discard old lists and to update any records with all medication providers or retail pharmacies. Education [employer] Pleurisy If you have pleurisy, the lining around your lungs is inflamed. This is most often due to a viral infection or pneumonia. It usually lasts for 10 to 14 days. It may cause sharp pain with breathing, coughing, sneezing, and movement. Antibiotics are usually not prescribed for this condition unless bacterial pneumonia is also present. The following tips will help you care for your condition at home: If symptoms are severe, rest at home for the first 2 to 3 days. When you resume activity, don't let yourself get too tired. Don't smoke. Also stay away from secondhand smoke. You may use ddfm-pqq-apqnenh medicines to control pain, unless another pain medicine was prescribed. (Note: If you have chronic liver or kidney disease or have ever had a stomach ulcer or gastrointestinal bleeding, talk with your healthcare provider before using these medicines. Also talk to your provider if you are taking medicine to prevent blood clots.) Aspirin should never be given to anyone younger than 18 years of age who is ill with a viral infection or fever. It may cause severe liver or brain damage. Follow-up care Follow up with your healthcare provider, or as advised. When to seek medical advice Call your healthcare provider right away if any of these occur: Fever of 100.4 F (38 C) or higher, or as directed by your healthcare provider Coughing up lots of colored sputum (mucus) or light, blood-tinged sputum Redness, pain, or swelling of the leg Call 911 Call 911 if any of these occur: Increasing shortness of breath Increasing chest pain, or pain that spreads to the neck, arm, or back Coughing up blood [employer]. [address] [place] [address]. All rights reserved. This information is not intended as a substitute for professional medical care. Always follow your healthcare professional's instructions. Pleurisy If you have pleurisy, the lining around your lungs is inflamed. This is most often due to a viral infection or pneumonia. It usually lasts for 10 to 14 days. It may cause sharp pain with breathing, coughing, sneezing, and movement. Antibiotics are usually not prescribed for this condition unless bacterial pneumonia is also present. The following tips will help you care for your condition at home: If symptoms are severe, rest at home for the first 2 to 3 days. When you resume activity, don't let yourself get too tired. Don't smoke. Also stay away from secondhand smoke. You may use zbem-tux-sxnpacr medicines to control pain, unless another pain medicine was prescribed. (Note: If you have chronic liver or kidney disease or have ever had a stomach ulcer or gastrointestinal bleeding, talk with your healthcare provider before using these medicines. Also talk to your provider if you are taking medicine to prevent blood clots.) Aspirin should never be given to anyone younger than 18 years of age who is ill with a viral infection or fever. It may cause severe liver or brain damage. Follow-up care Follow up with your healthcare provider, or as advised. When to seek medical advice Call your healthcare provider right away if any of these occur: Fever of 100.4 F (38 C) or higher, or as directed by your healthcare provider Coughing up lots of colored sputum (mucus) or light, blood-tinged sputum Redness, pain, or swelling of the leg Call 911 Call 911 if any of these occur: Increasing shortness of breath Increasing chest pain, or pain that spreads to the neck, arm, or back Coughing up blood [employer]. [address] [place] [address]. All rights reserved. This information is not intended as a substitute for professional medical care. Always follow your healthcare professional's instructions. Viral Syndrome (Adult) A viral illness may cause a number of symptoms such as fever. Other symptoms depend on the part of the body that the virus affects. If it settles in your nose, throat, and lungs, it may cause cough, sore throat, congestion, runny nose, headache, earache and other ear symptoms, or shortness of breath. If it settles in your stomach and intestinal tract, it may cause nausea, vomiting, cramping, and diarrhea. Sometimes it causes generalized symptoms like aching all over, feeling tired, loss of energy, or loss of appetite. A viral illness usually lasts anywhere from several days to several weeks, but sometimes it lasts longer. In some cases, a more serious infection can look like a viral syndrome in the first few days of the illness. You may need another exam and additional tests to know the difference. Watch for the warning signs listed below for when to seek medical advice. Home care Follow these guidelines for taking care of yourself at home: If symptoms are severe, rest at home for the first 2 to 3 days. Stay away from cigarette smoke - both your smoke and the smoke from others. You may use cjvd-ryl-ngyrdui acetaminophen or ibuprofen for fever, muscle aching, and headache, unless another medicine was prescribed for this. If you have chronic liver or kidney disease or ever had a stomach ulcer or gastrointestinal bleeding, talk with your healthcare provider before using these medicines. No one who is younger than 18 and ill with a fever should take aspirin. It may cause severe disease or . Your appetite may be poor, so a light diet is fine. Avoid dehydration by drinking 8 to 12, 8-ounce glasses of fluids each day. This may include water; orange juice; lemonade; apple, grape, and cranberry juice; clear fruit drinks; electrolyte replacement and sports drinks; and decaffeinated teas and coffee. If you have been diagnosed with a kidney disease, ask your healthcare provider how much and what types of fluids you should drink to prevent dehydration. If you have kidney disease, drinking too much fluid can cause it build up in the your body and be dangerous to your health. Ilsq-skz-aflacba remedies won't shorten the length of the illness but may be helpful for symptoms such as cough, sore throat, nasal and sinus congestion, or diarrhea. Don't use decongestants if you have high blood pressure. Follow-up care Follow up with your healthcare provider if you do not improve over the next week. Call 911 Call 911 if any of the following occur: Convulsion Feeling weak, dizzy, or like you are going to faint Chest pain, or more than mild shortness of breath When to seek medical advice Call your healthcare provider right away if any of these occur: Cough with lots of colored sputum (mucus) or blood in your sputum Chest pain, shortness of breath, wheezing, or trouble breathing Severe headache; face, neck, or ear pain Severe, constant pain in the lower right side of your belly (abdominal) Continued vomiting (can t keep liquids down) Frequent diarrhea (more than 5 times a day); blood (red or black color) or mucus in diarrhea Feeling weak, dizzy, or like you are going to faint Extreme thirst Fever of 100.4 F (38 C) or higher, or as directed by your healthcare provider [id number] [employer]. [address] [place] [address]. All rights reserved. This information is not intended as a substitute for professional medical care. Always follow your healthcare professional's instructions. Additional Information VACCINATE! IT SAVES LIVES! Members of the community who have not yet received the COVID-19 vaccine and would like to receive it can visit one of [facility] vaccine clinics. There are many vaccine clinic locations within the [facility]. For locations and available times, please visit [email or web address]. It is important to note that some COVID mobile vaccine clinics are held outdoors and may be canceled in rainy or stormy conditions. To learn more about pediatric vaccinations (ages 5-11), we invite you to visit the [facility] webpage. [email or web address]/ [email or web address] [email or web address].html To learn more about the COVID-19 vaccine, we invite you to visit the [employer] website for a list of frequently asked questions. [email or web address] -[email or web address] [facility] Patient Portal Access Instructions: Stay connected with your healthcare team and access your personal medical information anytime with the [employer] Patient Portal. If you would like a full copy of your medical records please contact the [facility] Medical Records Department Thursday through Thursday between 8a.m. and 4:30p.m. Please follow the directions below to access the portal: 1.Access the email account you provided upon registration to the [facility].2.Look for an invitation email from [facility].3.Open the email and access the invitation link: Accept Invitation to [facility]4.Fill in the required condon to create your account. Sign into [email or web address] with your username and password that you created in the above steps to stay up to date. You can then view a summary of results, a summary of your visits, and the ability to download your summaries to your computer or send the information securely to a physician. Remember that your healthcare information is confidential, so carefully consider who you will allow to register on the [facility] Patient Portal for access to your information. You can also access the [facility] Patient Portal on the [employer]. Simply click on Health Records under Health Data and then click on the [facility] logo. HOW TO SAFELY DISPOSE OF PRESCRIPTION MEDICATIONS Please use one of the following methods to safely dispose of your unused medications. 1.Use a drug disposal kit: the drug disposal pouch allows you to safely discard your old and unused drugs. Ask your nurse to give you one when you are discharged.2.Visit a local take-back location: Many local pharmacies and police departments have programs that collect old and unwanted prescription drugs. Call your local pharmacy or go to http://[email or web address]/9C8Xn9w to find one close to you.3.Make use of household items: Use cat litter or old coffee grounds to dispose medications if other options are not available. Mix your drugs with these household products, seal them in an airtight container and throw it into the garbage. Call [facility]: [phone] to be sure your drugs can be disposed of in this way. Some medicines may require a different approach.4.Never flush your medications down the toilet. IF YOU HAVE BEEN PRESCRIBED AN OPIOIDS FOR PAIN If you have been prescribed an opioid (such as hydrocodone, oxycodone or morphine), it is critical to understand the possible side effects and risks of opioid pain medications. Even when taken as directed, opioids can have several side effects including: Tolerance, meaning you might need to take more of a medication for the same pain relief. Nausea, vomiting and/or constipation. Sleepiness, dizziness, dry mouth, confusion, depression or itching. Physical dependence, meaning you have withdrawal symptoms when a medication is stopped ? this can develop within a few days. KNOW YOUR RESPONSIBILITIES It is important to know exactly how much and how often to take the opioid pain medications you are prescribed. Never take opioids in higher amounts or more often than prescribed. Do not combine opioids with alcohol or other drugs that cause drowsiness, such as benzodiazepines, also known as benzos, including diazepam and alprazolam, muscle relaxants or sleep aids. Never sell or share prescription opioids. This is illegal. Store opioids in a secure place and out of reach of others (including children, family, friends and visitors). The last page(s) of this document has been signed and retained as a CHART COPY Signatures Patient Education Materials Pleurisy Pleurisy Viral Syndrome (Adult) Medication Leaflets My discharge plan and instructions have been reviewed and explained to me and IJOSE ERICA understand my current condition and have read and understand these discharge instructions. I have received a written copy of the plan/instructions. If I have questions, I am aware that I should contact my doctor. 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 Problem list and history reviewed. Allergies reviewed. Medications reviewed. Immunizations reviewed. HISTORY: see history section below PHYSICAL EXAM: GENERAL: alert, well appearing, in no distress LEFT EYE: no drainage noted, no conjunctival injection noted; RIGHT EYE: no drainage noted, no conjunctival injection noted; NO ADDITIONAL EYE FINDINGS LEFT EAR: pinna normal, auditory canal normal, tympanic membrane clear, no effusion noted, RIGHT EAR: pinna normal, auditory canal normal, tympanic membrane clear, no effusion noted NOSE/SINUSES: nares normal, mucosa normal, no drainage noted OROPHARYNX: lips without lesions noted, gums/mucosa normal, oropharynx without erythema or exudates NECK/ADENOPATHY: neck supple, no adenopathy noted CHEST/LUNGS: lungs clear to auscultation CARDIOVASCULAR: regular rate and rhythm, capillary refill less than 2 seconds ABDOMEN: soft, nontender, bowel sounds normal, no masses, no organomegaly, abdomen nondistended SKIN: normal color, no rash, no jaundice, moist mucous membranes, turgor within normal limits GENERAL RECOMMENDATIONS: - Issues discussed in detail. - Symptom relief measures as needed. - Prescriptions, if ordered, are listed below. - Labs and/or X-rays, if ordered or obtained, are listed below. If the final results are not available at the conclusion of this visit, then additional recommendations may be made based on the final results. Note that all x-rays are reviewed by a radiologist before being considered final. - EKG, if ordered or obtained, is reviewed by a filling winder before being considered final. Additional recommendations may be made based on the final results. - Return to clinic should current symptoms (if present) worsen, other problems develop, or as needed. ADDITIONAL & DICTATED PORTION: ADDITIONAL HISTORY _ The following Nursing History was reviewed with the family: Patient presents with: Med Check: Med Check - Pt states she is doing better but not quite there . _ The patient is here for follow-up of anxiety and depression. She is currently on Prozac 30 mg daily (increased at the last visit). As noted in the nursing history, she feels she is not quite where she wishes to be in terms of symptom control. She does feel significant improvement has occurred. No suicidal ideation. No other side effects from the medication. Review of the growth chart shows weight gain has continued to occur. SCARED Rating Scale Panic/somatic 13 cutoff equals 7 Generalized anxiety 5 cutoff equals 9 Separation 2 cutoff equals 5 Social 8 cutoff equals 8 School avoidance 1 cutoff equals 3 TOTAL 29 cutoff equals 25 PHQ-9 score today was 10. Questions 12 and 13 which screen for suicidal ideation were both answered NO Review of systems negative for fevers. No eye, ear, nose, throat complaints. No cough, wheezing, shortness of breath. No vomiting, diarrhea, abdominal pain. No rash or edema. ACTIVE PROBLEM LIST Attention Deficit Hyperactivity Disorder (Adhd), Combined Type Flat Feet, Bilateral Nonintractable Headache Scoliosis Patellofemoral Disorder of Left Knee Depression Anxiety IUD Check Up Anemia Tendinitis PAST MEDICAL HISTORY Diagnosis Date Achilles tendonitis, bilateral 01/23/2016 Nonorganic enuresis Pyelonephritis during 11/05/2021 Sprain of ankle 06/23/2016 PAST SURGICAL HISTORY Procedure Laterality Date NONE ADDITIONAL EXAM / OTHER INFORMATION none ADDITIONAL IMPRESSION / PLAN Depression well controlled. Anxiety improved but not quite optimal yet. Discussed in detail. We will increase the Prozac to 40 mg daily. Recheck at a [id number] visit in 1 month. Return to clinic sooner for any difficulties. I spent a total of 30-39 minutes on the date of service. This included preparing to see the patient; [id number] patient care; obtaining and/or reviewing separately obtained history; performing a medically appropriate examination; counseling and educating the patient/family/caregiver; and completing clinical documentation. As applicable, this also included ordering medications, tests, or procedures; independently interpreting results; communicating results to the patient/family/caregiver; and care coordination (not separately reported). This note was partially generated using [employer] voice recognition system, and there may be some incorrect words, spellings, and punctuation that were not noted in checking the note before saving. Alvaro Godwin M.D. documented in this encounter [facility] 02-11-2022 Miscellaneous Notes The information below was reviewed. Alvaro Godwin M.D. Spoke with patient, denies any medical conditions. Is aware waiver unable to be signed, verbalizes understanding Jane Koch RN I am not aware of any medical conditions the patient has that would require a medical vaccination waiver. Could you please check with the patient as to whether she has conditions I am unaware of? This note was partially generated using [employer] voice recognition system, and there may be some incorrect words, spellings, and punctuation that were not noted in checking the note before saving. Alvaro Godwin MD Xin Garcia is calling Alvaro Godwin MD today with a Covid question - Pt works in a [employer] and they are now requiring the staff to get the Covid vaccine. Pt wonders if you would sign a waiver for her not to get the vaccine? Patient has been identified by name and birthdate. Duration of symptoms: N/A Person calling: self Call patient at: on cell [phone] (home) [phone] (cell) Was an appointment scheduled: No Closing statement: Results or non-symptom based questions: Thank you for calling [facility], your call will be returned within the next business day. Alma Rosen LPN documented in this encounter [facility] 01-14-2022 History of Presen t illness Narrative The patient was seen for the issues discussed below. Problem list and history reviewed. Allergies reviewed. Medications reviewed. Immunizations reviewed. HISTORY: see history section below PHYSICAL EXAM: GENERAL: alert, well appearing, in no distress LEFT EYE: no drainage noted, no conjunctival injection noted; RIGHT EYE: no drainage noted, no conjunctival injection noted; NO ADDITIONAL EYE FINDINGS LEFT EAR: pinna normal, auditory canal normal, tympanic membrane clear, no effusion noted, RIGHT EAR: pinna normal, auditory canal normal, tympanic membrane clear, no effusion noted NOSE/SINUSES: nares normal, mucosa normal, no drainage noted OROPHARYNX: lips without lesions noted, gums/mucosa normal, oropharynx without erythema or exudates NECK/ADENOPATHY: neck supple, no adenopathy noted CHEST/LUNGS: lungs clear to auscultation GENERAL RECOMMENDATIONS: - Issues discussed in detail. - Symptom relief measures as needed. - Prescriptions, if ordered, are listed below. - Labs and/or X-rays, if ordered or obtained, are listed below. If the final results are not available at the conclusion of this visit, then additional recommendations may be made based on the final results. Note that all x-rays are reviewed by a radiologist before being considered final. - EKG, if ordered or obtained, is reviewed by a filling winder before being considered final. Additional recommendations may be made based on the final results. - Return to clinic should current symptoms (if present) worsen, other problems develop, or as needed. ADDITIONAL & DICTATED PORTION: ADDITIONAL HISTORY _ The following Nursing History was reviewed with the family: Patient presents with: Med Check: Pt reports she doesn't feel any different on the medication, ? Dose increase _ The patient was prescribed Prozac 20 mg daily in late September. Due to numerous items going on in her life, the medication was used sparsely until about 3 weeks ago. She feels she has been using it consistently over the past 3 weeks. She does not feel it is helping her anxiety. SCARED survey results are shown below. No adverse side effects have been present. No suicidal ideation. No other potential side effects. SCARED Rating Scale Panic/somatic 15 cutoff equals 7 Generalized anxiety 12 cutoff equals 9 Separation 3 cutoff equals 5 Social 9 cutoff equals 8 School avoidance 4 cutoff equals 3 TOTAL 43 cutoff equals 25 PHQ-9 score today was 7. Questions 12 and 13 which screen for suicidal ideation were both answered NO. Review of systems negative for fevers. No eye, ear, nose, throat complaints. No cough, wheezing, shortness of breath. No vomiting, diarrhea, abdominal pain. No rash. ACTIVE PROBLEM LIST Attention Deficit Hyperactivity Disorder (Adhd), Combined Type Flat Feet, Bilateral Nonintractable Headache Scoliosis Patellofemoral Disorder of Left Knee Depression Anxiety IUD Check Up Anemia Tendinitis PAST MEDICAL HISTORY Diagnosis Date Achilles tendonitis, bilateral 01/23/2016 Nonorganic enuresis Pyelonephritis during 11/05/2021 Sprain of ankle 06/23/2016 PAST SURGICAL HISTORY Procedure Laterality Date NONE ADDITIONAL EXAM / OTHER INFORMATION none ADDITIONAL IMPRESSION / PLAN Anxiety under suboptimal control. Patient has been using her Prozac 20 mg daily for the past 3 weeks. Options reviewed. We will increase the Prozac to 30 mg daily. Follow-up in 1 month. Again reinforced that if she has any self-harm thoughts, then she would need to be seen immediately by a crisis evaluation team in the emergency room. I spent a total of 30-39 minutes on the date of service. This included preparing to see the patient; [id number] patient care; obtaining and/or reviewing separately obtained history; performing a medically appropriate examination; counseling and educating the patient/family/caregiver; and completing clinical documentation. As applicable, this also included ordering medications, tests, or procedures; independently interpreting results; communicating results to the patient/family/caregiver; and care coordination (not separately reported). This note was partially generated using [employer] voice recognition system, and there may be some incorrect words, spellings, and punctuation that were not noted in checking the note before saving. Alvaro Godwin M.D. documented in this encounter [facility] 01-07-2022 History of Presen t illness Narrative Per Dr. Garzon, Xin was provided with a pair of Power Step original full length inserts, size 8 - 81/2, and instructed/educated in its application, wear, and care. All questions were answered, and patient was able to demonstrate competence with the necessary skills to utilize the above equipment. Lourdes Davila RN Images from the original note were not included. Consultation requested by Dr. Godwin for an opinion regarding flatfoot. My final recommendations will be communicated back to the requesting physician by way of shared Medical record or letter to requesting physician via US mail. Initial Podiatric Office Visit: Chief Complaint: This 21 year old female who presents with chief complaint:b/l knee and hip pain HPI Patient presents to clinic with complaint of b/l knee and hip pain. Patient states she has been having knee pain for several years. Patient states the pain is intermittent. Patient stats the knee pain is worse when she is walking. Patient also complains of b/l hip pain. Patient states the hip pain has been present for approximately 10 months. Patient has tried tylenol and ibuprofen which has not helped. Patient is being referred here because she is concerned the pain in her knees and hips could be caused by her flatfoot She has tried otc inserts in the past but she does not feel that gave her much relief in the hip or knees. She states wearing lace up tennis shoes or boots makes her pain worse in her knees PAIN EVALUATION 01/07/2022 1303 Pain Level: 5 Pain Location: Knee-Left bilateral knees Description: Aching Duration Amount of Time: 1 Duration Units: Months Frequency: Continuous Intervention/Comfort measure: Medication Comments: Tylenol, ibuprofen with mild relief No results found for: HBA1C PCP: Alvaro Godwin MD PAST MEDICAL HISTORY Diagnosis Date Achilles tendonitis, bilateral 01/23/2016 Nonorganic enuresis Pyelonephritis during 11/05/2021 Sprain of ankle 06/23/2016 Current Outpatient Medications Medication Sig FLUoxetine (PROZAC) 20 mg capsule Take 1 capsule by mouth once daily. mv, min #36-iron,carbonyl-FA (GERITOL COMPLETE) 16 mg iron- 0.38 mg tab Take 1 tablet by mouth once daily. LORATA-DINE D 10-240 mg Tb24 Take 1 tablet by mouth once daily. (Patient not taking: Reported on 10/05/2021 ) No current facility-administered medications for this visit. ALLERGIES No Known Allergies PAST SURGICAL HISTORY Procedure Laterality Date NONE FAMILY HISTORY Problem Relation Age of Onset Allergies Mother sulfa, naproxine Allergies Father PCN No Known Problems Sister No Known Problems Sister No Known Problems Brother No Known Problems Maternal Grandmother No Known Problems Maternal Grandfather No Known Problems Paternal Grandmother No Known Problems Paternal Grandfather Social History Tobacco Use Smoking status: Never Passive exposure: Yes Smokeless tobacco: Never Tobacco comments: mother outdoors Vaping Use Vaping Use: Never used Substance Use Topics Alcohol use: No Drug use: No REVIEW OF SYSTEMS GENERAL: Negative for Malaise, significant weight loss, fever RESPIRATORY: Negative for cough, wheezing and shortness of breath CARDIOVASCULAR: Negative for chest pain, leg swelling and palpitations GI: Negative for abdominal discomfort, blood in stools or black stools and change in bowel habits : Negative for dysuria, frequency and incontinence MUSCULOSKELETAL: + pain in b/l hips and knees SKIN: no open wounds noted. HEMATOLOGY/LYMPHOLOGY Negative for prolonged bleeding, bruising easily, and swollen nodes. ENDOCRINE: Negative for cold or heat intolerance, polyuria, polydipsia and goiter. NEURO: negative Physical Exam: Constitutional: Pt is a well developed 21 year old female who is alert, oriented and cooperative Eyes: Following during examination. No redness or drainage. Respiratory: RR normal and nonlabored. Even breathing. No evidence of distress or shortness of breath. Psychology: Patient is engaged during conversation. Normal affect and mood. Does not appear depressed or anxious during encounter. Vascular: Dorsalis pedis and posterior tibial pulses palpable as b/l Capillary Fill time < 5 seconds to digits 1-5 b/l Skin temperature warm to warm proximal to distal b/l Hair growth present to digits Neurological: intact light touch/epicritic sensation b/l intact protective sensation no significant neurological deficits Dermatological: Nails 1-5 b/l appear normal. Webspaces clean and dry 1-4 b/l. Skin appears well hydrated and supple. good color, texture, turgor. No open lesions present. No callosities present. Musculoskeletal/Orthopaedic: Patient has no pain to palpation of b/l feet Foot type is pronated structurally AJ ROM is full with knee extended and flexed 1st MPJ is full when loaded and no pain or crepitus are noted with ROM. MTJ, STJ are full and free of pain and crepitus. +5/5 muscle strength dorsiflexion, plantarflexion, inversion, eversion b/l Radiographs: 3 views b/l foot ordered January 07, 2022: I have personally reviewed and interpreted these XR myself: flatfoot noted ASSESSMENT: (M21.41, M21.42) Pes planus of both feet (primary encounter diagnosis) (M76.829) Posterior tibial tendon dysfunction PLAN: 1. History and physical examination performed. 2. XR reviewed with patient and interpreted today 3. Patient does suffer from b/l hip and knee pain. This could be exacerbated with flatfoot. I will provide her with powerstep inserts for now but will order custom orthotics. It should be noted that she states wearing lace up tennis shoes or boots actaully make her pain in knees worse. So I do have concerns that a custom orthotic or powerstep may make her knee pain worse. If she continues to have knee and hip pain, I would recommend having patient see Dr. Farah for consultation. Dino Garzon DPM Podiatry [address] [facility] [id number] Dept: [phone] Dept Patient presents with: Left Knee - Knee Pain, New Right Knee - Knee Pain, New AMB ROOMING INTAKE FLOWSHEET DATA Risk Screening Do you have concerns about personal safety or safety in the home?: No Pain Pain Level: 5 Pain Location: Knee-Left (bilateral knees) Description: Aching Duration Amount of Time: 1 Duration Units: Months Frequency: Continuous Intervention/Comfort measure: Medication Comments: Tylenol, ibuprofen with mild relief documented in this encounter [facility] 01-07-2022 History of Presen t illness Narrative Radiology Service Progress Note PATIENT NAME: Xin L Jose DATE OF SERVICE: January 07, 2022 TIME: 12:30 PM PATIENT IDENTITY VERIFICATION COMPLETED USING TWO (2) IDENTIFIERS: Name and Date of confirmed by patient verbally. FALL SCREENING: Has the patient had 2 falls in the last year or 1 fall with injury or currently using an Ambulatory Assistive Device (Walker, Cane, Wheelchair, Crutches, etc.)? No PATIENT GENDER DATA: Female. status: : No status: NO. PATIENT RELEVANT IMPLANT DATA REVIEWED: Not Applicable RADIOLOGY DEPARTMENT: General X-ray: Exam(s) Completed: Lower Extremity X-Ray(s): Feet, Bilateral and Wt. Bearing PERIPHERAL IV DATA: Not applicable SIGNED BY: RT Marisol(R) January 07, 2022 12:30 PM documented in this encounter [facility] 12-27-2021 History of Presen t illness Narrative The patient was seen for the issues discussed below. Problem list and history reviewed. Allergies reviewed. Medications reviewed. Immunizations reviewed. HISTORY: see history section below PHYSICAL EXAM: GENERAL: alert, well appearing, in no distress LEFT EYE: no drainage noted, no conjunctival injection noted; RIGHT EYE: no drainage noted, no conjunctival injection noted; NO ADDITIONAL EYE FINDINGS LEFT EAR: pinna normal, auditory canal normal, tympanic membrane clear, no effusion noted, RIGHT EAR: pinna normal, auditory canal normal, tympanic membrane clear, no effusion noted NOSE/SINUSES: nares normal, mucosa normal, no drainage noted OROPHARYNX: lips without lesions noted, gums/mucosa normal, oropharynx without erythema or exudates NECK/ADENOPATHY: neck supple, no adenopathy noted CHEST/LUNGS: lungs clear to auscultation CARDIOVASCULAR: regular rate and rhythm, capillary refill less than 2 seconds ABDOMEN: soft, nontender, bowel sounds normal, no masses, no organomegaly, abdomen nondistended SKIN: normal color, no rash, no jaundice, moist mucous membranes, turgor within normal limits EXTREMITIES: Knee examination bilaterally with mild tenderness to palpation along the lateral and medial aspect of the patella bilaterally. No joint effusion. No crepitance with movement. No significant tenderness over the anterior tibial tuberosity. Full range of motion present to the knees. Abrasion present right knee. Right hip examination reveals full range of motion present. Mild complaint of pain with abduction and abduction. Gait with trace limp. No edema noted to either lower extremity. No increase in calf size to either lower extremity (as compared to the other extremity). Severe pes planus bilaterally. GENERAL RECOMMENDATIONS: - Issues discussed in detail. - Symptom relief measures as needed. - Prescriptions, if ordered, are listed below. - Labs and/or X-rays, if ordered or obtained, are listed below. If the final results are not available at the conclusion of this visit, then additional recommendations may be made based on the final results. Note that all x-rays are reviewed by a radiologist before being considered final. - EKG, if ordered or obtained, is reviewed by a filling winder before being considered final. Additional recommendations may be made based on the final results. - Return to clinic should current symptoms (if present) worsen, other problems develop, or as needed. ADDITIONAL & DICTATED PORTION: ADDITIONAL HISTORY _ The following Nursing History was reviewed with the family: Patient presents with: Knee Pain: Bilateral knee pain x 2 wks; L knee worse. Injury to R knee 3 days ago with R hip pain. _ The patient has been experiencing bilateral knee pain for 2 to 3 weeks. The pain is located along the sides of the patella bilaterally. Radiates upwards toward the hips. Patient describes the pain as feels like someone shattering my knee with a hammer and feels like it (kneecap) is going to pop out of place . No edema, erythema, or joint effusion has been noted. The patient started a new job 1 month ago. The job entails standing in place for 12 hours at a time. No sports or other increased activities have been present. Patient not on oral contraceptives. No associated fevers. Patient also fell onto her right knee 3 days ago. Since that time she has had soreness in her right hip. No other joint complaints have been present. Review of systems negative for fevers. Patient has shown some weight loss. No eye, ear, nose, throat complaints. No lymphadenopathy. No bleeding or bruising. No cough, wheezing, shortness of breath. No vomiting, diarrhea, abdominal pain. No rash. Past medical history positive for pes planus and patellofemoral syndrome. The patient did have shoe inserts when she was being treated with patellofemoral syndrome, but she no longer has the inserts. ACTIVE PROBLEM LIST Attention Deficit Hyperactivity Disorder (Adhd), Combined Type Flat Feet, Bilateral Nonintractable Headache Scoliosis Patellofemoral Disorder of Left Knee Depression Anxiety IUD Check Up Anemia Tendinitis PAST MEDICAL HISTORY Diagnosis Date Achilles tendonitis, bilateral 01/23/2016 Nonorganic enuresis Pyelonephritis during 11/05/2021 Sprain of ankle 06/23/2016 PAST SURGICAL HISTORY Procedure Laterality Date NONE ADDITIONAL EXAM / OTHER INFORMATION none ADDITIONAL IMPRESSION / PLAN I feel the patient's symptoms are caused by her pes planus with the prolonged standing in place. The prolonged standing in place started 1 to 2 weeks prior to the onset of the knee pain. History and exam is not consistent with arthritis. Not consistent with patellofemoral syndrome. No evidence of Elkin-Schlatter's (and the patient's age would argue against that diagnosis). Leg exam argues against thromboembolic etiology for the pain. The patient has also suffered a recent right hip injury when she fell onto her right knee. No evidence of fracture on exam. I feel she suffered a mild sprain to the hip. The patient was referred to Podiatry. She has been given the first available appointment (which is scheduled for 01/07/2022 at 1:15 PM). She has also been placed on the waiting list should there be any cancellations. The patient and I checked her [employer] account, and the appointment is visible in her account. 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 The patient is planning to speak with her employer on Thursday regarding this. Should a note be required, we would be pleased to provide such a note. Should the knee pain worsen, swelling develop in either leg, or other issues develop, then the patient should be evaluated immediately. For the right hip sprain I recommended Elia. I spent a total of 30-39 minutes on the date of service. This included preparing to see the patient; [id number] patient care; obtaining and/or reviewing separately obtained history; performing a medically appropriate examination; counseling and educating the patient/family/caregiver; and completing clinical documentation. As applicable, this also included ordering medications, tests, or procedures; independently interpreting results; communicating results to the patient/family/caregiver; and care coordination (not separately reported). This note was partially generated using [employer] voice recognition system, and there may be some incorrect words, spellings, and punctuation that were not noted in checking the note before saving. Alvaro Godwin M.D. documented in this encounter [facility] 11-12-2021 Note HNO ID: [id number] Author: Dominik Singh MD Service: ? Author Type: Physician Type: Progress Notes Filed: 11/12/2021 4:58 PM Note Text: Patient is here for ultrasound. Please see image section in Epic for results. Blanca Yang MD [facility] 11-12-2021 History of Presen t illness Narrative Patient is here for ultrasound. Please see image section in Epic for results. Blanca Yang MD documented in this encounter [facility] documented as of this encounter (statuses as of 11/05/2021) [facility]06-28-2022 History of Past illness Narrative* Problem Noted Date Resolved Date Pyelonephritis during 11/05/2021 11/05/2021 Encounter for IUD insertion 07/07/202110/10 Overview: Mirena placed Sprain of ankle 06/23/2016 08/16/2018 Achilles tendonitis, bilateral 01/23/2016 0 08/16/2018 documented as of this encounter (statuses as of 11/12/2021) [facility]20[facility] History of Past illness Narrative* Problem Noted Date Resolved Date Pyelonephritis during 11/05/2021 11/05/2021 Encounter for IUD insertion 07/07/202110/10 Overview: Mirena placed Sprain of ankle 06/23/2016 08/16/2018 Achilles tendonitis, bilateral 01/23/2016 0 08/16/2018 documented as of this encounter (statuses as of 12/27/2021) [address]28-2022 History of Past illness Narrative* Problem Noted Date Resolved Date Pyelonephritis during 11/05/2021 11/05/2021 Encounter for IUD insertion 07/07/202110/10 Overview: Mirena placed Sprain of ankle 06/23/2016 08/16/2018 Achilles tendonitis, bilateral 01/23/2016 0 08/16/2018 documented as of this encounter (statuses as of 01/06/2022) [address]28-2022 History of Past illness Narrative* Problem Noted Date Resolved Date Pyelonephritis during 11/05/2021 11/05/2021 Encounter for IUD insertion 07/07/202110/10 Overview: Mirena placed Sprain of ankle 06/23/2016 08/16/2018 Achilles tendonitis, bilateral 01/23/2016 0 08/16/2018 documented as of this encounter (statuses as of 01/08/2022) [facility] History of Past illness Narrative* Problem Noted Date Resolved Date Pyelonephritis during 11/05/2021 11/05/2021 Encounter for IUD insertion 07/07/202110/10 Overview: Mirena placed Sprain of ankle 06/23/2016 08/16/2018 Achilles tendonitis, bilateral 01/23/2016 0 08/16/2018 documented as of this encounter (statuses as of 01/08/2022) [address]28-2022 History of Past illness Narrative* Problem Noted Date Resolved Date Pyelonephritis during 11/05/2021 11/05/2021 Encounter for IUD insertion 07/07/202110/10 Overview: Mirena placed Sprain of ankle 06/23/2016 08/16/2018 Achilles tendonitis, bilateral 01/23/2016 0 08/16/2018 documented as of this encounter (statuses as of 01/14/2022) [facility] History of Past illness Narrative* Problem Noted Date Resolved Date Pyelonephritis during 11/05/2021 11/05/2021 Encounter for IUD insertion 07/07/202110/10 Overview: Mirena placed Sprain of ankle 06/23/2016 08/16/2018 Achilles tendonitis, bilateral 01/23/2016 0 08/16/2018 documented as of this encounter (statuses as of 02/11/2022) [facility] History of Past illness Narrative* Problem Noted Date Resolved Date Pyelonephritis during 11/05/2021 11/05/2021 Encounter for IUD insertion 07/07/202110/10 Overview: Mirena placed Sprain of ankle 06/23/2016 08/16/2018 Achilles tendonitis, bilateral 01/23/2016 0 08/16/2018 documented as of this encounter (statuses as of 02/14/2022) [facility] History of Past illness Narrative* Problem Noted Date Resolved Date Pyelonephritis during 11/05/2021 11/05/2021 Encounter for IUD insertion 07/07/202110/10 Overview: Mirena placed Sprain of ankle 06/23/2016 08/16/2018 Achilles tendonitis, bilateral 01/23/2016 0 08/16/2018 documented as of this encounter (statuses as of 03/13/2022) [facility] History of Past illness Narrative* Problem Noted Date Resolved Date Pyelonephritis during 11/05/2021 11/05/2021 Encounter for IUD insertion 07/07/202110/10 Overview: Mirena placed Sprain of ankle 06/23/2016 08/16/2018 Achilles tendonitis, bilateral 01/23/2016 0 08/16/2018 documented as of this encounter (statuses as of 03/14/2022) [facility] History of Past illness Narrative* Problem Noted Date Resolved Date Pyelonephritis during 11/05/2021 11/05/2021 Encounter for IUD insertion 07/07/202110/10 Overview: Mirena placed Sprain of ankle 06/23/2016 08/16/2018 Achilles tendonitis, bilateral 01/23/2016 0 08/16/2018 documented as of this encounter (statuses as of 04/11/2022) [facility] History of Past illness Narrative* Problem Noted Date Resolved Date Pyelonephritis during 11/05/2021 11/05/2021 Encounter for IUD insertion 07/07/202110/10 Overview: Mirena placed Sprain of ankle 06/23/2016 08/16/2018 Achilles tendonitis, bilateral 01/23/2016 0 08/16/2018 documented as of this encounter (statuses as of 04/28/2022) [facility] History of Past illness Narrative* Problem Noted Date Resolved Date Pyelonephritis during 11/05/2021 11/05/2021 Encounter for IUD insertion 07/07/202110/10 Overview: Mirena placed Sprain of ankle 06/23/2016 08/16/2018 Achilles tendonitis, bilateral 01/23/2016 0 08/16/2018 documented as of this encounter (statuses as of 05/20/2022) [facility] History of Past illness Narrative* Problem Noted Date Resolved Date Pyelonephritis during 11/05/2021 11/05/2021 Encounter for IUD insertion 07/07/202110/10 Overview: Mirena placed Sprain of ankle 06/23/2016 08/16/2018 Achilles tendonitis, bilateral 01/23/2016 0 08/16/2018 documented as of this encounter (statuses as of 07/24/2022) [facility] History of Past illness Narrative* Problem Noted Date Resolved Date Pyelonephritis during 11/05/2021 11/05/2021 Encounter for IUD insertion 07/07/202110/10 Overview: Mirena placed Sprain of ankle 06/23/2016 08/16/2018 Achilles tendonitis, bilateral 01/23/2016 0 08/16/2018 documented as of this encounter (statuses as of 07/25/2022) [facility] History of Past illness Narrative* Problem Noted Date Resolved Date Pyelonephritis during 11/05/2021 11/05/2021 Encounter for IUD insertion 07/07/202110/10 Overview: Mirena placed Sprain of ankle 06/23/2016 08/16/2018 Achilles tendonitis, bilateral 01/23/2016 0 08/16/2018 documented as of this encounter (statuses as of 08/18/2022) [facility] History of Past illness Narrative* Problem Noted Date Diagnosed Date Resolved Date Pyelonephritis during 11/05/2021 11/05/2021 Encounter for IUD insertion 07/07/2021 11/05/2021 Overview: Mirena placed Sprain of ankle 06/23/2016 08/16/2018 Achilles tendonitis, bilateral 01/23/2016 08/16/2018 documented as of this encounter (statuses as of 12/16/2022) [facility] History of Past illness Narrative* Problem Noted Date Diagnosed Date Resolved Date Pyelonephritis during 11/05/2021 11/05/2021 Encounter for IUD insertion 07/07/2021 11/05/2021 Overview: Mirena placed Sprain of ankle 06/23/2016 08/16/2018 Achilles tendonitis, bilateral 01/23/2016 08/16/2018 documented as of this encounter (statuses as of 12/25/2022) [facility] History of Past illness Narrative* Problem Noted Date Diagnosed Date Resolved Date Pyelonephritis during 11/05/2021 11/05/2021 Encounter for IUD insertion 07/07/2021 11/05/2021 Overview: Mirena placed Sprain of ankle 06/23/2016 08/16/2018 Achilles tendonitis, bilateral 01/23/2016 08/16/2018 documented as of this encounter (statuses as of 02/19/2023) [facility] History of Past illness Narrative* Problem Noted Date Diagnosed Date Resolved Date Pyelonephritis during 11/05/2021 11/05/2021 Encounter for IUD insertion 07/07/2021 11/05/2021 Overview: Mirena placed Sprain of ankle 06/23/2016 08/16/2018 Achilles tendonitis, bilateral 01/23/2016 08/16/2018 documented as of this encounter (statuses as of 02/23/2023) [facility] History of Past illness Narrative* Problem Noted Date Diagnosed Date Resolved Date Pyelonephritis during 11/05/2021 11/05/2021 Encounter for IUD insertion 07/07/2021 11/05/2021 Overview: Mirena placed Sprain of ankle 06/23/2016 08/16/2018 Achilles tendonitis, bilateral 01/23/2016 08/16/2018 documented as of this encounter (statuses as of 04/18/2023) [facility] History of Present illness Narrative* Mckenzie Garcia APRN.[facility] - 11/05/2021 12:33 PM EDT Xin Garcia presents today for IUD check. She had a Mirena placed on 06/12/2021. She bled the first 2.5 months, had a heavy period in September and started her cycle again yesterday, partner felt the IUDduring intercourse after her last period in mid-late September. REVIEW OF SYSTEMS: ABDOMEN: notes abdominal cramping that started last month, a couple times a day for a few weeks/none since early October, no cramping this cycle GI: No nausea, vomiting, or diarrhea FURNITURE PAINTER: Negative for abnormal vaginal bleeding, abnormal vaginal discharge negative for remaining PHYSICAL EXAMINATION: BP 106/60 Ht 5' 3 (1.60m) Wt 115 lb (52.2kg) LMP 08/22/2021 BMI 20.38 kg/(m^2). ABDOMEN:deferred EXTERNAL GENITALIA: Normal genitalia and Bartholins, Urethra, Sken'e normal CERVIX: smooth, no lesions. IUD strings visible at os, miranda and 4 cm length. UTERUS: deferred ADNEXA: deferred IMPRESSION/PLAN: Pelvic ultrasound ordered, recommended condoms for back up. Mckenzie Garcia APRN.CNM Medical Decision Making: Problems: Moderate: New problem with uncertain prognosis Risk: Low: Low risk from testing/treatment Medical Decision Making Level: 3 - Low [facility] History of Present illness Narrative* Alvaro Godwin MD - 10/05/2021 8:57 AM EDT The patient was seen for the issues discussed below. Problem list and history reviewed. Allergies reviewed. Medications reviewed. Immunizations reviewed. HISTORY: see history section below PHYSICAL EXAM: GENERAL: alert, well appearing, in no distress LEFT EYE: no drainage noted, no conjunctival injection noted; RIGHT EYE: no drainage noted, no conjunctival injection noted; NO ADDITIONAL EYE FINDINGS LEFT EAR: pinna normal, auditory canal normal, tympanic membrane clear, no effusion noted, RIGHT EAR: pinna normal, auditory canal normal, tympanic membrane clear, no effusion noted NOSE/SINUSES: nares normal, mucosa normal, no drainage noted OROPHARYNX: lips without lesions noted, gums/mucosa normal, oropharynx without erythema or exudates NECK/ADENOPATHY: neck supple, no adenopathy noted CHEST/LUNGS: lungs clear to auscultation CARDIOVASCULAR: regular rate and rhythm, capillary refill less than 2 seconds ABDOMEN: soft, nontender, bowel sounds normal, no masses, no organomegaly, abdomen nondistended SKIN: normal color, no rash, no jaundice, moist mucous membranes, turgor within normal limits GENERAL RECOMMENDATIONS: - Issues discussed in detail. - Symptom relief measures as needed. - Prescriptions, if ordered, are listed below. - Labs and/or X-rays, if ordered or obtained, are listed below. If the final results are not available at the conclusion of this visit, then additional recommendations may be made based on the final results. Note that all x-rays are reviewed by a radiologist before being considered final. - EKG, if ordered or obtained, is reviewed by a filling winder before being considered final. Additional recommendations may be made based on the final results. - Return to clinic should current symptoms (if present) worsen, other problems develop, or as needed. ADDITIONAL & DICTATED PORTION: ADDITIONAL HISTORY The following Nursing History was reviewed with the family: Patient presents with: Discuss anxiety: currently on Zoloft 100mg daily, wants to discuss possible medication for anxiety.Having frequent panic attacks The patient is currently on Zoloft 100 mg daily. This is being prescribed by her outside [employer] doctor. This has provided good control of her depression. However, she feels her anxiety is not well controlled. She is having significant panic attacks. She is interested in adjusting her therapy. No suicidal ideation has been present. No other current issues. No fevers. No eye, ear, nose, throat complaints. No cough, wheezing, shortness of breath. No vomiting, diarrhea, abdominal pain. No rash or edema. SCARED Rating Scale Panic/somatic 16 cutoff equals 7 Generalized anxiety 8 cutoff equals 9 Separation 2 cutoff equals 5 Social 9 cutoff equals 8 School avoidance 4 cutoff equals 3 TOTAL 39 cutoff equals 25 ACTIVE PROBLEM LIST Attention Deficit Hyperactivity Disorder (Adhd), Combined Type Flat Feet, Bilateral Nonintractable Headache Scoliosis Patellofemoral Disorder of Left Knee Depression Anxiety Encounter for IUD Insertion IUD Check Up Anemia PAST MEDICAL HISTORY Diagnosis Date Achilles tendonitis, bilateral 01/23/2016 Nonorganic enuresis Sprain of ankle 06/23/2016 PAST SURGICAL HISTORY Procedure Laterality Date NONE ADDITIONAL EXAM / OTHER INFORMATION none ADDITIONAL IMPRESSION / PLAN Anxiety under suboptimal control. Subscores on the SCARED survey were mostly elevated for panic attacks, which is consistent with the history. Depression adequately controlled. No suicidal ideation. Options reviewed. These included increasing the Zoloft dosage, trying a different medication such as Prozac, or referral to specialty (psychiatry). After careful consideration it was decided to placethe patient on Prozac 20 mg daily. Follow-up in the office ([id number]-[id number] visit) in 1 month. Suicide precautions again reviewed and patient to be seen immediately by a crisis evaluation team in the emergency room or at the [facility] for any suicidal ideation. I spent a total of 30-39 minutes on the date of service. This included preparing to see the patient; [id number] patient care; obtaining and/or reviewing separately obtained history; performing a medically appropriate examination; counseling and educatingthe patient/family/caregiver; and completing clinical documentation. As applicable, this also included ordering medications, tests, or procedures; independently interpreting results; communicating results to the patient/family/caregiver; and care coordination (not separately reported). This note was partially generated using [employer] voice recognition system, and there may be some incorrect words, spellings, and punctuation that were not noted in checking the note before saving. Alvaro Godwin M.D. [facility] Miscellaneous Notes* Telephone Encounter - Moon Macias MD - 09/02/2021 12:22 PM EDT Patient's request for medication is as follows Signed Prescriptions Disp Refills ciprofloxacin HCl (CIPRO) 500 mg tablet 10 tablet 0 Sig: Take 1 tablet by mouth twice daily for 5 days. Authorizing Provider: MOON MACIAS Order entered - please phone pharmacy and notify patient. Moon Macias MD * Telephone Encounter - Jane Koch RN - 09/02/2021 11:13 AM EDT patient aware, verbalizes understanding, order pended, pharmacy updated * Telephone Encounter - Moon Macias MD - 09/02/2021 11:10 AM EDT Please notify pt that urine culture grew bacteria and she has a UTI. It doesn't look like antibiotics were ordered, but I want to make sure that's the case. If antibiotics were not ordered, I plan toorder cipro 500mg bid x 5 days. Please find out which pharmacy she would like to use. Moon Macias MD * Telephone Encounter - Cory Keys RN - 09/02/2021 8:08 AM EDT Please review urine culture results. Cory Keys RN [facility] History of Present illness Narrative* Amelia Benites MD - 08/29/2021 9:51 AM EDT cc Fatigue (dx with mono on 05/18 and seen PCP in July ) HPI 21-year-old female here for concern about exhaustion and fatigue. This has continued and possibly worsened since she was diagnosed in May with mononucleosis by her PCP Dr. Godwin Lab work at the time showed hemoglobin of 10.3. She was instructed to start [id number]-vmhoezo iron supplementation and have a recheck in 6 months. She was unable to tolerate daily iron supplements because of stomach upset. She was seen by her FURNITURE PAINTER in June who suggested she take Geritol and she has been using that on a somewhat regular basis since then. Seen by PCP in July for recheck of mononucleosis and at the time had a palpable spleen tip. Patient concerned because she has continued to have extreme fatigue. She has a 6-month-old infant who she cares with with baby's father and maternal grandmother. She is working 3 days a week for about 4 hours and feels she should have more energy at this point. Past medical history history of anemia during but could not take standard iron supplements and folate supplements History of seasonal allergies currently taking antihistamine and nasal steroid spray. Review of Systems Constitutional: Positive for appetite change and fatigue. Negative for fever. HENT: Positive for congestion, postnasal drip and sinus pressure. Negative for sore throat. Eyes: Negative for photophobia, pain and discharge. Respiratory: Negative for cough, choking, shortness of breath and wheezing. Cardiovascular: Negative for palpitations. Gastrointestinal: Negative for abdominal distention, constipation, diarrhea, nausea and vomiting. Endocrine: Negative for cold intolerance, polydipsia, polyphagia and polyuria. Genitourinary: Negative for menstrual problem. Musculoskeletal: Negative for back pain, myalgias and neck pain. Skin: Positive for pallor. Negative for color change. Allergic/Immunologic: Negative. Neurological: Negative for dizziness, syncope and light-headedness. Hematological: Negative. OBJECTIVE: BP 118/60 Pulse 60 Temp 36.3 C (97.3 F) (Temporal) Resp 8 Wt 52.4 kg (115 lb 8 oz) LMP 08/22/2021 General: alert and active in no apparent distress Head: normocephalic Eyes: conjunctiva pale, PERRL, EOMI Ears: TMs clear: bilaterally Nose: no erythema or exudate OP: moist without lesions, no erythema, no tonsillar hypertrophy. Does have some yellow-green postnasal discharge. Neck: supple, no adenopathy LYmph nodes-no anterior cervical, posterior cervical, supraclavicular or occipital nodes Lungs: clear to auscultation bilaterally, good air exchange CVS: Normal rate, regular rhythm, no murmur , normal pulses are palpable and equal. Abdomen: soft, nondistended, nontender, I do not appreciate a palpable spleen tip at this time. Skin: No rashes, lesions or skin changes Neuro: No focal deficits or abnormal findings present IMP: Malaise and fatigue (primary encounter diagnosis) Several issues here that may be causing her prolonged fatigue including recent EBV infection, history of anemia and recent . PLAN: Excused from work tomorrow with a letter for me. Further treatment and management will be reviewed after lab work returns. UA today showed positive nitrates and leukocytes. Urine culture was sent. Office Visit on 08/29/21 CBC + DIFF TSH BLD T4 FREE/FREE THYROX VITAMIN D 25 HYDROXY COMP METABOLIC PANEL IRON + TIBC FERRITIN BLD UA DIP B/O UA DIP, URINE (POC) URINE CULTURE URINE CULTURE fluticasone (FLONASE) 50 mcg/actuation nasal spray LORATA-DINE D 10-240 mg Tb24 Discussed symptomatic care as needed. medications per orders See patient instructions for further treatment plan Patient to call if worsening symptoms or concerns Amelia Benites MD I spent a total of 45 minutes on the date of the service which included preparing to see the patient, [id number] patient care, completing clinical documentation, obtaining and/or reviewing separately obtained history, performing a medically appropriate examination, counseling and educating the pat ient/family/caregiver, ordering medications, tests, or procedures and communicating results to the patient/family/caregiver. documented [facility] History of Past illness Narrative* Problem Noted Date Resolved Date Sprain of ankle 06/23/2016 08/16/2018 Achilles tendonitis, bilateral 01/23/2016 0 08/16/2018 documented as of this encounter (statuses as of 08/30/2021) [facility] History of Past illness Narrative* Problem Noted Date Resolved Date Sprain of ankle 06/23/2016 08/16/2018 Achilles tendonitis, bilateral 01/23/2016 0 08/16/2018 documented as of this encounter (statuses as of 09/02/2021) [facility]2017 History of Past illness Narrative* Problem Noted Date Resolved Date Sprain of ankle 06/23/2016 08/16/2018 Achilles tendonitis, bilateral 01/23/2016 0 08/16/2018 documented as of this encounter (statuses as of 10/05/2021) [facility] No data available for this section [facility] Evaluation + Plan note Future Appointments Appointment Date:06/17/2022 10:30:00 AM Scheduled Provider:SUMEET CHAVEZ Location:[facility] Appointment Type:PC OV Follow Up Future Scheduled Tests Laboratory* Thyroid Stimulating Hormone 05/30/22 * Free T4 05/30/22 * Complete Blood Count 05/30/22 * Complete Metabolic Panel 05/30/22 [facility] Evaluation + Plan note Future Appointments Appointment Date:08/11/2022 01:00:00 PM Scheduled Provider:OMAIRA BURNS Location:[facility] Appointment Type:PC OV Sleep Consult Appointment Date:09/23/2022 01:30:00 PM Scheduled Provider:SUMEET CHAVEZ Location:[facility] Appointment Type:PC OV Follow Up Diagnostic Tests Pending * Urine Culture 07/27/22 Future Scheduled Tests Laboratory* Thyroid Stimulating Hormone 05/30/22 * Free T4 05/30/22 * Complete Blood Count 05/30/22 * Complete Metabolic Panel 05/30/22 [facility] [employer] note* Diagnosis Malaise and fatigue- Primary Other malaise and fatigue documented in this encounter [facility] Diagnosis Anxiety- Primary Anxiety state, unspecified Depression, unspecified depression type documented in this encounter [facility] note* Diagnosis Surveillance of previously prescribed intrauterine contraceptive device- Primary Abdominal cramping Abdominal pain, unspecified site Menorrhagia with regular cycle Excessive or frequent menstruation Displacement of intrauterine contraceptive device, initial encounter [facility]* Diagnosis Complication of intrauterine device (IUD), unspecified complication, initial encounter ([facility] Primary documented in this encounter [facility] note* Diagnosis Flat feet, bilateral- Primary Pain in both knees, unspecified chronicity Injury of right hip, initial encounter [facility]* Diagnosis Bilateral foot pain- Primary Pain in limb [facility]* Diagnosis Bilateral foot pain Pain in limb [facility]* Diagnosis Pes planus of both feet- Primary Posterior tibial tendon dysfunction Other disorders of synovium, tendon, and bursa documented in this encounter [facility] note* Diagnosis Anxiety- Primary Anxiety state, unspecified [facility]* Diagnosis Anxiety- Primary Anxiety state, unspecified Depression, unspecified depression type documented in this encounter [facility] note* Diagnosis Depression, unspecified depression type- Primary Anxiety Anxiety state, unspecified [facility]* Diagnosis Depression, unspecified depression type- Primary Anemia, unspecified type documented in this encounter [facility] note* Diagnosis Bipolar 2 disorder (HCC)- Primary Other bipolar disorders BALJINDER (generalized anxiety disorder) Generalized anxiety disorder documented in this encounter [facility] note* Diagnosis Bipolar 2 disorder (HCC)- Primary Other bipolar disorders BALJINDER (generalized anxiety disorder) Generalized anxiety disorder documented in this encounter [facility] note* Diagnosis URI, acute- Primary Acute upper respiratory infections of unspecified site Throat pain documented in this encounter [facility] note* Diagnosis Encounter for IUD removal- Primary Encounter for removal of intrauterine contraceptive device documented in this encounter [facility] note* Diagnosis Missed period- Primary Irregular menstrual cycle Positive urine test examination or test, positive result [facility] No data available for this section [facility] Progress note No data available for this section [facility] Reason for referral (narrative)* Diagnostic Procedure Only (Routine) - Authorized Specialty Diagnoses / Procedures Referred By Farzana gomez Referred To Contact [facility] Diagnoses Abdominal cramping Menorrhagia with regular cycle Displacement of intrauterine contraceptive device, initial encounter Procedures PELVIC US WHI US PELVIC NONOBSTETRIC REAL-TIME IMAGE COMPLETE Mckenzie Garcia APRN.[facility] [address] [place] [address] [address] Referral ID Status Reason Start Date Expiration Date Visits Requested Visits Authorized [id number] Authorized Auto-Generat ed Referral 11/05/2021 11/05/2022 1 1 [facility] for referral (narrative)* Diagnostic Procedure Only (Routine) - Pending Review Specialty Diagnoses / Procedures Referred By Contac t Referred To Contact XR IMAGING Diagnoses Bilateral foot pain Procedures XR FOOT GENERAL 3V AP/LAT/OBL BILATERAL RADEX FOOT COMPLETE MINIMUM 3 VIEWS Dino Garzon [address] [place] [address] Xr Imaging Referral ID Status Reason Start Date Expiration Date Visits Requested Visits Authorized [id number] Pending Review Auto-Generat ed Referral 01/06/2022 02/05/2023 1 1 [facility] for referral (narrative)* Diagnostic Procedure Only (Routine) - Closed Specialty Diagnoses / Procedures Referred By Contac t Referred To Contact XR IMAGING Diagnoses Bilateral foot pain Procedures XR FOOT GENERAL 3V AP/LAT/OBL BILATERAL RADEX FOOT COMPLETE MINIMUM 3 VIEWS Dino Garzon [address] [place] [address] Xr Imaging Referral ID Status Reason Start Date Expiration Date V isits Requested Visits Authorized [id number] Closed Auto-Generate d Referral 01/06/2022 02/05/2023 1 1 [facility] for visit Narrative* Diagnostic Procedure Only (Routine) - Closed Specialty Diagnoses / Procedures Referred By Contac t Referred To Contact [facility] Diagnoses Abdominal cramping Menorrhagia with regular cycle Displacement of intrauterine contraceptive device, initial encounter Procedures PELVIC US WHI US PELVIC NONOBSTETRIC REAL-TIME IMAGE COMPLETE Mckenzie Garcia, [place] [address] [place] [address] [facility] [address] [place] [address] Referral ID Status Reason Start Date Expiration Date V isits Requested Visits Authorized [id number] Closed Auto-Generate d Referral 11/05/2021 11/05/2022 1 1 [facility] N[facility]* Diagnostic Procedure Only (Routine) - Closed Specialty Diagnoses / Procedures Referred By Contac t Referred To Contact XR IMAGING Diagnoses Bilateral foot pain Procedures XR FOOT GENERAL 3V AP/LAT/OBL BILATERAL RADEX FOOT COMPLETE MINIMUM 3 VIEWS Duran Dino [address] [place] [address] Xr Imaging Referral ID Status Reason Start Date Expiration Date V isits Requested Visits Authorized [id number] Closed Auto-Generate d Referral 01/06/2022 02/05/2023 1 1 [facility] Summary Purpose Family History No Family History Records Found No data available for this section No data available for this section No Family History Records Found No data available for this section No Family History Records Found Advance Directives No Advanced Directives Records FoundNo Advanced Directives Records FoundNo Advanced Directives Records Found Reason for Referral Specialty Diagnoses / Procedures Referred By Contac t Referred To Contact Diagnoses Depression, unspecified depression type Anxiety Procedures CONSULT TO PSYCHIATRY OFFICE/OUTPATIENT [facility] 60-74 MINUTES Alvaro Godwin MD [address] [place] [address] Referral ID Status Reason Start Date Expiration Date Visits Requested Visits Authorized [id number] Pending Review PCP Requested Referral 03/13/2022 03/13/2023 1 1 Additional Source Comments Source Comments (unrecognize d section and content) In the event this informatio n is protected by the Federal Confidentiality of Alcohol and Drug Abuse Patient Records regulations: The Federal rules restrict any use of the information to criminally investigate or prosecute any alcohol or drug abuse patient.[facility] the event this information is protected by the Federal Confidentiality of Alcohol and Drug Abuse Patient Records regulations: The Federal rules restrict any use of the information to criminally investigate or prosecute any alcohol or drug abuse patient.[facility] the event this information is protected by the Federal Confidentiality of Alcohol and Drug Abuse Patient Records regulations: The Federal rules restrict any use of the information to criminally investigate or prosecute any alcohol or drug abuse patient.[facility] the event this information is protected by the Federal Confidentiality of Alcohol and Drug Abuse Patient Records regulations: The Federal rules restrict any use of the information to criminally investigate or prosecute any alcohol or drug abuse patient.[facility] the event this information is protected by the Federal Confidentiality of Alcohol and Drug Abuse Patient Records regulations: The Federal rules restrict any use of the information to criminally investigate or prosecute any alcohol or drug abuse patient.[facility] the event this information is protected by the Federal Confidentiality of Alcohol and Drug Abuse Patient Records regulations: The Federal rules restrict any use of the information to criminally investigate or prosecute any alcohol or drug abuse patient.[facility] Dublin[facility] the event this information is protected by the Federal Confidentiality of Alcohol and Drug Abuse Patient Records regulations: The Federal rules restrict any use of the information to criminally investigate or prosecute any alcohol or drug abuse patient.[facility] Dublin[facility] the event this information is protected by the Federal Confidentiality of Alcohol and Drug Abuse Patient Records regulations: The Federal rules restrict any use of the information to criminally investigate or prosecute any alcohol or drug abuse patient.[facility] the event this information is protected by the Federal Confidentiality of Alcohol and Drug Abuse Patient Records regulations: The Federal rules restrict any use of the information to criminally investigate or prosecute any alcohol or drug abuse patient.[facility] the event this information is protected by the Federal Confidentiality of Alcohol and Drug Abuse Patient Records regulations: The Federal rules restrict any use of the information to criminally investigate or prosecute any alcohol or drug abuse patient.[facility] Dublin[facility] the event this information is protected by the Federal Confidentiality of Alcohol and Drug Abuse Patient Records regulations: The Federal rules restrict any use of the information to criminally investigate or prosecute any alcohol or drug abuse patient.[facility] the event this information is protected by the Federal Confidentiality of Alcohol and Drug Abuse Patient Records regulations: The Federal rules restrict any use of the information to criminally investigate or prosecute any alcohol or drug abuse patient.[facility] Dublin[facility] the event this information is protected by the Federal Confidentiality of Alcohol and Drug Abuse Patient Records regulations: The Federal rules restrict any use of the information to criminally investigate or prosecute any alcohol or drug abuse patient.[facility] Dublin[facility] the event this information is protected by the Federal Confidentiality of Alcohol and Drug Abuse Patient Records regulations: The Federal rules restrict any use of the information to criminally investigate or prosecute any alcohol or drug abuse patient.[facility] Dublin[facility] the event this information is protected by the Federal Confidentiality of Alcohol and Drug Abuse Patient Records regulations: The Federal rules restrict any use of the information to criminally investigate or prosecute any alcohol or drug abuse patient.[facility] Dublin[facility] the event this information is protected by the Federal Confidentiality of Alcohol and Drug Abuse Patient Records regulations: The Federal rules restrict any use of the information to criminally investigate or prosecute any alcohol or drug abuse patient.[facility] Dublin[facility] the event this information is protected by the Federal Confidentiality of Alcohol and Drug Abuse Patient Records regulations: The Federal rules restrict any use of the information to criminally investigate or prosecute any alcohol or drug abuse patient.[facility] Dublin[facility] the event this information is protected by the Federal Confidentiality of Alcohol and Drug Abuse Patient Records regulations: The Federal rules restrict any use of the information to criminally investigate or prosecute any alcohol or drug abuse patient.[facility] Dublin[facility] the event this information is protected by the Federal Confidentiality of Alcohol and Drug Abuse Patient Records regulations: The Federal rules restrict any use of the information to criminally investigate or prosecute any alcohol or drug abuse patient.[facility] Dublin[facility] the event this information is protected by the Federal Confidentiality of Alcohol and Drug Abuse Patient Records regulations: The Federal rules restrict any use of the information to criminally investigate or prosecute any alcohol or drug abuse patient.[facility] DublinIn the event this information is protected by the Federal Confidentiality of Alcohol and Drug Abuse Patient Records regulations: The Federal rules restrict any use of the information to criminally investigate or prosecute any alcohol or drug abuse patient.[facility] Dublin[facility] the event this information is protected by the Federal Confidentiality of Alcohol and Drug Abuse Patient Records regulations: The Federal rules restrict any use of the information to criminally investigate or prosecute any alcohol or drug abuse patient.[facility] DublinIn the event this information is protected by the Federal Confidentiality of Alcohol and Drug Abuse Patient Records regulations: The Federal rules restrict any use of the information to criminally investigate or prosecute any alcohol or drug abuse patient.[facility] DublinIn the event this information is protected by the Federal Confidentiality of Alcohol and Drug Abuse Patient Records regulations: The Federal rules restrict any use of the information to criminally investigate or prosecute any alcohol or drug abuse patient.[facility] Dublin[facility] the event this information is protected by the Federal Confidentiality of Alcohol and Drug Abuse Patient Records regulations: The Federal rules restrict any use of the information to criminally investigate or prosecute any alcohol or drug abuse patient.[facility] Reason for Visit (unrecogniz ed section and content) Reason Comments Results Reason Comments Discuss anxiety currently on Zoloft 100mg daily, wants to discuss possible medication for anxiety. Having frequent panic attacks Reason Comments Established Patient Reason Comments Knee Pain Bilateral knee pain x 2 wks; L knee worse. Injury to R knee 3 days ago with R hip pain. Reason Comments Knee Pain New Reason Comments Med Check Pt reports she doesn 't feel any different on the medication, ? Dose increase Reason Comments Covid question Reason Comments Med Check Med Check - Pt state s she is doing better but not quite there . Reason Comments Referral Request Reason Comments Behavioral Health Appointment Reason Comments Reason Comments New Patient Evaluation Reason Comments Follow Up Reason Comments Throat Problem Pt reported throat p ain, x3 days. Reason Onset Date Comments Refill Request 08/17/2022 Reason Comments Medication Problem Reason Onset Date Comments Refill Request 12/22/2022 Refill Request 12/23/2022 Reason Comments PREGNACY TEST Wanting confirmation , at home test positive Care Teams (unrecognized sec tion and content) Patient Liaison Relationship Specialty Start Date End Date Alvaro Godwin MD [facility] [place], [place] [id number] PCP - General 02 Patient Liaison Relationship Specialty Start Date End Date Alvaro Godwin MD [address] [place], [place] [id number] PCP - General 02 Patient Liaison Relationship Specialty Start Date End Date Alvaro Godwin MD [address] [place] [id number] PCP - General 02 Patient Liaison Relationship Specialty Start Date End Date Alvaro Godwin MD [facility] [place], [place] [id number] PCP - General 02 Patient Liaison Relationship Specialty Start Date End Date Alvaro Godwin MD [address] [facility] [place] [address] PCP - General 02 Patient Liaison Relationship Specialty [place] [address] [place] [address], [place] [address] PCP - General 02 Patient Liaison Relationship Specialty [place] [address] [place] [address], [place] [address] PCP - General 02 Patient Liaison Relationship Specialty [place] [address] [place] [address], [place] [address] PCP - General 02 Patient Liaison Relationship Specialty [place] [address] [place] [address], [place] [address] PCP - General 02 Patient Liaison Relationship Specialty Start Date End Date Alvaro Godwin MD [address] [facility] [facility] [place] [address] PCP - General 02 Patient Liaison Relationship Specialty [place] [address] [place] [address], [place] [address] PCP - General 02 Patient Liaison Relationship Specialty [place] [address] [place] [address], [place] [address] PCP - General 02 INFORMATION SOURCE (unrecogn ized section and content) DATE CREATED AUTHOR AUTHOR'S ORGANIZ ATION 04/20/2023 [facility] DATE CREATED AUTHOR AUTHOR'S ORGANIZ ATION 05/15/2023 [facility] ([place]) Care Team (unrecognized sect ion and content) Care Team Personnel Name: PHYSICIAN, NONE Position: Physician Member Role: Primary Care Physician Care Team Related Persons Name: FRANCISCO MONTES DE OCA Name: ROMEL MONTES DE OCA Address: [address] [place] [address] Care Team Personnel Name: SUMEET CHAVEZ PAPER CARRIER-FLANGING MACHINE OPERATOR Position: P4 Advanced Practice Nurse Member Role: Primary Care Physician Address: Address: [address] [place] [address]- [place] Care Team Related Persons Name: MARTINGERDAFRANCISCO FOR RECORDS PERTAINING TO PATIENTS WHO ARE OR HAVE BEEN ENROLLED IN A CHEMICAL DEPENDENCY/SUBSTANCEABUSE PROGRAM, SOME INFORMATION MAY BE OMITTED. This clinical summary was aggregated from multiple sources. Caution should be exercised in using it in the provision of clinical care. This summary normalizes information from multiple sources, and as a consequence, information in this document may materially change the coding, format and clinical context of patient data. In addition, data may be omitted in some cases. CLINICAL DECISIONS SHOULD BE BASED ON THE PRIMARY CLINICAL RECORDS. [facility]. provides no warranty or guarantee of the accuracy or completeness of information in this document.
[2023-05-25 20:08] LABS: Chlamydia By Nucleic Acid AMP Negative (Negative); Gonococcus By Nucleic Acid AMP Negative (Negative)
[2023-05-29 22:53] LABS: HPV Reflexed? NOT INDICATED
== END | disposition home or self-care (01) ==
LOC: LABSPEC 16:34
PROVIDERS: PCP Nurse Practitioner Primary Care; Referring Provider Registered Nurse; Visit Provider Registered Nurse
DX: Z34.90 Encounter for supervision of normal pregnancy, unspecified, unspecified trimester (principal)
CPT/HCPCS: 87491; 87591; 88175; G0145

== ENCOUNTER → 2023-06-18 | Outpatient (CLI) | payer MEDICAID, SELFPAY ==
[2023-06-18 14:27] LABS: Absolute Lymphocyte Count 1.78 X10^3/uL (0.83-4.51); Absolute Neutrophil Count 3.6 X10^3/uL (2.0-7.7); Basophil# 0.03 X10^3/uL; Basophil% 0.5 % (0-1); Eosinophil# 0.04 X10^3/uL; Eosinophils% 0.7 % (0-5); Hematocrit 35.7 % (37-47); Hemoglobin 12.7 g/dL (12.0-15.0); Lymphocyte # 1.78 X10^3/ul (0.83-4.51); Lymphocyte % 30.5 % (19-41); Mean Corp Hgb Conc 35.6 g/dL (32-36); Mean Corpuscular Hgb 30.7 pg (27.0-32.0); Mean Corpuscular Volume 86.2 fL (81-99); Mean Platelet Vol. 9.6 fl (6.2-12.0); Monocyte# 0.36 X10^3/uL; Monocyte% 6.2 % (0-10); NRBC Flagged by Analyzer 0 % (0-5); Neutrophil # 3.61 X10^3/uL (2.7-7.7); Neutrophil % 61.8 % (47-70); Platelet Count 247 K/mm3 (150-450); RBC Distribution Width CV 11.9 % (11.6-14.6); RBC Distribution Width SD 37.3 fl (35.1-43.9); Red Blood Count 4.14 M/mm3 (4.2-5.4); White Blood Count 5.8 K/mm3 (4.4-11.0)
--- OUTSIDE RECORDS SUMMARY | 2023-06-18 16:51 | XMS RPT_ITS | CCD ---
Author Name Unknown Address [address] [place] [address] Organization [facility] Care Team Providers Care Assembler For Puller Over Machine Name Role Phone Alvaro Godwin MD Primary [...] Care OSCAR [place] Attending Unavailable KATHY GARCIA, [facility] Primary Care ALBERTO Royal MD Attending Unavail able KATHY GARCIA, SUMEET Primary Care Unavai labdanny GARCIA, SUMEET Attending Jensen GARCIA, [facility] Primary Care OMAIRA Elaine Attending Un available ROSA GUERRERO DO Attending Unavailable KATHY GARCIA, [facility] Primary Care Unavai labdanny Medications Current Medications [...] 07-28-2017 Episodic Other aftercare (1 source) Other intermediate (current) drug therapy; Translations: [Encounter for long-term [...] 20:45-0500 Diastolic Blood Pressure Non-Invasive 68 mm[Hg] [facility] 05-06-2023 20:45-0500 Heart rate 78 /min [facility] CHOUJAA DO [facility] 05-06-2023 20:45-0500 Systolic Blood Pressure Non-Invasive 126 mm[Hg] [facility] CHOUJAA DO [facility] 05-06-2023 19:42-0500 Body height 160 cm [facility] CHOUJAA DO [facility] 12-27-2023 19:42-0500 Body temperature 98.24 [degF] NIDAL CHOUJAA DO [facility] 05-06-2023 19:42-0500 Body weight 65.9 kg NIDAL CHOUJAA DO [facility] 05-06-2023 19:42-0500 Diastolic Blood Pressure Non-Invasive 86 mm[Hg] NIDAL CHOUJAA DO [facility] 05-06-2023 19:42-0500 Heart rate 66 /min NIDAL CHOUJAA DO [facility] 05-06-2023 19:42-0500 Respiratory rate 18 /min NIDAL CHOUJAA DO [facility] 05-06-2023 19:42-0500 Systolic Blood Pressure Non-Invasive 124 mm[Hg] NIDAL CHOUJAA DO [facility] 04-18-2023 13:41-0500 Body temperature 98.4 [degF] Ana María Cates LAB TESTER.FEED RESEARCH AIDE Work Phone: [facility] 04-18-2023 13:41-0500 Body weight 66.68 kg Ana María Cates LAB TESTER.FEED RESEARCH AIDE Work Phone: [facility] 04-18-2023 13:41-0500 Diastolic blood pressure 62 mm[Hg] Ana María Cates LAB TESTER.FEED RESEARCH AIDE Work Phone: [facility] 04-18-2023 13:41-0500 Heart rate 95 /min Ana María Cates LAB TESTER.FEED RESEARCH AIDE Work Phone: [facility] 04-18-2023 13:41-0500 Respiratory rate 16 /min Ana María Cates LAB TESTER.FEED RESEARCH AIDE Work Phone: [facility] 04-18-2023 13:41-0500 SaO2% (BldA) [Mass fraction] 99 % Ana María Cates LAB TESTER.FEED RESEARCH AIDE Work Phone: [facility] 04-18-2023 13:41-0500 Systolic blood pressure 110 mm[Hg] Ana María Sosags LAB TESTER.FEED RESEARCH AIDE Work Phone: [facility] 02-22-2023 16:28-0400 Blood Pressure Location ROSA GUERRERO DO [facility] 02-22-2023 16:28-0400 Body temperature 98.6 [degF] ROSA GUERRERO DO [facility] 02-22-2023 16:28-0400 Diastolic Blood Pressure Non-Invasive 60 1 ROSA GUERRERO DO [facility] 02-22-2023 16:28-0400 Heart rate 98 /min ROSA GUERRERO DO [facility] 02-22-2023 16:28-0400 Respiratory rate 16 /min ROSA GUERRERO DO [facility] 02-22-2023 16:28-0400 Systolic Blood Pressure Non-Invasive 97 1 ROSA GUERRERO DO [facility] 02-19-2023 09:00-0400 Body height 157.5 cm Main Hernandez LAB TESTER.FEED RESEARCH AIDE Work Phone: [facility] 02-19-2023 09:00-0400 Body weight 63.96 kg Main Hewilma LAB TESTER.FEED RESEARCH AIDE Work Phone: [facility] 02-19-2023 09:00-0400 Diastolic blood pressure 70 mm[Hg] Main Heers LAB TESTER.FEED RESEARCH AIDE Work Phone: [facility] 02-19-2023 09:00-0400 Systolic blood pressure 108 mm[Hg] Main Hernandez LAB TESTER.FEED RESEARCH AIDE Work Phone: [facility] 12-06-2022 20:16-0400 Body temperature 98.6 [degF] ALBERTO SAWANT MD [facility] 12-06-2022 20:16-0400 Diastolic Blood Pressure Non-Invasive 65 1 ALBERTO SAWANT MD [facility] 12-06-2022 20:16-0400 Heart rate 106 /min ALBERTO SAWANT MD [facility] 12-06-2022 20:16-0400 Respiratory rate 25 /min ALBERTO SAWANT MD [facility] 12-06-2022 20:16-0400 Systolic Blood Pressure Non-Invasive 106 1 ALBERTO SAWANT MD [facility] 07-27-2022 14:58-0400 Diastolic Blood Pressure Non-Invasive [address] OSCAR ROBERTS MD [facility] 07-27-2022 14:58-0400 Heart rate 70 /min DR OSCAR ROBERTS MD [facility] 07-27-2022 14:58-0400 Respiratory rate 20 /min DR OSCAR ROBERTS MD [facility] 07-27-2022 14:58-0400 Systolic Blood Pressure Non-Invasive [address] OSCAR ROBERTS MD [facility] 07-27-2022 12:44-0400 Body temperature 97.52 [degF] DR OSCAR ROBERTS MD [facility] 07-27-2022 12:44-0400 Diastolic Blood Pressure Non-Invasive [address] OSCAR ROBERTS MD [facility] 07-27-2022 12:44-0400 Heart rate 96 /min DR OSCAR ROBERTS MD [facility] 07-27-2022 12:44-0400 Respiratory rate 20 /min DR OSCAR ROBERTS MD [facility] 07-27-2022 12:44-0400 Systolic Blood Pressure Non-Invasive [address] OSCAR ROBERTS MD [facility] 07-24-2022 14:56-0400 Body temperature 97.81 [degF] Hermann Elder LAB TESTER.FEED RESEARCH AIDE Work Phone: [facility] 07-24-2022 14:56-0400 Body weight 61.51 kg Hermann Friedman LAB TESTER.FEED RESEARCH AIDE Work Phone: [facility] 07-24-2022 14:56-0400 Diastolic blood pressure 58 mm[Hg] Hermann Elder LAB TESTER.FEED RESEARCH AIDE Work Phone: [facility] 07-24-2022 14:56-0400 Heart rate 90 /min Hermann Elder LAB TESTER.FEED RESEARCH AIDE Work Phone: [facility] 07-24-2022 14:56-0400 Respiratory rate 18 /min Hermann Elder LAB TESTER.FEED RESEARCH AIDE Work Phone: [facility] 07-24-2022 14:56-0400 SaO2% (BldA) [Mass fraction] 98 % Hermann Elder LAB TESTER.FEED RESEARCH AIDE Work Phone: [facility] 07-24-2022 14:56-0400 Systolic blood pressure 90 mm[Hg] Hermann Elder LAB TESTER.FEED RESEARCH AIDE Work Phone: [facility] 02-28-2022 19:37-0400 Body height 157.5 cm JACKY MARTINEZ MD [facility] 02-28-2022 19:37-0400 Body temperature 97.88 [degF] JACKY MARTINEZ MD [facility] 02-28-2022 19:37-0400 Body weight 50 kg JACKY MARTINEZ MD [facility] 02-28-2022 19:37-0400 Diastolic blood pressure 68 mm[Hg] JACKY MARTINEZ MD [facility] 02-28-2022 19:37-0400 Heart rate 102 /min JACKY MARTINEZ MD [facility] 02-28-2022 19:37-0400 Height ZScore -0.90 JACKY MARTINEZ MD [facility] Encounters Encounter Date Encounter Type Care Provider Facility Start: 05-06-2023 End: 05-06-2023 Emergency department patient visit TERRIE PLATA Facility:B Start: 05-06-2023 End: 05-06-2023 Emergency department patient [facility] Start: 04-18-2023 End: 04-18-2023 ambulatory SELF Facility:[facility] Start: 04-18-2023 End: 04-18-2023 Patient encounter procedure Ana María Cates APRN.CNP Work Phone: [facility] Procedures Date Procedure Procedure Detail [...] Detail Author Start: 08-11-2024 Urine microalbumin profile [facility] Start: 10-01-2023 CHLAMYDIA SCREENING (24) CHLAMYDIA SCREENING () [facility] Start: 10-01-2023 GC (GONORRHEA) SCREE HOLLY (18-24) GC (GONORRHEA) SCREENING () [facility] Start: 01-14-2023 Adult depression screening assessment DEPRESSION SCREENING [facility] Start: 01-09-2023 Covid-19 Vaccine (2022- season) Covid-19 Vaccine (2022- season) [facility] Start: 01-09-2023 Influenza vaccination C [facility] Start: 10-03-2022 Adult depression screening assessment DEPRESSION SCREENING [facility] Start: 06-12-2022 CHLAMYDIA SCREENING (1824) CHLAMYDIA SCREENING (18-24) [facility] Start: 06-12-2022 GC (GONORRHEA) SCREE HOLLY (18-24) GC (GONORRHEA) SCREENING () [facility] Start: 04-16-2022 COVID-19 VACCINE (2 - Moderna series) COVID-19 VACCINE (2 - Moderna series) [facility] Start: 03-19-2022 COVID-19 VACCINE (2 - Moderna series) COVID-19 VACCINE (2 - Moderna series) [facility] Start: 01-09-2022 Influenza vaccination C [facility] Start: 08-29-2021 End: 10-29-2021 Bacteria identified in Urine by Culture [facility] Work Phone: Immunizations Immunization Date Immunization Notes Care Provider Sara ball 02-19-2022 SARS-CoV-2 (COVID-19 ) mRNA-1273 vaccine SUMEET CHAVEZ LAB TESTER-FEED RESEARCH AIDE [facility] [employer] 01-19-2020 influenza virus vacc ine, unspecified formulation SUMEET CHAVEZ LAB TESTER-FEED RESEARCH AIDE [facility] 01-19-2020 influenza, live, intranasal, quadrivalent Amelia Benites MD Work Phone: [facility] Work Phone: 02-11-2019 influenza virus vacc ine, unspecified formulation SUMEET CHAVEZ LAB TESTER-FEED RESEARCH AIDE [facility] [employer] 02-11-2019 influenza, injectabl e, quadrivalent, preservative free Amelia Benites MD Work Phone: [facility] 08-16-2018 meningococcal polysaccharide (groups A, C, Y and W-135) diphtheria toxoid conjugate vaccine (MCV4P) Amelia Benites MD Work Phone: [facility] 06-19-2017 influenza virus vacc ine, unspecified formulation SUMEET WEEKSGAVIN LAB TESTER-FEED RESEARCH AIDE [facility] [employer] 06-19-2017 influenza, injectabl e, quadrivalent, contains preservative Amelia Benites MD Work Phone: [facility] Work Phone: 04-25-2016 influenza, injectabl e, quadrivalent, preservative free Amelia Benites MD Work Phone: [facility] Work Phone: 08-14-2015 Human Papillomavirus 9-valent vaccine Amelia Benites MD Work Phone: [facility] 08-14-2015 Human Papillomavirus Quadval SUMEET CHAVEZ LAB TESTER-FEED RESEARCH AIDE [facility] [employer] 04-10-2015 human papilloma viru s vaccine, quadrivalent Amelia Benites MD Work Phone: [facility] Work Phone: 04-10-2015 Human Papillomavirus Quadval SUMEET CHAVEZ LAB TESTER-FEED RESEARCH AIDE [facility] 04-10-2015 influenza virus vacc ine, unspecified formulation SUMEET CHAVEZ LAB TESTER-[facility] 04-10-2015 influenza, injectabl e, quadrivalent, preservative free Amelia Benites MD Work Phone: [facility] Work Phone: 08-11-2014 human papilloma viru s vaccine, quadrivalent Amelia Benites MD Work Phone: [facility] 08-11-2014 Human Papillomavirus Quadval SUMEET WEEKSGAVIN LAB TESTER-[facility] 08-11-2014 meningococcal oligosaccharide (groups A, C, Y and W-135) diphtheria toxoid conjugate vaccine (MCV4O) Amelia Benites MD Work Phone: [facility] 08-11-2014 meningococcal polysaccharide (groups A, C, Y and W-135) diphtheria toxoid conjugate vaccine (MCV4P) SUMEET CHAVEZ LAB TESTER-[facility] 08-11-2014 tetanus toxoid, redu wade diphtheria toxoid, and acellular pertussis vaccine, adsorbed Amelia Benites MD Work Phone: [facility] 03-26-2013 influenza virus vacc ine, unspecified formulation Amelia Benites MD Work Phone: [facility] Work Phone: 05-21-2012 influenza virus vacc ine, unspecified formulation Amelia Benites MD Work Phone: [facility] 04-18-2011 influenza virus vacc ine, live, attenuated, for intranasal use Amelia Benites MD Work Phone: [facility] 03-02-2009 influenza virus vacc ine, unspecified formulation Amelia Benites MD Work Phone: [facility] Work Phone: 06-14-2008 hepatitis A vaccine, unspecified formulation Amelia Benites MD Work Phone: [facility] Work Phone: 06-14-2008 influenza virus vacc ine, unspecified formulation Amelia Benites MD Work Phone: [facility] Work Phone: 06-14-2008 varicella virus vaccine Amelia Benites MD Work Phone: [facility] Work Phone: 06-04-2007 diphtheria, tetanus toxoids and acellular pertussis vaccine Amelia Benites MD Work Phone: [facility] Work Phone: 06-04-2007 hepatitis A vaccine, unspecified formulation Amelia Benites MD Work Phone: [facility] Work Phone: 06-04-2007 poliovirus vaccine, inactivated Amelia Benites MD Work Phone: [facility] Work Phone: 06-08-2006 measles, mumps and rubella virus vaccine Amelia Benites MD Work Phone: [facility] Work Phone: 06-08-2006 measles, mumps, rube lla, and varicella virus vaccine Amelia Benites MD Work Phone: [facility] Work Phone: 06-18-2004 pneumococcal conjuga te vaccine, 7 valent Amelia Benites MD Work Phone: [facility] Work Phone: 09-07-2003 diphtheria, tetanus toxoids and acellular pertussis vaccine Amelia Benites MD Work Phone: [facility] Work Phone: 09-07-2003 haemophilus influenz ae type b vaccine, HbOC conjugate Amelia Benites MD Work Phone: [facility] Work Phone: 06-21-2003 measles, mumps and rubella virus vaccine Amelia Benites MD Work Phone: [facility] Work Phone: 06-21-2003 measles/mumps/rubell a virus vaccine SUMEET CHAVEZ LAB TESTER-FEED RESEARCH AIDE [facility] 03-10-2003 hepatitis B pediatri c vaccine SUMEET CHAVEZ LAB TESTER-FEED RESEARCH AIDE [facility] 03-10-2003 hepatitis B vaccine, pediatric or pediatric/adolescent dosage Amelia Benites MD Work Phone: [facility] Work Phone: 2002 diphtheria, tetanus toxoids and acellular pertussis vaccine Amelia Benites MD Work Phone: [facility] Work Phone: 2002 haemophilus influenz ae type b vaccine, HbOC conjugate Amelia Benites MD Work Phone: [facility] Work Phone: 2002 pneumococcal conjuga te vaccine, 7 valent Amelia Benites MD Work Phone: [facility] Work Phone: 2002 poliovirus vaccine, inactivated Amelia Benites MD Work Phone: [facility] Work Phone: 2002 diphtheria, tetanus toxoids and acellular pertussis vaccine Amelia Benites MD Work Phone: [facility] Work Phone: 2002 haemophilus influenz ae type b vaccine, HbOC conjugate Amelia Benites MD Work Phone: [facility] Work Phone: 2002 pneumococcal conjuga te vaccine, 7 valent Amelia Benites MD Work Phone: [facility] Work Phone: 2002 poliovirus vaccine, inactivated Amelia Benites MD Work Phone: [facility] Work Phone: 2002 diphtheria, tetanus toxoids and acellular pertussis vaccine Amelia Benites MD Work Phone: [facility] Work Phone: 2002 haemophilus influenz ae type b vaccine, HbOC conjugate Amelia Benites MD Work Phone: [facility] Work Phone: 2002 pneumococcal conjuga te vaccine, 7 valent Amelia Benites MD Work Phone: [facility] Work Phone: 2002 poliovirus vaccine, inactivated Amelia Benites MD Work Phone: [facility] Work Phone: 2002 hepatitis B pediatri c vaccine SUMEET SEGABBIE LAB TESTER-[facility] 2002 hepatitis B vaccine, pediatric or pediatric/adolescent dosage Amelia Benites MD Work Phone: [facility] Work Phone: 2002 hepatitis B vaccine, pediatric or pediatric/adolescent dosage Amelia Benites MD Work Phone: [facility] Work Phone: Payers Date Payer Category Payer Medicaid [id number] 2019 Medicaid [employer] [id number] 2019-Present [phone] [address] [place] [address] Medicaid [id number] 2019 Medicaid [id number] 2019 Medicaid [id number] 2002 Unknown [id number] 2002 Unknown [id number] 2002 Unknown [id number] 2002 Unknown [id number] 2002 Unknown [id number] 2002 Unknown [id number] Social History Date Type Detail Facility Start: 10-13-2020 End: 12-27-2021 Tobacco smoking status NHIS Never smoked tobacco [facility] Start: 08-29-2021 End: 04-18-2023 Alcohol intake Current non-drinker of alcohol (finding) [facility] Start: 04-23-2011 End: 12-27-2021 Tobacco Comment mother outdoors [facility] Start: 2002 Sex Assigned At Not on file C [facility] Start: 08-19-2021 End: 02-14-2022 Exposure to SARS-CoV-2 (event) Not sure [facility] Start: 10-04-2021 History SDOH Alcohol Frequency 1 [facility] Start: 10-04-2021 History SDOH Alcohol Std Drinks 98 [facility] Start: 10-04-2021 History SDOH Social Connections Phone 5 [facility] Start: 10-04-2021 End: 02-13-2022 History SDOH Social Connections Membership 2 [facility] Start: 10-04-2021 History SDOH Social Connections Living 7 [facility] Start: 10-04-2021 History SDOH Physica l Activity MPS 15 [facility] History of tobacco use Passive smoker [facility] Start: 12-27-2021 End: 02-19-2023 Tobacco use and exposure Smokeless tobacco non-user [facility] Sex Assigned At Female [facility] Start: 10-03-2021 End: 09-30-2022 History of Social function [facility] Start: 10-03-2021 End: 05-23-2023 Social connection and isolation panel [facility] Do you belong to any clubs or organizations such as baptist groups, unions, fraternal or athletic groups, or school groups? No [facility] How often do you att end meetings of the clubs or organizations you belong to? Patient refused [facility] Are you now , , , , never or living with a partner? Never [facility] How often to you hav e a drink containing alcohol? Never [facility] Do you feel stress - tense, restless, nervous, or anxious, or unable to sleep at night because your mind is troubled all the time - these days [OSQ] Very much [facility] (I/We) worried wheth er (my/our) food would run out before (I/we) got money to buy more. Never true [facility] Start: 02-19-2023 Tobacco Comment Vape only [facility] Functional Status Date Assessment Result Facility 05-06-2023 Functional Status Assistive Device None A [facility] 02-22-2023 Functional Status Independent [facility] 02-22-2023 Functional Status ID band on [facility] 12-06-2022 Functional Status Activity Yasmineglen yanghuan Independent [facility] 12-06-2022 Functional Status Standard Safet y ID band on, Call device within reach, Bed in low position, Wheels locked, Upper/Half-Length side-rails up, Phone within reach, personal items within reach, Bedside Cart Locked, Visitor at bedside [facility] 07-27-2022 Functional Status Independent [facility] 07-27-2022 Functional Status Standard Safet y ID band on, Call device within reach, Bed in low position, Wheels locked [facility] 02-28-2022 Functional Status ID band on, Call device within reach, Bed in low position, Wheels locked, Visitor at bedside [facility] Mental Status Date Assessment Result Facility 05-06-2023 Mental Status Orientation Oriented x 4 [facility] 02-22-2023 Mental Status Orientation Oriented x 4 [facility] 02-22-2023 [facility] 12-06-2022 Mental Status Orientation Oriented x 4 [facility] 12-06-2022 Mental Status [facility] 07-27-2022 Mental Status Orientation Oriented x 4 [facility] 02-28-2022 Mental Status Orientation Oriented x 4 [facility] Clinical Notes 06-23-2016 to 05-10-2023 Ana María España APRN.FEED RESEARCH AIDE - 04/18/2023 1:59 PM ESTTelephone Encounter - Mckenzie Tang RN - 02/23/2023 9:44 AM Main Moore APRN.[facility] - 02/19/2023 9:04 AM EDTLaboratory Note Date [...] Locations *1: This test was performed at: [facility], [address] [place] [address], [address] , [facility] ([place]) 05-06-2023 Hospital Discharg e instructions Patient Education [...] B6 and kymberly. Don t try any kvwv-wzw-awgdkaq medicines or home remedies without talking with [...] or as directed by your healthcare provider [phone] [employer]. [address] [place] [address]. All rights reserved. This information is not intended as a substitute for professional medical care. Always follow your healthcare professional's instructions. Follow Up Care 05/06/2023 19:36:49 With:SUMEET CHAVEZ Address: [address] [place] [phone] When:2-4 days [facility] 05-06-2023 Note Discharge Instructions Thank you for allowing [facility] to assist you with your healthcare needs. [...] SUMEET CHAVEZ When Within 2-4 days Where: [address] [place] [phone] Allergies NKA Medications Please ask your primary [...] may report side effects to FDA at 6-688-ZCZ-3353. What other drugs will affect cephalexin? Tell your doctor about all your other medicines, especially: metformin; or probenecid. This list is not complete. Other drugs may affect cephalexin, including prescription and kxgg-ejo-olicdfp medicines, vitamins, and herbal products. Not all [...] to ensure that the information provided by [employer]. ('[employer]') is accurate, up-to-date, and complete, but no guarantee is made to that effect. Drug information contained herein may be time sensitive. [employer] information has been compiled for use by healthcare practitioners and consumers in the [place] and therefore [employer] does not warrant that uses outside of the [place] are appropriate, unless specifically indicated otherwise. [employer]'s drug information does not endorse drugs, diagnose patients or recommend therapy. [employer] drug information is an informational resource designed [...] effective or appropriate for any given patient. [employer] does not assume any responsibility for any aspect of healthcare administered with the aid of information [employer] provides. The information contained herein is not intended to cover all possible uses, directions, precautions, warnings, drug interactions, allergic reactions, or adverse effects. If you have questions about the drugs you are taking, check with your doctor, nurse or pharmacist. Copyright 5929-4121 [employer]. Version: 12.. Revision Date: 12/10/2022. doxylamine (dox [...] may report side effects to FDA at 4-913-YZW-6411. What other drugs will affect doxylamine? Ask a doctor or pharmacist before using this medicine if you are also using any other drugs, including prescription and afwm-pxg-jkrvynz medicines, vitamins, and herbal products. Some medicines [...] to ensure that the information provided by [employer]. ('[employer]') is accurate, up-to-date, and complete, but no guarantee is made to that effect. Drug information contained herein may be time sensitive. [employer] information has been compiled for use by healthcare practitioners and consumers in the [place] and therefore [employer] does not warrant that uses outside of the [place] are appropriate, unless specifically indicated otherwise. [employer] drug information does not endorse drugs, diagnose patients or recommend therapy. [employer] drug information is an informational resource designed [...] effective or appropriate for any given patient. [employer] does not assume any responsibility for any aspect of healthcare administered with the aid of information [employer] provides. The information contained herein is not intended to cover all possible uses, directions, precautions, warnings, drug interactions, allergic reactions, or adverse effects. If you have questions about the drugs you are taking, check with your doctor, nurse or pharmacist. Copyright 2041-2530 [employer]. Version: 3.03. Revision Date: 05/21/2015. pyridoxine (vitamin [...] may report side effects to FDA at 2-759-UQT-3858. What other drugs will affect pyridoxine? Other drugs may interact with pyridoxine, including prescription and cksf-ytf-gmkavrp medicines, vitamins, and herbal products. Tell each [...] to ensure that the information provided by [employer]. ('Multum') is accurate, up-to-date, and complete, but no guarantee is made to that effect. Drug information contained herein may be time sensitive. [employer] information has been compiled for use by healthcare practitioners and consumers in the [place] and therefore [employer] does not warrant that uses outside of the [place] are appropriate, unless specifically indicated otherwise. [employer] drug information does not endorse drugs, diagnose patients or recommend therapy. Artklikk drug information is an informational resource designed [...] effective or appropriate for any given patient. [employer] does not assume any responsibility for any aspect of healthcare administered with the aid of information [employer] provides. The information contained herein is not intended to cover all possible uses, directions, precautions, warnings, drug interactions, allergic reactions, or adverse effects. If you have questions about the drugs you are taking, check with your doctor, nurse or pharmacist. Copyright 8165-2555 [employer]. Version: 2.04. Revision Date: 09/12/2016. Education Materials [...] B6 and kymberly. Don t try any axkf-ntu-fuzpexa medicines or home remedies without talking with [...] or as directed by your healthcare provider 9918-1428 [employer]. [address] [place] [address], [place] [address]. All rights reserved. This information is not intended as a substitute for professional medical care. Always follow your healthcare professional's instructions. Additional Information VACCINATE! IT SAVES LIVES! Members of the community who have not yet received the COVID-19 vaccine and would like to receive it can visit one of [facility] vaccine clinics. There are many vaccine clinic locations within the [facility]. For locations and available times, please visit www.gettheshot.coronavirus.[place] .gov/. It is important to note that some COVID mobile vaccine clinics are held outdoors and may be canceled in rainy or stormy conditions. To learn more about pediatric vaccinations (ages 5-11), we invite you to visit the [facility] webpage. https://www.[facility].org/ pages/5105-Dnifp-Rizsfiibcbu-Fr izdcvjlt-Lbyyf-Evjgpmqgk.html To learn more about the COVID-19 vaccine, we invite you to visit the CDC website for a list of frequently asked questions. https://www.cdc.gov/coronavirus /2019-ncov/vaccines/faq.html [facility] Patient Portal Access Instructions: Stay connected with your healthcare team and access your personal medical information anytime with the [facility] Patient Portal. If you would like a full copy of your medical records please contact the [facility] Medical Records Department Thursday through Thursday between 8a.m. and 4:30p.m. Please follow the directions below to access the portal: 1.Access the email account you provided upon registration to the [facility].2.Look for an invitation email from [facility].3.Open the email and access the invitation link: Accept Invitation to [facility]4.Fill in the required condon to create your account. Sign into [email or web address] with your username and password that you [...] you will allow to register on the [facility] Patient Portal for access to your information. You can also access the [facility] Patient Portal on the [employer] yamileth. Simply click on Health Records under [...] Call your local pharmacy or go to http://bit.Tencent/5J5Fa5n to find one close to you.3.Make use of household items: Use cat litter or old coffee grounds to dispose medications if other options are not available. Mix your drugs with these household products, seal them in an airtight container and throw it into the garbage. Call [facility]: [phone] to be sure your drugs can be [...] aware that I should contact my doctor. Patient/Bread Panner Signature: Date/Time: Relationship to Patient: Witness Name/Signature: Date/Time: [facility] 05-06-2023 Evaluation + Plan note Diagnostic Tests PendingUrine Culture 05/06/23 Future Scheduled TestsThyroid Stimulating Hormone 05/30/22Free T4 05/30/22Complete Blood Count 05/30/22Complete Metabolic Panel 05/30/22 [facility] Jese 04-18-2023 Note HNO ID: [id number] Author: Ana María Cates APRN.KYRA Service: ? Author Type: Nurse Practitioner Type: Progress Notes Filed: 04/18/2023 2:13 PM Note Text: This note was created using StepsAwayriter. Subjective Xin Garcia is a 22 year [...] history is provided by the patient. No supervisor modern languages was used. Female Gu Problem The problem [...] guarding or octavia (more content not included)... [facility] 04-18-2023 History of Presen t illness Narrative This note was created using FansUnite. Subjective Xin Garcia is a 22 year [...] history is provided by the patient. No supervisor modern languages was used. Female Gu Problem The problem [...] clinic Advised patient to stop smoking Call STATE APPELLATE CLERK Thursday to set up first appointment. Ana María Cates, SUNNY.FEED RESEARCH AIDE documented in this encounter [facility] 02-23-2023 Miscellaneous Notes Pt calling states having irregular bleeding since IUD removed last week. Went to [facility] ER- just advised to follow up with BLACK JACK DEALER. Pt is using tampons- advised to use asha pads as easier to gauge amount and frequency. Denies being symptomatic. Advised cycles may be irregular as well as bleeding for a couple months while body adjusts to no hormones. Bleeding and pain precautions reviewed. documented in this encounter [facility] 02-22-2023 Hospital Discharg e instructions Patient Education [...] If needed, more treatment may be started. 1511-5351 [employer]. [address] [place] [address]. All rights reserved. This information is not intended as a substitute for professional medical care. Always follow your healthcare professional's instructions. [facility] 02/22/2023 16:14:10 With:SUMEET CHAVEZ APRN-FEED RESEARCH AIDE Address: [address] [place] [address] [place] [phone] When:2-4 days [facility] 02-22-2023 Emergency department Discharge summary Discharge Instructions Thank you for allowing [facility] to assist you with your healthcare needs. [...] CHAVEZ When Within 2-4 days Where: [address] [facility] [place] [phone] Allergies NKA Medications Please ask your primary [...] If needed, more treatment may be started. 3435-0065 [employer]. [address] [place] [address], [place] [address]. All rights reserved. This information is not intended as a substitute for professional medical care. Always follow your healthcare professional's instructions. Additional Information VACCINATE! IT SAVES LIVES! Members of the community who have not yet received the COVID-19 vaccine and would like to receive it can visit one of [facility] vaccine clinics. There are many vaccine clinic locations within the [facility]. For locations and available times, please visit www.gettheshot.coronavirus.[place] .gov/. It is important to note that some COVID mobile vaccine clinics are held outdoors and may be canceled in rainy or stormy conditions. To learn more about pediatric vaccinations (ages 5-11), we invite you to visit the [facility] webpage. https://www.SkyGrids.org/ pages/7832-Sgmyp-Gpxpunptlgy-Fr nwghwjwu-Lsxax-Hbkrcakcz.html To learn more about the COVID-19 vaccine, we invite you to visit the CDC website for a list of frequently asked questions. https://www.cdc.gov/coronavirus /2019-ncov/vaccines/faq.html [facility] Patient Portal Access Instructions: Stay connected with your healthcare team and access your personal medical information anytime with the [facility] Patient Portal. If you would like a full copy of your medical records please contact the [facility] Medical Records Department Thursday through Thursday between 8a.m. and 4:30p.m. Please follow the directions below to access the portal: 1.Access the email account you provided upon registration to the hospital.2.Look for an invitation email from [facility].3.Open the email and access the invitation link: Accept Invitation to [facility]4.Fill in the required condon to create your account. Sign into [email or web address] with your username and password that you [...] you will allow to register on the [facility] Patient Portal for access to your information. You can also access the [facility] Patient Portal on the [employer] yamileth. Simply click on Health Records under Health Data and then click on the Giftly logo. HOW TO SAFELY DISPOSE OF PRESCRIPTION [...] Call your local pharmacy or go to [email or web address] to find one close to you.3.Make use of household items: Use cat litter or old coffee grounds to dispose medications if other options are not available. Mix your drugs with these household products, seal them in an airtight container and throw it into the garbage. Call [facility]: [phone] to be sure your drugs can be [...] aware that I should contact my doctor. Patient/Bread Panner Signature: Date/Time: Relationship to Patient: Witness Name/Signature: Date/Time: [facility] 02-19-2023 Note HNO ID: [id number] Author: Main Hernandez APRN.FEED RESEARCH AIDE Service: ? Author Type: Nurse Practitioner Type: [...] Care Visit completed when applicable. Main Hernandez APRN.FEED RESEARCH AIDE PROCEDURE: Speculum placed in vagina, IUD string visualized and grasped with ring forceps. ASSESSMENT/PLAN: IUD removed without difficulty, intact, and patient tolerated procedure well. Contraception plans: none Reviewed pre-conception guidelines including folic acid supplementation, optimal timing of intercourse, avoidance of smoking, alcohol, exposure to environmental chemicals and need for evaluation if not within 12 months. Main Hernandez APRN.CNP [facility] 02-19-2023 History of Presen t illness Narrative [...] Main Hernandez APRN.CNP documented in this encounter [facility] 01-01-2023 Note HNO ID: [id number] Author: Samantha Altman APRN.CNP Service: ? Author [...] Collaborate with her sleep medicine provider at [facility]. The effects and side effects of all [...] visit. 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 Lost job at [employer]. She was working an overnight shift and [...] Reports craving sugar. Has a PCP through [facility]. Interval Progress: Slightly improved Risks and benefits [...] which included preparing to see the patient, gcjp-jo-yooo patient care, completing clinical documentation, communicating with other healthcare providers and counseling and educating the patient/family/caregiver, ordering medications/labs. Samantha Altman, SUNNY.FEED RESEARCH AIDE January 01, 2023 11:09 AM This note was partially generated using Tyto Life (more content not included)... [facility] 12-23-2022 Miscellaneous Notes Pt called back and [...] advise. Ruth Jose documented in this encounter [facility] 12-15-2022 Miscellaneous Notes Spoke to sleep center [...] times. Please contact Omaira Burns CNP in [facility] Sleep Medicine at [phone] to discuss plan of care. documented in this encounter [facility] 12-06-2022 Hospital Discharg e instructions Patient Education [...] Hold for 2 seconds, then slowly lower. 6780-4942 [employer]. [address] [place] [address]. All rights reserved. This information is not intended as a substitute for professional medical care. Always follow your healthcare professional's instructions. Follow Up Care 12/06/2022 20:09:52 With:SUMEET CHAVEZ Address: [address] [place] [address] [place] [address] [phone] When:2-4 days [facility] 12-06-2022 Note Discharge Instructions Thank you for allowing [facility] to assist you with your healthcare needs. [...] CHAVEZ When Within 2-4 days Where: [address] [facility] [place] [address]- [phone] Allergies NKA Medications Please ask your primary [...] Hold for 2 seconds, then slowly lower. 6902-6825 [employer]. [address] [place] [address], [place] [address]. All rights reserved. This information is not intended as a substitute for professional medical care. Always follow your healthcare professional's instructions. Additional Information VACCINATE! IT SAVES LIVES! Members of the community who have not yet received the COVID-19 vaccine and would like to receive it can visit one of [facility] vaccine clinics. There are many vaccine clinic locations within the [facility]. For locations and available times, please visit www.gettheshot.coronavirus.[place] .gov/. It is important to note that some COVID mobile vaccine clinics are held outdoors and may be canceled in rainy or stormy conditions. To learn more about pediatric vaccinations (ages 5-11), we invite you to visit the [facility] webpage. https://www.[facility].org/ pages/1503-Oovxo-Vzmjlspsoni-Fr onuwgvxd-Euglm-Tcqayawbr.html To learn more about the COVID-19 vaccine, we invite you to visit the CDC website for a list of frequently asked questions. https://www.cdc.gov/coronavirus /2019-ncov/vaccines/faq.html [facility] Patient Portal Access Instructions: Stay connected with your healthcare team and access your personal medical information anytime with the [facility] Patient Portal. If you would like a full copy of your medical records please contact the [facility] Medical Records Department Thursday through Thursday between 8a.m. and 4:30p.m. Please follow the directions below to access the portal: 1.Access the email account you provided upon registration to the [facility].2.Look for an invitation email from [facility].3.Open the email and access the invitation link: Accept Invitation to [facility]4.Fill in the required condon to create your [...] you will allow to register on the [facility] Patient Portal for access to your information. You can also access the [facility] Patient Portal on the [employer]. Simply click on Health Records under Health Data and then click on the [employer]ec[employer] logo. HOW TO SAFELY DISPOSE OF PRESCRIPTION [...] Call your local pharmacy or go to [email or web address] to find one close to you.3.Make use of household items: Use cat litter or old coffee grounds to dispose medications if other options are not available. Mix your drugs with these household products, seal them in an airtight container and throw it into the garbage. Call [facility]: [phone] to be sure your drugs can be [...] aware that I should contact my doctor. Patient/Bread Panner Signature: Date/Time: Relationship to Patient: Witness Name/Signature: Date/Time: [facility] 09-30-2022 Note HNO ID: [id number] Author: Laxmi Jessica APRN.MIRNA Service: ? Author Type: [employer] Type: Progress Notes Filed: 09/30/2022 2:40 PM [...] L0 SAB0 IAB0 Ectopic0 Multiple0 Live Births0 Lugger History LMP: LMP Unknown, IUD Age at Menarche: Age at First : 20 Age at Menopause: Lugger History Comments: Sexual Activity: Not Asked; No [...] external genitalia normal, normal Bartholin's glands, urethra, [place]'s glands, no vulvar lesions, good vaginal support, [...] Level: 4 - Moderate Laxmi Jessica APRN.CNM [facility] 08-18-2022 Miscellaneous Notes Message to call office to schedule. Needs to schedule an appointment and then refills will be provided. Was last seen in May. documented in this encounter [facility] 07-29-2022 Note . MICRO - Microbiology PROCEDURE: Urine Culture [*1] SOURCE: Urine BODY SITE: COLLECTED DATE/TIME: 07/27/2022 13:12 EDT RECEIVED DATE/TIME: 07/28/2022 15:13 EDT START DATE/TIME: 07/28/2022 15:13 EDT FREE TEXT SOURCE: FINAL REPORTS Final Report [] Verified Date/Time/Personnel: 07/29/2022 14:59 EDT >100,000 cfu/ml Multiple bacterial morphotypes present. Probable Contamination. Suggest recollection if clinically indicated. Performing Locations *1: This test was performed at: [facility], [address] [place] [address], [id number] , [facility] ([place]) 07-27-2022 Hospital Discharg e instructions Patient Education [...] swelling in the outer vaginal area (labia) 8818-8341 [employer]. [address] [place] [address], [place] [address]. All rights reserved. This information is not [...] delay the healing process. You may use biae-fua-ozzdarv pain medicine to control pain, unless another [...] as directed by your healthcare provider Bree 8827-5540 [employer]. [address] [place] [address]. All rights reserved. This information is not [...] delay the healing process. You may use aear-vks-mjcklzb pain medicine to control pain, unless another [...] or as directed by your healthcare provider 3164-1809 [employer]. [address] [place] [address], [place] [address]. All rights reserved. This information is not intended as a substitute for professional medical care. Always follow your healthcare professional's instructions. Follow Up Care 07/27/2022 12:35:53 With:SUMEET CHAVEZ APRN-FEED RESEARCH AIDE Address: [address] [place] [address] [place] [phone] When:2-4 days [facility] Note Discharge Instructions Thank you for [...] CHAVEZ When Within 2-4 days Where: [address] [facility] [place] [address]- [phone] Allergies NKA Medications Please ask your primary [...] may report side effects to FDA at 5-924-CLT-0184. What other drugs will affect cephalexin? Tell your doctor about all your other medicines, especially: metformin; or probenecid. This list is not complete. Other drugs may affect cephalexin, including prescription and cynv-dev-invlplz medicines, vitamins, and herbal products. Not all [...] to ensure that the information provided by [employer]. ('Mult[employer]') is accurate, up-to-date, and complete, but no guarantee is made to that effect. Drug information contained herein may be time sensitive. [employer] information has been compiled for use by healthcare practitioners and consumers in the [place] and therefore [employer] does not warrant that uses outside of the [place] are appropriate, unless specifically indicated otherwise. [employer]'s drug information does not endorse drugs, diagnose patients or recommend therapy. Artklikk drug information is an informational resource designed [...] effective or appropriate for any given patient. [facility] does not assume any responsibility for any aspect of healthcare administered with the aid of information [employer] provides. The information contained herein is not intended to cover all possible uses, directions, precautions, warnings, drug interactions, allergic reactions, or adverse effects. If you have questions about the drugs you are taking, check with your doctor, nurse or pharmacist. Copyright 2764-4980 [employer]. Version: 10.03. Revision Date: 05/14/2020. cyclobenzaprine (kylie [...] may report side effects to FDA at 3-919-GLD-7011. What other drugs will affect cyclobenzaprine? Using [...] drugs may affect cyclobenzaprine, including prescription and xlxi-ldx-aweyrul medicines, vitamins, and herbal products. Not all [...] to ensure that the information provided by [employer]. ('Multum') is accurate, up-to-date, and complete, but no guarantee is made to that effect. Drug information contained herein may be time sensitive. [employer] information has been compiled for use by healthcare practitioners and consumers in the [place] and therefore [employer] does not warrant that uses outside of the [place] are appropriate, unless specifically indicated otherwise. [employer] drug information does not endorse drugs, diagnose patients or recommend therapy. [employer] drug information is an informational resource designed [...] effective or appropriate for any given patient. [facility] does not assume any responsibility for any aspect of healthcare administered with the aid of information [employer] provides. The information contained herein is not intended to cover all possible uses, directions, precautions, warnings, drug interactions, allergic reactions, or adverse effects. If you have questions about the drugs you are taking, check with your doctor, nurse or pharmacist. Copyright 9293-5278 [employer]. Version: 5.01. Revision Date: 02/03/2018. Education Materials [...] swelling in the outer vaginal area (labia) 8229-4064 [employer]. [address] [place] [address]. All rights reserved. This information is not [...] delay the healing process. You may use hiae-veg-mtgsxes pain medicine to control pain, unless another [...] as directed by your healthcare provider Bree 8150-6601 [employer]. [address] [place] [address]. All rights reserved. This information is not [...] delay the healing process. You may use ovzo-pir-qnxplrv pain medicine to control pain, unless another [...] or as directed by your healthcare provider 5553-9598 [employer]. [address] [place] [address], [place] [address]. All rights reserved. This information is not intended as a substitute for professional medical care. Always follow your healthcare professional's instructions. Additional Information VACCINATE! IT SAVES LIVES! Members of the community who have not yet received the COVID-19 vaccine and would like to receive it can visit one of [facility] vaccine clinics. There are many vaccine clinic locations within the [facility]. For locations and available times, please visit www.gettheshot.coronavirus.[place] .gov/. It is important to note that some COVID mobile vaccine clinics are held outdoors and may be canceled in rainy or stormy conditions. To learn more about pediatric vaccinations (ages 5-11), we invite you to visit the [facility] webpage. https://www.[facility].org/ pages/8751-Ggusd-Fsunqltlbse-Fr xrvzfviw-Tuxgd-Zbqiihutw.html To learn more about the COVID-19 vaccine, we invite you to visit the CDC website for a list of frequently asked questions. https://www.cdc.gov/coronavirus /2019-ncov/vaccines/faq.html [facility] Patient Portal Access Instructions: Stay connected with your healthcare team and access your personal medical information anytime with the [facility] Patient Portal. If you would like a full copy of your medical records please contact the [facility] Medical Records Department Thursday through Thursday between 8a.m. and 4:30p.m. Please follow the directions below to access the portal: 1.Access the email account you provided upon registration to the [facility].2.Look for an invitation email from [facility].3.Open the email and access the invitation link: Accept Invitation to [facility]4.Fill in the required condon to create your [...] you will allow to register on the [facility] Patient Portal for access to your information. You can also access the [facility] Patient Portal on the [place]. Simply click on Health Records under Health [...] Call your local pharmacy or go to [email or web address] to find one close to you.3.Make use of household items: Use cat litter or old coffee grounds to dispose medications if other options are not available. Mix your drugs with these household products, seal them in an airtight container and throw it into the garbage. Call [facility]: [phone] to be sure your drugs can be [...] aware that I should contact my doctor. Patient/Bread Panner Signature: Date/Time: Relationship to Patient: Witness Name/Signature: Date/Time: [facility] 07-27-2022 Note ORIGINAL EXAMINATION: CTA OF [...] Sign Date: 07/27/2022 2:37:27 PM Ordering Provider: [facility] 07-27-2022 Note ORIGINAL EXAMINATION: CTA OF [...] Date: 07/27/2022 2:37:27 PM Ordering Provider: [facility] 07-25-2022 Miscellaneous Notes Patient notified of results. Patient verbalizes understanding. Daisy Bartlett RN Left message for pt to call back. Ailyn Trinidad MA Negative for COVID and flu documented in this encounter [facility] 07-24-2022 Note HNO ID: [id number] Author: Hermann Friedman APRN.FEED RESEARCH AIDE Service: ? Author Type: Nurse Practitioner Type: [...] COVID WITH FLUA+B, ROUTINE Hermann Friedman APRN.KYRA [facility] 07-24-2022 History of Presen t illness Narrative [...] - COVID WITH FLUA+B, ROUTINE Hermann Friedman APRN.FEED RESEARCH AIDE documented in this encounter [facility] 06-02-2022 Note . MICRO - Microbiology PROCEDURE: [...] Locations *1: This test was performed at: [facility], [address] [place] [address], [address] , [facility] ([place]) 05-30-2022 Evaluation + Plan note Future Scheduled TestsThyroid Stimulating Hormone 05/30/22Free T4 05/30/22Complete Blood Count 05/30/22Complete Metabolic Panel 05/30/22 [facility] 05-20-2022 Note HNO ID: [id number] Author: Samantha Altman APRN.FEED RESEARCH AIDE Service: ? Author Type: Nurse Practitioner Type: [...] from Zoloft. She continues to work at [employer]. She denies any additional work related stress. [...] which included preparing to see the patient, hrkj-mc-xssr patient care, completing clinical documentation, and counseling and educating the patient/family/caregiver, ordering medications/labs. Samantha Altman APRN.CNP May 20, 2022 3:00 PM This note was partially generated using [employer] voice recognition system. Note was reviewed for accuracy. There may be minor misspellings or grammar miscues with [employer] voice recognition. [facility] 05-20-2022 Instructions Samantha Altman APRN.CNP - 05/20/2022 [...] - Call the National Suicide Hotline at 9-141-ZJMXZGZ ( ) or 7-575-399-TALK (5800) - Text 4HOPE to 294874 Medication Update: Abilify 5 mg - take 1 tablet once daily. Continue Zoloft at the same dose. Next appointment: --Schedule in 4 weeks or sooner if needed -- You may call the department appointment line at [phone] to schedule your appointment. -- Please call my nurse Eduarda at [phone] or send me a message in QVIVO with any questions or concerns between appointments. documented in this encounter [facility] 05-20-2022 History of Presen t illness Narrative [...] from Zoloft. She continues to work at [employer]. She denies any additional work related stress. [...] which included preparing to see the patient, epve-cc-jike patient care, completing clinical documentation, and counseling and educating the patient/family/caregiver, ordering medications/labs. Samantha Altman APRN.CNP May 20, 2022 3:00 PM This note was partially generated using [employer] voice recognition system. Note was reviewed for accuracy. There may be minor misspellings or grammar miscues with [employer] voice recognition. documented in this encounter [facility] 04-18-2022 Instructions Samantha Altman APRN.CNP - 04/18/2022 [...] - Call the National Suicide Hotline at 8-800-YTJLLCQ ( ) or 0-782-724-TALK (1615) - Text 4HRFI to 179562 Medication Update: - Abilify (Aripiprazole) 2 mg - take 1 tablet once daily. - Continue Zoloft at the same dose. Next appointment: --Schedule in 4 weeks or sooner if needed -- You may call the department appointment line at [phone] to schedule your appointment. -- Please call my nurse Eduarda at [phone] or send me a message in QVIVO with any questions or concerns between appointments. documented in this encounter [facility] 04-18-2022 History of Presen t illness Narrative [...] for 6 to 7 years. 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 REFERRAL SOURCE: PCP - Dr. Godwin CHIEF [...] May 2 years ago when she had [place]. Psychomotor Activity: psychomotor activity was WNL. Suicide: [...] prior psychiatrist Therapist: No prior therapist Current Business Solutions Director: No Last Hospitalization: Denies hospitalization. ECT: No [...] The patient was born and raised in [place], [place]. She completed Grade School. She described [...] which included preparing to see the patient, vkng-vv-rvrn patient care, completing clinical documentation, obtaining and/or [...] PM PAGER : documented in this encounter [facility] 03-14-2022 Miscellaneous Notes Patient scheduled 04/18. Consult order has been placed. This note was partially generated using [employer] voice recognition system, and there may be [...] referral. This note was partially generated using [employer] voice recognition system, and there may be [...] care. Thank you. documented in this encounter [facility] 03-13-2022 Miscellaneous Notes Spoke with patient. Med check scheduled for one month with PCP. Transferred to [facility] to schedule with psychiatry. Marisela Guerrier RN [...] this. This note was partially generated using [employer] voice recognition system, and there may be some incorrect words, spellings, and punctuation that were not noted in checking the note before saving. Alvaro Godwin MD Referral for Psychology. Pt would also like to switch medication from Prozac to 75mg of Zoloft. Pt spoke with Dr. Godwin regarding the changes while at child's appointment. Moon Hooper LPN documented in this encounter [facility] 02-28-2022 Hospital Discharg e instructions Patient Education [...] away from secondhand smoke. You may use mfvd-hgj-mptmcfa medicines to control pain, unless another pain [...] neck, arm, or back Coughing up blood [id number] [employer] [place] [address]. All rights reserved. This information is not [...] away from secondhand smoke. You may use whjl-kes-ubyobey medicines to control pain, unless another pain [...] neck, arm, or back Coughing up blood [phone] [employer] [place] [address]. All rights reserved. This information is not [...] the smoke from others. You may use qsjl-bga-zukcuxw acetaminophen or ibuprofen for fever, muscle aching, [...] body and be dangerous to your health. Icgm-edd-gumnkvp remedies won't shorten the length of the [...] or as directed by your healthcare provider [phone] [employer] [place] [address]. All rights reserved. This information is not [...] for pain and fever as needed.May use ylxb-eqb-hssjzfn cough and cold medicines like Robitussin for symptomatic relief as needed.Return to the ED if symptoms worsen. [facility] 02-28-2022 Note Discharge Instructions Thank you for allowing [facility] to assist you with your healthcare needs. [...] pain and fever as needed. May use dyev-isp-alqjsor cough and cold medicines like Robitussin for [...] away from secondhand smoke. You may use trkx-que-piqagtt medicines to control pain, unless another pain [...] neck, arm, or back Coughing up blood Needl. [address] [place] [address]. All rights reserved. This information is not [...] away from secondhand smoke. You may use twjm-rpo-gvvehup medicines to control pain, unless another pain [...] arm, or back Coughing up blood [employer]. [address] [place] [address]. All rights reserved. This information is not [...] the smoke from others. You may use knzu-ugl-zbgfopu acetaminophen or ibuprofen for fever, muscle aching, [...] body and be dangerous to your health. Dgnl-dgt-punvrni remedies won't shorten the length of the [...] or as directed by your healthcare provider [phone] [employer]. [address] [place] [address]. All rights reserved. This information is not intended as a substitute for professional medical care. Always follow your healthcare professional's instructions. Additional Information VACCINATE! IT SAVES LIVES! Members of the community who have not yet received the COVID-19 vaccine and would like to receive it can visit one of [facility] vaccine clinics. There are many vaccine clinic locations within the [facility]. For locations and available times, please visit [email or web address]. It is important to note that some COVID mobile vaccine clinics are held outdoors and may be canceled in rainy or stormy conditions. To learn more about pediatric vaccinations (ages 5-11), we invite you to visit the [facility] webpage. [email or web address] To learn more about the COVID-19 vaccine, we invite you to visit the [employer] website for a list of frequently asked questions. [email or web address] [facility] Patient Portal Access Instructions: Stay connected with your healthcare team and access your personal medical information anytime with the [facility] Patient Portal. If you would like a full copy of your medical records please contact the [facility] Medical Records Department Thursday through Thursday between 8a.m. and 4:30p.m. Please follow the directions below to access the portal: 1.Access the email account you provided upon registration to the [facility].2.Look for an invitation email from [facility].3.Open the email and access the invitation link: Accept Invitation to [facility]4.Fill in the required condon to create your account. Sign into [email or web address] with your username and password that you [...] you will allow to register on the [facility] Patient Portal for access to your information. You can also access the [facility] Patient Portal on the [place]. Simply click on Health Records under Health Data and then click on the [employer] logo. HOW TO SAFELY DISPOSE OF PRESCRIPTION [...] Call your local pharmacy or go to [email or web address] to find one close to you.3.Make use of household items: Use cat litter or old coffee grounds to dispose medications if other options are not available. Mix your drugs with these household products, seal them in an airtight container and throw it into the garbage. Call [facility]: [phone] to be sure your drugs can be [...] aware that I should contact my doctor. Patient/Bread Panner Signature: Date/Time: Relationship to Patient: Witness Name/Signature: Date/Time: [facility] 02-14-2022 History of Presen t illness [...] ordered or obtained, is reviewed by a receiving associate store before being considered final. Additional recommendations may [...] to 40 mg daily. Recheck at a ixig-zi-oitv visit in 1 month. Return to clinic sooner for any difficulties. I spent a total of 30-39 minutes on the date of service. This included preparing to see the patient; tjgh-ah-hzha patient care; obtaining and/or reviewing separately obtained history; performing a medically appropriate examination; counseling and educating the patient/family/caregiver; and completing clinical documentation. As applicable, this also included ordering medications, tests, or procedures; independently interpreting results; communicating results to the patient/family/caregiver; and care coordination (not separately reported). This note was partially generated using [employer] voice recognition system, and there may be some incorrect words, spellings, and punctuation that were not noted in checking the note before saving. Alvaro Godwin M.D. documented in this encounter [facility] 02-11-2022 Miscellaneous Notes The information below was [...] of? This note was partially generated using [employer] voice recognition system, and there may be some incorrect words, spellings, and punctuation that were not noted in checking the note before saving. Alvaro Godwin MD Xin Garcia is calling Alvaro Godwin MD today with a Covid question - Pt works in a [employer] and they are now requiring the staff to get the Covid vaccine. Pt wonders if you would sign a waiver for her not to get the vaccine? Patient has been identified by name and birthdate. Duration of symptoms: N/A Person calling: self Call patient at: on cell [phone] (home) [phone] (cell) Was an appointment scheduled: No Closing statement: Results or non-symptom based questions: Thank you for calling [facility], your call will be returned within the next business day. Alma Rosen LPN documented in this encounter [facility] 01-14-2022 History of Presen t illness Narrative [...] ordered or obtained, is reviewed by a receiving associate store before being considered final. Additional recommendations may [...] This included preparing to see the patient; nxdn-ya-ydgi patient care; obtaining and/or reviewing separately obtained history; performing a medically appropriate examination; counseling and educating the patient/family/caregiver; and completing clinical documentation. As applicable, this also included ordering medications, tests, or procedures; independently interpreting results; communicating results to the patient/family/caregiver; and care coordination (not separately reported). This note was partially generated using [employer] voice recognition system, and there may be some incorrect words, spellings, and punctuation that were not noted in checking the note before saving. Alvaro Godwin M.D. documented in this encounter [facility] 01-07-2022 History of Presen t illness Narrative [...] consultation. Dino Garzon DPM Podiatry [address] [facility] [address] Dept: [phone] Dept Patient presents with: Left Knee - [...] with mild relief documented in this encounter [facility] 01-07-2022 History of Presen t illness Narrative [...] 2022 12:30 PM documented in this encounter [facility] 12-27-2021 History of Presen t illness Narrative [...] ordered or obtained, is reviewed by a receiving associate store before being considered final. Additional recommendations may [...] cancellations. The patient and I checked her QVIVO account, and the appointment is visible in her account. 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 [...] This included preparing to see the patient; yynz-yv-ifdv patient care; obtaining and/or reviewing separately obtained history; performing a medically appropriate examination; counseling and educating the patient/family/caregiver; and completing clinical documentation. As applicable, this also included ordering medications, tests, or procedures; independently interpreting results; communicating results to the patient/family/caregiver; and care coordination (not separately reported). This note was partially generated using [employer] voice recognition system, and there may be some incorrect words, spellings, and punctuation that were not noted in checking the note before saving. Alvaro Godwin M.D. documented in this encounter [facility] 11-12-2021 Note HNO ID: [id number] Author: Dominik Singh MD Service: ? Author Type: Physician Type: Progress Notes Filed: 11/12/2021 4:58 PM Note Text: Patient is here for ultrasound. Please see image section in Epic for results. Blanca Yang MD [facility] 11-12-2021 History of Presen t illness Narrative Patient is here for ultrasound. Please see image section in Epic for results. Blanca Yang MD documented in this encounter [facility] documented as of this encounter (statuses as of 11/05/2021) [facility] History of Past illness Narrative* Problem Noted Date Resolved Date Pyelonephritis during 11/05/2021 11/05/2021 Encounter for IUD insertion 07/07/202110/10 Overview: Mirena placed Sprain of ankle 06/23/2016 08/16/2018 Achilles tendonitis, bilateral 01/23/2016 0 08/16/2018 documented as of this encounter (statuses as of 11/12/2021) [facility] History of Past illness Narrative* Problem Noted Date Resolved Date Pyelonephritis during 11/05/2021 11/05/2021 Encounter for IUD insertion 07/07/202110/10 Overview: Mirena placed Sprain of ankle 06/23/2016 08/16/2018 Achilles tendonitis, bilateral 01/23/2016 0 08/16/2018 documented as of this encounter (statuses as of 12/27/2021) [address]28-2022 History of Past illness Narrative* Problem Noted Date Resolved Date Pyelonephritis during 11/05/2021 11/05/2021 Encounter for IUD insertion 07/07/202110/10 Overview: Mirena placed Sprain of ankle 06/23/2016 08/16/2018 Achilles tendonitis, bilateral 01/23/2016 0 08/16/2018 documented as of this encounter (statuses as of 01/06/2022) [address]28-2022 History of Past illness Narrative* Problem Noted Date Resolved Date Pyelonephritis during 11/05/2021 11/05/2021 Encounter for IUD insertion 07/07/202110/10 Overview: Mirena placed Sprain of ankle 06/23/2016 08/16/2018 Achilles tendonitis, bilateral 01/23/2016 0 08/16/2018 documented as of this encounter (statuses as of 01/08/2022) [facility] History of Past illness Narrative* Problem Noted Date Resolved Date Pyelonephritis during 11/05/2021 11/05/2021 Encounter for IUD insertion 07/07/202110/10 Overview: Mirena placed Sprain of ankle 06/23/2016 08/16/2018 Achilles tendonitis, bilateral 01/23/2016 0 08/16/2018 documented as of this encounter (statuses as of 01/08/2022) [address]-2022 History of Past illness Narrative* Problem Noted Date Resolved Date Pyelonephritis during 11/05/2021 11/05/2021 Encounter for IUD insertion 07/07/202110/10 Overview: Mirena placed Sprain of ankle 06/23/2016 08/16/2018 Achilles tendonitis, bilateral 01/23/2016 0 08/16/2018 documented as of this encounter (statuses as of 01/14/2022) [facility] History of Past illness Narrative* Problem Noted Date Resolved Date Pyelonephritis during 11/05/2021 11/05/2021 Encounter for IUD insertion 07/07/202110/10 Overview: Mirena placed Sprain of ankle 06/23/2016 08/16/2018 Achilles tendonitis, bilateral 01/23/2016 0 08/16/2018 documented as of this encounter (statuses as of 02/11/2022) [facility] History of Past illness Narrative* Problem Noted Date Resolved Date Pyelonephritis during 11/05/2021 11/05/2021 Encounter for IUD insertion 07/07/202110/10 Overview: Mirena placed Sprain of ankle 06/23/2016 08/16/2018 Achilles tendonitis, bilateral 01/23/2016 0 08/16/2018 documented as of this encounter (statuses as of 02/14/2022) [facility] History of Past illness Narrative* Problem Noted Date Resolved Date Pyelonephritis during 11/05/2021 11/05/2021 Encounter for IUD insertion 07/07/202110/10 Overview: Mirena placed Sprain of ankle 06/23/2016 08/16/2018 Achilles tendonitis, bilateral 01/23/2016 0 08/16/2018 documented as of this encounter (statuses as of 03/13/2022) [facility] History of Past illness Narrative* Problem Noted Date Resolved Date Pyelonephritis during 11/05/2021 11/05/2021 Encounter for IUD insertion 07/07/202110/10 Overview: Mirena placed Sprain of ankle 06/23/2016 08/16/2018 Achilles tendonitis, bilateral 01/23/2016 0 08/16/2018 documented as of this encounter (statuses as of 03/14/2022) [facility] History of Past illness Narrative* Problem Noted Date Resolved Date Pyelonephritis during 11/05/2021 11/05/2021 Encounter for IUD insertion 07/07/202110/10 Overview: Mirena placed Sprain of ankle 06/23/2016 08/16/2018 Achilles tendonitis, bilateral 01/23/2016 0 08/16/2018 documented as of this encounter (statuses as of 04/11/2022) [facility] of Past illness Narrative* Problem Noted Date Resolved Date Pyelonephritis during 11/05/2021 11/05/2021 Encounter for IUD insertion 07/07/202110/10 Overview: Mirena placed Sprain of ankle 06/23/2016 08/16/2018 Achilles tendonitis, bilateral 01/23/2016 0 08/16/2018 documented as of this encounter (statuses as of 04/28/2022) [facility] History of Past illness Narrative* Problem Noted Date Resolved Date Pyelonephritis during 11/05/2021 11/05/2021 Encounter for IUD insertion 07/07/202110/10 Overview: Mirena placed Sprain of ankle 06/23/2016 08/16/2018 Achilles tendonitis, bilateral 01/23/2016 0 08/16/2018 documented as of this encounter (statuses as of 05/20/2022) [facility] of Past illness Narrative* Problem Noted Date Resolved Date Pyelonephritis during 11/05/2021 11/05/2021 Encounter for IUD insertion 07/07/202110/10 Overview: Mirena placed Sprain of ankle 06/23/2016 08/16/2018 Achilles tendonitis, bilateral 01/23/2016 0 08/16/2018 documented as of this encounter (statuses as of 07/24/2022) [facility] of Past illness Narrative* Problem Noted Date Resolved Date Pyelonephritis during 11/05/2021 11/05/2021 Encounter for IUD insertion 07/07/202110/10 Overview: Mirena placed Sprain of ankle 06/23/2016 08/16/2018 Achilles tendonitis, bilateral 01/23/2016 0 08/16/2018 documented as of this encounter (statuses as of 07/25/2022) [facility] of Past illness Narrative* Problem Noted Date Resolved Date Pyelonephritis during 11/05/2021 11/05/2021 Encounter for IUD insertion 07/07/202110/10 Overview: Mirena placed Sprain of ankle 06/23/2016 08/16/2018 Achilles tendonitis, bilateral 01/23/2016 0 08/16/2018 documented as of this encounter (statuses as of 08/18/2022) [facility] of Past illness Narrative* Problem Noted Date Diagnosed Date Resolved Date Pyelonephritis during 11/05/2021 11/05/2021 Encounter for IUD insertion 07/07/2021 11/05/2021 Overview: Mirena placed Sprain of ankle 06/23/2016 08/16/2018 Achilles tendonitis, bilateral 01/23/2016 08/16/2018 documented as of this encounter (statuses as of 12/16/2022) [facility] of Past illness Narrative* Problem Noted Date Diagnosed Date Resolved Date Pyelonephritis during 11/05/2021 11/05/2021 Encounter for IUD insertion 07/07/2021 11/05/2021 Overview: Mirena placed Sprain of ankle 06/23/2016 08/16/2018 Achilles tendonitis, bilateral 01/23/2016 08/16/2018 documented as of this encounter (statuses as of 12/25/2022) [facility] of Past illness Narrative* Problem Noted Date Diagnosed Date Resolved Date Pyelonephritis during 11/05/2021 11/05/2021 Encounter for IUD insertion 07/07/2021 11/05/2021 Overview: Mirena placed Sprain of ankle 06/23/2016 08/16/2018 Achilles tendonitis, bilateral 01/23/2016 08/16/2018 documented as of this encounter (statuses as of 02/19/2023) [facility] History of Past illness Narrative* Problem Noted Date Diagnosed Date Resolved Date Pyelonephritis during 11/05/2021 11/05/2021 Encounter for IUD insertion 07/07/2021 11/05/2021 Overview: Mirena placed Sprain of ankle 06/23/2016 08/16/2018 Achilles tendonitis, bilateral 01/23/2016 08/16/2018 documented as of this encounter (statuses as of 02/23/2023) [facility] History of Past illness Narrative* Problem Noted Date Diagnosed Date Resolved Date Pyelonephritis during 11/05/2021 11/05/2021 Encounter for IUD insertion 07/07/2021 11/05/2021 Overview: Mirena placed Sprain of ankle 06/23/2016 08/16/2018 Achilles tendonitis, bilateral 01/23/2016 08/16/2018 documented as of this encounter (statuses as of 04/18/2023) [facility] History of Present illness Narrative* Mckenzie Garcia APRN.[facility] - 11/05/2021 12:33 PM EDT Xin Garcia [...] cycle GI: No nausea, vomiting, or diarrhea BLACK JACK DEALER: Negative for abnormal vaginal bleeding, abnormal vaginal [...] Level: 3 - Low [facility] History of Present illness Narrative* Alvaro Godwin [...] ordered or obtained, is reviewed by a receiving associate store before being considered final. 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 This has provided good control of [...] 20 mg daily. Follow-up in the office (vudv-vy-elrh visit) in 1 month. Suicide precautions again reviewed and patient to be seen immediately by a crisis evaluation team in the emergency room or at the [facility] for any suicidal ideation. I spent a total of 30-39 minutes on the date of service. This included preparing to see the patient; ewrv-uw-stbo patient care; obtaining and/or reviewing separately obtained history; performing a medically appropriate examination; counseling and educatingthe patient/family/caregiver; and completing clinical documentation. As applicable, this also included ordering medications, tests, or procedures; independently interpreting results; communicating results to the patient/family/caregiver; and care coordination (not separately reported). This note was partially generated using [employer] voice recognition system, and there may be some incorrect words, spellings, and punctuation that were not noted in checking the note before saving. Alvaro Godwin M.D. documented [facility] Miscellaneous Notes* Telephone Encounter - Moon Macias [...] results. Cory Keys RN documented in [facility]Ad[facility] History of Present illness Narrative* Amelia Benites [...] of 10.3. She was instructed to start dkni-qal-xqocwhb iron supplementation and have a recheck in 6 months. She was unable to tolerate daily iron supplements because of stomach upset. She was seen by her BLACK JACK DEALER in June who suggested she take Geritol [...] which included preparing to see the patient, fexl-gr-wcmf patient care, completing clinical documentation, obtaining and/or reviewing separately obtained history, performing a medically appropriate examination, counseling and educating the pat ient/family/caregiver, ordering medications, tests, or procedures and communicating results to the patient/family/caregiver. documented in [facility] History of Past illness Narrative* Problem Noted Date Resolved Date Sprain of ankle 06/23/2016 08/16/2018 Achilles tendonitis, bilateral 01/23/2016 0 08/16/2018 documented as of this encounter (statuses as of 08/30/2021) [facility] History of Past illness Narrative* Problem Noted Date Resolved Date Sprain of ankle 06/23/2016 08/16/2018 Achilles tendonitis, bilateral 01/23/2016 0 08/16/2018 documented as of this encounter (statuses as of 09/02/2021) [facility] History of Past illness Narrative* Problem Noted Date Resolved Date Sprain of ankle 06/23/2016 08/16/2018 Achilles tendonitis, bilateral 01/23/2016 0 08/16/2018 documented as of this encounter (statuses as of 10/05/2021) [facility] No data available for this section [facility] Evaluation + Plan note Future Appointments Appointment Date:06/17/2022 10:30:00 AM Scheduled Provider:SUMEET CHAVEZ Location:[facility] Appointment Type:PC OV Follow Up Future Scheduled Tests Laboratory* Thyroid Stimulating Hormone 05/30/22 * Free T4 05/30/22 * Complete Blood Count 05/30/22 * Complete Metabolic Panel 05/30/22 [facility] Evaluation + Plan note Future Appointments Appointment Date:08/11/2022 01:00:00 PM Scheduled Provider:OMAIRA BURNS Location:[facility] Appointment Type:PC OV Sleep Consult Appointment Date:09/23/2022 01:30:00 PM Scheduled Provider:SUMEET CHAVEZ Location:[facility] Appointment Type:PC OV Follow Up Diagnostic Tests Pending * Urine Culture 07/27/22 Future Scheduled Tests Laboratory* Thyroid Stimulating Hormone 05/30/22 * Free T4 05/30/22 * Complete Blood Count 05/30/22 * Complete Metabolic Panel 05/30/22 [facility] EvFileThisation note* Diagnosis Malaise and fatigue- Primary Other malaise and fatigue documented [facility] this encounter [facility]* Diagnosis Anxiety- Primary Anxiety state, unspecified Depression, unspecified depression type documented in this encounter [facility] note* Diagnosis Surveillance of previously prescribed intrauterine contraceptive device- Primary Abdominal cramping Abdominal pain, unspecified site Menorrhagia with regular cycle Excessive or frequent menstruation Displacement of intrauterine contraceptive device, initial encounter [facility]* Diagnosis Complication of intrauterine device (IUD), unspecified complication, initial encounter ([facility])- Primary documented in this encounter [facility] note* Diagnosis Flat feet, bilateral- Primary Pain in both knees, unspecified chronicity Injury of right hip, initial encounter [facility]* Diagnosis Bilateral foot pain- Primary Pain in limb [facility]* Diagnosis Bilateral foot pain Pain in limb [facility]* Diagnosis Pes planus of both feet- Primary Posterior tibial tendon dysfunction Other disorders of synovium, tendon, and bursa documented in this encounter [facility] note* Diagnosis Anxiety- Primary Anxiety state, unspecified [facility]* Diagnosis Anxiety- Primary Anxiety state, unspecified Depression, unspecified depression type documented in this encounter [facility] note* Diagnosis Depression, unspecified depression type- Primary Anxiety Anxiety state, unspecified [facility]* Diagnosis Depression, unspecified depression type- Primary Anemia, unspecified type documented in this encounter [facility] note* Diagnosis Bipolar 2 disorder (HCC)- Primary Other bipolar disorders BALJINDER (generalized anxiety disorder) Generalized anxiety disorder documented in this encounter [facility] note* Diagnosis Bipolar 2 disorder (HCC)- Primary Other bipolar disorders BALJINDER (generalized anxiety disorder) Generalized anxiety disorder documented in this encounter [facility] note* Diagnosis URI, acute- Primary Acute upper respiratory infections of unspecified site Throat pain documented in this encounter [facility] note* Diagnosis Encounter for IUD removal- Primary Encounter for removal of intrauterine contraceptive device documented in this encounter [facility] note* Diagnosis Missed period- Primary Irregular menstrual cycle Positive urine test examination or test, positive result [facility] No data available for this section [facility] Progress note No data available for this section [facility] Reason for referral (narrative)* Diagnostic Procedure Only (Routine) - Authorized Specialty Diagnoses / Procedures Referred By Farzana gomez Referred To Contact [facility] Diagnoses Abdominal cramping Menorrhagia with regular cycle Displacement of intrauterine contraceptive device, initial encounter Procedures PELVIC US WHI US PELVIC NONOBSTETRIC REAL-TIME IMAGE COMPLETE Mckenzie Garcia APRN.[facility] [address] [place] [address] [address] Referral ID Status Reason Start Date Expiration Date Visits Requested Visits Authorized [id number] Authorized Auto-Generat ed Referral 11/05/2021 11/05/2022 1 1 [facility] for referral (narrative)* Diagnostic Procedure Only (Routine) - Pending Review Specialty Diagnoses / Procedures Referred By Contac t Referred To Contact XR IMAGING Diagnoses Bilateral foot pain Procedures XR FOOT GENERAL 3V AP/LAT/OBL BILATERAL RADEX FOOT COMPLETE MINIMUM 3 VIEWS Dino Garzon [address] [place] [address] Xr Imaging Referral ID Status Reason Start Date Expiration Date Visits Requested Visits Authorized [id number] Pending Review Auto-Generat ed Referral 01/06/2022 02/05/2023 1 1 [facility] for referral (narrative)* Diagnostic Procedure Only (Routine) - Closed Specialty Diagnoses / Procedures Referred By Contac t Referred To Contact XR IMAGING Diagnoses Bilateral foot pain Procedures XR FOOT GENERAL 3V AP/LAT/OBL BILATERAL RADEX FOOT COMPLETE MINIMUM 3 VIEWS Dino Garzon [address] [place] [address] Xr Imaging Referral ID Status Reason Start Date Expiration Date V isits Requested Visits Authorized [id number] Closed Auto-Generate d Referral 01/06/2022 02/05/2023 1 1 [facility] for visit Narrative* Diagnostic Procedure Only (Routine) - Closed Specialty Diagnoses / Procedures Referred By Contac t Referred To Contact [facility] Diagnoses Abdominal cramping Menorrhagia with regular cycle Displacement of intrauterine contraceptive device, initial encounter Procedures PELVIC US WHI US PELVIC NONOBSTETRIC REAL-TIME IMAGE COMPLETE Mckenzie Garcia, [place] [address] [place] [address] [facility] [address] [place] [address] Referral ID Status Reason Start Date Expiration Date V isits Requested Visits Authorized [id number] Closed Auto-Generate d Referral 11/05/2021 11/05/2022 1 1 [facility]* Diagnostic Procedure Only (Routine) - Closed Specialty Diagnoses / Procedures Referred By Contac t Referred To Contact XR IMAGING Diagnoses Bilateral foot pain Procedures XR FOOT GENERAL 3V AP/LAT/OBL BILATERAL RADEX FOOT COMPLETE MINIMUM 3 VIEWS Duran Dino [address] [place] [place] [address] Xr Imaging Referral ID Status Reason Start Date Expiration Date V isits Requested Visits Authorized [id number] Closed Auto-Generate d Referral 01/06/2022 02/05/2023 1 1 [facility] Summary Purpose Family History No Family History [...] type Anxiety Procedures CONSULT TO PSYCHIATRY OFFICE/OUTPATIENT [facility] 60-74 MINUTES Alvaro Godwin MD [address] [place] [address] Referral ID Status Reason Start Date Expiration Date Visits Requested Visits Authorized [id number] Pending Review PCP Requested Referral 03/13/2022 03/13/2023 1 1 Additional Source Comments Source Comments (unrecognize d section and content) In the event this informatio n is protected by the Federal Confidentiality of Alcohol and Drug Abuse Patient Records regulations: The Federal rules restrict any use of the information to criminally investigate or prosecute any alcohol or drug abuse patient.[facility] the event this information is protected by the Federal Confidentiality of Alcohol and Drug Abuse Patient Records regulations: The Federal rules restrict any use of the information to criminally investigate or prosecute any alcohol or drug abuse patient.[facility] HospitalIn the event this information is protected by the Federal Confidentiality of Alcohol and Drug Abuse Patient Records regulations: The Federal rules restrict any use of the information to criminally investigate or prosecute any alcohol or drug abuse patient.[facility] HospitalIn the event this information is protected by the Federal Confidentiality of Alcohol and Drug Abuse Patient Records regulations: The Federal rules restrict any use of the information to criminally investigate or prosecute any alcohol or drug abuse patient.[facility] HospitalIn the event this information is protected by the Federal Confidentiality of Alcohol and Drug Abuse Patient Records regulations: The Federal rules restrict any use of the information to criminally investigate or prosecute any alcohol or drug abuse patient.[facility] HospitalIn the event this information is protected by the Federal Confidentiality of Alcohol and Drug Abuse Patient Records regulations: The Federal rules restrict any use of the information to criminally investigate or prosecute any alcohol or drug abuse patient.[facility] HospitalIn the event this information is protected by the Federal Confidentiality of Alcohol and Drug Abuse Patient Records regulations: The Federal rules restrict any use of the information to criminally investigate or prosecute any alcohol or drug abuse patient.[facility] HospitalIn the event this information is protected by the Federal Confidentiality of Alcohol and Drug Abuse Patient Records regulations: The Federal rules restrict any use of the information to criminally investigate or prosecute any alcohol or drug abuse patient.[facility] HospitalIn the event this information is protected by the Federal Confidentiality of Alcohol and Drug Abuse Patient Records regulations: The Federal rules restrict any use of the information to criminally investigate or prosecute any alcohol or drug abuse patient.[facility] HospitalIn the event this information is protected by the Federal Confidentiality of Alcohol and Drug Abuse Patient Records regulations: The Federal rules restrict any use of the information to criminally investigate or prosecute any alcohol or drug abuse patient.[facility] HospitalIn the event this information is protected by the Federal Confidentiality of Alcohol and Drug Abuse Patient Records regulations: The Federal rules restrict any use of the information to criminally investigate or prosecute any alcohol or drug abuse patient.[facility] HospitalIn the event this information is protected by the Federal Confidentiality of Alcohol and Drug Abuse Patient Records regulations: The Federal rules restrict any use of the information to criminally investigate or prosecute any alcohol or drug abuse patient.[facility] HospitalIn the event this information is protected by the Federal Confidentiality of Alcohol and Drug Abuse Patient Records regulations: The Federal rules restrict any use of the information to criminally investigate or prosecute any alcohol or drug abuse patient.[facility] HospitalIn the event this information is protected by the Federal Confidentiality of Alcohol and Drug Abuse Patient Records regulations: The Federal rules restrict any use of the information to criminally investigate or prosecute any alcohol or drug abuse patient.[facility] HospitalIn the event this information is protected by the Federal Confidentiality of Alcohol and Drug Abuse Patient Records regulations: The Federal rules restrict any use of the information to criminally investigate or prosecute any alcohol or drug abuse patient.[facility] HospitalIn the event this information is protected by the Federal Confidentiality of Alcohol and Drug Abuse Patient Records regulations: The Federal rules restrict any use of the information to criminally investigate or prosecute any alcohol or drug abuse patient.[facility] HospitalIn the event this information is protected by the Federal Confidentiality of Alcohol and Drug Abuse Patient Records regulations: The Federal rules restrict any use of the information to criminally investigate or prosecute any alcohol or drug abuse patient.[facility] HospitalIn the event this information is protected by the Federal Confidentiality of Alcohol and Drug Abuse Patient Records regulations: The Federal rules restrict any use of the information to criminally investigate or prosecute any alcohol or drug abuse patient.[facility] HospitalIn the event this information is protected by the Federal Confidentiality of Alcohol and Drug Abuse Patient Records regulations: The Federal rules restrict any use of the information to criminally investigate or prosecute any alcohol or drug abuse patient.[facility] HospitalIn the event this information is protected by the Federal Confidentiality of Alcohol and Drug Abuse Patient Records regulations: The Federal rules restrict any use of the information to criminally investigate or prosecute any alcohol or drug abuse patient.[facility] HospitalIn the event this information is protected by the Federal Confidentiality of Alcohol and Drug Abuse Patient Records regulations: The Federal rules restrict any use of the information to criminally investigate or prosecute any alcohol or drug abuse patient.[facility] HospitalIn the event this information is protected by the Federal Confidentiality of Alcohol and Drug Abuse Patient Records regulations: The Federal rules restrict any use of the information to criminally investigate or prosecute any alcohol or drug abuse patient.[facility] HospitalIn the event this information is protected by the Federal Confidentiality of Alcohol and Drug Abuse Patient Records regulations: The Federal rules restrict any use of the information to criminally investigate or prosecute any alcohol or drug abuse patient.[facility] HospitalIn the event this information is protected by the Federal Confidentiality of Alcohol and Drug Abuse Patient Records regulations: The Federal rules restrict any use of the information to criminally investigate or prosecute any alcohol or drug abuse patient.[facility] HospitalIn the event this information is protected by the Federal Confidentiality of Alcohol and Drug Abuse Patient Records regulations: The Federal rules restrict any use of the information to criminally investigate or prosecute any alcohol or drug abuse patient.[facility] Reason for Visit (unrecogniz ed section and [...] Care Teams (unrecognized sec tion and content) Assembler For Puller Over Machine Relationship Specialty Start Date End Date Alvaro Godwin MD [facility] [place], [place] [id number] PCP - General 02 Assembler For Puller Over Machine Relationship Specialty Start Date End Date Alvaro Godwin MD [address] [place], [place] [id number] PCP - General 02 Assembler For Puller Over Machine Relationship Specialty Start Date End Date Alvaro Godwin MD [address] [place] [id number] PCP - General 02 Assembler For Puller Over Machine Relationship Specialty Start Date End Date Alvaro Godwin MD [facility] [place], [place] [id number] PCP - General 02 Assembler For Puller Over Machine Relationship Specialty Start Date End Date Alvaro Godwin MD [address] [facility] [place] [address] PCP - General 02 Assembler For Puller Over Machine Relationship Specialty [place] [address] [place] [address], [place] [address] PCP - General 02 Assembler For Puller Over Machine Relationship Specialty [place] [address] [place] [address], [place] [address] PCP - General 02 Assembler For Puller Over Machine Relationship Specialty [place] [address] [place] [address], [place] [address] PCP - General 02 Assembler For Puller Over Machine Relationship Specialty [place] [address] [place] [address], [place] [address] PCP - General 02 Assembler For Puller Over Machine Relationship Specialty Start Date End Date Alvaro Godwin MD [address] [facility] [place] [address] PCP - General 02 Assembler For Puller Over Machine Relationship Specialty [place] [address] [place] [address], [place] [address] PCP - General 02 Assembler For Puller Over Machine Relationship Specialty [place] [address] [place] [address], [place] [address] PCP - General 02 INFORMATION SOURCE (unrecogn ized section and content) DATE CREATED AUTHOR AUTHOR'S ORGANIZ ATION 04/20/2023 [facility] DATE CREATED AUTHOR AUTHOR'S ORGANIZ ATION 05/15/2023 [facility] ([place]) Care Team (unrecognized sect ion and content) Care Team Personnel Name: PHYSICIAN, NONE Position: Physician Member Role: Primary Care Physician Care Team Related Persons Name: FRANCISCO MONTES DE OCA Name: ROMEL MONTES DE OCA Address: [address] [place] [address] Care Team Personnel Name: SUMEET CHAVEZ LAB TESTER-FEED RESEARCH AIDE Position: P4 Advanced Practice Nurse Member Role: Primary Care Physician Address: Address: [address] [place] [address]- [place] Care Team Related Persons Name: MARTINGERDAFRANCISCO [...] BE BASED ON THE PRIMARY CLINICAL RECORDS. [facility] [employer] [facility]. provides no warranty or guarantee of the accuracy or completeness of information in this document.
[2023-06-18 18:11] LABS: HIV - WCH Non-Reactive (Nonreactive); Hepatitis B Surface Antigen Non-Reactive (Nonreactive); Hepatitis C Antibody Non-Reactive (Nonreactive); Rubella IgG Reactive (Nonreactive); Syphilis Antibodies Non-reactive
== END | disposition home or self-care (01) ==
LOC: PAVLAB 14:03
PROVIDERS: PCP Nurse Practitioner Primary Care; Referring Provider Registered Nurse; Visit Provider Registered Nurse
DX: Z34.90 Encounter for supervision of normal pregnancy, unspecified, unspecified trimester (principal)
CPT/HCPCS: 36415; 85025; 86703; 86762; 86780; 86803; 86850; 86900; 86901; 87340

== ENCOUNTER → 2023-07-14 | Outpatient (CLI) | payer MEDICAID, SELFPAY | END | disposition home or self-care (01) | LOC: LABSPEC 15:43 | PROVIDERS: PCP Nurse Practitioner Primary Care; Referring Provider Advanced Practice Midwife; Visit Provider Advanced Practice Midwife | DX: Z87.440 Personal history of urinary (tract) infections (principal) | CPT/HCPCS: 87077; 87086; 87088 ==

== ENCOUNTER → 2023-10-07 | Outpatient (CLI) | payer MEDICAID, SELFPAY ==
[2023-10-07 13:48] LABS: Absolute Neutrophil Count 6.6 X10^3/uL (2.0-7.7); Basophil# 0.02 X10^3/uL; Basophil% 0.2 % (0-1); Eosinophil# 0.06 X10^3/uL; Eosinophils% 0.7 % (0-5); Hematocrit 34.1 % (37-47); Hemoglobin 11.8 g/dL (12.0-15.0); Lymphocyte % 14.3 % (19-41); Mean Corp Hgb Conc 34.6 g/dL (32-36); Mean Corpuscular Hgb 31.6 pg (27.0-32.0); Mean Corpuscular Volume 91.2 fL (81-99); Mean Platelet Vol. 9.2 fl (6.2-12.0); Monocyte# 0.45 X10^3/uL; Monocyte% 5.4 % (0-10); NRBC Flagged by Analyzer 0 % (0-5); Neutrophil # 6.59 X10^3/uL (2.7-7.7); Neutrophil % 78.8 % (47-70); Platelet Count 229 K/mm3 (150-450); RBC Distribution Width CV 13.3 % (11.6-14.6); RBC Distribution Width SD 43.2 fl (35.1-43.9); Red Blood Count 3.74 M/mm3 (4.2-5.4); White Blood Count 8.4 K/mm3 (4.4-11.0)
[2023-10-07 13:57] LABS: Glucose Challenge Gest 1H 50g 105 mg/dL (70-140)
[2023-10-07 16:20] LABS: HIV - WCH Non-Reactive (Nonreactive); Syphilis Antibodies Non-reactive
== END | disposition home or self-care (01) ==
LOC: PAVLAB 13:19
PROVIDERS: PCP Nurse Practitioner Primary Care; Referring Provider Obstetrics & Gynecology; Visit Provider Obstetrics & Gynecology
DX: O09.90 Supervision of high risk pregnancy, unspecified, unspecified trimester (principal); Z3A.00 Weeks of gestation of pregnancy not specified
CPT/HCPCS: 36415; 82950; 85025; 86703; 86780

== ENCOUNTER 2023-10-18 23:05 | Outpatient (CLI) | payer MEDICAID, SELFPAY ==
[2023-10-18 23:18] VITALS: BMI 28.5
[2023-10-18 23:23] VITALS: BP 108/56; PULSE 91; PULSE 96; RESP 16; TEMP 36.3; O2SAT 98
[2023-10-18 23:39] LABS: Color, Urine Yellow (Yellow); Glucose, Dipstick Normal (Normal); Ketone-Dipstick Negative (Negative); Leukocyte Esterase-Dipstick 500 /ul (Negative); Nitrite-Dipstick Negative (Negative); Occult Blood-Urine 10 /ul (Negative); Protein-Dipstick Negative (Negative); Urine Bilirubin Dipstick Negative (Negative); Urine Clarity Clear (Clear); Urine Urobilinogen Normal (Normal)
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
== END 2023-10-19 | disposition home or self-care (01) ==
LOC: WPOUT 23:17 → WP 23:17
PROVIDERS: PCP Nurse Practitioner Primary Care; Referring Provider Registered Nurse; Visit Provider Registered Nurse
DX: O23.43 Unspecified infection of urinary tract in pregnancy, third trimester (principal); O99.333 Smoking (tobacco) complicating pregnancy, third trimester; F17.290 Nicotine dependence, other tobacco product, uncomplicated; Z3A.30 30 weeks gestation of pregnancy
CPT/HCPCS: 59025; 59050; 81002; 87086; 87088; 87186

== ENCOUNTER 2023-11-03 15:30 | Outpatient (RCR) | payer MEDICAID, SELFPAY ==
--- NOTE | 2023-09-17 16:19 | HP.PTEVAL ---
Patient's Visit Information Visit Information Visit Information: XIN LIMA is a 23 year old F referred to Physical Therapy by Dr. Sharita Hines DO with a diagnosis of Sciatica. Date of Evaluation: 09/17/23 Physical Therapist: Alejandro Hernandez, DPT, OCS, CSCS Visit Plan Frequency: 2x /Week Duration: 2 Months Plan: 2x/week for 6-8 weeks for aquatic therapy for SI and core stabs and LE and postural strength to HEP, Kegels, and hip and core focus strength SI belt vended today to help stabilize SI joint with function Subjective Subjective: 25 weeks with second baby. Pain is LB and pelvis and B hips. It started 5-6 months ago and it is worsening. Can get to 9/10 if activity or just sitting around. Walking through store grocery shopping makes her hurt. Fishing makes her worse. Had chiropractic when with son and it helped. Sitting in waiting room makes her hurt 6/10 . 7/10 walking to therapy and 6/10 sitting again. Can wake up with pain. Has hyper somnia. Not employed. Spends day taking care of son 2 yo all day. Regualr exercises: No Hobbies: my son. Basic ADLs: Dressed, bathroom, can be a truggle with pain. Pain LBP: Pain Intensity (Out of 10): 5 Pain Intensity Range: 0 and 9 Comment: sleeping is painfree. Objective Objective: Walks without issues into PT, stands up from chair and sits I, bed mobility is I but painful to rollk in SI area of LB B. Steps reciprocally increase pain ascending not descending adn I. LB AROM ext slight pain, flexion without pain, SB causes some contralateral SI pain. Tender to palpation B SI joints max, PA pressure Lumbar min and soft tissue gluts and parapsinals lumbar min. reflexes 2/3 patella and achilles Flexibility is fair throughout LE. Sensation LE WNL to gross light touch. SI testing is blatantly positive with distraction and compression is slightly better. strength hip abd and add are painful in anterior pelvic region, hip flexion gives SI pain B and all are 4-/5. knee flex and ext 4 and painfree. ankles 4+ and painfree. - SLR, - Slump Balance/Special Test Scores Lower Extremity Functional Score: 16 Goals Goal 1:: Minimize pain to 2/10 at worst for next 2 months and 75% improved. Goal Time Frame: 6-8 Weeks Goal 2:: I in appropriate management of SI pain(belt and strengthening) Goal Time Frame: 6-8 Weeks Goal 3:: LEFS score 40 Goal Time Frame: 6-8 Weeks Goal 4:: sleep without waking due to pain Goal Time Frame: 6-8 Weeks Rehabilitation Potential Physical Therapy Diagnosis: Pain in SI area islimiting comfortable function Rehabilitation Potential: Fair Anticipated Interventions Patient/Client Instruction: Educate patient on: Condition and Risk Factors For the Purpose of:: To decrease pain, To improve nutrient delivery to tissue, To improve muscle performance and motor function, To increase tolerance to activity/condition/position and To improve ability of physical actions for home/community/work/leisure Therapeutic Exercise to Include: Strength training, In an aquatic setting and Dynamic Lumbar Stabilization For the Purpose of:: To decrease pain, To increase ROM, To improve nutrient delivery to tissue and To improve muscle performance and motor function Comment: SI belt For the Purpose of:: To decrease pain Text: Thank you for the opportunity to evaluate your patient. For Medicare and Medicare HMO plans, please review the plan of care and approve it. It will need to be FAXED BACK to us at [phone] for Medicare purposes. For Medicare only, by signing this I certify the plan of care. Please let me know if there are questions or concerns regarding this plan of care. Physician Signature: Date:
--- NOTE | 2023-11-03 15:58 | HP.PTDCSUM ---
Discharge Summary D/C summary: It has been my pleasure to treat XIN LIMA referred by Dr. Sharita Hines DO, with the diagnosis of Sciatica for a total of 7 visit(s). Discharge Date: 11/03/23 Please see the following information for a summary of their discharge status. Subjective Subjective: Muscle soreness after the pool. In the pool feels better and that helps for a couple hours. Pain slowly improving and creeps back after a few hours. Worse as she lies on her side all night, hard to get out of bed. Recliner not as bad. using body pillows and pillow for leg support. morning always worse. No previous problems other than scoliosis. Pain LBP: Pain Intensity (Out of 10): 0 B knees: Pain Intensity (Out of 10): 5 Overall Improvement % Improvement: 10 Objective Objective/Function: Lumbar ext painful in mid and LB, flexion not painful, R SB slight discomfort, L SB no discomfort. Feels Worse with repeated ext in stand. better after pevic tilt sitting. Walking well today without antalgia. Did not like SI belt trial. Goals Goal 1:: Minimize pain to 2/10 at worst for next 2 months and 75% improved. Goal Progress: Not Progressing Goal 2:: I in appropriate management of SI pain(belt and strengthening) Goal Progress: Not Progressing Goal 3:: LEFS score 40 Goal Progress: Not Progressing Goal 4:: sleep without waking due to pain Goal Progress: Not Progressing Plan Plan: d/c, pt wishes to hold on further PT and put up with current pain vs invest more time. Will contact doctor if changes mind and then possibly more consistency in pool would be helpful. D/C Information d/c sentence: If there are questions or concerns regarding this patient's physical therapy, please feel free to call me at [phone]. Thank you for the referral of this patient. Sincerely, Alejandro Hernandez, DPT, OCS, CSCS Balance/Gait/Functional tests Balance/Special Test Scores Lower Extremity Functional Score: 16 Improvement % Improvement: 10
== END 2023-11-03 19:00 | disposition home or self-care (01) ==
LOC: PT 15:30
PROVIDERS: PCP Nurse Practitioner Primary Care; Referring Provider Obstetrics & Gynecology; Visit Provider Obstetrics & Gynecology
DX: O99.891 Other specified diseases and conditions complicating pregnancy (principal); M54.30 Sciatica, unspecified side
CPT/HCPCS: 97113; 97161; 97530

== ENCOUNTER → 2023-11-04 | Outpatient (CLI) | payer MEDICAID, SELFPAY | END | disposition home or self-care (01) | LOC: LABSPEC 16:02 | PROVIDERS: PCP Nurse Practitioner Primary Care; Referring Provider Nurse Practitioner Women's Health; Visit Provider Nurse Practitioner Women's Health | DX: N39.0 Urinary tract infection, site not specified (principal) | CPT/HCPCS: 87086; 87088 ==

== ENCOUNTER 2023-11-05 16:29 | Outpatient (CLI) | payer MEDICAID, SELFPAY ==
[2023-11-05 16:40] VITALS: BMI 29.7
[2023-11-05 16:55] VITALS: BP 109/65; PULSE 111; O2SAT 96
[2023-11-05 16:56] VITALS: PULSE 95; RESP 16; TEMP 36.6; O2SAT 93
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
[2023-11-05] MEDS: 0.9% Saline Lock 10 ML Syringe IV (17:36)
[2023-11-05 17:41] LABS: Mucous, Urine 0 SEEN /hpf (<or=2+); Red Blood Cells-Urine 0 SEEN /hpf (0-5)
[2023-11-05 17:42] LABS: Absolute Lymphocyte Count 1.34 X10^3/uL (0.83-4.51); Absolute Neutrophil Count 5.6 X10^3/uL (2.0-7.7); Basophil# 0.03 X10^3/uL; Basophil% 0.4 % (0-1); Eosinophil# 0.06 X10^3/uL; Eosinophils% 0.8 % (0-5); Hematocrit 31.2 % (37-47); Hemoglobin 10.8 g/dL (12.0-15.0); Lymphocyte # 1.34 X10^3/ul (0.83-4.51); Lymphocyte % 17.9 % (19-41); Mean Corp Hgb Conc 34.6 g/dL (32-36); Mean Corpuscular Hgb 31.1 pg (27.0-32.0); Mean Corpuscular Volume 89.9 fL (81-99); Mean Platelet Vol. 9.6 fl (6.2-12.0); Monocyte# 0.45 X10^3/uL; NRBC Flagged by Analyzer 0 % (0-5); Neutrophil # 5.58 X10^3/uL (2.7-7.7); Neutrophil % 74.4 % (47-70); Platelet Count 231 K/mm3 (150-450); RBC Distribution Width CV 13.4 % (11.6-14.6); RBC Distribution Width SD 43.6 fl (35.1-43.9); Red Blood Count 3.47 M/mm3 (4.2-5.4); White Blood Count 7.5 K/mm3 (4.4-11.0)
[2023-11-05 17:52] LABS: Color, Urine Yellow (Yellow); Glucose, Dipstick Normal (Normal); Ketone-Dipstick Negative (Negative); Leukocyte Esterase-Dipstick 500 /ul (Negative); Nitrite-Dipstick Negative (Negative); Occult Blood-Urine 10 /ul (Negative); Protein-Dipstick Negative (Negative); Specific Gravity, Urine 1.005 (1.002-1.030); Urine Bilirubin Dipstick Negative (Negative); Urine Urobilinogen Normal (Normal)
[2023-11-05 17:57] LABS: Urine Clarity Sl Cldy (Clear)
[2023-11-05] MEDS: Famotidine 20 MG Tablet PO (17:59)
[2023-11-05 18:13] LABS: Bacteria 1+ /hpf (None Seen); Squamous Epithelial Cells - UA 0-5 SEEN /hpf (5-10); White Blood Cells 0-5 SEEN /hpf (0-5)
[2023-11-05] MEDS: Nitrofurantoin Macrocrystals 100 MG Capsule PO (18:34)
== END 2023-11-05 18:38 | disposition home or self-care (01) ==
LOC: WPOUT 16:30 → WP 16:31
PROVIDERS: PCP Nurse Practitioner Primary Care; Referring Provider Obstetrics & Gynecology; Visit Provider Obstetrics & Gynecology
DX: O23.13 Infections of bladder in pregnancy, third trimester (principal); F31.9 Bipolar disorder, unspecified; O99.891 Other specified diseases and conditions complicating pregnancy; R10.30 Lower abdominal pain, unspecified; Z3A.32 32 weeks gestation of pregnancy; Z87.440 Personal history of urinary (tract) infections; O99.343 Other mental disorders complicating pregnancy, third trimester; F41.9 Anxiety disorder, unspecified; Z79.899 Other long term (current) drug therapy; O99.333 Smoking (tobacco) complicating pregnancy, third trimester; F17.290 Nicotine dependence, other tobacco product, uncomplicated; N30.01 Acute cystitis with hematuria
CPT/HCPCS: 36415; 59025; 59050; 81001; 85025; 87086; 87088; 99221; A4216; G0378

== ENCOUNTER → 2023-11-20 | Outpatient (CLI) | payer MEDICAID, SELFPAY ==
[2023-11-20 14:20] LABS: Vitamin B12 228 pg/mL (211-911)
[2023-11-20 14:27] LABS: Ferritin 9 ng/mL (8-252); Iron 63 ug/dL (50-170); Iron Binding Capacity,Total 456 ug/dL (250-450); PERCENT IRON SATURATION 13.8 % (15.0-55.0)
== END | disposition home or self-care (01) ==
LOC: LAB 13:26
PROVIDERS: PCP Nurse Practitioner Primary Care; Referring Provider Nurse Practitioner Women's Health; Visit Provider Nurse Practitioner Women's Health
DX: O99.013 Anemia complicating pregnancy, third trimester (principal); Z3A.00 Weeks of gestation of pregnancy not specified
CPT/HCPCS: 36415; 82607; 82728; 83540; 83550

== ENCOUNTER 2023-12-14 19:19 | Inpatient (IN) | payer MEDICAID, SELFPAY ==
[2023-12-14 15:51] VITALS: BP 117/72; PULSE 91
[2023-12-14 15:52] VITALS: PULSE 102; RESP 16; TEMP 36.6; O2SAT 97; O2SAT 98
[2023-12-14] MEDS: LACTATED RINGERS 1,000 ML 999 ML IV (16:13)
[2023-12-14 16:29] LABS: Absolute Lymphocyte Count 1.63 X10^3/uL (0.83-4.51); Absolute Neutrophil Count 5.5 X10^3/uL (2.0-7.7); Basophil# 0.02 X10^3/uL; Basophil% 0.3 % (0-1); Eosinophil# 0.04 X10^3/uL; Eosinophils% 0.5 % (0-5); Hematocrit 33.2 % (37-47); Hemoglobin 11.4 g/dL (12.0-15.0); Lymphocyte # 1.63 X10^3/ul (0.83-4.51); Mean Corp Hgb Conc 34.3 g/dL (32-36); Mean Corpuscular Volume 90.2 fL (81-99); Mean Platelet Vol. 9.7 fl (6.2-12.0); Monocyte# 0.52 X10^3/uL; Monocyte% 6.7 % (0-10); NRBC Flagged by Analyzer 0 % (0-5); Neutrophil # 5.54 X10^3/uL (2.7-7.7); Neutrophil % 71.1 % (47-70); Platelet Count 218 K/mm3 (150-450); RBC Distribution Width CV 13.2 % (11.6-14.6); RBC Distribution Width SD 43.5 fl (35.1-43.9); Red Blood Count 3.68 M/mm3 (4.2-5.4); White Blood Count 7.8 K/mm3 (4.4-11.0)
[2023-12-14 16:53] VITALS: BMI 29.7
--- NOTE | 2023-12-14 17:40 | US_ITS ---
STUDY: OBSTETRICAL ULTRASOUND - BIOPHYSICAL PROFILE REASON FOR EXAM: Female, 23 years old Non-reassuring NST in office LMP: PRIOR ULTRASOUND: 05/22/2023. TECHNIQUE: Transabdominal TECHNICAL QUALITY: Adequate. FINDINGS: There is a single intrauterine fetus. The fetus is in a cephalic presentation. There is demonstrated cardiac activity with a heart rate of 145 bpm. There is a normal amniotic fluid volume. The largest amniotic fluid pocket measures 7.3 cm. The amniotic fluid index (MARCO) is 22.3 cm. The placenta is anterior in location and is not low lying. There are Grade 3 placental changes. Age by LMP: 38 weeks, 0 days. MARILU by LMP: 12/28/2023. BIOPHYSICAL PROFILE: Breathing Movements (FBM): 0 Gross Body Movements (GBM): 2 Tone (FT): 2 Amniotic Fluid Volume (AFV): 2 TOTAL SCORE: 6 / 8 US/Biophysical Prof W/O Non Stres IMPRESSION: Abnormal biophysical profile of 10/16. No breathing was seen. Electronically Signed: Napoleon Grady MD at 18:52 EDT ,
[2023-12-14] MEDS: Lactated Ringers 1,000 ML 50 ML IV (19:40)
[2023-12-14] MEDS: Penicillin G Pot 5,000,000 UNITS in 0.9% Normal Saline (100mL MB+) 100 ML 150 UNITS IV (19:53)
[2023-12-14] MEDS: Oxytocin 15 Units/NS 250ml 15 UNITS/250 ML IV.SOLN 2 UNITS IV (20:07)
[2023-12-14 20:19] LABS: Syphilis Antibodies Non-reactive
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
[2023-12-15] VITALS (33 sets, daily range): BP systolic 90–117; BP diastolic 51–77; PULSE 73–90; RESP 16–17; TEMP 36.1–36.9; O2SAT 96–99
[2023-12-15] MEDS: Penicillin G 3,000,000 Units 50 ML 100 UNITS IV ×3 (04:06→08:26)
[2023-12-15] MEDS: Lactated Ringers 1,000 ML 999 ML IV (05:54)
[2023-12-15] MEDS: fentaNYL-bupivacaine (epidural) 100 ML BAG EPIDURAL ×2 (06:42→11:16)
[2023-12-15] MEDS: Lactated Ringers 1,000 ML 200 ML IV (08:31)
--- NOTE | 2023-12-15 08:40 | PCM.PN.BLA ---
Progress Note pt is comfortable with epidural. She was examined at 7 am and was 3 cm dilated. current tracing: FHT: Moderate variability reactive no decelerations category I tracing [place]: q2-3 min Contractions cx: 4/80/0 membranes ruptured with clear fluid return A/P: continue current management expect soon.
[2023-12-15] MEDS: Oxytocin 15 Units/NS 250ml 15 UNITS/250 ML IV.SOLN 83 UNITS IV (12:19)
--- NOTE | 2023-12-15 12:47 | EX.PCM.OBRPT ---
Assessment & Plan (1) Decreased movements in third trimester: COMMENT: NST done 12/13 (2) Uterine size-date discrepancy, third trimester: COMMENT: US ordered (3) UTI (urinary tract infection): QUALIFIERS: Urinary tract infection type: acute cystitis Hematuria presence: with hematuria Qualified Code(s): N30.01 - Acute cystitis with hematuria COMMENT: macrobid started for leuks/heme in blood. Positive culture repeat culture in 4 weeks: negative (4) GBS (group B streptococcus) UTI complicating : QUALIFIERS: Trimester: second trimester Qualified Code(s): O23.42 - Unspecified infection of urinary tract in , second trimester; B95.1 - Streptococcus, group B, as the cause of diseases classified elsewhere COMMENT: not high enough to indicate infection. treat in labor (5) Vaping nicotine dependence, tobacco product: COMMENT: considering quitting, encouraged. Counseled again (6) Hx of recurrent urinary tract infection: COMMENT: currently being treated through pcp. 05/22. recollect Urine culture at next visit. Unable to give specimen-still needs specimen (7) Supervision of high-risk : QUALIFIERS: Trimester: third trimester Qualified Code(s): O09.93 - Supervision of high risk , unspecified, third trimester COMMENT: PRR,, MARILU 12/28/23, girl Efren Regan, Cesar(his first child) (8) : QUALIFIERS: Weeks of gestation: 37 weeks Qualified Code(s): Z3A.37 - 37 weeks gestation of COMMENT: US. discussed genetic & carrier testing, declines. (9) Depression: QUALIFIERS: Depression Type: unspecified Qualified Code(s): F32.A - Depression, unspecified COMMENT: on chacortaoftcheryl Maternal Data Information MARILU Calculator Estimated Delivery Date Method Current WG Current Estimate 12/28/23 LMP (Certain) 38w 1d Final MARILU: 12/28/23 Final MARILU Source: LMP Vaginal Delivery Findings Description of Procedure: Patient began pushing and delivered the head in the JANNET presentation. The head was delivered atraumatically. The anterior and posterior shoulders delivered without complication followed by the rest of the infant and the was placed on the maternal abdomen. Delayed cord clamping was employed for approximately 60 seconds. Cord was clamped and cut and gentle traction was applied to the cord and the placenta delivered spontaneously immediately following it was noted to be intact with three-vessel cord. The perineum and vagina were inspected and noted to be intact. There was a small periurethral laceration repaired using a 3-0 vicryl. EBL was 200 cc. Patient and tolerated delivery well. baby girl Efren Presentation: Vertex Amniotic Membrane Rupture Type: Spontaneous Amniotic Fluid Description: Clear Placental Delivery Description: Spontaneous Placenta Disposition: [facility] Cord Vessel Description: 3 Vessels Cord Entanglement: None A Gender: Female (1 minute): 8 (5 minute): 9 Delayed Cord Clamping: Yes Post Vaginal Delivery Medications Given After Delivery: IV Pitocin Episiotomy Description: None Complication Complications: None Multi Select Codes Urinary/Genital Urinary/Genital CPT Codes: 51574 Vaginal Delivery+ PP Care([facility])
--- NOTE | 2023-12-15 12:54 | PCM.DC ---
Discharge Instructions Diet Discharge Diet: No restrictions Activity Discharge Activity: Return to Normal Activity, May Not Drive (while taking narcotic pain medications.) and May Shower May resume sexual activity in: 4-6 weeks Dressing / Incision Call your doctor if your incision/area has: Continuous Slow Oozing, Sudden Increased Bleeding, Increased Pain/ Swelling, Increased Redness and Foul Smelling Discharge Follow Up Care Please Follow Up With: Sharita Hines, When: Call [phone] to make an appointment with your doctor in 6 weeks. If you had elevated blood pressure or 4th degree laceration, you will need to be seen in 2 weeks. Test Results: Test results from this visit will be discussed in further detail at your follow-up appointment, if applicable. Discharge Plan Admission Admit Date/Time: 12/14/23 19:19 Attending Provider: Sharita Hines Primary Care Provider: Tiara Mendez NP Discharge Orders/Prescriptions Prescriptions: No Action PNV no.130-PK-sh2-vph-cmm-qtav 400 mcg-35 mg- 25 mg-5 mg tablet,chewable 1 tab PO DAILY ferrous gluconate 270 mg (27 mg iron) tablet 270 mg PO DAILY sertraline 50 mg tablet 100 mg PO DAILY Patient Comments: Take 1 and 1/2 tablets by mouth once daily. famotidine [Pepcid] 20 mg tablet 20 mg PO BID Qty: 60 6RF Referrals / Follow Up: Tiara Mendez NP, [facility] [Primary Care Provider] -
[2023-12-15] MEDS: Ibuprofen 600 MG Tablet PO (20:25)
[2023-12-16] MEDS: Ibuprofen 600 MG Tablet PO (03:59)
[2023-12-16 04:01] VITALS: BP 107/68; PULSE 79; RESP 16; TEMP 36.1; O2SAT 99
[2023-12-16 08:00] VITALS: BP 111/64; PULSE 80; RESP 16; TEMP 36.3; O2SAT 98
--- NOTE | 2023-12-16 08:15 | PCM.PN.OB ---
Subjective Subjective Patient doing well without complaints. Tolerating PO. Ambulating and voiding without difficulty. Feeding well. Denies chest pain, shortness of breath, calf pain/swelling, fevers, chills, lightheadedness. Objective Data Objective Data Vital Signs: Vital Signs Temp Pulse Resp BP Pulse Ox O2 Del Method 96.9 F L 79 16 107/68 99 Room Air 12/16/23 04:01 12/16/23 04:01 12/16/23 04:01 12/16/23 04:01 12/16/23 04:01 12/16/23 04:01 Oxygen Delivery Method Room Air Weight: 168 lb Body Mass Index (BMI) 29.7 Intake & Output: Intake and Output for Last 24 Hours 12/14/23 12/15/23 12/16/23 23:59 23:59 23:59 Intake Total 1117.00 / 1117.00 3328.00 / 3328.00 Output Total 1750 / 1750 Balance 1117.00 / 1117.00 1578.00 / 1578.00 Lab / Micro Data 12/14/23 16:05 Physical Exam Const alert and oriented x3 HEENT normocephalic Eyes PERRL Neck full ROM Resp normal respiratory effort GI soft to palpation GI Narrative: FF below U Assessment & Plan (1) Spontaneous vaginal delivery: COMMENT: STACI VALDEZ Girl Efren PLAN: Plan s/p PPD # 1 1. routine post delivery care 2. breast feeding- support given 3. rh positive 4. rubella immune 5. home today
[2023-12-16 13:00] VITALS: BP 112/62; PULSE 90; RESP 16; TEMP 36.1; O2SAT 100
== END 2023-12-16 13:55 | disposition home or self-care (01) | DRG 560 ==
LOC: WP 20:13
PROVIDERS: Advanced Practice Midwife; Obstetrics & Gynecology; Admitting Provider Obstetrics & Gynecology; PCP Nurse Practitioner Primary Care; Referring Provider Obstetrics & Gynecology; Visit Provider Obstetrics & Gynecology
DX: O76 Abnormality in fetal heart rate and rhythm complicating labor and delivery (principal); Z37.0 Single live birth; O99.344 Other mental disorders complicating childbirth; B95.1 Streptococcus, group B, as the cause of diseases classified elsewhere; F32.A Depression, unspecified; F17.290 Nicotine dependence, other tobacco product, uncomplicated; Z3A.37 37 weeks gestation of pregnancy; O99.334 Smoking (tobacco) complicating childbirth; O71.82 Other specified trauma to perineum and vulva; O36.8130 Decreased fetal movements, third trimester, not applicable or unspecified; Z87.440 Personal history of urinary (tract) infections; O26.843 Uterine size-date discrepancy, third trimester
CPT/HCPCS: 59025; 59050; 76819; 85025; 86780; 86850; 86900; 86901; 99221; J7120; G0378

== ENCOUNTER 2024-06-27 12:00 | Outpatient (RCR) | payer MEDICAID, SELFPAY ==
--- NOTE | 2024-05-30 18:10 | HP.PTEVAL ---
Patient's Visit Information Visit Information Visit Information: IXN LIMA is a 23 year old F referred to Physical Therapy by ALEKS Forbes with a diagnosis of THORACIC SCOLIOSIS. Date of Evaluation: 05/30/24 Physical Therapist: Angely Perez PT, Cert MDT Visit Plan Frequency: 2-3x /Week Duration: 4-6 Weeks Plan: AQUATIC THERAPY FOR PAIN RELIEF, POSTURE CORRECTION/STRENGTHENING, INSTRUCTION IN APPROPRIATE BODY MECHANICS AND ACTIVITY MODIFICATIONS. DLS STARTING WITH A NEUTRAL SPINE PROGRESSING ROM TOLERATED. TEAJS LE ROM, STRETCHING AND STRENGTHENING. HEP INSTRUCTION. 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 LIVES WITH GRANDMA, AND 2 KIDS. Disability: NO Present symptoms: MID TO LOW BACK PAIN. INTERMITTENT TEJAS LE ACHING. Present since: 2020 Pain Scale: WORST 8/10, LEAST 2/10 Currently: 6/10 Is it getting better, worse or staying the same: GETTING WORSE Commenced as a result of: OF SON, WENT AWAY, CAME BACK WITH OF DAUGHTER AND HASN'T GONE AWAY SINCE. Symptoms at onset: LOW BACK PAIN Worse: SITTING, STANDING, LYING DOWN, BENDING, LIFTING, TWISTING, PICKING UP TOYS, MOVING DAUGHTER FROM MAT TO CHAIR, GROCERY SHOPPING, COOKING, LAUNDRY Better: BACK AND BODY JAYE, MA'S RECLINER Disturbed sleep: SOMETIMES Previous history/Previous treatment: AQUATIC THERAPY, CHIROPRACTIC. NO BACK SURGERY OR KHANH'S. Treatment this episode: OTC JAYE ASPIRIN Coughing/sneezing/straining: SOMETIMES INCREASED BACK PAIN WITH COUGHING. Gait: NORMAL Bowel or Bladder Dysfunction: SOME BLADDER DYSFUNCTION AT NIGHT. STATES SHE DOENS'T ALWAYS MAKE IT TO THE BATHROOM IN TIME AND PLANS TO TALK TO HER OB ABOUT IT. Accidents: NO Unexplained weight loss: NO Imaging: PATIENT REPORTS 05/24/24 [facility] X-RAY SHOWS SHE HAS AN 18 DEG CURVE IN HER SPINE AND HER LAST X-RAY AT [facility] 04/12/24 SHOWED A 14 DEG CURVE. 05/24/24: X-RAY - XR Spine Thoracic 2 Views COMPARISON: No relevant prior comparison study available FINDINGS: VERTEBRAE: Preserved vertebral body height. No fracture. No spondylolisthesis. Preservation of the normal thoracic kyphosis. Mild dextroscoliosis. DISCS: Disc spaces are maintained. INCLUDED CHEST/ABDOMEN: No acute abnormalities. RAD/Thoracic Spine 2 Views IMPRESSION: Mild dextroscoliosis. 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 Objective Objective: Sitting/Standing Posture: SCOLIOSIS. R ILIAC CREST HIGHER THAN LEFT IN STANDING. ANTERIOR PELVIC TILT. INCREASED LORDOSIS. Other Observations: INDEP GAIT AND TRANSFERS Sensory deficit: TEJAS LE LIGHT TOUCH SENSATION GROSSLY INTACT AND SYMMETRICAL ROM deficit: TIGHT TEJAS LE HIP FLEXORS, HS'S AND GASTROC-SOLEUS COMPLEX'S. Motor deficit: TEJAS LE'S GROSSLY 5/5 EXCEPT HIPS AND AND L QUAD 4/5. Reflexes: 2+ TEJAS LE'S. Dural Signs: POSITIVE R LE. Lumbar mvmt loss: flex - MOD - INCREASES LBP - W ext - MOD - INCREASES LBP - NW R SG - MOD - NE L SG - MIN - P R LBP - W Core strength: POOR Palpation: TENDERNESS WITH PALPATION OF LOWER THORACIC SPINE, LUMBAR SPINE, AND TEJAS PARASPIINALS R>L. Balance/Special Test Scores Oswestry Low Back Score: 9 Goals Goal 1:: DECREASE C/O BACK PAIN BY AT LEAST 50% TO EASE ADL'S. Goal Time Frame: 4-6 Weeks Goal 2:: IMPROVE SITTING, STANDING, LYING DOWN, BENDING, LIFTING, TWISTING, AND ADL FUNCTION WITH IMPROVED OSWESTRY SCORE Goal Time Frame: 4-6 Weeks Goal 3:: INSTRUCT IN PROPHYLAXIS Goal Time Frame: 4-6 Weeks Rehabilitation Potential Physical Therapy Diagnosis: TRUNK AND TEJAS LE TIGHTNESS AND WEAKNESS. Rehabilitation Potential: Good Anticipated Interventions Patient/Client Instruction: Educate patient on: Condition, Plan of Care and Risk Factors For the Purpose of:: To improve self management Therapeutic Exercise to Include: Strength training, Body mechanics, Postural training, Flexibilty training, Neuromotor development, In an aquatic setting, Dynamic Lumbar Stabilization and Scapular Strength/Stabilization For the Purpose of:: To decrease pain, To increase ROM, To improve muscle performance and motor function, To improve ability to perform ADL's, To increase tolerance to activity/condition/position, To improve ability of physical actions for home/community/work/leisure, To increase flexibility/ROM and To improve self management Text: Thank you for the opportunity to evaluate your patient. For Medicare and Medicare HMO plans, please review the plan of care and approve it. It will need to be FAXED BACK to us at [phone] for Medicare purposes. For Medicare only, by signing this I certify the plan of care. Please let me know if there are questions or concerns regarding this plan of care. Physician Signature: Date:
== END 2024-06-27 19:00 | disposition home or self-care (01) ==
LOC: PT 12:00
PROVIDERS: PCP Family Medicine; Referring Provider Student in an Organized Health Care Education/Training Program; Visit Provider Student in an Organized Health Care Education/Training Program
DX: M41.9 Scoliosis, unspecified (principal)
CPT/HCPCS: 97113; 97162; 97530

== ENCOUNTER 2024-06-27 19:35 | Emergency (ER) | payer MEDICAID, SELFPAY ==
[2024-06-27 19:35] VITALS: BP 116/78; PULSE 104; RESP 17; TEMP 36.6; O2SAT 98; BMI 31.6
== END 2024-06-27 20:20 | disposition left against medical advice (07) ==
LOC: ED 20:24
PROVIDERS: PCP Family Medicine
DX: Z53.21 Procedure and treatment not carried out due to patient leaving prior to being seen by health care provider (principal)

== ENCOUNTER 2024-06-30 20:01 | Emergency (ER) | payer MEDICAID, SELFPAY ==
[2024-06-30 20:02] VITALS: BP 129/81; PULSE 96; RESP 18; TEMP 36.9; O2SAT 98; BMI 31.1
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
[2024-06-30] MEDS: AMOXICILLIN 500 MG CAPSULE PO (22:05)
== END 2024-06-30 22:07 | disposition home or self-care (01) ==
PROVIDERS: Emergency Provider Emergency Medicine; PCP Family Medicine; Visit Provider Emergency Medicine
DX: H66.91 Otitis media, unspecified, right ear (principal); F17.290 Nicotine dependence, other tobacco product, uncomplicated
CPT/HCPCS: 99282

== ENCOUNTER → 2024-09-15 | Outpatient (CLI) | payer MEDICAID, SELFPAY ==
[2024-09-15 12:53] LABS: Absolute Lymphocyte Count 1.77 X10^3/uL (0.83-4.51); Basophil# 0.06 X10^3/uL; Basophil% 1.1 % (0-1); Eosinophil# 0.09 X10^3/uL; Eosinophils% 1.7 % (0-5); Hemoglobin 13.1 g/dL (12.0-15.0); Lymphocyte # 1.77 X10^3/ul (0.83-4.51); Lymphocyte % 33.2 % (19-41); Mean Corp Hgb Conc 34.5 g/dL (32-36); Mean Corpuscular Hgb 30.4 pg (27.0-32.0); Mean Corpuscular Volume 88.2 fL (81-99); Mean Platelet Vol. 9.1 fl (6.2-12.0); Monocyte# 0.38 X10^3/uL; Monocyte% 7.1 % (0-10); NRBC Flagged by Analyzer 0.4 % (0-5); Neutrophil # 3.02 X10^3/uL (2.7-7.7); Neutrophil % 56.7 % (47-70); Platelet Count 305 K/mm3 (150-450); RBC Distribution Width CV 11.9 % (11.6-14.6); RBC Distribution Width SD 38.7 fl (35.1-43.9); Red Blood Count 4.31 M/mm3 (4.2-5.4); White Blood Count 5.3 K/mm3 (4.4-11.0)
[2024-09-15 13:31] LABS: ALB/GLOB Ratio 1.5 RATIO (0.9-2.4); AST(SGOT) 23 U/L (<=31); Alanine Aminotransfer ALT/SGPT 22 U/L (<=34); Albumin, Serum 4.5 g/dL (3.5-5.0); Alkaline Phosphatase 86 U/L (35-104); Anion Gap 12 (5-15); BUN 12 mg/dL (4-19); BUN/Creat Ratio 16.7 RATIO (10-20); Calcium,Total 9.7 mg/dL (7.6-11.0); Carbon Dioxide 22.7 mmol/L (21.0-32.0); Chloride 103 mmol/L (98-108); Creatinine, Serum 0.72 mg/dL (0.70-1.20); EST Glomerular Filtration Rate 120 (>60); Ferritin 31 ng/mL (22-378); Globulin 3.1 g/dL (2.2-4.2); Glucose 84 mg/dL (70-99); Potassium 3.9 mmol/L (3.3-5.1); Protein, Total 7.6 g/dL (5.9-8.4); Sodium Level 137 mmol/L (133-145); Total Bilirubin 0.68 mg/dL (0.00-1.30); Vitamin B12 494 pg/mL (180-914); Vitamin D,25 Hydroxy 18.4 ng/mL (30-100)
[2024-09-15 13:54] LABS: Iron 58 ug/dL (50-170); Iron Binding Capacity,Total 322 ug/dL (250-450); Iron Binding Capacity,Unsat 264 ug/dL (228-428)
[2024-09-17 04:07] LABS: Thyroid Peroxidase AB 11 IU/mL (0-34)
== END | disposition home or self-care (01) ==
LOC: VSLAB 11:25
PROVIDERS: PCP Family Medicine; Visit Provider Nurse Practitioner Family
DX: D50.9 Iron deficiency anemia, unspecified (principal); R53.83 Other fatigue
CPT/HCPCS: 36415; 80053; 82306; 82607; 82728; 83540; 83550; 84439; 84443; 85025; 86376

== ENCOUNTER 2024-10-09 19:14 | Emergency (ER) | payer MEDICAID, SELFPAY ==
[2024-10-09 19:14] VITALS: BP 131/87; PULSE 102; RESP 18; TEMP 36.8; O2SAT 97; BMI 33.6
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
[2024-10-09 19:39] LABS: Absolute Neutrophil Count 7.9 X10^3/uL (2.0-7.7); Basophil# 0.04 X10^3/uL; Basophil% 0.4 % (0-1); Eosinophil# 0.08 X10^3/uL; Eosinophils% 0.7 % (0-5); Hematocrit 39.2 % (37-47); Hemoglobin 13.5 g/dL (12.0-15.0); Lymphocyte % 17.5 % (19-41); Mean Corp Hgb Conc 34.4 g/dL (32-36); Mean Corpuscular Hgb 30.1 pg (27.0-32.0); Mean Corpuscular Volume 87.3 fL (81-99); Mean Platelet Vol. 9.1 fl (6.2-12.0); Monocyte# 0.88 X10^3/uL; Monocyte% 8.1 % (0-10); NRBC Flagged by Analyzer 0 % (0-5); Neutrophil # 7.94 X10^3/uL (2.7-7.7); Platelet Count 275 K/mm3 (150-450); RBC Distribution Width CV 12.6 % (11.6-14.6); RBC Distribution Width SD 39.8 fl (35.1-43.9); Red Blood Count 4.49 M/mm3 (4.2-5.4); White Blood Count 10.9 K/mm3 (4.4-11.0)
[2024-10-09] MEDS: Ondansetron 4 MG/2 ML Vial IV (19:43)
[2024-10-09 19:44] LABS: Internal QC Validated? YES +Cl - CLEAR BKGD; Pregnancy, Serum, hCG Quali. NEGATIVE Negative
[2024-10-09] MEDS: Ketorolac 15 MG/ML Vial IV (19:46)
[2024-10-09 19:47] LABS: Mucous, Urine 0 SEEN /hpf (<or=2+)
[2024-10-09 19:51] LABS: Glucose, Dipstick Normal (Normal); Ketone-Dipstick Negative (Negative); Leukocyte Esterase-Dipstick 500 /ul (Negative); Nitrite-Dipstick Positive (Negative); Occult Blood-Urine 25 /ul (Negative); Protein-Dipstick 30 mg/dl (Negative); Urine Bilirubin Dipstick Negative (Negative); Urine Urobilinogen Normal (Normal)
[2024-10-09 19:52] LABS: Color, Urine Yellow (Yellow); Urine Clarity Turbid (Clear)
[2024-10-09 20:15] LABS: Squamous Epithelial Cells - UA 5-10 SEEN /hpf (5-10); White Blood Cells >100 SEEN /hpf (0-5)
[2024-10-09 20:16] LABS: Bacteria 4+ /hpf (None Seen)
[2024-10-09 20:17] LABS: Red Blood Cells-Urine 0-5 SEEN /hpf (0-5)
[2024-10-09 20:30] LABS: Anion Gap 13 (5-15); BUN 7 mg/dL (4-19); BUN/Creat Ratio 8.8 RATIO (10-20); Calcium,Total 9.8 mg/dL (7.6-11.0); Carbon Dioxide 22.4 mmol/L (21.0-32.0); Chloride 101 mmol/L (98-108); Creatinine, Serum 0.77 mg/dL (0.70-1.20); EST Glomerular Filtration Rate 112 (>60); Estimated Creatinine Clearance 119.25 ml/min (50-250); Glucose 116 mg/dL (70-99); Potassium 3.4 mmol/L (3.3-5.1); Sodium Level 136 mmol/L (133-145)
[2024-10-09] MEDS: Smz/Tmp Ds Tablet 1 TABLET PO (20:33)
[2024-10-09 20:42] VITALS: BP 110/65; PULSE 82; RESP 16; TEMP 36.8; O2SAT 97
== END 2024-10-09 20:43 | disposition home or self-care (01) ==
PROVIDERS: Physician Assistant; Emergency Provider Emergency Medicine; PCP Family Medicine; Visit Provider Emergency Medicine
DX: N39.0 Urinary tract infection, site not specified (principal); M54.6 Pain in thoracic spine; F17.290 Nicotine dependence, other tobacco product, uncomplicated
CPT/HCPCS: 80048; 81001; 84703; 85025; 87086; 87088; 87186; 96374; 96375; 99283; A4216; J2405

== ENCOUNTER 2024-10-14 22:52 | Emergency (ER) | payer MEDICAID, SELFPAY ==
[2024-10-14 22:53] VITALS: BP 112/74; PULSE 93; RESP 16; TEMP 36.4; O2SAT 98; BMI 33.7
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
--- OUTSIDE RECORDS SUMMARY | 2024-10-14 23:22 | XMS RPT_ITS | CCD ---
Author Organization [facility] Care Team Providers Care Crate Tier Name Role Phone Eric Reyes MD Primary Care Provider PHYSICIAN, NONE Primary Care Physician Unavailab Eric Alexander MD Primary Care Provider Eric Reyes MD Primary Care Provider SEFFENS WATCH DIAL PRINTER-PROC TECH, SUMEET Primary Care Physician Unavailable Primary Care Provider UnavailTERRIE Crooks Attending Unavailable SEFFENS WATCH DIAL PRINTER-PROC TECH, SUMEET Primary Care Unavai lable SEFFENS WATCH DIAL PRINTER-PROC TECH, SUMEET Primary Care Unavai OSCAR Zapata Attending Unavailable SEFFENS WATCH DIAL PRINTER-PROC TECH, SUMEET Primary Care Unavai ALBERTO Marie MD Attending Unavail able SEFFENS WATCH DIAL PRINTER-PROC TECH, SUMEET Primary Care Unavai lable SEFFENS WATCH DIAL PRINTER-PROC TECH, SUMEET Attending Unavai lable SEFFENS WATCH DIAL PRINTER-PROC TECH, SUMEET Primary Care Unavai lable KATY WATCH DIAL PRINTER-PROC TECH, OMAIRA Barrera Attending Un available ROSA GUERRERO DO Attending Unavailable SEFFENS WATCH DIAL PRINTER-PROC TECH, SUMEET Primary Care Unavai lable Vanessa AOC DIRECTOR COMBAT OPERATIONS OFFICER, AOC DIRECTOR COMBAT OPERATIONS OFFICER-C Sumeet Primary Care Provider Vanessa AOC DIRECTOR COMBAT OPERATIONS OFFICER, AOC DIRECTOR COMBAT OPERATIONS OFFICER-C Sumeet Referring Provider [phone] Attending Provider Lalita CARO, AOC DIRECTOR COMBAT OPERATIONS OFFICER-C Jimy Attending Provider [phone] MIRNA Vo Attending Provider NO PRIMARY CARE, Primary Care Unavailable JIMY CELIS Referring Unavailable BERNARDINO BROWER Attending Unavailable Unavailable Primary Care Provider Unavailabl e Seffens AOC DIRECTOR COMBAT OPERATIONS OFFICER-C, Sumeet Primary Care Provider Seffens AOC DIRECTOR COMBAT OPERATIONS OFFICER-C, Sumeet Referring Provider Natalie Bolye Attending Provider Mara VIEYRA, Dr. Gilbert Attending Provider Natalie Boyle Referring Provider Armaan DO, Sury Primary Care Provider Provider, Ed Physician Attending Provider Jensen arizmendi Provider, Ed Physician Emergency Provider Jensen Calhoun MD, Dr. Barraza Attending Provider Lj VIEYRA, Dr. Barraza Emergency Provider Hailey AOC DIRECTOR COMBAT OPERATIONS OFFICER-C, Lupis Attending Provider Armaan DO, Bala Alma Delia Primary Care Provider ARMAAN, BALA ALMA DELIA Referring Unavailabl e SWANK BRENDA Referring Unavailable ARMAAN, BALA ALMA DELIA Primary Care Unavailabl e ARMAAN, BALA ALMA DELIA Primary Care Unavailabl e SWANGELA DELGADOYLI Attending Unavailable Natalie Boyle Attending Provider Sharita Caldwell Attending Unavailabl e Seffens AOC DIRECTOR COMBAT OPERATIONS OFFICER, Sumeet Referring Unavailable Seffens AOC DIRECTOR COMBAT OPERATIONS OFFICER, Sumeet Primary Care Unavailable Sharita Caldwell Attending Unavailabl e Seffens AOC DIRECTOR COMBAT OPERATIONS OFFICER, Sumeet Referring Unavailable Seffens AOC DIRECTOR COMBAT OPERATIONS OFFICER, Sumeet Primary Care Unavailable VelSharita onofre Attending Unavailabl e Seffens AOC DIRECTOR COMBAT OPERATIONS OFFICER, Sumeet Referring Unavailable Seffens AOC DIRECTOR COMBAT OPERATIONS OFFICER, Sumeet Primary Care Unavailable Seffens AOC DIRECTOR COMBAT OPERATIONS OFFICER, Sumeet Primary Care Unavailable Sharita Caldwell Attending Unavailabl e Seffens AOC DIRECTOR COMBAT OPERATIONS OFFICER, Sumeet Referring Unavailable Armaan VSC, Sury Primary Care Unavailable Madi Calhoun Attending Unavailable Armaan VSC, Sury Primary Care Unavailable Madi Calhoun Attending Unavailable Sharita Caldwell Referring Unavailabl e Sharita Caldwell Consulting Unavailabl e VeldeSharita Attending Unavailabl e Seffens AOC DIRECTOR COMBAT OPERATIONS OFFICER, Sumeet Primary Care Unavailable Vladimir Terry Attending Unavailable Seffens AOC DIRECTOR COMBAT OPERATIONS OFFICER, Sumeet Primary Care Unavailable Seffens AOC DIRECTOR COMBAT OPERATIONS OFFICER, Sumeet Referring Unavailable Lalita AOC DIRECTOR COMBAT OPERATIONS OFFICER, Jimy Attending Unavailable Seffens AOC DIRECTOR COMBAT OPERATIONS OFFICER, Sumeet Primary Care Unavailable Seffens AOC DIRECTOR COMBAT OPERATIONS OFFICER, Sumeet Primary Care Unavailable Morley AOC DIRECTOR COMBAT OPERATIONS OFFICER, Jimy Attending Unavailable Morley AOC DIRECTOR COMBAT OPERATIONS OFFICER, Jimy Referring Unavailable Armaan VSC, Sury Primary Care Unavailable Lupis Hart Attending Unavailable Morley AOC DIRECTOR COMBAT OPERATIONS OFFICER, Jimy Attending Unavailable Morley AOC DIRECTOR COMBAT OPERATIONS OFFICER, Jimy Referring Unavailable Seffens AOC DIRECTOR COMBAT OPERATIONS OFFICER, Sumeet Primary Care Unavailable VelSharita onofre Referring Unavailabl e Velde, Sharita Olson Attending Unavailabl e Seffens AOC DIRECTOR COMBAT OPERATIONS OFFICER, Sumeet Primary Care Unavailable VelSharita onofre Referring Unavailabl e Velde, Sharita Olson Attending Unavailabl e Seffens AOC DIRECTOR COMBAT OPERATIONS OFFICER, Sumeet Primary Care Unavailable Seffens AOC DIRECTOR COMBAT OPERATIONS OFFICER, Sumeet Primary Care Unavailable Sharita Caldwell Referring Unavailabl e Velde, Shraita Olson Admitting Unavailabl e Paulette, Sharita Olson Attending Unavailabl e Seffens AOC DIRECTOR COMBAT OPERATIONS OFFICER, Sumeet Primary Care Unavailable María Good Attending Unavailable Seffens AOC DIRECTOR COMBAT OPERATIONS OFFICER, Sumeet Referring Unavailable Sharita Caldwell Attending Unavailabl e Seffens AOC DIRECTOR COMBAT OPERATIONS OFFICER, Sumeet Referring Unavailable Seffens AOC DIRECTOR COMBAT OPERATIONS OFFICER, Sumeet Primary Care Unavailable Veljemima, Sharita Olson Attending Unavailabl e Seffens AOC DIRECTOR COMBAT OPERATIONS OFFICER, Sumeet Referring Unavailable Seffens AOC DIRECTOR COMBAT OPERATIONS OFFICER, Sumeet Primary Care Unavailable Guerline Lane Attending Unavailable Guerline Lane Referring Unavailable Seffens AOC DIRECTOR COMBAT OPERATIONS OFFICER, Sumeet Primary Care Unavailable Armaan VSC, Sury Primary Care Unavailable Natalie Velásquez Attending Unavailable Natalie Velásquez Referring Unavailable Armaan VSC, Sury Primary Care Unavailable Provider, Ed Physician Attending Unavailab le Seffens AOC DIRECTOR COMBAT OPERATIONS OFFICER, Sumeet Primary Care Unavailable María Good Attending Unavailable Seffens AOC DIRECTOR COMBAT OPERATIONS OFFICER, Sumeet Referring Unavailable Natalie Velásquez Attending Unavailable Seffens AOC DIRECTOR COMBAT OPERATIONS OFFICER, Sumeet Referring Unavailable Seffens AOC DIRECTOR COMBAT OPERATIONS OFFICER, Sumeet Primary Care Unavailable Sharita Caldwell Referring Unavailabl e Velde, Sharita Olson Admitting Unavailabl e Velde, Sharita Vande Consulting UnavailBrittni Henning Attending Unavailable Vanessa AOC DIRECTOR COMBAT OPERATIONS OFFICER, Sumeet Primary Care Unavailable Sharita Caldwell Attending Brittni Villasenor Referring Unavailable Brittni Vo Admitting Unavailable Brittni Vo Consulting Unavailable Lalita AOC DIRECTOR COMBAT OPERATIONS OFFICER, Jimy Attending Unavailable Guerline Lane Consulting Unavailable Guerline Lane Attending Unavailable Guerline Lane Referring Unavailable Vanessa AOC DIRECTOR COMBAT OPERATIONS OFFICER, [facility] Primary Care Unavailable Medications Current Medications Medication Drug Class(es) Dates Sig (Normalized) Sig (Original) acetaminophen 500 mg oral tablet (2 sources) Start: 06-20-2022 take 1 tablet by mouth every four to six hours as needed for pain acetaminophen 500 mg oral tablet TAKE 1 TABLET EVERY 4 TO 6 HOURS NEEDED FOR PAIN Start Date: 06/20/22 Status: Ordered amoxicillin 875 mg / clavulanate 125 mg oral tablet (1 source) Penicillin-class Antibacterial Start: 10-19-2023 End: 10-26-2023 take 1 tablet by mouth twice daily amoxicillin-clavul anate potassium (AUGMENTIN) 875-125 mg per tablet Take 1 tablet by mouth two times a day for 7 days. 14 tablet 0 10/19/2023 10/26/2023 Active ascorbic acid 500 mg oral tablet (1 source) Vitamin C Start: 10-09-2024 take 1 tablet by mouth once daily Ascorbic Acid (Vitamin C) 500 mg tablet Active 500 mg PO DAILY October 09, 2024 12:00am brexpiprazole 0.5 mg oral tablet (4 sources) Atypical Antipsychotic Start: 02-29-2024 take 1 tablet by mouth once REXULTI 0.5 mg tablet Take 1 tablet by mouth every afternoon. 02/29/2024 Active 24 hr buPROPion hydrochloride 300 mg extended release oral tablet (3 sources) Aminoketone Start: 10-09-2024 take 1 tablet by mouth once daily Bupropion Hcl 300 mg tablet extended release 24 hr Active 300 mg PO DAILY October 09, 2024 12:00am Start: 09-15-2024 take 1 tablet by betsy th once daily in the morning buPROPion XL (WELLBUTRIN XL) 300 mg 24 hr tablet Take 300 mg by mouth every morning. 09/15/2024 Active cariprazine 1.5 mg oral capsule (4 sources) Atypical Antipsychotic Start: 05-24-2024 take 1 capsule by mouth three times weekly Cariprazine (Vraylar) 1.5 mg capsule Active 1.5 mg PO 3 TIMES A WEEK May 24, 2024 1:00am cephalexin 500 mg oral capsule (16 sources) Cephalosporin Antibacterial Start: 05-06-2023 End: 05-13-2023 cephalexin 500 mg oral capsule Dose : 500 mg = 1 cap(s), Oral, QID, X 7 day(s), # 28 cap(s), 0 Refill(s), 05/13/23 8:35:00 PM EST, 65.9 Start Date: 05/06/23 Stop Date: 05/13/23 Status: Ordered Start: 02-22-2023 End: 03-01-2023 cephalexin 500 mg oral capsu le Dose : 500 mg = 1 cap(s), Oral, q12h, X 7 day(s), # 14 cap(s), 0 Refill(s), 03/01/23 5:21:00 PM EDT, 64.09 Start Date: 02/22/23 Stop Date: 03/01/23 Status: Ordered Start: 05-30-2022 End: 06-09-2022 cephalexin 500 mg oral table t Dose : 500 mg = 1 tab(s), Oral, BID, X 10 day(s), # 20 tab(s), 0 Refill(s), 06/09/22 15:42:00 EST, Pharmacy: [facility] #[id number], 159, cm, 05/30/22 14:48:00 EST, Height, 57.8 Start Date: 05/30/22 Stop Date: 06/09/22 Status: Ordered Start: 02-09-2021 End: 02-05-2023 take 1 capsule by mouth every twelve hours Cephalexin (Keflex) 500 mg Capsule Discontinued 500 mg PO Q12H February 09, 2021 12:00am February 05, 2023 7:45pm Start: 07-12-2020 End: 07-26-2020 take 1 capsule by mouth every six hours Cephalexin 500 MG capsule Discontinued 500 mg PO EVERY 6 HOURS 56 14 July 12, 2020 1:00am July 25, 2020 12:00am July 26, 2020 12:02am cholecalciferol 1.25 mg oral capsule (3 sources) Vitamin D Start: 10-09-2024 take 1 capsule by mouth every week Cholecalciferol (Vitamin D3) 1,250 mcg (50,000 unit) capsule Active 1250 ug PO EVERY WEEK October 09, 2024 12:00am Start: 09-16-2024 take 1 capsule by mo [facility] every week cholecalciferol, Vitamin D3, (VITAMIN D3) 1,250 mcg (50,000 unit) cap capsule Take 1 capsule by mouth one time a week. 09/16/2024 Active ciprofloxacin 500 mg oral tablet (1 source) Quinolone Antimicrobial Start: 09-02-2021 End: 09-07-2021 take 1 tablet by mouth twice daily ciprofloxacin HCl (CIPRO) 500 mg tablet Take 1 tablet by mouth twice daily for 5 days. 10 tablet 0 09/02/2021 09/07/2021 Active Comment on above: Take 1 tablet by betys twice daily for 5 days. copper 313 mg drug implant (2 sources) Copper-containing Intrauterine Device Start: 02-12-2024 Copper (Paragard T 380a) 380 square mm intrauterine device Active 1 NMA INTRA-UTER ONCE February 12, 2024 12:00am as a single dose cyclobenzaprine hydrochloride 10 mg oral tablet (2 sources) Muscle Relaxant Start: 12-06-2022 End: 12-13-2022 cyclobenzaprine 10 mg oral tablet Dose : 10 mg = 1 tab(s), Oral, TID, X 7 day(s), # 21 tab(s), 0 Refill(s), 12/13/22 9:07:00 PM EDT Start Date: 12/06/22 Stop Date: 12/13/22 Status: Ordered Start: 07-27-2022 End: 07-30-2022 cyclobenzaprine 5 mg oral ta blet Dose : 5 mg = 1 tab(s), Oral, TID, PRN Muscle spasm, X 3 day(s), # 9 tab(s), 0 Refill(s), 07/30/22 14:52:00 EDT Start Date: 07/27/22 Stop Date: 07/30/22 Status: Ordered doxylamine succinate 25 mg oral tablet (1 source) Start: 05-06-2023 End: 05-13-2023 doxylamine 25 mg oral tablet Dose : 12.5 mg = 0.5 tab(s), Oral, q6hr, PRN Nausea/Vomiting, X 7 day(s), # 28 tab(s), 0 Refill(s), 05/13/23 8:06:00 PM EST Start Date: 05/06/23 Stop Date: 05/13/23 Status: Ordered ferrous sulfate 325 mg oral tablet (3 sources) Start: 09-16-2024 take 1 tablet by mouth once daily FEROSUL 325 mg (65 mg iron) tablet Take 1 tablet by mouth once daily. 09/16/2024 Active Start: 11-19-2020 take 1 dose by mouth once alexis y ferrous sulfate Dose : 65 mg =, Oral, qDay, 0 Refill(s) Start Date: 11/19/20 Status: Ordered Ferrous Sulfate (Ferrous Sulfate 325 Mg (65 Mg Iron) Tablet) 325 mg (65 mg iron) tablet (1 source) Start: 10-09-2024 Ferrous Sulfate (Ferrous Sulfate 325 Mg (65 Mg Iron) Tablet) 325 mg (65 mg iron) tablet Active 325 mg PO DAILY October 09, 2024 12:00am Geritol Complete oral tablet (5 sources) Start: 05-30-2022 take 1 tablet by mouth once daily Geritol Complete oral tablet Take 1 tablet by mouth once daily. Start Date: 05/30/22 Status: Ordered ibuprofen 600 mg oral tablet (1 source) Nonsteroidal Anti-inflammatory Drug Start: 03-13-2024 End: 03-21-2024 take 1 tablet by mouth every six hours as needed ibuprofen (MOTRIN) 600 mg tablet Take 1 tablet by mouth every 6 hours as needed for pain for up to 8 days. 30 tablet 03/13/2024 03/21/2024 Active 24 hr loratadine 10 mg / pseudoephedrine sulfate 240 mg extended release oral tablet (12 sources) alpha-Adrenergic Agonist Start: 08-19-2021 End: 02-14-2022 take 1 tablet by mouth once daily LORATA-DINE D 10-240 mg Tb24 Take 1 tablet by mouth once daily. 0 08/19/2021 02/14/2022 Discontinued Comment on above: Take 1 tablet by betsy once daily. mv, min #36-iron,carbonyl-FA (GERITOL COMPLETE) 16 mg iron- 0.38 mg tab (20 sources) Start: 07-09-2021 take 1 tablet by mouth once daily mv, min #36-iron,carbonyl- FA (GERITOL COMPLETE) 16 mg iron- 0.38 mg tab Indications: Anemia, unspecified type Take 1 tablet by mouth once daily. 30 tablet 2 07/09/2021 Active Comment on above: Take 1 tablet by [facility] once daily. naproxen 500 mg oral tablet (1 source) Nonsteroidal Anti-inflammatory Drug Start: 10-09-2024 take 1 tablet by mouth twice daily as needed for pain Naproxen (Naprosyn) 500 mg tablet Active 500 mg PO TWICE A DAY as needed for pain October 09, 2024 12:00am ondansetron 4 mg disintegrating oral tablet (1 source) Serotonin-3 Receptor Antagonist Start: 10-09-2024 take 1 tablet by mouth every six hours as needed for nausea and vomiting Ondansetron 4 mg tablet,disintegrat ing Active 4 mg PO EVERY 6 HOURS as needed for nausea and vomiting October 09, 2024 12:00am Pnv No.[id number] -Fish (3 sources) Start: 05-15-2023 Pnv No.[id number]- Epa-Fish Active TABLET PO May 15, 2023 12:00am predniSONE 20 mg oral tablet (2 sources) Start: 07-24-2022 End: 07-29-2022 take 2 tablets by mouth once daily predniSONE (DELTASONE) 20 mg tablet Indications: Throat pain , URI, acute Take 2 tablets by mouth once daily for 5 days. 10 tablet 0 07/24/2022 07/29/2022 Active Comment on above: Take 2 tablets by [facility] once daily for 5 days. Multivitamins with Vitamin B Complex, Vitamin C, Minerals and L-Methylfolate oral capsule (1 source) Start: 11-19-2020 take 1 capsule by mouth once daily Multivitamins with Vitamin B Complex, Vitamin C, Minerals and L-Methylfolate oral capsule Dose = 1 cap(s), Oral, Daily, 0 Refill(s) Start Date: 11/19/20 Status: Ordered promethazine hydrochloride 12.5 mg oral tablet (1 source) Phenothiazine Start: 10-13-2020 take 1 capsule by mouth every six hours as needed for nausea Phenergan ORAL use promethazine Dose : 12.5 mg =, Oral, q6hr, PRN as needed for nausea/vomiting, # 12 cap(s), 0 Refill(s), Pharyngitis Start Date: 10/13/20 Status: Ordered propranolol hydrochloride 10 mg oral tablet (4 sources) beta-Adrenergic Gerard Start: 02-29-2024 take 1 tablet by mouth every twelve hours as needed propranolol (INDERAL) 10 mg tablet Take 10 mg by mouth two times a day as needed. 02/29/2024 Active sertraline 50 mg oral tablet (20 sources) Serotonin Reuptake Inhibitor Start: 02-05-2023 take 2 tablets by mouth once daily Sertraline 50 mg tablet Active 100 mg PO DAILY February 05, 2023 12:00am Start: 02-05-2023 take 75 mg by mouth once daily Sertraline Active 75 MG PO DAILY February 04, 2023 11:00pm Start: 01-01-2023 End: 04-01-2023 take 1.5 tablets by mouth once daily sertraline (ZOLOFT) 50 mg tablet Take 1.5 tablets by mouth once daily. 135 tablet 01/01/2023 Active Start: 09-23-2022 End: 09-18-2023 Zoloft 50 mg oral tablet Dos e : 75 mg = 1.5 tab(s), Oral, qDay, # 135 tab(s), 3 Refill(s), Pharmacy: [facility] #[id number], 157.5, cm, 09/23/22 13:29:00 EDT, Height, kg, 09/23/22 13:29:00 EDT, Dosing Weight Start Date: 09/23/22 Stop Date: 09/18/23 Status: Ordered Start: 05-30-2022 take 1 dose by mouth once alexis y Zoloft Dose : 75 mg =, Oral, qDay, 0 Refill(s) Start Date: 05/30/22 Status: Ordered Start: 03-13-2022 End: 06-19-2022 take 1.5 tablets by mouth once daily sertraline (ZOLOFT) 50 mg tablet Take 1.5 tablets by mouth once daily. 45 tablet 1 05/20/2022 Active Start: 11-19-2020 End: 02-05-2023 take 1 tablet by mouth once daily Sertraline (Zoloft) 100 mg Tablet Discontinued 100 mg PO DAILY February 09, 2021 12:00am February 05, 2023 7:45pm Comment on above: Take 1.5 tablets by mouth once daily. sulfamethoxazole 800 mg / trimethoprim 160 mg oral tablet (7 sources) Dihydrofolate Reductase Inhibitor Antibacterial, Sulfonamide Antimicrobial Start: 10-09-2024 Sulfamethoxazole-T rimethoprim (Bactrim Ds) 800-160 mg tablet Active 1 {tbl} PO TWICE A DAY 27 02October 09, 2024 12:00am Start: 02-05-2023 End: 02-17-2023 Sulfamethoxazole-Trimethopri m 800-160 mg tablet Discontinued 1 {tbl} PO TWICE A DAY February 05, 2023 12:00am February 17, 2023 7:52am Start: 02-05-2023 End: 02-17-2023 take 1 tablet by mouth twice daily Sulfamethoxazole-Trimethoprim Discontinu ed 1 TABLET PO TWICE A DAY February 04, 2023 11:00pm February 17, 2023 6:52am Vitamin B6 50 mg oral tablet (1 source) Start: 05-06-2023 End: 05-13-2023 Vitamin B6 50 mg oral tablet Dose : 25 mg = 0.5 tab(s), Oral, q6hr, PRN Nausea/Vomiting, X 7 day(s), # 28 tab(s), 0 Refill(s), 05/13/23 8:04:00 PM EST Start Date: 05/06/23 Stop Date: 05/13/23 Status: Ordered Completed/Discontinued Medications Medication Drug Class(es) Dates Sig (Normalized) Sig (Original) amoxicillin 500 mg oral capsule (3 sources) Penicillin-class Antibacterial Start: 06-30-2024 End: 10-09-2024 take 1 capsule by mouth three times daily Amoxicillin 500 mg capsule Discontinued 500 mg PO THREE TIMES A DAY 09 03June 30, 2024 1:00am October 09, 2024 7:47pm Start: 06-20-2022 take 1 capsule by mo [facility] three times daily amoxicillin 500 mg oral capsule TAKE 1 CAPSULE THREE TIMES DAILY UNTIL GONE Start Date: 06/20/22 Status: Ordered ARIPiprazole 5 mg oral tablet (20 sources) Atypical Antipsychotic Start: 05-20-2022 End: 05-15-2023 take 1 tablet by mouth once daily Aripiprazole 5 mg tablet Discontinued 5 mg PO DAILY February 05, 2023 12:00am May 15, 2023 2:35pm Start: 04-18-2022 End: 05-20-2022 take 1 tablet by mouth once daily ARIPiprazole (ABILIFY) 2 mg tablet Take 1 tablet by mouth once daily. 30 tablet 1 04/18/2022 05/20/2022 Discontinued Comment on above: Take 1 tablet by betsy once daily. famotidine 20 mg oral tablet (2 sources) Histamine-2 Receptor Antagonist Start: 4 End: 4 take 1 tablet by mouth twice daily Famotidine (Pepcid) 20 mg tablet Discontinued 20 mg PO TWICE A DAY 60 November 05, 2023 12:00am January 29, 2024 3:25pm ferrous gluconate 240 mg oral tablet (5 sources) Start: 4 End: 5 take 1 tablet by mouth once daily Ferrous Gluconate 270 mg (27 mg iron) tablet Discontinued 270 mg PO DAILY May 15, 2023 1:00am October 09, 2024 7:48pm FLUoxetine 20 mg oral capsule (16 sources) Serotonin Reuptake Inhibitor Start: 2 End: 2 take 2 capsules by mouth once daily FLUoxetine (PROZAC) 20 mg capsule Take 2 capsules by mouth once daily. 60 capsule 0 02/14/2022 03/13/2022 Discontinued Start: 01-14-2022 End: 02-14-2022 take 1 capsule by mouth once daily FLUoxetine (PROZAC) 10 mg capsule Take 1 capsule by mouth once daily. 30 capsule 0 01/14/2022 02/14/2022 Discontinued Start: 10-05-2021 End: 02-14-2022 take 1 capsule by mouth once daily FLUoxetine (PROZAC) 20 mg capsule Take 1 capsule by mouth once daily. 30 capsule 0 01/14/2022 02/14/2022 Discontinued Comment on above: Take 1 capsule by mo [facility] once daily. Take 2 capsules by m out once daily. fluticasone propionate 0.05 mg/actuat metered dose nasal spray (4 sources) Corticosteroid Start: 08-20-19 End: 11-06-19 take 2 spray(s) nasal route once daily fluticasone (FLONASE) 50 mcg/actuation nasal spray INSTILL 2 (TWO) SPRAYS IN EACH NOSTRIL EVERY DAY FOR TEN DAYS 0 08/19/2021 11/05/2021 Discontinued (Discontinued by Patient) Comment on above: INSTILL 2 (TWO) SPRA YS IN EACH NOSTRIL EVERY DAY FOR TEN DAYS Iron-Vitamin B Complex (4 sources) Start: 02-06-20 End: 05-15-19 take 1 tablet by mouth once daily Iron-Vitamin B Complex Discontinued 1 TABLET PO DAILY February 04, 2023 11:00pm May 15, 2023 1:36pm Start: 02-05-2023 take 1 tablet by betsy th once daily Iron-Vitamin B Complex Active 1 TABLET PO DAILY February 05, 2023 12:00am Iron-Vitamin B Complex 50-0.4 mg tablet (2 sources) Start: 02-05-2023 End: 05-15-2023 Iron-Vitamin B Complex 50-0.4 mg tablet Discontinued 1 {tbl} PO DAILY February 05, 2023 12:00am May 15, 2023 2:36pm nitrofurantoin, macrocrystals 25 mg / nitrofurantoin, monohydrate 75 mg oral capsule (9 sources) Nitrofuran Antibacterial Start: 10-19-2023 End: 11-12-2023 take 1 capsule by mouth twice daily at mealtime Nitrofurantoin Monohyd/M-Cryst (Macrobid) 100 mg capsule Discontinued 100 mg PO TWICE A DAY 14 November 05, 2023 12:00am November 11, 2023 12:00am November 12, 2023 12:05am must administer with a meal/food Start: 10-19-2023 End: 10-26-2023 take 1 capsule by mouth every twelve hours at mealtime Nitrofurantoin Monohyd/M-Cryst (Macrobid) 100 mg capsule Discontinued 100 mg PO Q12H 14 7 October 19, 2023 12:00am October 25, 2023 12:00am October 26, 2023 12:06am must administer with a meal/food v No.[id number] sh 400 mcg-35 mg- 25 mg-5 mg tablet,chewable (2 sources) Start: 05-15-2023 End: 01-29-2024 Pnv No.[id number]-Fi sh 400 mcg-35 mg- 25 mg-5 mg tablet,chewable Discontinued 1 {tbl} PO DAILY May 15, 2023 1:00am January 29, 2024 3:25pm Problems Active Problems Problem Classification Problem Date Documented Date Episodic/Chronic Abdominal pain (7 sources) Finding of sensation of abdomen; Translations: [Unspecified [...] (5 sources) Iron deficiency anemia 05-30-2022 Episodic Deficiency and other anemia (1 source) Iron deficiency anemia, unspecified; Translations: [Iron deficiency anemia, unspecified] Onset: 09-20-2024 Episodic Genitourinary symptoms and ill-defined conditions (16 sources) Frequency of micturition; Translations: [History of recurrent urinary tract infection] Onset: 05-30-2022 Episodic Comment on above: currently being rupesh damon through pcp. 05/22. recollect Urine culture at next visit. Unable to give specimen-still needs specimen Joint disorders and dislocations; trauma-related (20 sources) Disorder of left patellofemoral joint; Translations: [Patellofemoral disorders, left knee] Onset: 02-24-2019 02-24-2019 Chronic Malaise and fatigue (6 sources) Malaise and fatigue; Translations: [Other malaise] Episodic Menstrual disorders (2 sources) Menorrhagia; Translations: [Excessive and frequent menstruation with regular cycle] Chronic Mood disorders (20 sources) Depressive disorder; Translations: [Depression] Onset: 02-20-2020 02-20-2020 Chronic Comment on above: on zoloft, stable Mood disorders (2 sources) Mood disorders; Translations: [Depression, unspecified] Onset: 12-07-2023 Other acquired deformities (20 sources) Scoliosis deformity of spine; Translations: [Scoliosis, unspecified] Onset: 08-20-2018 08-20-2018 Chronic Other acquired deformities (4 sources) Scoliosis of thoracic spine; Translations: [Scoliosis, unspecified] Chronic Other acquired deformities (2 sources) Scoliosis, unspecified; Translations: [Scoliosis, unspecified] Onset: 05-24-2024 Chronic Other complications of (1 source) Anemia complicating , third trimester; Translations: [Anemia complicating , third trimester] Onset: 11-28-2023 Chronic Other complications of (11 sources) Pyelonephritis in ; Translations: [Infections of kidney in , first trimester] Onset: 11-05-2021 Resolved: 11-05-2021 07-13-2020 Episodic Other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 10-09-2024 Platelet mean volume (Bld) [Entitic vol] 9.1 fL 6.2-12.0 [facility] Microscopic analysis of urin e for red blood cells (RBC)Ordered By: Delmis Gutierrez on 10-09-2024 Microscopic analysis of urine for red blood cells (RBC) 0-5 SEEN /hpf 0-5 [facility] Monocyte percentageOrdered B y: Delmis Gutierrez on 10-09-2024 Monocytes/100 WBC (Bld) 8.1 % 0-10 [facility] Mucus LM Ql (Urine sed)Order ed By: Delmis Gutierrez on 10-09-2024 Mucus Ql (Urine sed) 0 SEEN /hpf [facility] Neutrophil percentageOrdered By: Delmis Gutierrez on 10-09-2024 Neutrophils/100 WBC (Bld) 73.0 % High 47-70 [facility] Nitrite Test strip Ql (U)Ord ered By: Delmis Gutierrez on 10-09-2024 Nitrite Ql (U) Positive High Negative [facility] Nucleated red blood cell per centageOrdered By: Delmis Gutierrez on 10-09-2024 Nucleated RBC/100 WBC (Bld) [Ratio] 0 % 0-5 [facility] Platelet countOrdered By: Tasneem Gutierrez on 10-09-2024 Platelets (Bld) [#/Vol] 275 10*3/uL 150-450 [facility] Potassium measurement (mass/ volume)Ordered By: Delmis Gutierrez on 10-09-2024 Potassium (Unsp spec) [Mass/Vol] 3.4 mmol/L 3.3-5.1 [facility] ,Serum,hCG Quali.on 10-09-2024 HCG, SERUM QUAL Negative Normal [facility] Comment on above: Performed By: #### L 503.6550, L3300.6900, L500.4050, L100.0100, L501.9520, L506.1001, L506.0400, L503.0106, L503.6030 #### [facility] [address] [place], [address] Protein Test strip Ql (U)Ord ered By: Delmis Gutierrez on 10-09-2024 Protein Ql (U) 30 mg/dl High Negative [facility] RBC Auto (Bld) [#/Vol]Ordere d By: Delmis Gutierrez on 10-09-2024 RBC (Bld) [#/Vol] 4.49 10*6/uL 4.2-5.4 [facility] Serum beta-hCG test, qualita tiveOrdered By: Delmis Gutierrez on 10-09-2024 Beta HCG ( test) Ql Negative [facility] Serum creatinine measurement (mass/volume)Ordered By: Delmis Gutierrez on 10-09-2024 Creatinine [Mass/Vol] 0.77 mg/dL 0.70-1.20 [facility] Serum glucose measurement (m ass/volume)Ordered By: Delmis Gutierrez on 10-09-2024 Glucose [Mass/Vol] 116 mg/dL High 70-99 [facility] Serum or plasma calcium oneil urement (mass/volume)Ordered By: Delmis Gutierrez on 10-09-2024 Calcium [Mass/Vol] 9.8 mg/dL 7.6-11.0 [facility] Serum or plasma urea nitroge n measurement (mass/volume)Ordered By: Delmis Gutierrez on 10-09-2024 Urea nitrogen [Mass/Vol] 7 mg/dL 4-19 [facility] Sodium levelOrdered By: Delmis Gutierrez on 10-09-2024 Sodium [Moles/Vol] 136 mmol/L 133-145 [facility] Squamous epithelial cells de tection in urine sediment by light microscopyOrdered By: Delmis Gutierrez on 10-09-2024 Epithelial cells.squamous LM Ql (Urine sed) 5-10 SEEN /hpf 5-10 [facility] Urinalysis, Completeon 10-09 RBC 0-5 SEEN Normal 0-5 [facility] Comment on above: Order Comment: CLEAN CATCH Performed By: #### L 503.6550, L3300.6900, L500.4050, L100.0100, L501.9520, L506.1001, L506.0400, L503.0106, L503.6030 #### [facility] [address] [place], [address] BACTERIA 4+ /hpf Normal None Seen [facility] Comment on above: Order Comment: CLEAN CATCH Performed By: #### L 503.6550, L3300.6900, L500.4050, L100.0100, L501.9520, L506.1001, L506.0400, L503.0106, L503.6030 #### [facility] [address] [facility] [place], [address] EPI,SQUAMOUS 5-10 SEEN Normal 5-10 [facility] Comment on above: Order Comment: CLEAN CATCH Performed By: #### L 503.6550, L3300.6900, L500.4050, L100.0100, L501.9520, L506.1001, L506.0400, L503.0106, L503.6030 #### [facility] [address] [place], [place], [id number] WBC >100 SEEN Normal 0-5 [facility] Comment on above: Order Comment: CLEAN CATCH Performed By: #### L 503.6550, L3300.6900, L500.4050, L100.0100, L501.9520, L506.1001, L506.0400, L503.0106, L503.6030 #### [facility] [address] [place], [address] Mucus Ql (Urine sed) [address] [facility] Comment on above: Order Comment: CLEAN CATCH Performed By: #### L 503.6550, L3300.6900, L500.4050, L100.0100, L501.9520, L506.1001, L506.0400, L503.0106, L503.6030 #### [facility] [address] [place], [place], [id number] Urine clarityOrdered By: Jada Gutierrez on 10-09-2024 Clarity (U) Turbid Clear [facility] Urine color determinationOrd ered By: Delmis Gutierrez on 10-09-2024 Color (U) Yellow Yellow [facility] Urine glucose detectionOrder ed By: Delmis Gutierrez on 10-09-2024 Glucose Ql (U) Normal mg/dl Normal [facility] Urine leukocyte esterase det ection by dipstickOrdered By: Delmis Gutierrez on 10-09-2024 Leukocyte esterase Test strip Ql (U) 500 /ul High Negative [facility] Urine pHOrdered By: Delmis mckoy on 10-09-2024 pH (U) 6.0 [pH] 5.0 - 8.0 [facility] Urine sediment bacteria coun t by microscopy (number/high power field)Ordered By: Delmis Gutierrez on 10-09-2024 Bacteria LM.HPF (Urine sed) [#/Area] 4 /[HPF] None Seen [facility] Urine specific gravity measu rementOrdered By: Delmis Gutierrez on 10-09-2024 Specific gravity (U) [Rel density] 1.020 1.002-1.030 [facility] Urine urobilinogen measureme ntOrdered By: Delmis Gutierrez on 10-09-2024 Urobilinogen Ql (U) Normal mg/dl Normal [facility] White blood cell (WBC) count Ordered By: Delmis Gutierrez on 10-09-2024 WBC (Bld) [#/Vol] 10.9 10*3/uL 4.4-11.0 [facility] White blood cell countOrdere d By: Delmis Gutierrez on 10-09-2024 White blood cell count >100 SEEN /hpf 0-5 [facility] CNOVon 09-21-2024 CNOV Office Visit (UCWSTR) XIN LIMA ([id number]) 4 F Date Time Provider Department 09/21/24 7:00 PM [facility] During your visit today, we recorded the following information about you: Temperature Pulse Respiration Blood pressure 97.2 degrees 70/minute 18/minute 122/78 Weight 85.3 kg Brenda Morrell APRN.PROC TECH 09/21/2024 7:40 PM Signed [facility] Subjective Xin L Dareklukasobedafshan is a 24 year old female. Patient presents with: right wrist pain: X 1 hour-smacked it on a door HPI Patient is a 24 year old female with no major medical history that presents with a right wrist injury about an hour ago. She is most concerned that it is broken as she said it did start to swell. She believes it was a hyper flexion, pronating the wrist, denies any numbness or tingling in her hand. No pain in elbow or shoulder. Review of Systems Constitutional: Negative for fatigue and fever. Musculoskeletal: Positive for joint swelling. Negative for back pain, myalgias, neck pain and neck stiffness. Skin: Negative for wound. Objective BP 122/78 Pulse 70 Temp 36.2 ?C (97.2 ?F) (Tympanic) Resp 18 Wt 85.3 kg (188 lb 0.8 oz) LMP 03/23/2023 SpO2 100% BMI 34.40 kg/m? Physical Exam Vitals and nursing note reviewed. Constitutional: General: She is not in acute distress. Appearance: Normal appearance. She is normal weight. She is not toxic-appearing. HENT: Head: Normocephalic and atraumatic. Cardiovascular: Rate and Rhythm: Normal rate and regular rhythm. Pulses: Normal pulses. Heart sounds: Normal heart sounds. Pulmonary: Effort: Pulmonary effort is normal. Breath sounds: Normal breath sounds. Musculoskeletal: Right elbow: Normal. No swelling, deformity, effusion or lacerations. Normal range of motion. Right forearm: Normal. No swelling, edema, deformity, lacerations or tenderness. Right wrist: Tenderness present. No swelling, deformity, effusion, lacerations, bony tenderness, snuff box tenderness or crepitus. Normal range of motion. Normal pulse. Left wrist: Normal. Cervical back: Normal range of motion. Lymphadenopathy: Cervical: No cervical adenopathy. Neurological: Mental Status: She is alert. {ASSESSMENT/PLAN: 1. Right wrist pain - ICD9: 719.43, ICD10: M25.531 (primary diagnosis) - XR WRIST GENERAL 3V PA/LAT/OBL RIGHT 2. Contusion of right wrist, initial encounter - ICD9: 923.21, ICD10: S60.211A Tylenol and Ibuprofen Rest, ice and compression Follow up with PCP if symptoms persist Xray negative in clinic Brenda Morrell APRN.PROC TECH History and Record Review External record(s) reviewed: prior outpatient record. Findings from review of outpatient records: Previous medical history Differential Diagnoses - Right wrist contusion - Acute cellulitis - No neurovascular deficits Disposition The patient was discharged. OTC Medications were advised: Tylenol and ibuprofen patient is well-appearing nontoxic in no acute distress 24-year-old female presents with a right wrist injury. No snuffbox tenderness, or crepitus normal pulse no concerns for acute neurovascular deficits. No erythema or warmth or concerns of acute cellulitis or osteomyelitis. X-ray is pending, wet read no concerns for acute fracture. Rest, ice, elevation, and NSAIDs. Follow up with primary care providers. Return with any new or or worsening symptoms. Patient verbalized understanding and in agreement with plan. Patient discharged home. Allergies As of Date: 09/21/2024 (No Known Allergies) Date Reviewed: 09/21/2024 Reviewed by: Zhane Griffiths LPN - Fully Assessed Reason for Visit: right wrist pain [Other] Cmt: X 1 hour-smacked it on a door Primary Visit Diagnosis:Right wrist pain [M25.531] Other Visit Diagnosis:Contusion of right wrist, initial encounter [S60.211A] Order(s):XR WRIST GENERAL 3V PA/LAT/OBL RIGHT [[id number]] Order #: [id number] FUTURE Prescriptions as of 09/21/2024 - buPROPion XL (WELLBUTRIN XL) 300 mg 24 hr tablet Take 300 mg by mouth every morning. - VRAYLAR 1.5 mg capsule take 1 capsule by mouth on ON THURSDAY, THURSDAY, AND THURSDAY - cholecalciferol, Vitamin D3, (VITAMIN D3) 1,250 mcg (50,000 unit) cap capsule Take 1 capsule by mouth one time a week. - FEROSUL 325 mg (65 mg iron) tablet Take 1 tablet by mouth once daily. - REXULTI 0.5 mg tablet Take 1 tablet by mouth every afternoon. - propranolol (INDERAL) 10 mg tablet Take 10 mg by mouth two times a day as needed. - nitrofurantoin monohydrate and macrocrystal (MACROBID) 100 mg capsule - ARIPiprazole (ABILIFY) 5 mg tablet Take 1 tablet by mouth once daily. - sertraline (ZOLOFT) 50 mg tablet Take 1.5 tablets by mouth once daily. - mv, min #36-iron,carbonyl-FA (GERITOL COMPLETE) 16 mg iron- 0.38 mg tab Take 1 tablet by mouth once daily. Problem List As Of Date 09/21/2024 Noted Resolve (more content not included)... Normal [facility] XR WRIST 3V PA/LAT/OBL RTon 09-21-2024 XR WRIST 3V PA/LAT/OBL RT * * *Final Report* * * DATE OF EXAM: Sep 21 2024 7:28PM WOX 5271 - XR WRIST 3V PA/LAT/OBL RT / PROCEDURE REASON: Right wrist pain * * * * Physician Interpretation * * * * PROCEDURE: Right wrist INDICATION: Right wrist pain .RT WRIST PAIN AFTER RECENT INJURY, PAIN ON RADIAL SIDE OF WRIST TECHNIQUE: XR WRIST 3V PA/LAT/OBL RT COMPARISON: None FINDINGS: No acute fracture or dislocation. Joint spaces are maintained. No erosion or focal soft tissue swelling. Ulnar minus variant. IMPRESSION: No acute abnormality [employer]crewman: PSCB Transcribe Date/Time: Sep 21 2024 7:31P Dictated by : CATHY KATZ MD This examination was interpreted and the report reviewed and electronically signed by: CATHY KATZ MD on Sep 21 2024 7:32PM EST [id number] CN Normal [facility] XR Wrist - right PA and Late ral and Obliqueon 09-21-2024 IMPRESSION: No acute abnormality Utility Aircrewman: PSC Transcribe Date/Time: Sep 21 2024 7:31P Dictated by : CATHY KATZ MD This examination was interpreted and the report reviewed and electronically signed by: CATHY KATZ MD on Sep 21 2024 7:32PM EST DIVISION OF RADIOLOGY * * *Final Report* * * DATE OF EXAM: Sep 21 2024 7:28PM WOX 5271 - XR WRIST 3V PA/LAT/OBL RT / PROCEDURE REASON: Right wrist pain * * * * Physician Interpretation * * * * PROCEDURE: Right wrist INDICATION: Right wrist pain .RT WRIST PAIN AFTER RECENT INJURY, PAIN ON RADIAL SIDE OF WRIST TECHNIQUE: XR WRIST 3V PA/LAT/OBL RT COMPARISON: None FINDINGS: No acute fracture or dislocation. Joint spaces are maintained. No erosion or focal soft tissue swelling. Ulnar minus variant. DIVISION OF RADIOLOGY Provider, [facility] [place] - 09/21/2024 * * *Final Report* * * DATE OF EXAM: Sep 21 2024 7:28PM WOX 5271 - XR WRIST 3V PA/LAT/OBL RT / PROCEDURE REASON: Right wrist pain * * * * Physician Interpretation * * * * PROCEDURE: Right wrist INDICATION: Right wrist pain .RT WRIST PAIN AFTER RECENT INJURY, PAIN ON RADIAL SIDE OF WRIST TECHNIQUE: XR WRIST 3V PA/LAT/OBL RT COMPARISON: None FINDINGS: No acute fracture or dislocation. Joint spaces are maintained. No erosion or focal soft tissue swelling. Ulnar minus variant. IMPRESSION IMPRESSION: No acute abnormality Utility Aircrewman: MOHAMUD Transcribe Date/Time: Sep 21 2024 7:31P Dictated by : CATHY KATZ MD This examination was interpreted and the report reviewed and electronically signed by: CATHY KATZ MD on Sep 21 2024 7:32PM EST [facility] Radiology Study observation (narrative) Eboni matos [facility] XR Wrist - right PA and Late ral and ObliqueOrdered By: Ccf Provider on 09-21-2024 [facility] Thyroid Peroxidase ABon 09-08 THYR PEROX AB 11 IU/mL Normal 0-34 [facility] Comment on above: Result Comment: Perf ormed at: - [facility] [address] [id number] Filter Tender: Kenny Alarcon PhD, Phone: [phone] Performed By: #### L 503.6250, L3300.6900, L500.4050, L100.0100, L501.9520, L506.1001, L506.0400, L503.0106, L503.6030 #### [facility] [address] [place], [place], [id number] Absolute lymphocyte countOrd ered By: Lupis Hart on 09-15-2024 Lymphocytes Auto (Unsp spec) [#/Vol] 1.77 10*3/uL 0.83-4.51 [facility] Absolute neutrophil countOrd ered By: Lupis Hart on 09-15-2024 Neutrophils (Bld) [#/Vol] 3.0 10*3/uL 2.0-7.7 [facility] Anion gap in Serum or Plasma Ordered By: Lupis Hart on 09-15-2024 Anion gap [Moles/Vol] 12 mmol/L 5-15 [facility] Automated lymphocyte count a s percentage of total leukocytesOrdered By: Lupis Hart on 05-08-2025 Lymphocytes/100 WBC Auto (Unsp spec) 33.2 % 19- [facility] BUN/creatinine ratioOrdered By: Lupis Hart on 09-15-2024 Urea nitrogen/Creatinine [Mass ratio] 16.7 mg/mg 10-20 [facility] Basophil percentageOrdered B y: Lupis Hart on 09-15-2024 Basophils/100 WBC (Bld) 1.1 % High 0-1 [facility] Bilirubin, totalOrdered By: Lupis Fariike on 09-15-2024 Bilirubin [Mass/Vol] 0.68 mg/dL 0.00-1.30 [facility] CBC W/Diff, Automatedon Absolute Lymph 1.77 X10 3/uL Normal 0.83-4.51 [facility] Comment on above: Performed By: #### L 503.6550, L3300.6900, L500.4050, L100.0100, L501.9520, L506.1001, L506.0400, L503.0106, L503.6030 #### [facility] [address] [place], [place], [id number] Absolute Neut 3.0 X10 3/uL Normal 2.0-7.7 [facility] Comment on above: Performed By: #### L 503.6550, L3300.6900, L500.4050, L100.0100, L501.9520, L506.1001, L506.0400, L503.0106, L503.6030 #### [facility] [address] [place], [address] Basophils/100 WBC (Bld) 1.1 % High 0-1 [facility] Comment on above: Performed By: #### L 503.6550, L3300.6900, L500.4050, L100.0100, L501.9520, L506.1001, L506.0400, L503.0106, L503.6030 #### [facility] [address] [place], [address] Eosinophils/100 WBC (Bld) 1.7 % Normal 0-5 [facility] Comment on above: Performed By: #### L 503.6550, L3300.6900, L500.4050, L100.0100, L501.9520, L506.1001, L506.0400, L503.0106, L503.6030 #### [facility] [address] [place], [place], [phone] ([phone]) Erythrocyte distribution width (RBC) [Ratio] 11.9 % Normal 11.6-14.6 [facility] Comment on above: Performed By: #### L 503.6550, L3300.6900, L500.4050, L100.0100, L501.9520, L506.1001, L506.0400, L503.0106, L503.6030 #### [facility] [address] [place], [place], [id number] ([phone]) Hematocrit (Bld) [Volume fraction] 38.0 % Normal 37-47 [facility] Comment on above: Performed By: #### L 503.6550, L3300.6900, L500.4050, L100.0100, L501.9520, L506.1001, L506.0400, L503.0106, L503.6030 #### [facility] [address] [place], [place], [id number] (142) Hemoglobin (Bld) [Mass/Vol] 13.1 g/dL Normal 12.0-15.0 [facility] Comment on above: Performed By: #### L 503.6550, L3300.6900, L500.4050, L100.0100, L501.9520, L506.1001, L506.0400, L503.0106, L503.6030 #### [facility] [address] [place], [address] IG% 0.200 Normal 0.0-0.9 [facility] Comment on above: Result Comment: IG% - Immature Granulocytes (promyelocytes, myelocytes and metamyelocytes) > 1% indicates that a LEFT SHIFT is Present. Performed By: #### L 503.6550, L3300.6900, L500.4050, L100.0100, L501.9520, L506.1001, L506.0400, L503.0106, L503.6030 #### [facility] [address] [place], [address] Lymphocytes/100 WBC (Bld) 33.2 % Normal 19-41 [facility] Comment on above: Performed By: #### L 503.6550, L3300.6900, L500.4050, L100.0100, L501.9520, L506.1001, L506.0400, L503.0106, L503.6030 #### [facility] [address] [place], [address] MCH (RBC) [Entitic mass] 30.4 pg Normal 27.0-32.0 [facility] Comment on above: Performed By: #### L 503.6550, L3300.6900, L500.4050, L100.0100, L501.9520, L506.1001, L506.0400, L503.0106, L503.6030 #### [facility] [address] [place], [address] MCHC (RBC) [Mass/Vol] 34.5 g/dL Normal 32-36 [facility] Comment on above: Performed By: #### L 503.6550, L3300.6900, L500.4050, L100.0100, L501.9520, L506.1001, L506.0400, L503.0106, L503.6030 #### [facility] [address] [place], [address] MCV (RBC) [Entitic vol] 88.2 fL Normal 81-99 [facility] Comment on above: Performed By: #### L 503.6550, L3300.6900, L500.4050, L100.0100, L501.9520, L506.1001, L506.0400, L503.0106, L503.6030 #### [facility] [address] [place], [address] Monocytes/100 WBC (Bld) 7.1 % Normal 0-10 [facility] Comment on above: Performed By: #### L 503.6550, L3300.6900, L500.4050, L100.0100, L501.9520, L506.1001, L506.0400, L503.0106, L503.6030 #### [facility] [address] [facility] [place], [address] Neutrophils/100 WBC (Bld) 56.7 % Normal 47-70 [facility] Comment on above: Performed By: #### L 503.6550, L3300.6900, L500.4050, L100.0100, L501.9520, L506.1001, L506.0400, L503.0106, L503.6030 #### [facility] [address] [facility] [place], [address] Nucleated RBC (Bld) [#/Vol] 0.4 10*3/uL Normal 0-5 [facility] Comment on above: Performed By: #### L 503.6550, L3300.6900, L500.4050, L100.0100, L501.9520, L506.1001, L506.0400, L503.0106, L503.6030 #### [facility] [address] [facility] [place], [address] Platelet mean volume (Bld) [Entitic vol] 9.1 fL Normal 6.2-12.0 [facility] Comment on above: Performed By: #### L 503.6550, L3300.6900, L500.4050, L100.0100, L501.9520, L506.1001, L506.0400, L503.0106, L503.6030 #### [facility] [address], [address] Platelets (Bld) [#/Vol] 305 10*3/uL Normal 150-450 [facility] Comment on above: Performed By: #### L 503.6550, L3300.6900, L500.4050, L100.0100, L501.9520, L506.1001, L506.0400, L503.0106, L503.6030 #### [facility] [address], [address] RBC (Bld) [#/Vol] 4.31 10*6/uL Normal 4.2-5.4 [facility] Comment on above: Performed By: #### L 503.6550, L3300.6900, L500.4050, L100.0100, L501.9520, L506.1001, L506.0400, L503.0106, L503.6030 #### [facility] [address] [place], [address] RDW SD 38.7 fl Normal 35.1-43.9 [facility] Comment on above: Performed By: #### L 503.6550, L3300.6900, L500.4050, L100.0100, L501.9520, L506.1001, L506.0400, L503.0106, L503.6030 #### [facility] [address] [place], [address] WBC (Bld) [#/Vol] 5.3 10*3/uL Normal 4.4-11.0 [facility] Comment on above: Performed By: #### L 503.6550, L3300.6900, L500.4050, L100.0100, L501.9520, L506.1001, L506.0400, L503.0106, L503.6030 #### [facility] [address] [place], [address] Carbon dioxide, total [Moles /volume] in Central venous bloodOrdered By: Lupis Hart on 09-15-2024 CO2 [Moles/Vol] 22.7 mmol/L 21.0-32.0 [facility] Chloride assayOrdered By: Vasile Hart on 09-15-2024 Chloride [Moles/Vol] 103 mmol/L 98-108 [facility] Comprehensive Metabolic Prof ilon 09-15-2024 Albumin [Mass/Vol] 4.5 g/dL Normal 3.5-5.0 [facility] Comment on above: Performed By: #### L 503.6550, L3300.6900, L500.4050, L100.0100, L501.9520, L506.1001, L506.0400, L503.0106, L503.6030 #### [facility] [address] [place], [address] Albumin/Globulin [Mass ratio] 1.5 {ratio} Normal 0.9-2.4 [facility] Comment on above: Performed By: #### L 503.6550, L3300.6900, L500.4050, L100.0100, L501.9520, L506.1001, L506.0400, L503.0106, L503.6030 #### [facility] [address] [place], [address] ALK PHOS 86 U/L Normal 35-104 [facility] Comment on above: Performed By: #### L 503.6550, L3300.6900, L500.4050, L100.0100, L501.9520, L506.1001, L506.0400, L503.0106, L503.6030 #### [facility] [address] [place], [address] ALT [Catalytic activity/Vol] 22 U/L Normal <=34 [facility] Comment on above: Performed By: #### L 503.6550, L3300.6900, L500.4050, L100.0100, L501.9520, L506.1001, L506.0400, L503.0106, L503.6030 #### [facility] [address] [place], [place], [phone] ([phone] AST [Catalytic activity/Vol] 23 U/L Normal <=31 [facility] Comment on above: Performed By: #### L 503.6550, L3300.6900, L500.4050, L100.0100, L501.9520, L506.1001, L506.0400, L503.0106, L503.6030 #### [facility] [address] [place], [address] (717) Bilirubin [Mass/Vol] 0.68 mg/dL Normal 0.00-1.30 [facility] Comment on above: Performed By: #### L 503.6550, L3300.6900, L500.4050, L100.0100, L501.9520, L506.1001, L506.0400, L503.0106, L503.6030 #### [facility] [address] [place], [place], [phone] BUN/CRE 16.7 RATIO Normal 10-20 [facility] Comment on above: Performed By: #### L 503.6550, L3300.6900, L500.4050, L100.0100, L501.9520, L506.1001, L506.0400, L503.0106, L503.6030 #### [facility] [address] [place], [place], [phone] ([phone] Calcium [Mass/Vol] 9.7 mg/dL Normal 7.6-11.0 [facility] Comment on above: Performed By: #### L 503.6550, L3300.6900, L500.4050, L100.0100, L501.9520, L506.1001, L506.0400, L503.0106, L503.6030 #### [facility] [address] [place], [address] Chloride [Moles/Vol] 103 mmol/L Normal 98-108 [facility] Comment on above: Performed By: #### L 503.6550, L3300.6900, L500.4050, L100.0100, L501.9520, L506.1001, L506.0400, L503.0106, L503.6030 #### [facility] [address] [place], [address] CO2 [Moles/Vol] 22.7 mmol/L Normal 21.0-32.0 [facility] Comment on above: Performed By: #### L 503.6550, L3300.6900, L500.4050, L100.0100, L501.9520, L506.1001, L506.0400, L503.0106, L503.6030 #### [facility] [address] [place], [address] Creatinine [Mass/Vol] 0.72 mg/dL Normal 0.70-1.20 [facility] Comment on above: Performed By: #### L 503.6550, L3300.6900, L500.4050, L100.0100, L501.9520, L506.1001, L506.0400, L503.0106, L503.6030 #### [facility] [address] [place], [address] GAP 12 Normal 5-15 [facility] Comment on above: Performed By: #### L 503.6550, L3300.6900, L500.4050, L100.0100, L501.9520, L506.1001, L506.0400, L503.0106, L503.6030 #### [facility] [address] [place], [address] GFR/1.73 sq M.predicted among non-blacks MDRD (S/P/Bld) [Vol rate/Area] 120 mL/min/{1.73_m2} Normal >60 [facility] Comment on above: Result Comment: mL/m in/1.73m2 CKD-EPI Creatinine Equation (2020) Performed By: #### L 503.6550, L3300.6900, L500.4050, L100.0100, L501.9520, L506.1001, L506.0400, L503.0106, L503.6030 #### [facility] [address] [place], [address] Globulin (S) [Mass/Vol] 3.1 g/dL Normal 2.2-4.2 [facility] Comment on above: Performed By: #### L 503.6550, L3300.6900, L500.4050, L100.0100, L501.9520, L506.1001, L506.0400, L503.0106, L503.6030 #### [facility] [address] [place], [address] Glucose [Mass/Vol] 84 mg/dL Normal 70-99 [facility] Comment on above: Performed By: #### L 503.6550, L3300.6900, L500.4050, L100.0100, L501.9520, L506.1001, L506.0400, L503.0106, L503.6030 #### [facility] [address] [place], [address] Potassium [Moles/Vol] 3.9 mmol/L Normal 3.3-5.1 [facility] Comment on above: Performed By: #### L 503.6550, L3300.6900, L500.4050, L100.0100, L501.9520, L506.1001, L506.0400, L503.0106, L503.6030 #### [facility] [address] [place], [address] Sodium [Moles/Vol] 137 mmol/L Normal 133-145 [facility] Comment on above: Performed By: #### L 503.6550, L3300.6900, L500.4050, L100.0100, L501.9520, L506.1001, L506.0400, L503.0106, L503.6030 #### [facility] [address] [place], [address] T PROT 7.6 g/dL Normal 5.9-8.4 [facility] Comment on above: Performed By: #### L 503.6550, L3300.6900, L500.4050, L100.0100, L501.9520, L506.1001, L506.0400, L503.0106, L503.6030 #### [facility] [address] [place], [address] Urea nitrogen [Mass/Vol] 12 mg/dL Normal 4-19 [facility] Comment on above: Performed By: #### L 503.6550, L3300.6900, L500.4050, L100.0100, L501.9520, L506.1001, L506.0400, L503.0106, L503.6030 #### [facility] [address] [place], [place], [phone] (386) Eosinophil percentageOrdered By: Lupis Hart on 09-15-2024 Eosinophils/100 WBC (Bld) 1.7 % 0-5 [facility] Erythrocyte distribution wid th ratioOrdered By: Lupis Hart on 09-15-2024 Erythrocyte distribution width (RBC) [Ratio] 11.9 % 11.6-14.6 [facility] Erythrocyte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 leukocytesOrdered By: Guerline Lane on 06-18-2023 Lymphocytes/100 WBC Auto (Unsp spec) 30.5 % 19-41 [facility] Basophil percentageOrdered B y: Guerline Lane on 06-18-2023 Basophils/100 WBC (Bld) 0.5 % 0-1 [facility] Eosinophils/100 WBC (Bld) 0.7 % 0-5 [facility] Hemoglobin (Bld) [Mass/Vol] 12.7 g/dL 12.0-15.0 [facility] Monocytes/100 WBC (Bld) 6.2 % 0-10 [facility] Neutrophils (Bld) [#/Vol] 3.6 10*3/uL 2.0-7.7 [facility] Neutrophils/100 WBC (Bld) 61.8 % 47-70 [facility] WBC (Bld) [#/Vol] 5.8 10*3/uL 4.4-11.0 [facility] Determination of erythrocyte mean corpuscular volume (MCV)Ordered By: Guerline Lane on 06-18-2023 MCV (RBC) [Entitic vol] 86.2 fL 81-99 [facility] Erythrocyte distribution wid th ratioOrdered By: Guerline Lane on 06-18-2023 Erythrocyte distribution width (RBC) [Ratio] 11.9 % 11.6-14.6 [facility] Erythrocyte distribution wid th standard deviationOrdered By: Guerline Lane on 06-18-2023 Erythrocyte distribution width (RBC) [Entitic vol] 37.3 fL 35.1-43.9 [facility] HIV 1 and HIV-2 antibody ass ay with HIV-1 p24 antigen detectionOrdered By: Guerline Lane on 06-18-2023 HIV 1+2 Ab+HIV1 p24 Ag IA Ql Non-Reactive Nonreactive [facility] Hematocrit Auto (Bld) [Volum e fraction]Ordered By: Guerlinesophia Lane on 06-18-2023 Hematocrit (Bld) [Volume fraction] 35.7 % 37-47 [facility] Immature granulocytes/100 WB C Auto (Bld)Ordered By: Guerline Lane on 06-18-2023 Immature granulocytes/100 WBC (Bld) 0.300 % 0.0-0.9 [facility] Comment on above: IG% - Immature Granu locytes (promyelocytes, myelocytes and metamyelocytes) > 1% indicates that a LEFT SHIFT is Present. Laboratory - Chemistry and C hemistry - challengeon 06-18-2023 Glucose Ql (U) Negative [facility] - Hematology and Cell countsOrdered By: Guerline Lane on 06-18-2023 MCH (RBC) [Entitic mass] 30.7 pg 27.0-32.0 [facility] MCHC (RBC) [Mass/Vol] 35.6 g/dL 32-36 [facility] Nucleated RBC/100 WBC (Bld) [Ratio] 0 % 0-5 [facility] Platelet mean volume (Bld) [Entitic vol] 9.6 fL 6.2-12.0 [facility] Platelets (Bld) [#/Vol] 247 10*3/uL 150-450 [facility] - Urinalysison Protein Ql (U) Negative [facility] No Panel InformationOrdered By: Guerline Lane on 06-18-2023 Hepatitis B Surface Antigen Non-Reactive Nonreactive [facility] Hepatitis C Antibody Non-Reactive Nonreactive [facility] Comment on above: Non Reactive: < 0.8 Equivocal: >/= 0.8 to < 1.0 Reactive: >/= 1.0The CDC recommends that a reactive/equivocal HCV antibody result be followed up by the HCV Nucleic Acid Amplificationtest ([id number]) Rubella IgG Antibody Reactive Nonreactive [facility] Comment on above: Antibody Results Int erpretation of Immune Status Non Reactive Presumed Non-Immune Equivocal Equivocal Reactive Presumed Immune RBC Auto (Bld) [#/Vol]Ordere d By: Guerline Lane on 06-18-2023 RBC (Bld) [#/Vol] 4.14 10*6/uL 4.2-5.4 [facility] Serum Treponema species anti body detectionOrdered By: Guerline Lane on 06-18-2023 Treponema sp Ab Ql (S) Non-Reactive [facility] Cervical or vagninal specime n microscopic examination by cytology stain (reported asOrdered By: Guerline Lane on 05-22-2023 Cytology report Cyto stain Doc (Cvx/Vag) Comment . [facility] Comment on above: The Pap smear is a s creening test designed to aid in thedetection of premalignant and malignant conditions of theuterine cervix. It is not a diagnostic procedure andshould not be used as the sole means of detecting cervicalcancer. Both false-positive and false-negative reports dooccur. Chlamydia trachomatis rRNA d etection by probe and target amplification methodOrdered By: Guerline Lane on 05-22-2023 C. trachomatis rRNA MEME+probe Ql (Unsp spec) Negative Negative [facility] - CytologyOrdered By: Guerlien Lane on 05-22-2023 Physical Meteorologist Cyto stain Nom (Cvx/Vag) [ID] Comment . [facility] Comment on above: Trenton Carrasquillo chnologist (ASCP) Laboratory - Microbiology an d Antimicrobial susceptibilityOrdered By: Guerline Lane on 05-22-2023 N. gonorrhoeae DNA MEME+probe Ql (Unsp spec) Negative Negative [facility] Comment on above: Performed at: =[address] [id number] Director: Christa Saleem MD, Phone: [phone] Laboratory - Miscellaneous t estsOrdered By: Guerline Lane on 05-22-2023 Service comment (Unsp spec) [Interp] . . [facility] No Panel InformationOrdered By: Guerline Lane on 05-22-2023 Human Papillomavirus Screen Comment . [facility] Comment on above: The HPV DNA reflex c tereso were not met with this specimenresult therefore, no HPV testing was performed.Performed at: [facility] - [facility] [address] [place], [place] [id number] Director: Anup Reid MD, Phone: [phone] at: [facility] - [facility] [address] [id number] Director: Christa Saleem MD, Phone: [phone] Thin prep Papanicolaou smear with manual screeningOrdered By: Guerline Lane on 05-22-2023 Thin prep Papanicolaou smear with manual screening Comment . [facility] Comment on above: NEGATIVE FOR INTRAEP ITHELIAL LESION OR MALIGNANCY.FUNGAL ORGANISMS MORPHOLOGICALLY CONSISTENT WITH LEVI SPECIES AREPRESENT. This liquid based Th inPrep(R) pap test was screened withthe use of an image guided system. .Urinalysis Microscopic (AO) on 05-06-2023 UA Bacteria 2+ /hpf Abnormal Replaced By [facility] ([place]) Comment on above: Performed By: #### U A, UAMICAO #### [address] [address] UA RBC 0-5 Abnormal None Seen Replaced By [facility] ([place]) Comment on above: Performed By: #### U A, UAMICAO #### [address] [address] UA Squam Epithelial 5-10 Abnormal None Seen [facility] ([place]) Comment on above: Performed By: #### U A, UAMICAO #### [address] [address] UA WBC LOADED Abnormal None Seen Replaced By [facility] ([place]) Comment on above: Performed By: #### U A, UAMICAO #### [address] [address] LABORATORYOrdered By: Bola Pace on 05-06-2023 Appearance (U) Slightly Cloudy *ABN* (05/06/23 8:04 PM) Invalid Interpretation Code Clear AO Auto Urine SS Bacteria LM.HPF (Urine sed) [#/Area] 2 /[HPF] Invalid Interpretation Code AO Auto Urine SS Bilirubin Ql (U) Negative (05/06/23 8:04 PM) Normal Negative AO Auto Urine SS Color (U) Yellow (05/06/23 8:04 PM) Normal AO Auto Urine SS Glucose Test strip (U) [Mass/Vol] Negative Normal Negative AO Auto Urine SS HCG ( test) Ql Positive (05/06/23 8:04 PM) Normal AO Manual Urine SS Hemoglobin Auto test strip (U) [Mass/Vol] Trace *ABN* (05/06/23 8:04 PM) Invalid Interpretation Code Negative AO Auto Urine SS Ketones Ql (U) Negative Normal Negative AO Auto Urine SS test (u) int Detected Invalid Interpretation Code AO Manual Urine SS UA Leuk Est Large *ABN* (05/06/23 8:04 PM) Invalid Interpretation Code Negative AO Auto Urine SS UA Nitrite Negative (05/06/23 8:04 PM) Normal Negative AO Auto Urine SS UA pH 7.0 (05/06/23 8:04 PM) Normal 5.0 - 8.0 AO Auto Urine SS UA Protein Negative Normal Negative AO Auto Urine SS UA RBC 0-5 /HPF Invalid Interpretation Code None Seen AO Auto Urine SS UA Spec Grav 1.010 *ABN* (05/06/23 8:04 PM) Invalid Interpretation Code 1.015-1.025 AO Auto Urine SS UA Specimen Type Clean Catch (05/06/23 8:04 PM) Normal AO Auto Urine SS UA Squam Epithelial 5-10 /HPF Invalid Interpretation Code None Seen AO Auto Urine SS UA Urobilinogen 0.2 E.U./dL Normal 0.2-1.0 AO Auto Urine SS WBC LM.HPF (Urine sed) [#/Area] LOADED /HPF Invalid Interpretation Code None Seen AO Auto Urine SS PREGUon 05-06-2023 HCG ( test) Ql (U) Positive Normal Replaced By [facility] ([place] Comment on above: Performed By: #### P REGU #### [place] [id number] test (u) int Detected Invalid Interpretation Code Replaced By [facility] [place] Comment on above: Performed By: #### P REGU #### [address] [address] UAon 05-06-2023 Color (U) Yellow Normal Replaced By [facility] [place] Comment on above: Performed By: #### U A, UAMICAO #### [address] [address] Glucose (U) [Mass/Vol] Negative Normal Negative [facility] ([place]) Comment on above: Performed By: #### U A, UAMICAO #### [address] [address] Ketones Ql (U) Negative Normal Negative Replaced By [facility] [place] Comment on above: Performed By: #### U A, UAMICAO #### [place] [address] UA Appear Slightly Cloudy Abnormal Clear Replaced By [facility] [place] Comment on above: Performed By: #### U A, UAMICAO #### [address] [address] UA Blood Trace Abnormal Negative Replaced By [facility] [place] Comment on above: Performed By: #### U A, UAMICAO #### [address] [address] UA Leuk Est Large Abnormal Negative Replaced By [facility] [place] Comment on above: Performed By: #### U A, UAMICAO #### [address] [address] UA Nitrite Negative Normal Negative Replaced By [facility] [place] Comment on above: Performed By: #### U A, UAMICAO #### [address] [address] UA pH 7.0 Normal 5.0 - 8.0 Replaced By [facility] [place] Comment on above: Performed By: #### U A, UAMICAO #### [address] [address] UA Protein Negative Normal Negative Replaced By [facility] ([place] Comment on above: Performed By: #### U A, UAMICAO #### [address] [address] UA Spec Grav 1.010 Abnormal 1.015-1.025 Replaced By [facility] ([place] Comment on above: Performed By: #### U A, UAMICAO #### [place] [address] [address] UA Specimen Type Clean Catch Normal Replaced By [facility] [place] Comment on above: Performed By: #### U A, UAMICAO #### [place] [address] [address] UA Urobilinogen 0.2 E.U./dL Normal 0.2-1.0 Replaced By [facility] ([place] Comment on above: Performed By: #### U A, UAMICAO #### [address] [address] Urobilinogen (U) [Mass/Vol] Negative Normal Negative Replaced By [facility] [place] Comment on above: Performed By: #### U A, UAMICAO #### [address] [address] HCG QUAL UR B/Oon 04-18-2023 status Positive neg - pos [facility] Quality Check [facility] .Urinalysis Microscopic (AO) on 02-22-2023 UA Bacteria 4+ /hpf Abnormal Replaced By [facility] [place] Comment on above: Performed By: #### U A, UAMICAO #### [address] [address] UA RBC 0-5 Abnormal None Seen Replaced By [facility] [place] Comment on above: Performed By: #### U A, UAMICAO #### [address] [address] UA Squam Epithelial LOADED Abnormal None Seen [facility] ([place] Comment on above: Performed By: #### U A, UAMICAO #### [address] [address] UA WBC 15-25 Abnormal None Seen Replaced By [facility] [place] Comment on above: Performed By: #### U A, UAMICAO #### [place] [address] LABORATORYOrdered By: Nikki Webber on 02-22-2023 HCG ( test) Ql Negative (02/22/23 5:17 PM) Invalid Interpretation Code AO Manual Urine SS test (u) int Not detected Invalid Interpretation Code AO Manual Urine SS Appearance (U) Slightly Cloudy *ABN* (02/22/23 4:54 PM) Invalid Interpretation Code Clear AO Auto Urine SS Bacteria LM.HPF (Urine sed) [#/Area] 4 /[HPF] Invalid Interpretation Code AO Auto Urine SS Bilirubin Ql (U) Negative (02/22/23 4:54 PM) Invalid Interpretation Code Negative AO Auto Urine SS Color (U) Yellow (02/22/23 4:54 PM) Invalid Interpretation Code AO Auto Urine SS Glucose Test strip (U) [Mass/Vol] Negative Invalid Interpretation Code Negative AO Auto Urine SS Hemoglobin Auto test strip (U) [Mass/Vol] Moderate *ABN* (02/22/23 4:54 PM) Invalid Interpretation Code Negative AO Auto Urine SS Ketones Ql (U) Negative Invalid Interpretation Code Negative AO Auto Urine SS UA Leuk Est Small *ABN* (02/22/23 4:54 PM) Invalid Interpretation Code Negative AO Auto Urine SS UA Nitrite Positive *ABN* (02/22/23 4:54 PM) Invalid Interpretation Code Negative AO Auto Urine SS UA pH 6.5 (02/22/23 4:54 PM) Invalid Interpretation Code 5.0 - 8.0 AO Auto Urine SS UA Protein Negative Invalid Interpretation Code Negative AO Auto Urine SS UA RBC 0-5 /HPF Invalid Interpretation Code None Seen AO Auto Urine SS UA Spec Grav 1.025 (02/22/23 4:54 PM) Invalid Interpretation Code 1.015-1.025 AO Auto Urine SS UA Specimen Type Clean Catch (02/22/23 4:54 PM) Invalid Interpretation Code AO Auto Urine SS UA Squam Epithelial LOADED /HPF Invalid Interpretation Code None Seen AO Auto Urine SS UA Urobilinogen 0.2 E.U./dL Invalid Interpretation Code 0.2-1.0 AO Auto Urine SS WBC LM.HPF (Urine sed) [#/Area] 15-25 /HPF Invalid Interpretation Code None Seen AO Auto Urine SS PREGUon 02-22-2023 HCG ( test) Ql (U) Negative Normal Replaced By [facility] [place] Comment on above: Performed By: #### P REGU #### [address] [address] test (u) int Not detected Invalid Interpretation Code Replaced By [facility] [place] Comment on above: Performed By: #### P REGU #### [address] [address] UAon 02-22-2023 Color (U) Yellow Normal Replaced By [facility] ([place]) Comment on above: Performed By: #### U A, UAMICAO #### [address] [address] Glucose (U) [Mass/Vol] Negative Normal Negative [facility] ([place] Comment on above: Performed By: #### U A, UAM[place]O #### [address] [address] Ketones Ql (U) Negative Normal Negative Replaced By [facility] [place] Comment on above: Performed By: #### U A, UAM[place]O #### [address] [address] UA Appear Slightly Cloudy Abnormal Clear Replaced By [facility] [place] Comment on above: Performed By: #### U A, UAMICAO #### [address] [address] UA Blood Moderate Abnormal Negative Replaced By [facility] [place] Comment on above: Performed By: #### U A, UAMICAO #### [address] [address] UA Leuk Est Small Abnormal Negative Replaced By [facility] [place] Comment on above: Performed By: #### U A, UAMICAO #### [address] [address] UA Nitrite Positive Abnormal Negative Replaced By [facility] [place] Comment on above: Performed By: #### U A, UAMICAO #### [address] [address] UA pH 6.5 Normal 5.0 - 8.0 Replaced By [facility] [place] Comment on above: Performed By: #### U A, UAMICAO #### [address] [address] UA Protein Negative Normal Negative Replaced By [facility] [place] Comment on above: Performed By: #### U A, UAMICAO #### [place] [address] [place], [place] [address] UA Spec Grav 1.025 Normal 1.015-1.025 Replaced By [facility] [place] Comment on above: Performed By: #### U A, UAMICAO #### [address] [address] UA Specimen Type Clean Catch Normal Replaced By [facility] [place] Comment on above: Performed By: #### U A, UAMICAO #### [address] [address] UA Urobilinogen 0.2 E.U./dL Normal 0.2-1.0 Replaced By [facility] [place] Comment on above: Performed By: #### U A, UAMICAO #### [address] [address] Urobilinogen (U) [Mass/Vol] Negative Normal Negative Replaced By [facility] [place] Comment on above: Performed By: #### U A, UAMICAO #### [address] [address] Absolute lymphocyte countOrd ered By: Alonzo Martinez on 02-17-2023 Lymphocytes Auto (Unsp spec) [#/Vol] 1.71 10*3/uL 0.83-4.51 [facility] Basophil percentageOrdered B y: Alonzo Martinez on 02-17-2023 Basophil percentage 0-5 SEEN /hpf 0-5 [facility] Basophils/100 WBC (Bld) 0.6 % 0-1 [facility] Eosinophils/100 WBC (Bld) 1.2 % 0-5 [facility] Neutrophils (Bld) [#/Vol] 4.3 10*3/uL 2.0-7.7 [facility] Neutrophils/100 WBC (Bld) 66.7 % 47-70 [facility] WBC (Bld) [#/Vol] 6.4 10*3/uL 4.4-11.0 [facility] Beta hCG serum qualOrdered B y: Alonzo Martinez on 02-17-2023 Beta HCG ( test) Ql Negative [facility] Bilirubin Test strip Ql (U)O rdered By: Alonzo Martinez on 02-17-2023 Bilirubin Ql (U) Negative Negative [facility] Blood erythrocytes count (nu mber/volume)Ordered By: Alonzo Martinez on 02-17-2023 RBC (Bld) [#/Vol] 4.67 10*6/uL 4.2-5.4 [facility] Blood hemoglobin measurement (mass/volume)Ordered By: Alonzo Martinez on 02-17-2023 Hemoglobin (Bld) [Mass/Vol] 14.5 g/dL 12.0-15.0 [facility] Blood lymphocytes/100 leukoc ytesOrdered By: Alonzo Martinez on 02-17-2023 Lymphocytes/100 WBC (Bld) 26.7 % 19-41 [facility] Blood monocytes/100 leukocyt esOrdered By: Alonzo Martinez on 02-17-2023 Monocytes/100 WBC (Bld) 4.5 % 0-10 [facility] Blood platelet mean volumeOr dered By: Alonzo Martinez on 02-17-2023 Platelet mean volume (Bld) [Entitic vol] 9.5 fL 6.2-12.0 [facility] Determination of erythrocyte mean corpuscular volume (MCV)Ordered By: Alonzo Martinez on 02-17-2023 MCV (RBC) [Entitic vol] 91.2 fL 81-99 [facility] Hematocrit Auto (Bld) [Volum e fraction]Ordered By: Alonzo Martinez on 02-17-2023 Hematocrit (Bld) [Volume fraction] 42.6 % 37-47 [facility] Ketones Test strip Ql (U)Ord ered By: Alonzo Martinez on 02-17-2023 Ketones Ql (U) Negative Negative [facility] Laboratory - Hematology and Cell countsOrdered By: Alonzo Martinez on 02-17-2023 Erythrocyte distribution width (RBC) [Entitic vol] 41.7 fL 35.1-43.9 [facility] Erythrocyte distribution width (RBC) [Ratio] 12.6 % 11.6-14.6 [facility] Immature granulocytes/100 WBC (Bld) 0.300 % 0.0-0.9 [facility] Comment on above: IG% - Immature Granu locytes (promyelocytes, myelocytes and metamyelocytes) > 1% indicates that a LEFT SHIFT is Present. MCH (RBC) [Entitic mass] 31.0 pg 27.0-32.0 [facility] Nucleated RBC/100 WBC (Bld) [Ratio] 0 % 0-5 [facility] MCHC Auto (RBC) [Mass/Vol]Or dered By: Alonzo Martinez on 02-17-2023 MCHC (RBC) [Mass/Vol] 34.0 g/dL 32-36 [facility] Mucus LM Ql (Urine sed)Order ed By: Alonzo Martinez on 02-17-2023 Mucus Ql (Urine sed) 0 SEEN /hpf [facility] Nitrite Test strip Ql (U)Ord ered By: Alonzo Martinez on 02-17-2023 Nitrite Ql (U) Negative Negative [facility] Platelets bldOrdered By: Emily Martinez on 02-17-2023 Platelets (Bld) [#/Vol] 294 10*3/uL 150-450 [facility] Protein Test strip Ql (U)Ord ered By: Alonzo Martinez on 02-17-2023 Protein Ql (U) Negative Negative [facility] Squamous epithelial cells de tection in urine sediment by light microscopyOrdered By: Alonzo Martinez on 02-17-2023 Epithelial cells.squamous LM Ql (Urine sed) 0 SEEN /hpf 5-10 [facility] Urine blood detectionOrdered By: Alonzo Martinez on 02-17-2023 RBC Ql (U) 50 /ul Negative [facility] RBC Ql (U) 0 SEEN /hpf 0-5 [facility] Urine clarityOrdered By: Emily Martinez on 02-17-2023 Clarity (U) Clear Clear [facility] Urine color determinationOrd ered By: Alonzo Martinez on 02-17-2023 Color (U) Straw Yellow [facility] Urine glucose detectionOrder ed By: Alonzo Martinez on 02-17-2023 Glucose Ql (U) Normal mg/dl Normal [facility] Urine leukocyte esterase det ection by dipstickOrdered By: Alonzo Martinez on 02-17-2023 Leukocyte esterase Test strip Ql (U) 100 /ul Negative [facility] Urine pHOrdered By: Alonzo Martinez on 02-17-2023 pH (U) 7.0 [pH] 5.0 - 8.0 [facility] Urine sediment bacteria coun t by microscopy (number/high power field)Ordered By: Alonzo Martinez on 02-17-2023 Bacteria LM.HPF (Urine sed) [#/Area] RARE /hpf None Seen [facility] Urine specific gravity measu rementOrdered By: Alonzo Martinez on 02-17-2023 Specific gravity (U) [Rel density] 1.005 1.002-1.030 [facility] Urobilinogen Auto test strip Ql (U)Ordered By: Alonzo Martinez on 02-17-2023 Urobilinogen Ql (U) Normal mg/dl Normal [facility] Absolute lymphocyte countOrd ered By: Alejandro Nunez on 02-05-2023 Lymphocytes Auto (Unsp spec) [#/Vol] 2.12 10*3/uL 0.83-4.51 [facility] Basophil percentageOrdered B y: Alejandro Nunez on 02-05-2023 Basophil percentage 5-10 SEEN /hpf 0-5 [facility] Basophils/100 WBC (Bld) 0.5 % 0-1 [facility] Bilirubin [Mass/Vol] 1.00 mg/dL 0.20-1.00 [facility] Comment on above: For patients on eltr ombopag therapy, use of Dimension [place] TBIL is not recommended. Chloride [Moles/Vol] 106 mmol/L 98-107 [facility] Eosinophils/100 WBC (Bld) 1.0 % 0-5 [facility] Glucose [Mass/Vol] 99 mg/dL 74-106 [facility] Neutrophils (Bld) [#/Vol] 4.5 10*3/uL 2.0-7.7 [facility] Neutrophils/100 WBC (Bld) 61.1 % 47-70 [facility] Potassium [Moles/Vol] 3.3 mmol/L 3.5-5.1 [facility] Comment on above: Moderate Hemolysis, Result may be falsely increased. Protein [Mass/Vol] 7.4 g/dL 6.4-8.2 [facility] Sodium [Moles/Vol] 138 mmol/L 136-145 [facility] WBC (Bld) [#/Vol] 7.4 10*3/uL 4.4-11.0 [facility] Beta hCG serum qualOrdered B y: Alejandro Nunez on 02-05-2023 Beta HCG ( test) Ql Negative [facility] Bilirubin Test strip Ql (U)O rdered By: Alejandro Nunez on 02-05-2023 Bilirubin Ql (U) Negative Negative [facility] Blood erythrocytes count (nu mber/volume)Ordered By: Alejandro Nunez on 02-05-2023 RBC (Bld) [#/Vol] 4.00 10*6/uL 4.2-5.4 [facility] Blood hemoglobin measurement (mass/volume)Ordered By: Alejandro Nunez on 02-05-2023 Hemoglobin (Bld) [Mass/Vol] 12.6 g/dL 12.0-15.0 [facility] Blood lymphocytes/100 leukoc ytesOrdered By: Alejandro Nunez on 02-05-2023 Lymphocytes/100 WBC (Bld) 28.8 % 19-41 [facility] Blood monocytes/100 leukocyt esOrdered By: Alejandro Nunez on 02-05-2023 Monocytes/100 WBC (Bld) 8.3 % 0-10 [facility] Blood platelet mean volumeOr dered By: Alejandro Nunez on 02-05-2023 Platelet mean volume (Bld) [Entitic vol] 10.0 fL 6.2-12.0 [facility] Determination of erythrocyte mean corpuscular volume (MCV)Ordered By: Alejandro Nunez on 02-05-2023 MCV (RBC) [Entitic vol] 92.0 fL 81-99 [facility] Hematocrit Auto (Bld) [Volum e fraction]Ordered By: Alejandro Nunez on 02-05-2023 Hematocrit (Bld) [Volume fraction] 36.8 % 37-47 [facility] Ketones Test strip Ql (U)Ord ered By: Alejandro Nunez on 02-05-2023 Ketones Ql (U) Negative Negative [facility] Laboratory - Chemistry and C hemistry - challengeOrdered By: Alejandro Nunez on 02-05-2023 ALP [Catalytic activity/Vol] 79 U/L 45-117 [facility] ALT [Catalytic activity/Vol] 29 U/L 13-56 [facility] CO2 [Moles/Vol] 28.0 mmol/L 21.0-32.0 [facility] Globulin (S) [Mass/Vol] 3.4 g/dL 2.2-4.2 [facility] Lipase [Catalytic activity/Vol] 32 U/L 13-75 [facility] Comment on above: Please note:LIPASE r evised reference range effective 22. New Lipase methodology. Expected to produce lower values than the previous assay method. NEW Reference Range: 13 - 75 U/L Urea nitrogen/Creatinine [Mass ratio] 10.3 mg/mg 10-20 [facility] Laboratory - Hematology and Cell countsOrdered By: Alejandro Nunez on 02-05-2023 Erythrocyte distribution width (RBC) [Entitic vol] 42.7 fL 35.1-43.9 [facility] Erythrocyte distribution width (RBC) [Ratio] 12.6 % 11.6-14.6 [facility] Immature granulocytes/100 WBC (Bld) 0.300 % 0.0-0.9 [facility] Comment on above: IG% - Immature Granu locytes (promyelocytes, myelocytes and metamyelocytes) > 1% indicates that a LEFT SHIFT is Present. MCH (RBC) [Entitic mass] 31.5 pg 27.0-32.0 [facility] Nucleated RBC/100 WBC (Bld) [Ratio] 0 % 0-5 [facility] MCHC Auto (RBC) [Mass/Vol]Or dered By: Alejandro Nunez on 02-05-2023 MCHC (RBC) [Mass/Vol] 34.2 g/dL 32-36 [facility] Mucus LM Ql (Urine sed)Order ed By: Alejandro Nunez on 02-05-2023 Mucus Ql (Urine sed) 0 SEEN /hpf [facility] Nitrite Test strip Ql (U)Ord ered By: Alejandro Nunez on 02-05-2023 Nitrite Ql (U) Negative Negative [facility] No Panel InformationOrdered By: Alejandro Nunez on 02-05-2023 Estimated Creatinine Clearance Calc 81.58 ml/min [facility] Estimated GFR (MDRD) Amer 106 mL/min >60 [facility] Comment on above: GFR Calc Estimated GFR (MDRD) Non-Af Amer 88 mL/min >60 [facility] Comment on above: Non- GFR Calc Platelets bldOrdered By: Breanne Nunez on 02-05-2023 Platelets (Bld) [#/Vol] 237 10*3/uL 150-450 [facility] Protein Test strip Ql (U)Ord ered By: Alejandro Nunez on 02-05-2023 Protein Ql (U) 15 mg/dl Negative [facility] Serum or plasma albumin oneil urement (mass/volume)Ordered By: Alejandro Nunez on 02-05-2023 Albumin [Mass/Vol] 4.0 g/dL 3.2-5.0 [facility] Serum or plasma albumin/glob ulin mass ratioOrdered By: Alejandro Nunez on 02-05-2023 Albumin/Globulin [Mass ratio] 1.2 {ratio} 0.9-2.4 [facility] Serum or plasma calcium oneil urement (mass/volume)Ordered By: Alejandro Nunez on 02-05-2023 Calcium [Mass/Vol] 8.7 mg/dL 8.5-10.1 [facility] Serum or plasma creatinine m easurement (mass/volume)Ordered By: Alejandro Nunez on 02-05-2023 Creatinine [Mass/Vol] 0.87 mg/dL 0.55-1.02 [facility] Comment on above: The validity of the calculated GFR & GFRAA in patients over 70 years has not been determined. Clinical correlation is essential. Serum or plasma urea nitroge n measurement (mass/volume)Ordered By: Alejandro Nunez on 02-05-2023 Urea nitrogen [Mass/Vol] 9 mg/dL 7-18 [facility] Squamous epithelial cells de tection in urine sediment by light microscopyOrdered By: Alejandro Nunez on 02-05-2023 Epithelial cells.squamous LM Ql (Urine sed) 0-5 SEEN /hpf 5-10 [facility] Thin prep Papanicolaou smear with manual screeningOrdered By: Alejandro Nunez on 02-05-2023 Thin prep Papanicolaou smear with manual screening 24 U/L 15-37 [facility] Comment on above: Moderate Hemolysis, Result may be falsely increased. Thin prep Papanicolaou smear with manual screening 4 5-15 [facility] Urine blood detectionOrdered By: Alejandro Nunez on 02-05-2023 RBC Ql (U) Negative Negative [facility] RBC Ql (U) 0 SEEN /hpf 0-5 [facility] Urine clarityOrdered By: Breanne Nunez on 02-05-2023 Clarity (U) Clear Clear [facility] Urine color determinationOrd ered By: Alejandro Nunez on 02-05-2023 Color (U) Yellow Yellow [facility] Urine glucose detectionOrder ed By: Alejandro Nunez on 02-05-2023 Glucose Ql (U) Normal mg/dl Normal [facility] Urine leukocyte esterase det ection by dipstickOrdered By: Alejandro Nunez on 02-05-2023 Leukocyte esterase Test strip Ql (U) 500 /ul Negative [facility] Urine pHOrdered By: Alejandro davison on 02-05-2023 pH (U) 6.0 [pH] 5.0 - 8.0 [facility] Urine sediment bacteria coun t by microscopy (number/high power field)Ordered By: Alejandro Nunez on 02-05-2023 Bacteria LM.HPF (Urine sed) [#/Area] 0 /[HPF] None Seen [facility] Urine specific gravity measu rementOrdered By: Alejandro Nunez on 02-05-2023 Specific gravity (U) [Rel density] 1.015 1.002-1.030 [facility] Urobilinogen Auto test strip Ql (U)Ordered By: Alejandro Nunez on 02-05-2023 Urobilinogen Ql (U) Normal mg/dl Normal [facility] .Urinalysis Microscopic (AO) on 12-06-2022 UA RBC None Seen Normal None Seen Replaced By [facility] ([place] Comment on above: Performed By: #### P REGU #### [place] [address] [place], [place] [address] UA Squam Epithelial 0-5 Abnormal None Seen [facility] ([place]) Comment on above: Performed By: #### P REGU #### [facility] [address] [place], [place] [address] UA WBC 0-5 Abnormal None Seen Replaced By [facility] ([place] Comment on above: Performed By: #### P REGU #### [place] [address] [place], [place] [address] LABORATORYOrdered By: Nikki Moss on 12-06-2022 Appearance (U) Clear (12/06/22 8:33 PM) Invalid Interpretation Code Clear AO Auto Urine SS Bilirubin Ql (U) Negative (12/06/22 8:33 PM) Invalid Interpretation Code Negative AO Auto Urine SS Color (U) Yellow (12/06/22 8:33 PM) Invalid Interpretation Code AO Auto Urine SS Glucose Test strip (U) [Mass/Vol] Negative Invalid Interpretation Code Negative AO Auto Urine SS HCG ( test) Ql Negative (12/06/22 8:33 PM) Invalid Interpretation Code AO Manual Urine SS Hemoglobin Auto test strip (U) [Mass/Vol] Trace *ABN* (12/06/22 8:33 PM) Invalid Interpretation Code Negative AO Auto Urine SS Ketones Ql (U) Negative Invalid Interpretation Code Negative AO Auto Urine SS test (u) int Not detected Invalid Interpretation Code AO Manual Urine SS UA Leuk Est Small *ABN* (12/06/22 8:33 PM) Invalid Interpretation Code Negative AO Auto Urine SS UA Nitrite Negative (12/06/22 8:33 PM) Invalid Interpretation Code Negative AO Auto Urine SS UA pH 7.0 (12/06/22 8:33 PM) Invalid Interpretation Code 5.0 - 8.0 AO Auto Urine SS UA Protein Negative Invalid Interpretation Code Negative AO Auto Urine SS UA RBC None Seen /HPF Invalid Interpretation Code None Seen AO Auto Urine SS UA Spec Grav 1.010 *ABN* (12/06/22 8:33 PM) Invalid Interpretation Code 1.015-1.025 AO Auto Urine SS UA Specimen Type Clean Catch (12/06/22 8:33 PM) Invalid Interpretation Code AO Auto Urine SS UA Squam Epithelial 0-5 /HPF Invalid Interpretation Code None Seen AO Auto Urine SS UA Urobilinogen 0.2 E.U./dL Invalid Interpretation Code 0.2-1.0 AO Auto Urine SS WBC LM.HPF (Urine sed) [#/Area] 0-5 /HPF Invalid Interpretation Code None Seen AO Auto Urine SS PREGUon 12-06-2022 HCG ( test) Ql (U) Negative Normal Replaced By [facility] ([place] Comment on above: Performed By: #### P REGU #### [place] [address] test (u) int Not detected Invalid Interpretation Code Replaced By [facility] ([place] Comment on above: Performed By: #### P REGU #### [address] [address] UAon 12-06-2022 Color (U) Yellow Normal Replaced By [facility] ([place] Comment on above: Performed By: #### P REGU #### [place] [address] Glucose (U) [Mass/Vol] Negative Normal Negative [facility] ([place] Comment on above: Performed By: #### P REGU #### [address] [address] Ketones Ql (U) Negative Normal Negative Replaced By [facility] ([place] Comment on above: Performed By: #### P REGU #### [address] [address] UA Appear Clear Normal Clear Replaced By [facility] ([place] Comment on above: Performed By: #### P REGU #### [address] [address] UA Blood Trace Abnormal Negative Replaced By [facility] ([place] Comment on above: Performed By: #### P REGU #### [address] [address] UA Leuk Est Small Abnormal Negative Replaced By [facility] ([place] Comment on above: Performed By: #### P REGU #### [address] [address] UA Nitrite Negative Normal Negative Replaced By [facility] ([place] Comment on above: Performed By: #### P REGU #### [address] [address] UA pH 7.0 Normal 5.0 - 8.0 Replaced By [facility] ([place] Comment on above: Performed By: #### P REGU #### [address] [address] UA Protein Negative Normal Negative Replaced By [facility] [place] Comment on above: Performed By: #### P REGU #### [address] [address] UA Spec Grav 1.010 Abnormal 1.015-1.025 Replaced By [facility] ([place] Comment on above: Performed By: #### P REGU #### [address] [address] UA Specimen Type Clean Catch Normal Replaced By [facility] ([place] Comment on above: Performed By: #### P REGU #### [address] [address] UA Urobilinogen 0.2 E.U./dL Normal 0.2-1.0 Replaced By [facility] ([place] Comment on above: Performed By: #### P REGU #### [address] [address] Urobilinogen (U) [Mass/Vol] Negative Normal Negative Replaced By [facility] [place] Comment on above: Performed By: #### P REGU #### [address] [address] .GFRon 07-27-2022 GFR 114 ml/min/1.73sqm Normal Replaced By [facility] ([place] Comment on above: Result Comment: GFR Population mean for , Non- Americans Ages 20-29 = 116 mL/min/1.73 sq.m. Ages 30-39 = 107 mL/min/1.73 sq.m. Ages 40-49 = 99 mL/min/1.73 sq.m. Ages 50-59 = 93 mL/min/1.73 sq.m. Ages 60-69 = 85 mL/min/1.73 sq.m. Ages 70+ = 75 mL/min/1.73 sq.m. Chronic Kidney Disease: Less than 60 mL/min/1.73 square meters End Stage Renal Disease: Less than 15 mL/min/1.73 square meters Performed By: #### P REGU #### [address] [address] GFR Non- 94 ml/min/1.73sqm Normal Replaced By [facility] [place] Comment on above: Result Comment: GFR Population mean for , Non- Americans Ages 20-29 = 116 mL/min/1.73 sq.m. Ages 30-39 = 107 mL/min/1.73 sq.m. Ages 40-49 = 99 mL/min/1.73 sq.m. Ages 50-59 = 93 mL/min/1.73 sq.m. Ages 60-69 = 85 mL/min/1.73 sq.m. Ages 70+ = 75 mL/min/1.73 sq.m. Chronic Kidney Disease: Less than 60 mL/min/1.73 square meters End Stage Renal Disease: Less than 15 mL/min/1.73 square meters Performed By: #### P REGU #### [place] [address] .Urinalysis Microscopic (AO) on 07-27-2022 UA Bacteria 4+ /hpf Abnormal Replaced By [facility] [place] Comment on above: Performed By: #### U A, UAMICAO #### [address] [address] UA RBC 0-5 Abnormal None Seen Replaced By [facility] ([place] Comment on above: Performed By: #### U A, UAMICAO #### [address] [address] UA Squam Epithelial 5-10 Abnormal None Seen [facility] ([place]) Comment on above: Performed By: #### U A, UAMICAO #### [address] [address] UA WBC LOADED Abnormal None Seen Replaced By [facility] [place] Comment on above: Performed By: #### U A, UAMICAO #### [address] [address] BMPon 07-27-2022 BUN/Creatinine Ratio 13 ratio Normal 7-27 [facility] ([place]) Comment on above: Performed By: #### G , BMP #### [address] [address] Calcium [Mass/Vol] 8.5 mg/dL Normal 8.4-10.2 [facility] ([place]) Comment on above: Performed By: #### Juan HURST, BMP #### [address] [address] Chloride [Moles/Vol] 103 mmol/L Normal 98-107 [facility] ([place] Comment on above: Performed By: #### Juan HURST, BMP #### [address] [address] CO2 [Moles/Vol] 28 mmol/L Normal 22-29 Replaced By [facility] [place] Comment on above: Performed By: #### Juan HURST, BMP #### [address] [address] Creatinine [Mass/Vol] 0.78 mg/dL Normal 0.55-1.02 [facility] ([place]) Comment on above: Performed By: #### Juan HURST, BMP #### [address] [address] Electrolyte Balance 9.0 mEq/L Normal 4.0-15.0 [facility] ([place]) Comment on above: Performed By: #### G , BMP #### [address] [address] Glucose [Mass/Vol] 83 mg/dL Normal 70-105 [facility] ([place] Comment on above: Performed By: #### Juan HURST, BMP #### [address] [address] Potassium [Moles/Vol] 3.5 mmol/L Normal 3.5-5.1 [facility] ([place] Comment on above: Performed By: #### G FR, BMP #### [address] [place], [place] [address] Sodium [Moles/Vol] 140 mmol/L Normal 136-145 [facility] ([place] Comment on above: Performed By: #### G FR, BMP #### [address] [place], [place] [address] Urea nitrogen [Mass/Vol] 10 mg/dL Normal 7-18 Replaced By [facility] [place] Comment on above: Performed By: #### G FR, BMP #### [address] [place], [place] [address] CT ANGIOGRAPHY NECK W/CONTRA STon 07-27-2022 CT ANGIOGRAPHY NECK W/CONTRAST ORIGINAL EXAMINATION: CTA OF THE NECK 07/27/2022 [...] Date: 07/27/2022 2:37:27 PM Ordering Provider: CORTNEY Saldivar Replaced By [facility] ([place] LABORATORYOrdered By: Pooja Larios on 07-27-2022 Appearance (U) Slightly Cloudy *ABN* (07/27/22 1:12 PM) Invalid Interpretation Code Clear AO Auto Urine SS Bacteria LM.HPF (Urine sed) [#/Area] 4 /[HPF] Invalid Interpretation Code AO Auto Urine SS Bilirubin Ql (U) Negative (07/27/22 1:12 PM) Invalid Interpretation Code Negative AO Auto Urine SS Color (U) Yellow (07/27/22 1:12 PM) Invalid Interpretation Code AO Auto Urine SS Glucose Test strip (U) [Mass/Vol] Negative Invalid Interpretation Code Negativemg/dL AO Auto Urine SS HCG ( test) Ql Negative (07/27/22 1:12 PM) Invalid Interpretation Code AO Manual Urine SS Hemoglobin Auto test strip (U) [Mass/Vol] Negative (07/27/22 1:12 PM) Invalid Interpretation Code Negative AO Auto Urine SS Ketones Ql (U) Negative Invalid Interpretation Code Negativemg/dL AO Auto Urine SS test (u) int Not detected Invalid Interpretation Code AO Manual Urine SS UA Leuk Est Small *ABN* (07/27/22 1:12 PM) Invalid Interpretation Code Negative AO Auto Urine SS UA Nitrite Positive *ABN* (07/27/22 1:12 PM) Invalid Interpretation Code Negative AO Auto Urine SS UA pH 6.5 (07/27/22 1:12 PM) Invalid Interpretation Code 5.0 - 8.0 AO Auto Urine SS UA Protein Negative Invalid Interpretation Code Negativemg/dL AO Auto Urine SS UA RBC 0-5 /HPF Invalid Interpretation Code None Seen/HPF AO Auto Urine SS UA Spec Grav 1.020 (07/27/22 1:12 PM) Invalid Interpretation Code 1.015-1.025 AO Auto Urine SS UA Specimen Type Clean Catch (07/27/22 1:12 PM) Invalid Interpretation Code AO Auto Urine SS UA Squam Epithelial 5-10 /HPF Invalid Interpretation Code None Seen/HPF AO Auto Urine SS UA Urobilinogen 0.2 E.U./dL Invalid Interpretation Code 0.2-1.0E.U./d L AO Auto Urine SS WBC LM.HPF (Urine sed) [#/Area] LOADED /HPF Invalid Interpretation Code None Seen/HPF AO Auto Urine SS LABORATORYOrdered By: SYSTEM SYSTEM on 07-27-2022 Calcium [Mass/Vol] 8.5 mg/dL Invalid Interpretation Code 8.4 - 10.2 mg/dL AO ADM SS Chloride [Moles/Vol] 103 mmol/L Invalid Interpretation Code 98 - 107 mmol/L AO ADM SS CO2 [Moles/Vol] 28 mmol/L Invalid Interpretation Code 22 - 29 mmol/L AO ADM SS Creatinine [Mass/Vol] 0.78 mg/dL Invalid Interpretation Code 0.55 - 1.02 mg/dL AO ADM SS Electrolyte Balance 9.0 mEq/L Invalid Interpretation Code 4.0 - 15.0 mEq/L AO ADM SS GFR 114 ml/min/1.73sqm Invalid Interpretation Code AO Chemistry S GFR Non- 94 ml/min/1.73sqm Inval id Interpretation Code AO Chemistry S Glucose [Mass/Vol] 83 mg/dL Invalid Interpretation Code 70 - 105 mg/dL AO ADM SS Potassium [Moles/Vol] 3.5 mmol/L Invalid Interpretation Code 3.5 - 5.1 mmol/L AO ADM SS Sodium [Moles/Vol] 140 mmol/L Invalid Interpretation Code 136 - 145 mmol/L AO ADM SS Urea nitrogen [Mass/Vol] 10 mg/dL Invalid Interpretation Code 7 - 18 mg/dL AO ADM SS Urea nitrogen/Creatinine [Mass ratio] 13 ratio Invalid Interpretation Code 7 - 27 ratio AO ADM SS PREGUon 07-27-2022 HCG ( test) Ql (U) Negative Normal Replaced By [facility] [place] Comment on above: Performed By: #### P REGU #### [address] [address] test (u) int Not detected Invalid Interpretation Code Replaced By [facility] [place] Comment on above: Performed By: #### P REGU #### [address] [address] UAon 07-27-2022 Color (U) Yellow Normal Replaced By [facility] [place] Comment on above: Performed By: #### U A, UAMICAO #### [address] [address] Glucose (U) [Mass/Vol] Negative Normal Negative [facility] ([place]) Comment on above: Performed By: #### U A, UAMICAO #### [address] [address] Ketones Ql (U) Negative Normal Negative Replaced By [facility] [place] Comment on above: Performed By: #### U A, UAMICAO #### [place] [address] UA Appear Slightly Cloudy Abnormal Clear Replaced By [facility] [place] Comment on above: Performed By: #### U A, UAMICAO #### [address] [place] [address] UA Blood Negative Normal Negative Replaced By [facility] [place] Comment on above: Performed By: #### U A, UAMICAO #### [place] [address] UA Leuk Est Small Abnormal Negative Replaced By [facility] [place] Comment on above: Performed By: #### U A, UAMICAO #### [place] [address] UA Nitrite Positive Abnormal Negative Replaced By [facility] [place] Comment on above: Performed By: #### U A, UAMICAO #### [place] [address] UA pH 6.5 Normal 5.0 - 8.0 Replaced By [facility] [place] Comment on above: Performed By: #### U A, UAMICAO #### [place] [address] UA Protein Negative Normal Negative Replaced By [facility] [place] Comment on above: Performed By: #### U A, UAMICAO #### [address] [address] UA Spec Grav 1.020 Normal 1.015-1.025 Replaced By [facility] [place] Comment on above: Performed By: #### U A, UAMICAO #### [place] [address] UA Specimen Type Clean Catch Normal Replaced By [facility] [place] Comment on above: Performed By: #### U A, UAMICAO #### [address] [place], [place] [address] UA Urobilinogen 0.2 E.U./dL Normal 0.2-1.0 Replaced By [facility] ([place]) Comment on above: Performed By: #### U A, UAMICAO #### [facility] [address] [place], [place] [address] Urobilinogen (U) [Mass/Vol] Negative Normal Negative Replaced By [facility] ([place] Comment on above: Performed By: #### U A, UAMICAO #### [facility] [address] [place], [place] [address] STREP A MOLECULAR (POC)on Procedural Control Valid [facility] Strep A (POCT) Negative Negative [facility] CEFTRIAXONE:SUSC:PT:ISOLATE: ORDQN:MICon 05-30-2022 cefTRIAXone JULIO [Susc] >100,000 cfu/ml Escherichia coli [facility] Work Phone: cefTRIAXone JULIO [Susc]on Escherichia coli Escherichia coli [facility] Work Phone: XR FOOT GENERAL 3V AP/LAT/OB L BILATERALon 01-07-2022 [facility] PELVIC US WHIon 11-12-2021 [facility] CBC W Auto Differential pane l (Bld)on 08-29-2021 Abs Immature Gran <0.03 <0.10 k/uL [facility] Basophils (Bld) [#/Vol] 0.04 10*3/uL <0.11 k/uL [facility] Basophils/100 WBC (Bld) 0.8 % [facility] Differential cell count method Nom (Bld) Auto [facility] Eosinophils (Bld) [#/Vol] 0.11 10*3/uL <0.46 k/uL [facility] Eosinophils/100 WBC (Bld) 2.1 % [facility] Erythrocyte distribution width (RBC) [Ratio] 17.2 % High 11.5 - 15.0 % [facility] Hematocrit (Bld) [Volume fraction] 36.3 % 36.0 - 46.0 % [facility] Hemoglobin (Bld) [Mass/Vol] 11.3 g/dL Low 11.5 - 15.5 g/dL [facility] Immature Gran % 0.0 % [facility] Lymphocytes (Bld) [#/Vol] 1.80 10*3/uL 1.00 - 4.00 k/uL [facility] Lymphocytes/100 WBC (Bld) 34.2 % [facility] MCH (RBC) [Entitic mass] 26.3 pg 26. 0 - 34.0 pg [facility] MCHC (RBC) [Mass/Vol] 31.1 g/dL 30.5 - 36.0 g/dL [facility] MCV (RBC) [Entitic vol] 84.6 fL 80.0 - 100.0 fL [facility] Monocytes (Bld) [#/Vol] 0.50 10*3/uL <0.87 k/uL [facility] Monocytes/100 WBC (Bld) 9.5 % [facility]rophils ([facility]ld[facility] [#/Vol] 2.81 10*3/uL 1.45 - 7.50 k/uL [facility] Neutrophils/100 WBC (Bld) 53.4 % [facility] Nucleated RBC (Bld) [#/Vol] 10*3/uL <0.01 k/uL [facility] Nucleated RBC/100 WBC (Bld) [Ratio] 0.0 /100 WBC [facility] Platelet mean volume (Bld) [Entitic vol] 10.6 fL 9.0 - 12.7 fL [facility] Platelets (Bld) [#/Vol] 343 10*3/uL 150 - 400 k/uL [facility] RBC (Bld) [#/Vol] 4.29 10*6/uL 3.90 - 5.2 0 m/uL [facility] WBC (Bld) [#/Vol] 5.26 10*3/uL 3.70 - 11. 00 k/uL [facility] Comprehensive metabolic 2000 panelon 08-29-2021 Albumin [Mass/Vol] 5.0 g/dL High 3.9 - 4.9 g/dL [facility] ALP [Catalytic activity/Vol] 89 U/L 34 - 123 U/L [facility] ALT [Catalytic activity/Vol] 28 U/L 7 - 38 U/L [facility] Anion gap [Moles/Vol] 10 mmol/L 9 - 18 mmol/L [facility] AST [Catalytic activity/Vol] 25 U/L 13 - 35 U/L [facility] Bilirubin [Mass/Vol] 1.0 mg/dL 0.2 - 1 .3 mg/dL [facility] Calcium [Mass/Vol] 9.9 mg/dL 8.5 - 10. 2 mg/dL [facility] Chloride [Moles/Vol] 104 mmol/L 97 - 10 5 mmol/L [facility] CO2 [Moles/Vol] 25 mmol/L 22 - 30 mmol/L [facility] Creatinine [Mass/Vol] 0.80 mg/dL 0.58 - 0.96 mg/dL [facility] Estimated Glomerular Filtration Rate 109 mL/min/1.73m >=60 mL/min/1.73m [facility] Glucose [Mass/Vol] 79 mg/dL 74 - 99 mg/dL [facility] Potassium [Moles/Vol] 3.3 mmol/L Low 3.7 - 5.1 mmol/L [facility] Protein [Mass/Vol] 7.8 g/dL 6.3 - 8.0 g/dL [facility] Sodium [Moles/Vol] 139 mmol/L 136 - 144 mmol/L [facility] Urea nitrogen [Mass/Vol] 9 mg/dL 7 - 21 mg/d L [facility] FERRITIN [facility] 08-29-2021 Ferritin [Mass/Vol] 10.3 ng/mL Low 14.7 - 2 05.1 ng/mL [facility] IRON + TIBCon 08-29-2021 Iron [Mass/Vol] 41 ug/dL 41 - 186 ug/dL [facility] Iron binding capacity [Mass/Vol] 397 ug/dL High 232 - 386 ug/dL [facility] Iron/TIBC [Molar ratio] 10 % Low 15 - 57 % [facility] T4 FREE/FREE THYROXon 2021 Free T4 [Mass/Vol] 1.1 ng/dL 0.9 - 1.7 ng/dL [facility] TSH [facility] 08-29-2021 TSH Qn 3.550 m[IU]/L 0.510 - 4.300 mIU/L [facility] UA DIP, URINE (POC)on 2021 BILIRUBIN UA (POCT) Negative Negative [facility] CLARITY UA (POCT) Slightly Cloudy [facility] COLOR UA (POCT) Other [facility] GLUCOSE UA (POCT) Negative Negative mg/dL [facility] HEMOGLOBIN/BLOOD UA (POCT) Small Abnormal Negative [facility] KETONE UA (POCT) Negative Negative mg/dL [facility] LEUKOCYTES [facility] (POCT) Large [facility] NITRITE UA (POCT) Positive Abnormal Negative [facility] PH UA (POCT) 7.0 4.5 - 8.0 [facility] Protein Ql (U) Negative Negative mg/dL [facility] SPECIFIC GRAVITY UA (POCT) 1.020 1.005 - 1.030 [facility] UROBILINOGEN UA (POCT) 0.2 E.U./dL Ayah l E.U./dL [facility] Vital Signs Date Time Vital Sign Value Performing Clinician Facility 10-09-2024 20:42-0400 Body temperature 98.3 [degF] Natalie Didier PA Work Phone: [facility] 10-09-2024 20:42-0400 Diastolic blood pressure 65 mm[Hg] Natalie Didier PA Work Phone: [facility] 10-09-2024 20:42-0400 Heart rate 82 /min Natalie Didier PA Work Phone: [facility] 10-09-2024 20:42-0400 Respiratory rate 16 /min Natalie Didier PA Work Phone: [facility] 10-09-2024 20:42-0400 SaO2% (BldA) [Mass fraction] 97 % Natalie Didier PA Work Phone: [facility] 10-09-2024 20:42-0400 Systolic blood pressure 110 mm[Hg] Natalie Didier PA Work Phone: [facility] 10-09-2024 19:14-0400 Body height 160.02 cm Natalie Didier PA Work Phone: [facility] 10-09-2024 19:14-0400 Body mass index (BMI) [Ratio] 33.6 kg/m2 Natalie Didier PA Work Phone: [facility] 10-09-2024 19:14-0400 Body weight 86.18 kg Natalie FINK Work Phone: [facility] 09-21-2024 19:02-0400 Body mass index (BMI) [Ratio] 34.4 kg/m2 Brenda Swank WATCH DIAL PRINTER.PROC TECH Work Phone: [facility] 09-21-2024 19:02-0400 Body temperature 97.2 [degF] Brenda Swank WATCH DIAL PRINTER.PROC TECH Work Phone: [facility] 09-21-2024 19:02-0400 Body weight 85.3 kg Brenda Swank WATCH DIAL PRINTER.PROC TECH Work Phone: [facility] 09-21-2024 19:02-0400 Diastolic blood pressure 78 mm[Hg] Brenda Swank WATCH DIAL PRINTER.PROC TECH Work Phone: [facility] 09-21-2024 19:02-0400 Heart rate 70 /min Brenda Swank WATCH DIAL PRINTER.PROC TECH Work Phone: [facility] 09-21-2024 19:02-0400 Respiratory rate 18 /min Brenda Swank WATCH DIAL PRINTER.PROC TECH Work Phone: [facility] 09-21-2024 19:02-0400 SaO2% (BldA) [Mass fraction] 100 % Brenda Swank WATCH DIAL PRINTER.PROC TECH Work Phone: [facility] 09-21-2024 19:02-0400 Systolic blood pressure 122 mm[Hg] Brenda Swank WATCH DIAL PRINTER.PROC TECH Work Phone: [facility] 06-30-2024 20:02-0500 Body height 160.02 cm Sumeet Chavez NP-C Work Phone: [facility] 06-30-2024 20:02-0500 Body mass index (BMI) [Ratio] 31.1 kg/m2 Sumeet Chavez NP-C Work Phone: [facility] 06-30-2024 20:02-0500 Body temperature 98.4 [degF] Sumeet Seffens AOC DIRECTOR COMBAT OPERATIONS OFFICER-C Work Phone: [facility] 06-30-2024 20:02-0500 Body weight 79.91 kg Sumeet Seffens AOC DIRECTOR COMBAT OPERATIONS OFFICER-C Work Phone: [facility] 06-30-2024 20:02-0500 Diastolic blood pressure 81 mm[Hg] Sumeet Seffens AOC DIRECTOR COMBAT OPERATIONS OFFICER-C Work Phone: [facility] 06-30-2024 20:02-0500 Heart rate 96 /min Sumeet Seffens AOC DIRECTOR COMBAT OPERATIONS OFFICER-C Work Phone: [facility] 06-30-2024 20:02-0500 Respiratory rate 18 /min Sumeet Seffens AOC DIRECTOR COMBAT OPERATIONS OFFICER-C Work Phone: [facility] 06-30-2024 20:02-0500 SaO2% (BldA) [Mass fraction] 98 % Sumeet Seffens AOC DIRECTOR COMBAT OPERATIONS OFFICER-C Work Phone: [facility] 06-30-2024 20:02-0500 Systolic blood pressure 129 mm[Hg] Sumeet Seffens AOC DIRECTOR COMBAT OPERATIONS OFFICER-C Work Phone: [facility] 06-27-2024 19:35-0500 Body mass index (BMI) [Ratio] 31.6 kg/m2 Sumeet Seffens AOC DIRECTOR COMBAT OPERATIONS OFFICER-C Work Phone: [facility] 06-27-2024 19:35-0500 Body temperature 97.9 [degF] Sumeet Seffens AOC DIRECTOR COMBAT OPERATIONS OFFICER-C Work Phone: [facility] 06-27-2024 19:35-0500 Body weight 80.87 kg Sumeet Seffens AOC DIRECTOR COMBAT OPERATIONS OFFICER-C Work Phone: [facility] 06-27-2024 19:35-0500 Diastolic blood pressure 78 mm[Hg] Sumeet Seffens AOC DIRECTOR COMBAT OPERATIONS OFFICER-C Work Phone: [facility] 06-27-2024 19:35-0500 Heart rate 104 /min Sumeet Seffens AOC DIRECTOR COMBAT OPERATIONS OFFICER-C Work Phone: [facility] 06-27-2024 19:35-0500 Respiratory rate 17 /min Sumeetkike Chavez AOC DIRECTOR COMBAT OPERATIONS OFFICER-C Work Phone: [facility] 06-27-2024 19:35-0500 SaO2% (BldA) [Mass fraction] 98 % Sumeetkike Chavez AOC DIRECTOR COMBAT OPERATIONS OFFICER-C Work Phone: [facility] 06-27-2024 19:35-0500 Systolic blood pressure 116 mm[Hg] Sumeet Chavez AOC DIRECTOR COMBAT OPERATIONS OFFICER-C Work Phone: [facility] 05-24-2024 10:50-0500 Body mass index (BMI) [Ratio] 30.3 kg/m2 Sumeet Chavez AOC DIRECTOR COMBAT OPERATIONS OFFICER-C Work Phone: [facility] 05-24-2024 10:50-0500 Body weight 77.62 kg Sumeet Chavez AOC DIRECTOR COMBAT OPERATIONS OFFICER-C Work Phone: [facility] 03-13-2024 14:41-0500 Body mass index (BMI) [Ratio] 28.83 kg/m2 [facility] WATCH DIAL PRINTER.PROC TECH Work Phone: [facility] 03-13-2024 14:41-0500 Body temperature 96.8 [degF] [facility] WATCH DIAL PRINTER.PROC TECH Work Phone: [facility] 03-13-2024 14:41-0500 Body weight 71.5 kg [facility] WATCH DIAL PRINTER.PROC TECH Work Phone: [facility] 03-13-2024 14:41-0500 Diastolic blood pressure 80 mm[Hg] [facility] WATCH DIAL PRINTER.PROC TECH Work Phone: [facility] 03-13-2024 14:41-0500 Heart rate 86 /min [facility] W[facility] DIAL PRINTER.PROC TECH Work Phone: [facility] 03-13-2024 14:41-0500 Respiratory rate 16 /min [facility] WATCH DIAL PRINTER.PROC TECH Work Phone: [facility] 03-13-2024 14:41-0500 SaO2% (BldA) [Mass fraction] 97 % Gabino Dilcia WATCH DIAL PRINTER.PROC TECH Work Phone: [facility] 03-13-2024 14:41-0500 Systolic blood pressure 122 mm[Hg] Gabino Bethverito WATCH DIAL PRINTER.PROC TECH Work Phone: [facility] 10-19-2023 17:18-0400 Body mass index (BMI) [Ratio] 29.31 kg/m2 Ana María Valdes WATCH DIAL PRINTER.PROC TECH Work Phone: [facility] 10-19-2023 17:18-0400 Body temperature 97.39 [degF] Ana María Valdes WATCH DIAL PRINTER.PROC TECH Work Phone: [facility] 10-19-2023 17:18-0400 Body weight 72.7 kg Ana María Valdes WATCH DIAL PRINTER.PROC TECH Work Phone: [facility] 10-19-2023 17:18-0400 Diastolic blood pressure 78 mm[Hg] Ana María Valdes WATCH DIAL PRINTER.PROC TECH Work Phone: [facility] 10-19-2023 17:18-0400 Heart rate 102 /min Ana María Valdes WATCH DIAL PRINTER.PROC TECH Work Phone: [facility] 10-19-2023 17:18-0400 Respiratory rate 18 /min Ana María Valdes WATCH DIAL PRINTER.PROC TECH Work Phone: [facility] 10-19-2023 17:18-0400 SaO2% (BldA) [Mass fraction] 98 % Ana María Valdes WATCH DIAL PRINTER.PROC TECH Work Phone: [facility] 10-19-2023 17:18-0400 Systolic blood pressure 110 mm[Hg] Ana María Valdes WATCH DIAL PRINTER.PROC TECH Work Phone: [facility] 07-14-2023 13:37-0500 Body height 157.48 cm TATIANA Chavez NP Work Phone: [facility] 07-14-2023 13:35-0500 Body mass index (BMI) [Ratio] 26.9 kg/m2 AOC DIRECTOR COMBAT OPERATIONS OFFICER-C Sumeet gabbie AOC DIRECTOR COMBAT OPERATIONS OFFICER Work Phone: [facility] 07-14-2023 13:35-0500 Body weight 66.67 kg AOC DIRECTOR COMBAT OPERATIONS OFFICER-C Sumeet gabbie AOC DIRECTOR COMBAT OPERATIONS OFFICER Work Phone: [facility] 07-14-2023 13:35-0500 Diastolic blood pressure 71 mm[Hg] AOC DIRECTOR COMBAT OPERATIONS OFFICER-C Sumeet josens AOC DIRECTOR COMBAT OPERATIONS OFFICER Work Phone: [facility] 07-14-2023 13:35-0500 Systolic blood pressure 105 mm[Hg] AOC DIRECTOR COMBAT OPERATIONS OFFICER-C Sumeet Martinezns AOC DIRECTOR COMBAT OPERATIONS OFFICER Work Phone: [facility] 07-12-2023 12:47-0500 Body temperature 98.2 [degF] Krislyn Aberegg PA Work Phone: [facility] 07-12-2023 12:47-0500 Body weight 66.95 kg Krislyn Aberegg PA Work Phone: [facility] 07-12-2023 12:47-0500 Diastolic blood pressure 62 mm[Hg] Krislyn Aberegg PA Work Phone: [facility] 07-12-2023 12:47-0500 Heart rate 82 /min Krislyn Aberegg PA Work Phone: [facility] 07-12-2023 12:47-0500 Respiratory rate 20 /min Krislyn Aberegg PA Work Phone: [facility] 07-12-2023 12:47-0500 SaO2% (BldA) [Mass fraction] 97 % Krislyn Aberegg PA Work Phone: [facility] 07-12-2023 12:47-0500 Systolic blood pressure 100 mm[Hg] Krislyn Aberegg PA Work Phone: [facility] 06-18-2023 13:53-0500 Body height 157.48 cm AOC DIRECTOR COMBAT OPERATIONS OFFICER-C Sumeet gabbie AOC DIRECTOR COMBAT OPERATIONS OFFICER Work Phone: [facility] 06-18-2023 13:46-0500 Body mass index (BMI) [Ratio] 26.8 kg/m2 AOC DIRECTOR COMBAT OPERATIONS OFFICER-C Sumeet Seffens AOC DIRECTOR COMBAT OPERATIONS OFFICER Work Phone: [facility] 06-18-2023 13:46-0500 Body weight 66.45 kg AOC DIRECTOR COMBAT OPERATIONS OFFICER-C Sumeet Seffens AOC DIRECTOR COMBAT OPERATIONS OFFICER Work Phone: [facility] 06-18-2023 13:46-0500 Diastolic blood pressure 74 mm[Hg] AOC DIRECTOR COMBAT OPERATIONS OFFICER-C Sumeet Seffens AOC DIRECTOR COMBAT OPERATIONS OFFICER Work Phone: [facility] 06-18-2023 13:46-0500 Systolic blood pressure 112 mm[Hg] AOC DIRECTOR COMBAT OPERATIONS OFFICER-C Sumeet Seffens AOC DIRECTOR COMBAT OPERATIONS OFFICER Work Phone: [facility] 05-22-2023 13:09-0500 Body height 157.48 cm AOC DIRECTOR COMBAT OPERATIONS OFFICER-C Sumeet Seffens AOC DIRECTOR COMBAT OPERATIONS OFFICER Work Phone: [facility] 05-22-2023 13:07-0500 Body mass index (BMI) [Ratio] 26.7 kg/m2 AOC DIRECTOR COMBAT OPERATIONS OFFICER-C Sumeet Seffens AOC DIRECTOR COMBAT OPERATIONS OFFICER Work Phone: [facility] 05-22-2023 13:07-0500 Body weight 66.39 kg AOC DIRECTOR COMBAT OPERATIONS OFFICER-C Sumeet Seffens AOC DIRECTOR COMBAT OPERATIONS OFFICER Work Phone: [facility] 05-22-2023 13:07-0500 Diastolic blood pressure 76 mm[Hg] AOC DIRECTOR COMBAT OPERATIONS OFFICER-C Sumeet Seffens AOC DIRECTOR COMBAT OPERATIONS OFFICER Work Phone: [facility] 05-22-2023 13:07-0500 Systolic blood pressure 118 mm[Hg] AOC DIRECTOR COMBAT OPERATIONS OFFICER-C Sumeet Seffens AOC DIRECTOR COMBAT OPERATIONS OFFICER Work Phone: [facility] 05-06-2023 20:45-0500 Diastolic Blood Pressure Non-Invasive 68 mm[Hg] NIDAL CHOUJAA DO [facility] 05-06-2023 20:45-0500 Heart rate 78 /min NIDAL CHOUJAA DO [facility] 05-06-2023 20:45-0500 Systolic Blood Pressure Non-Invasive 126 mm[Hg] NIDAL CHOUJAA DO [facility] 05-06-2023 19:42-0500 Body height 160 cm NIDAL CHOUJAA DO [facility] 05-06-2023 19:42-0500 Body temperature 98.24 [degF] NIDAL CHOUJAA DO [facility] 05-06-2023 19:42-0500 Body weight 65.9 kg NIDAL CHOUJAA DO [facility] 05-06-2023 19:42-0500 Diastolic Blood Pressure Non-Invasive 86 mm[Hg] NIDAL CHOUJAA DO [facility] 05-06-2023 19:42-0500 Heart rate 66 /min NIDAL CHOUJAA DO [facility] 05-06-2023 19:42-0500 Respiratory rate 18 /min NIDAL CHOUJAA DO [facility] 05-06-2023 19:42-0500 Systolic Blood Pressure Non-Invasive 124 mm[Hg] NIDAL CHOUJAA DO [facility] 04-18-2023 13:41-0500 Body temperature 98.4 [degF] Ana María Valdes WATCH DIAL PRINTER.PROC TECH Work Phone: [facility] 04-18-2023 13:41-0500 Body weight 66.68 kg Ana María Valdes WATCH DIAL PRINTER.PROC TECH Work Phone: [facility] 04-18-2023 13:41-0500 Diastolic blood pressure 62 mm[Hg] Ana María Valdes WATCH DIAL PRINTER.PROC TECH Work Phone: [facility] 04-18-2023 13:41-0500 Heart rate 95 /min Ana María Valdes WATCH DIAL PRINTER.PROC TECH Work Phone: [facility] 04-18-2023 13:41-0500 Respiratory rate 16 /min Ana María Valdes WATCH DIAL PRINTER.PROC TECH Work Phone: [facility] 04-18-2023 13:41-0500 SaO2% (BldA) [Mass fraction] 99 % Ana María Valdes WATCH DIAL PRINTER.PROC TECH Work Phone: [facility] 04-18-2023 13:41-0500 Systolic blood pressure 110 mm[Hg] Ana María Valdes WATCH DIAL PRINTER.PROC TECH Work Phone: [facility] 02-22-2023 16:28-0400 Blood Pressure Location ROSA GUERRERO DO [facility] 02-22-2023 16:28-0400 Body temperature 98.6 [degF] ROSA NGUYENT DO [facility] 02-22-2023 16:28-0400 Diastolic Blood Pressure Non-Invasive 60 1 ROSA NGUYENT DO [facility] 02-22-2023 16:28-0400 Heart rate 98 /min ROSA GUERRERO DO [facility] 02-22-2023 16:28-0400 Respiratory rate 16 /min ROSA NGUYENT [facility] 02-22-2023 16:28-0400 Systolic Blood Pressure Non-Invasive 97 1 ROSA NGUYENT DO [facility] 02-19-2023 09:00-0400 Body height 157.5 cm Kimberly Hernandez WATCH DIAL PRINTER.PROC TECH Work Phone: [facility] 02-19-2023 09:00-0400 Body weight 63.96 kg Kimberly Hernandez WATCH DIAL PRINTER.PROC TECH Work Phone: [facility] 02-19-2023 09:00-0400 Diastolic blood pressure 70 mm[Hg] Kimberly Hernandez WATCH DIAL PRINTER.PROC TECH Work Phone: [facility] 02-19-2023 09:00-0400 Systolic blood pressure 108 mm[Hg] Kimberly Hernandez WATCH DIAL PRINTER.PROC TECH Work Phone: [facility] 02-17-2023 07:33-0400 Body mass index (BMI) [Ratio] 26.4 kg/m2 AOC DIRECTOR COMBAT OPERATIONS OFFICER-C Sumeet Seffens AOC DIRECTOR COMBAT OPERATIONS OFFICER Work Phone: [facility] 02-17-2023 07:33-0400 Body temperature 97.8 [degF] AOC DIRECTOR COMBAT OPERATIONS OFFICER-C Sumeet Seffens AOC DIRECTOR COMBAT OPERATIONS OFFICER Work Phone: [facility] 02-17-2023 07:33-0400 Body weight 65.54 kg AOC DIRECTOR COMBAT OPERATIONS OFFICER-C Sumeet Seffens AOC DIRECTOR COMBAT OPERATIONS OFFICER Work Phone: [facility] 02-17-2023 07:33-0400 Diastolic blood pressure 60 mm[Hg] AOC DIRECTOR COMBAT OPERATIONS OFFICER-C Sumeet Seffens AOC DIRECTOR COMBAT OPERATIONS OFFICER Work Phone: [facility] 02-17-2023 07:33-0400 Heart rate 86 /min AOC DIRECTOR COMBAT OPERATIONS OFFICER-C Sumeet Seffens AOC DIRECTOR COMBAT OPERATIONS OFFICER Work Phone: [facility] 02-17-2023 07:33-0400 Respiratory rate 14 /min AOC DIRECTOR COMBAT OPERATIONS OFFICER-C Sumeet Seffens AOC DIRECTOR COMBAT OPERATIONS OFFICER Work Phone: [facility] 02-17-2023 07:33-0400 SaO2% (BldA) [Mass fraction] 99 % AOC DIRECTOR COMBAT OPERATIONS OFFICER-C Sumeet Seffens AOC DIRECTOR COMBAT OPERATIONS OFFICER Work Phone: [facility] 02-17-2023 07:33-0400 Systolic blood pressure 93 mm[Hg] AOC DIRECTOR COMBAT OPERATIONS OFFICER-C Sumeet Seffens AOC DIRECTOR COMBAT OPERATIONS OFFICER Work Phone: [facility] 02-05-2023 21:23-0400 Diastolic blood pressure 61 mm[Hg] [facility] 02-05-2023 21:23-0400 Heart rate 68 /min [facility] 02-05-2023 21:23-0400 Respiratory rate 16 /min [facility] 02-05-2023 21:23-0400 SaO2% (BldA) [Mass fraction] 99 % [facility] 02-05-2023 21:23-0400 Systolic blood pressure 101 mm[Hg] [facility] 02-05-2023 18:28-0400 Body height 157.48 cm [facility] 02-05-2023 18:28-0400 Body mass index (BMI) [Ratio] 25.7 kg/m2 [facility] 02-05-2023 18:28-0400 Body temperature 96.6 [degF] [facility] 02-05-2023 18:28-0400 Body weight 63.77 kg [facility] 12-06-2022 20:16-0400 Body temperature 98.6 [degF] ALBERTO SAWANT MD [facility] 12-06-2022 20:16-0400 Diastolic Blood Pressure Non-Invasive 65 1 ALBERTO SAWANT MD [facility] 12-06-2022 20:16-0400 Heart rate 106 /min ALBERTO SAWANT MD [facility] 12-06-2022 20:16-0400 Respiratory rate 25 /min ALBERTO SAWANT MD [facility] 12-06-2022 20:16-0400 Systolic Blood Pressure Non-Invasive 106 1 ALBERTO SAWANT MD [facility] 07-27-2022 14:58-0400 Diastolic Blood Pressure Non-Invasive [address] OSCAR ROBERTS MD [facility] 07-27-2022 14:58-0400 Heart rate 70 /min DR OCSAR ROBERTS MD [facility] 07-27-2022 14:58-0400 Respiratory rate 20 /min DR OSCAR ROBERTS MD [facility] 07-27-2022 14:58-0400 Systolic Blood Pressure Non-Invasive [address] OSCAR ROBERTS MD [facility] 07-27-2022 12:44-0400 Body temperature 97.52 [degF] DR OSCAR ROBERTS MD [facility] 07-27-2022 12:44-0400 Diastolic Blood Pressure Non-Invasive [address] OSCAR ROBERTS MD [facility] 07-27-2022 12:44-0400 Heart rate 96 /min DR OSCAR ROBERTS MD [facility] 07-27-2022 12:44-0400 Respiratory rate 20 /min DR OSCAR ROBERTS MD [facility] 07-27-2022 12:44-0400 Systolic Blood Pressure Non-Invasive [address] OSCAR ROBERTS MD [facility] 07-24-2022 14:56-0400 Body temperature 97.81 [degF] Hermann Elder WATCH DIAL PRINTER.PROC TECH Work Phone: [facility] 07-24-2022 14:56-0400 Body weight 61.51 kg Hermann Elder WATCH DIAL PRINTER.PROC TECH Work Phone: [facility] 07-24-2022 14:56-0400 Diastolic blood pressure 58 mm[Hg] Hermann Elder WATCH DIAL PRINTER.PROC TECH Work Phone: [facility] 07-24-2022 14:56-0400 Heart rate 90 /min Hermann Elder WATCH DIAL PRINTER.PROC TECH Work Phone: [facility] 07-24-2022 14:56-0400 Respiratory rate 18 /min Hermann Elder WATCH DIAL PRINTER.PROC TECH Work Phone: [facility] 07-24-2022 14:56-0400 SaO2% (BldA) [Mass fraction] 98 % Hermann Friedman WATCH DIAL PRINTER.PROC TECH Work Phone: [facility] 07-24-2022 14:56-0400 Systolic blood pressure 90 mm[Hg] Hermann Friedman WATCH DIAL PRINTER.PROC TECH Work Phone: [facility] 02-28-2022 19:37-0400 Body height 157.5 cm JACKY MARTINEZ MD [facility] 02-28-2022 19:37-0400 Body temperature 97.88 [degF] JACKY MARTINEZ MD [facility] 02-28-2022 19:37-0400 Body weight 50 kg JACKY MARTINEZ MD [facility] 02-28-2022 19:37-0400 Diastolic blood pressure 68 mm[Hg] JACKY MARTINEZ MD [facility] 02-28-2022 19:37-0400 Heart rate 102 /min JACKY MARTINEZ MD [facility] 02-28-2022 19:37-0400 Height ZScore -0.90 JACKY MARTINEZ MD [facility] Comment on above: Result Comment: ^~:!ZScore Source -[facility] 02-28-2022 19:37-0400 Percent Height for Age 18.49 1 JACKY MARTINEZ MD [facility] Comment on above: Result Comment: ^~:!Percentile Source -[facility] 02-28-2022 19:37-0400 Respiratory rate 18 /min JACKY MARTINEZ MD [facility] 02-28-2022 19:37-0400 Systolic blood pressure 118 mm[Hg] JACKY MARTINEZ MD [facility] 02-14-2022 08:17-0400 Body temperature 98.29 [degF] Eric Reyes MD Work Phone: [facility] 02-14-2022 08:17-0400 Body weight 50.03 kg Eric Reyes MD Work Phone: [facility] 02-14-2022 08:17-0400 Diastolic blood pressure 62 mm[Hg] Eric Reyes MD Work Phone: [facility] 02-14-2022 08:17-0400 Heart rate 84 /min Eric Reyes MD Work Phone: [facility] 02-14-2022 08:17-0400 Respiratory rate 18 /min Eric Reyes MD Work Phone: [facility] 02-14-2022 08:17-0400 Systolic blood pressure 108 mm[Hg] Eric Reyes MD Work Phone: [facility] 01-14-2022 13:42-0400 Body height 158.9 cm Eric Reyes MD Work Phone: [facility] 01-14-2022 13:42-0400 Body temperature 98.49 [degF] Eric Reyes MD Work Phone: [facility] 01-14-2022 13:42-0400 Body weight 49.53 kg Eric Reyes MD Work Phone: [facility] 01-14-2022 13:42-0400 Diastolic blood pressure 64 mm[Hg] Eric Reyes MD Work Phone: [facility] 01-14-2022 13:42-0400 Heart rate 84 /min Eric Reyes MD Work Phone: [facility] 01-14-2022 13:42-0400 Respiratory rate 18 /min Eric Reyes MD Work Phone: [facility] 01-14-2022 13:42-0400 Systolic blood pressure 110 mm[Hg] Eric Reyes MD Work Phone: [facility] 12-27-2021 13:02-0400 Body temperature 98.49 [degF] Eric Reyes MD Work Phone: [facility] 12-27-2021 13:02-0400 Body weight 50.35 kg Eric Reyes MD Work Phone: [facility] 12-27-2021 13:02-0400 Heart rate 90 /min Eric Reyes MD Work Phone: [facility] 12-27-2021 13:02-0400 Respiratory rate 18 /min Eric Reyes MD Work Phone: [facility] 11-05-2021 12:13-0400 Body height 160 cm Mckenzie Jose WATCH DIAL PRINTER.CNM Work Phone: [facility] 11-05-2021 12:13-0400 Body mass index (BMI) [Percentile] Per age and sex 33.37 % Mckenzie Jose WATCH DIAL PRINTER.CNM Work Phone: [facility] 11-05-2021 12:13-0400 Body weight 52.16 kg Mckenzie Jose WATCH DIAL PRINTER.CNM Work Phone: [facility] 11-05-2021 12:13-0400 Diastolic blood pressure 60 mm[Hg] Mckenzie Jose WATCH DIAL PRINTER.CNM Work Phone: [facility] 11-05-2021 12:13-0400 Systolic blood pressure 106 mm[Hg] Mckenzie Jose WATCH DIAL PRINTER.CNM Work Phone: [facility] 10-05-2021 08:22-0400 Body height 160 cm Eric Reyes MD Work Phone: [facility] 10-05-2021 08:22-0400 Body mass index (BMI) [Percentile] Per age and sex 38.47 % Eric Reyes MD Work Phone: [facility] 10-05-2021 08:22-0400 Body temperature 97 [degF] Eric Reyes MD Work Phone: [facility] 10-05-2021 08:22-0400 Body weight 53.07 kg Eric Reyes MD Work Phone: [facility] 10-05-2021 08:22-0400 Diastolic blood pressure 64 mm[Hg] Eric Reyes MD Work Phone: [facility] 10-05-2021 08:22-0400 Heart rate 84 /min Eric Reyes MD Work Phone: [facility] 10-05-2021 08:22-0400 Respiratory rate 12 /min Eric Reyes MD Work Phone: [facility] 10-05-2021 08:22-0400 Systolic blood pressure 102 mm[Hg] Eric Reyes MD Work Phone: [facility] 08-29-2021 09:23-0400 Body temperature 97.3 [degF] Amelia Benites MD Work Phone: [facility] 08-29-2021 09:23-0400 Body weight 52.39 kg Amelia Benites MD Work Phone: [facility] 08-29-2021 09:23-0400 Diastolic blood pressure 60 mm[Hg] Amelia Benites MD Work Phone: [facility] 08-29-2021 09:23-0400 Heart rate 60 /min Amelia Benites MD Work Phone: [facility] 08-29-2021 09:23-0400 Respiratory rate 8 /min Amelia Benites MD Work Phone: [facility] 08-29-2021 09:23-0400 Systolic blood pressure 118 mm[Hg] Amelia Benites MD Work Phone: [facility] Encounters Encounter Date Encounter Type Care Provider Facility Start: 10-09-2024 End: 10-09-2024 Emergency department patient visit Natalie FINK Work Phone: -Emergency Department Work Phone: Start: 09-21-2024 End: 09-21-2024 Subsequent hospital visit by physician Letitia [facility] Patti Work Phone: Radiology Comment on above: Right wrist pain [M2 5.531] Start: 09-21-2024 End: 09-21-2024 Patient encounter procedure Brenda Morrell PROC TECH Work Phone: [facility] Comment on above: Right wrist pain (Pr imary Dx); Contusion of right wrist, initial encounter Start: 09-21-2024 End: 09-21-2024 ambulatory BALA CROOK Facility:[facility] Start: 09-15-2024 End: 09-15-2024 ambulatory Sumeet Chavez AOC DIRECTOR COMBAT OPERATIONS OFFICER-C Work Phone: [facility] Work Phone: Start: 09-15-2024 End: 09-15-2024 Patient encounter procedure Lupis Hart AOC DIRECTOR COMBAT OPERATIONS OFFICER-C -Laboratory, Wanda Fernández Start: 09-15-2024 End: 09-15-2024 ambulatory Sury Crook [facility] Facility:[facility] Start: 06-30-2024 End: 06-30-2024 Emergency department patient visit Dr. Madi Calhoun MD -Emergency Department Work Phone: Start: 06-27-2024 End: 06-27-2024 Emergency department patient visit ED PHYSICIAN PROVIDER -Emergency Department Work Phone: Start: 06-27-2024 [facility] Sury Crook [facility] Faci lity:[facility] Start: 06-27-2024 Registered Recurring Natalie FINK -Physical Therapy Work Phone: Start: 05-24-2024 End: 05-24-2024 Patient encounter procedure Natalie FINK -[facility] Work Phone: Start: 05-24-2024 End: 05-24-2024 ambulatory Natalie Velásquez [facility] Start: 04-12-2024 End: 04-12-2024 ambulatory BALA CROOK Facility:[facility] Start: 04-12-2024 End: 04-12-2024 Subsequent hospital visit by physician X[facility] Work Phone: Radiology Start: 04-11-2024 End: 04-11-2024 ambulatory BALA CROOK Facility:[facility] Start: 04-01-2024 End: 04-01-2024 ambulatory Sharita Hines Facility:[facility] Start: 03-13-2024 End: 03-13-2024 ambulatory BALA CROOK Facility:[facility] Start: 03-13-2024 End: 03-13-2024 Office outpatient visit 15 minutes Gabino Ha APRN.PROC TECH Work Phone: [facility] Comment on above: Neck pain (Primary D x) Start: 02-12-2024 End: 02-12-2024 ambulatory Sharita Hines Facility:[facility] Start: 01-29-2024 End: 01-29-2024 ambulatory Sharita Hines Facility:[facility] Start: 12-14-2023 ambulatory Sharita Hines Fa cility:[facility] Start: 12-14-2023 End: 12-16-2023 Evaluation and management of inpatient Sumeet Seffens AOC DIRECTOR COMBAT OPERATIONS OFFICER Facility:[facility] Start: 12-14-2023 End: 12-14-2023 ambulatory Sumeet Seffens AOC DIRECTOR COMBAT OPERATIONS OFFICER Facility:[facility] Start: 12-07-2023 End: 12-07-2023 ambulatory Sumeet Seffens AOC DIRECTOR COMBAT OPERATIONS OFFICER Facility:[facility] Start: 12-01-2023 End: 12-01-2023 ambulatory Sumeet Seffens AOC DIRECTOR COMBAT OPERATIONS OFFICER Facility:[facility] Start: 11-20-2023 End: 11-20-2023 ambulatory Sharita Hines Facility:[facility] Start: 11-20-2023 End: 11-20-2023 ambulatory Sumeet Seffens AOC DIRECTOR COMBAT OPERATIONS OFFICER Facility:[facility] Start: 11-05-2023 End: 11-05-2023 ambulatory Sharita Hines Facility:[facility] Start: 11-04-2023 End: 11-04-2023 ambulatory Sumeet Seffens AOC DIRECTOR COMBAT OPERATIONS OFFICER Facility:[facility] Start: 11-03-2023 End: 11-04-2023 ambulatory Jimy Lalita AOC DIRECTOR COMBAT OPERATIONS OFFICER Facility:[facility] Start: 10-21-2023 End: 10-21-2023 ambulatory Sharita Hines Facility:[facility] Start: 10-19-2023 End: 10-19-2023 ambulatory BALAJUDITH WARNERNGER Facility:[facility] Start: 10-19-2023 End: 10-19-2023 Patient encounter procedure Ana María Valdes PROC TECH Work Phone: [facility] Comment on above: Acute otitis media, left (Primary Dx); Rhinosinusitis Start: 10-18-2023 End: 10-19-[address] Facility:[facility] Start: 08-06-2023 End: 08-06-2023 ambulatory [facility] Start: 07-14-2023 End: 07-14-2023 ambulatory AOC DIRECTOR COMBAT OPERATIONS OFFICER-C Sumeet Chavez AOC DIRECTOR COMBAT OPERATIONS OFFICER Work Phone: [facility] Work Phone: Start: 07-14-2023 End: 07-14-2023 Patient encounter procedure AOC DIRECTOR COMBAT OPERATIONS OFFICER-C Sumeet Vanessa AOC DIRECTOR COMBAT OPERATIONS OFFICER Work Phone: [facility]-Laboratory, Specimen Work Phone: Start: 07-14-2023 End: 07-14-2023 Patient encounter procedure AOC DIRECTOR COMBAT OPERATIONS OFFICER-C Sumeet Vanessa AOC DIRECTOR COMBAT OPERATIONS OFFICER Work Phone: [facility] Work Phone: Start: 07-12-2023 End: 07-12-2023 Patient encounter procedure Clotilde John PA Work Phone: [facility] Comment on above: URI, acute (Primary Dx) Start: 06-18-2023 End: 06-18-2023 ambulatory AOC DIRECTOR COMBAT OPERATIONS OFFICER-C Sumeet Sejosens AOC DIRECTOR COMBAT OPERATIONS OFFICER Work Phone: [facility] Work Phone: Start: 06-18-2023 End: 06-18-2023 Patient encounter procedure AOC DIRECTOR COMBAT OPERATIONS OFFICER-C Sumeet Seffens AOC DIRECTOR COMBAT OPERATIONS OFFICER Work Phone: [facility] Work Phone: Start: 05-22-2023 End: 05-22-2023 ambulatory AOC DIRECTOR COMBAT OPERATIONS OFFICER-C Sumeet Seffens AOC DIRECTOR COMBAT OPERATIONS OFFICER Work Phone: [facility] Work Phone: Start: 05-22-2023 End: 05-22-2023 Patient encounter procedure AOC DIRECTOR COMBAT OPERATIONS OFFICER-Drea Chavez AOC DIRECTOR COMBAT OPERATIONS OFFICER Work Phone: [facility]-Laboratory, Specimen Work Phone: Start: 05-22-2023 End: 05-22-2023 Patient encounter procedure AOC DIRECTOR COMBAT OPERATIONS OFFICER-Drea Chavez AOC DIRECTOR COMBAT OPERATIONS OFFICER Work Phone: [facility] Work Phone: Start: 05-06-2023 End: 05-06-2023 Emergency department [facility] Start: 05-06-2023 End: 05-06-2023 Emergency department [facility] Start: 04-18-2023 End: 04-18-2023 Patient encounter procedure Ana María Valdes WATCH DIAL PRINTER.PROC TECH Work Phone: [facility] Comment on above: Missed period (Prima ry Dx); Positive urine test Start: 02-23-2023 Telephone encounter Eleanor cheney WATCH DIAL PRINTER.CNM Work Phone: OB/Gynecology Start: 02-22-2023 End: 02-22-2023 [facility] Start: 02-22-2023 End: 02-22-2023 [facility] Start: 02-19-2023 End: 02-19-2023 Patient encounter procedure Kimberly Hernandez WATCH DIAL PRINTER.PROC TECH Work Phone: OB/Gynecology Comment on above: Encounter for IUD re moval (Primary Dx) Start: 02-17-2023 End: 02-17-2023 Emergency department patient visit AOC DIRECTOR COMBAT OPERATIONS OFFICER-Drea Chavez AOC DIRECTOR COMBAT OPERATIONS OFFICER Work Phone: [facility]-Emergency Department Work Phone: Start: 02-05-2023 End: 02-05-2023 Emergency department patient visit [facility]-Emergency Department Work Phone: Start: 12-22-2022 Refill Samantha morton WATCH DIAL PRINTER.PROC TECH Work Phone: Psychiatry Comment on above: Refill Request; Refi ll Request Start: 12-15-2022 Telephone encounter Samantha khan WATCH DIAL PRINTER.PROC TECH Work Phone: Psychiatry Comment on above: Medication Problem Start: 12-06-2022 End: 12-06-2022 Emergency department patient visit SUMEET YAÑEZGABBIE WATCH DIAL PRINTER-PROC TECH Facility:B Start: 12-06-2022 End: 12-06-2022 Emergency department patient visit ALBERTO SAWANT MD [facility] Start: 10-14-2022 End: 10-15-2022 ambulatory SUMEET YAÑEZGABBIE WATCH DIAL PRINTER-PROC TECH Facility:A Start: 08-17-2022 Refill Samantha Cardenas u WATCH DIAL PRINTER.PROC TECH Work Phone: Psychiatry Comment on above: Refill Request Start: 07-27-2022 End: 07-27-2022 Emergency department patient visit SUMEET HENRIQUEZGAVIN WATCH DIAL PRINTER-PROC TECH Facility:B Start: 07-27-2022 End: 07-27-2022 Emergency department patient visit DR OSCAR ROBERTS MD [facility] Start: 07-25-2022 Telephone encounter Clotilde FINK Work Phone: [facility] Comment on above: Results Start: 07-24-2022 End: 07-24-2022 Patient encounter procedure Hermann Friedman WATCH DIAL PRINTER.PROC TECH Work Phone: [facility] Comment on above: URI, acute (Primary Dx); Throat pain Start: 05-30-2022 End: 06-04-2022 ambulatory SUMEET CHAVEZ WATCH DIAL PRINTER-PROC TECH Facility:B Start: 05-30-2022 End: 06-03-2022 Outreach Lab SUMEET CHAVEZ SUNNY-PROC TECH [facility] Start: 05-20-2022 End: 05-20-2022 Formerly [facility] Patience CORREA.PROC TECH Work Phone: Psychiatry Comment on above: Bipolar 2 disorder ( HCC) (Primary Dx); BALJINDER (generalized anxiety disorder) Start: 04-18-2022 End: 04-18-2022 Formerly [facility] Patience WATCH DIAL PRINTER.PROC TECH Work Phone: Psychiatry Comment on above: Bipolar 2 disorder ( HCC) (Primary Dx); BALJINDER (generalized anxiety disorder) Start: 03-13-2022 Telephone encounter Eric Reyes MD Work Phone: [facility] [place] Comment on above: Referral Request Behavioral Health Ap pointment Other Start: 02-28-2022 End: 02-28-2022 Emergency department patient visit JACKY MARTINEZ MD [facility] Start: 02-14-2022 End: 02-14-2022 Patient encounter procedure Eric Reyes MD Work Phone: [facility] [place] Comment on above: Anxiety (Primary Dx) ; Depression, unspecified depression type Start: 02-10-2022 Telephone encounter Eric Reyes MD Work Phone: [facility] [place] Comment on above: Covid question Start: 01-14-2022 End: 01-14-2022 Patient encounter procedure Eric Reyes MD Work Phone: [facility] [place] Comment on above: Anxiety (Primary Dx) Start: 01-07-2022 End: 01-07-2022 Patient encounter procedure Dino Garzon Work Phone: Podiatry Comment on above: Pes planus of both f eet (Primary Dx); Posterior tibial tendon dysfunction Start: 01-07-2022 End: 01-07-2022 Subsequent hospital visit by physician Letitia [facility] [place] Tapia Work Phone: Radiology Comment on above: Bilateral foot pain [M79.671, M79.672] Start: 01-06-2022 Orders Only Dino wilkerson Work Phone: Podiatry Comment on above: Bilateral foot pain (Primary Dx) Start: 12-27-2021 End: 12-27-2021 Patient encounter procedure Eric Reyes MD Work Phone: [facility] [place] Comment on above: Flat feet, bilateral (Primary Dx); Pain in both knees, unspecified chronicity; Injury of right hip, initial encounter Start: 11-12-2021 End: 11-12-2021 ambulatory Dominik Singh MD Work Phone: Reproductive Endocrinology [facility] Start: 11-12-2021 End: 11-12-2021 Patient encounter procedure Dominik Singh MD Work Phone: [facility] Start: 11-05-2021 End: 11-05-2021 Patient encounter procedure Mckenzie Garcia APRN.CNM Work Phone: OB/Gynecology Comment on above: Surveillance of prev iously prescribed intrauterine contraceptive device (Primary Dx); Abdominal cramping; Menorrhagia with regular cycle; Displacement of intrauterine contraceptive device, initial encounter Start: 10-05-2021 End: 10-05-2021 Patient encounter procedure Eric Reyes MD Work Phone: [facility] [place] Comment on above: Anxiety (Primary Dx) ; Depression, unspecified depression type Start: 09-02-2021 Telephone encounter Moon hicks MD Work Phone: [facility] [place] Comment on above: Results Start: 08-29-2021 End: 08-29-2021 Patient encounter procedure Amelia Benites MD Work Phone: [facility] [place] Comment on above: Malaise and fatigue (Primary Dx) Procedures Date Procedure Procedure Detail Performing Clinician Start: 10-09-2024 Urnls dip stick/tabl et reagent auto microscopy Natalie Didier PA Work Phone: Start: 10-09-2024 Estimated creatinine clearance Natalie FINK Work Phone: Start: 09-21-2024 Radex wrist complete minimum 3 views Brendaharjit Morrell WATCH DIAL PRINTER.PROC TECH Work Phone: Start: 09-15-2024 Total iron binding capacity measurement Sumeet Henriquezns AOC DIRECTOR COMBAT OPERATIONS OFFICER-C Work Phone: Start: 09-15-2024 Vitamin D, 25-hydrox y measurement Sumeet ffens AOC DIRECTOR COMBAT OPERATIONS OFFICER-C Work Phone: Comment on above: Vitamin D StatusDefi ciency: <20 ng/mL (50nmol/L)Insufficiency: 20-30 ng/mL (50-75 nmol/L)Sufficiency: 30-100 ng/mL (75-250 nmol/L)Toxicity: >100 ng/mL (>250 nmol/L) Start: 05-24-2024 Xray thoracic spine Obdulia lsie Martinezgavin AOC DIRECTOR COMBAT OPERATIONS OFFICER-C Work Phone: Start: 07-14-2023 Urine culture AOC DIRECTOR COMBAT OPERATIONS OFFICER-C Eileen sie Vanessa AOC DIRECTOR COMBAT OPERATIONS OFFICER Work Phone: Start: 04-18-2023 Urine test visual color cmprsn meths Ana María Darryn WATCH DIAL PRINTER.PROC TECH Work Phone: Start: 07-24-2022 STREP A MOLECULAR (POC) Tammi Mckeon PA-C Work Phone: Start: 01-14-2022 Adult depression scr eening assessment Eric Reyes MD Work Phone: Start: 01-07-2022 Radex foot complete minimum 3 views Dino Testrake Work Phone: Start: 11-12-2021 Us pelvic nonobstetr ic real-time image complete Mckenzie Garcia WATCH DIAL PRINTER.CNM Work Phone: Start: 10-03-2021 Adult depression scr eening assessment Eric Reyes MD Work Phone: Start: 08-29-2021 Urnls dip stick/tabl et rgnt auto w/o microscopy Amelia Benites MD Work Phone: Start: 04-16-2020 Adult depression scr eening assessment Amelia Benites MD Work Phone: Plan of Treatment Date Care Activity Detail Author Start: 01-09-2025 Influenza vaccination Influenz a Vaccine (Season Ended) [facility] Start: 10-09-2024 End: 10-09-2024 [facility] Start: 10-09-2024 Bacteria identified in Urine by Culture Urine Culture [facility] Start: 08-11-2024 Urine microalbumin profile [facility] Start: 06-30-2024 [facility] Start: 06-27-2024 [facility] Start: 06-13-2024 End: 06-13-2024 Patient encounter procedure 06/13/2024 2:00 PM EST Office Visit [facility] [place] [address], [place] [id number] Andrew Llanes MD [address], [place] [id number] est care [facility] [place] Comment on above: est care Start: 05-24-2024 Patient referral [facility] Work Phone: Start: 01-10-2024 Covid-19 Vaccine ( season) Covid-19 Vaccine ( season) [facility] Start: 01-10-2024 Influenza vaccination [facility] Start: 10-01-2023 CHLAMYDIA SCREENING () CHLAMYDIA SCREENING (-) [facility] Start: 10-01-2023 GC (GONORRHEA) SCREE HOLLY (18) GC (GONORRHEA) SCREENING () [facility] Start: 10-01-2023 Screening for Chlamy kenzie trachomatis Chlamydia Screening () [facility] Start: 2023 Screening for malign ant neoplasm of cervix [facility] Start: 05-22-2023 Liquid based cervica l cytology screening [facility] Start: 02-17-2023 [facility] Start: 01-14-2023 Adult depression screening assessment DEPRESSION SCREENING [facility] Start: 01-09-2023 Covid-19 Vaccine ( season) Covid-19 Vaccine ( season) [facility] Start: 01-09-2023 Influenza vaccination [facility] Start: 10-03-2022 Adult depression screening assessment DEPRESSION SCREENING [facility] Start: 06-12-2022 CHLAMYDIA SCREENING (18) CHLAMYDIA SCREENING () [facility] Start: 06-12-2022 GC (GONORRHEA) SCREE HOLLY (1824) GC (GONORRHEA) SCREENING (18) [facility] Start: 04-16-2022 COVID-19 VACCINE (2 - Moderna series) COVID-19 VACCINE (2 - Moderna series) [facility] Start: 03-19-2022 COVID-19 VACCINE (2 - Moderna series) COVID-19 VACCINE (2 - Moderna series) [facility] Start: 01-09-2022 Influenza vaccination C [facility] Start: 08-29-2021 End: 10-29-2021 Bacteria identified in Urine by Culture [facility] Work Phone: Comment on above: Expected: 08/29/2021 , Expires: 10/29/2021 Start: 08-29-2021 End: 08-29-2022 VITAMIN D 25 HYDROXY [facility] Work Phone: Comment on above: Expected: 08/29/2021 , Expires: 08/29/2022 Start: 04-16-2021 Adult depression screening assessment DEPRESSION SCREENING [facility] Start: 2020 HEPATITIS C SCREENING HEPATITIS C [facility] Start: 2020 Hepatitis C screening Hepatitis C [facility] Start: 2020 HIV SCREENING HIV SCREENING [facility] Start: 2020 HIV screening HIV Screening [facility] Start: 2018 Meningococcal B Vacc ine (1 of 2 - Standard) Meningococcal B Vaccine (1 of 2 - Standard) [facility] Start: 2018 Meningococcal B Vacc ine: Consider Based On Risk (1 of 2 - Patient Seeks Protection) Meningococcal B Vaccine: Consider Based On Risk (1 of 2 - Patient Seeks Protection) [facility] Start: 2018 MENINGOCOCCAL B: Consider based on risk (1 of 2 - Patient Seeks Protection) MENINGOCOCCAL B: Consider based on risk (1 of 2 - Patient Seeks Protection) [facility] Start: 2016 PEDS TO ADULT TRANSI TION ANNUAL ASSESSMENT PEDS TO ADULT TRANSITION ANNUAL ASSESSMENT [facility] Start: 2014 PEDS TO ADULT TRANSI TION INITIAL DISCUSSION PEDS TO ADULT TRANSITION INITIAL DISCUSSION [facility] Start: 2012 MENINGOCOCCAL B: Consider based on risk (1 of 2 - Risk Bexsero 2-dose series) MENINGOCOCCAL B: Consider based on risk (1 of 2 - Risk Bexsero 2-dose series) [facility] Start: 2007 COVID-19 VACCINE (#1) COVID-19 VACCI NE (#1) [facility] Start: 2007 COVID-19 VACCINE (1) COVID-19 VACCIN E (1) [facility] Start: 2002 COVID-19 VACCINE (#1) COVID-19 VACCI NE (#1) [facility] CBC W Auto Different ial panel - Blood [facility] COVID & INFLUENZA A/ B & RSV NAAT, ROUTINE COVID & INFLUENZA A/B & RSV NAAT, ROUTINE Microbiology Routine URI, acute 07/12/2023 12:57 PM EST [facility] Work Phone: Hepatitis B surface antigen measurement [facility] Hepatitis C antibody measurement [facility] HIV 1+2 Ab+HIV1 p24 Ag [Presence] in Serum or Plasma by Immunoassay [facility] Influenza virus A an d B RNA and SARS-CoV-2 (COVID-19) N gene panel - Respiratory specimen by MEME with probe detection COVID WITH FLUA+B, ROUTINE Microbiology Routine Throat pain URI, acute Ordered: 07/24/2022 [facility] Work Phone: Comment on above: Ordered: 07/24/2022 Path report.final Dx Spec [facility] Patient Education [facility] Work Phone: Patient referral [facility] Work Phone: PELVIC US WHI PELVIC US WHI An c Imaging Routine Abdominal cramping Menorrhagia with regular cycle Displacement of intrauterine contraceptive device, initial encounter Ordered: 11/05/2021 [facility] Work Phone: Comment on above: Ordered: 11/05/[address] [facility] Treponema sp Ab [Presence] in Serum [facility] UA DIP B/O UA DIP B/O Lab R outine Malaise and fatigue Ordered: 08/29/2021 [facility] Work Phone: Comment on above: Ordered: 08/29/2021 Urine culture [facility] End: 02-05-2023 XR FOOT GENERAL 3V AP/LAT/OBL BILATERAL XR FOOT GENERAL 3V AP/LAT/OBL BILATERAL Radiology Routine Bilateral foot pain 1 Occurrences starting 01/06/2022 until 02/05/2023 [facility] Work Phone: Comment on above: 1 Occurrences starti ng 01/06/2022 until 02/05/2023 [facility] Immunizations Immunization Date Immunization Notes Care Provider Sara [email or web address] 02-19-2022 SARS-CoV-2 (COVID-19 ) [id number] vaccine SUMEET CHAVEZ WATCH DIAL PRINTER-PROC TECH [facility] 01-19-2020 influenza virus vacc ine, unspecified formulation SUMEET CHAVEZ WATCH DIAL PRINTER-PROC TECH [facility] 01-19-2020 influenza, live, intranasal, quadrivalent Amelia Benites MD Work Phone: [facility] Work Phone: 12-26-2019 tuberculin skin test ; purified protein derivative solution, intradermal Gabino Ha WATCH DIAL PRINTER.PROC TECH Work Phone: [facility] 02-11-2019 influenza virus vacc ine, unspecified formulation SUMEET CHAVEZ WATCH DIAL PRINTER-PROC TECH [facility] 02-11-2019 influenza, injectabl e, quadrivalent, preservative free Amelia Benites MD Work Phone: [facility] 08-16-2018 meningococcal polysaccharide (groups A, C, Y and W-135) diphtheria toxoid conjugate vaccine (MCV4P) Amelia Benites MD Work Phone: [facility] 06-19-2017 influenza virus vacc ine, unspecified formulation SUMEET CHAVEZ WATCH DIAL PRINTER-PROC TECH [facility] 06-19-2017 influenza, injectabl e, quadrivalent, contains preservative Amelia Benites MD Work Phone: [facility] Work Phone: 04-25-2016 influenza, injectabl e, quadrivalent, preservative free Amelia Benites MD Work Phone: [facility] Work Phone: 08-14-2015 Human Papillomavirus 9-valent vaccine Amelia Benites MD Work Phone: [facility] 08-14-2015 Human Papillomavirus Quadval SUMEET CHAVEZ WATCH DIAL PRINTER-PROC TECH [facility] 04-10-2015 human papilloma viru s vaccine, quadrivalent Amelia Benites MD Work Phone: [facility] Work Phone: 04-10-2015 Human Papillomavirus Quadval SUMEET CHAVEZ WATCH DIAL PRINTER-PROC TECH [facility] 04-10-2015 influenza virus vacc ine, unspecified formulation SUMEET CHAVEZ WATCH DIAL PRINTER-PROC TECH [facility] 04-10-2015 influenza, injectabl e, quadrivalent, preservative free Amelia Benites MD Work Phone: [facility] Work Phone: 08-11-2014 human papilloma viru s vaccine, quadrivalent Amelia Benites MD Work Phone: [facility] 08-11-2014 Human Papillomavirus Quadval SUMEET CHAVEZ WATCH DIAL PRINTER-PROC TECH [facility] 08-11-2014 meningococcal oligosaccharide (groups A, C, Y and W-135) diphtheria toxoid conjugate vaccine (MCV4O) Amelia Benites MD Work Phone: [facility] 08-11-2014 meningococcal polysaccharide (groups A, C, Y and W-135) diphtheria toxoid conjugate vaccine (MCV4P) SUMEET CHAVEZ WATCH DIAL PRINTER-PROC TECH [facility] 08-11-2014 tetanus toxoid, redu wade diphtheria toxoid, and acellular pertussis vaccine, adsorbed Amelia Benites MD Work Phone: [facility] 03-26-2013 influenza virus vacc ine, unspecified formulation Amelia Benites MD Work Phone: [facility] Work Phone: 05-21-2012 influenza virus vacc ine, unspecified formulation Amelia Benites MD Work Phone: [facility] 04-18-2011 influenza virus vacc ine, live, attenuated, for intranasal use Amelia Benites MD Work Phone: [facility] 03-02-2009 influenza virus vacc ine, unspecified formulation Amelia Benites MD Work Phone: [facility] Work Phone: 06-14-2008 hepatitis A vaccine, unspecified formulation Amelia Benites MD Work Phone: [facility] Work Phone: 06-14-2008 influenza virus vacc ine, unspecified formulation Amelia Benites MD Work Phone: [facility] Work Phone: 06-14-2008 varicella virus vaccine Amelia Benites MD Work Phone: [facility] Work Phone: 06-04-2007 diphtheria, tetanus toxoids and acellular pertussis vaccine Amelia Benites MD Work Phone: [facility] Work Phone: 06-04-2007 hepatitis A vaccine, unspecified formulation Amelia Benites MD Work Phone: [facility] Work Phone: 06-04-2007 poliovirus vaccine, inactivated Amelia Benites MD Work Phone: [facility] Work Phone: 06-08-2006 measles, mumps and rubella virus vaccine Amelia Benites MD Work Phone: [facility] Work Phone: 06-08-2006 measles, mumps, rube lla, and varicella virus vaccine Amelia Benites MD Work Phone: [facility] Work Phone: 06-18-2004 pneumococcal conjuga te vaccine, 7 valent Amelia Benites MD Work Phone: [facility] Work Phone: 09-07-2003 diphtheria, tetanus toxoids and acellular pertussis vaccine Amelia Benites MD Work Phone: [facility] Work Phone: 09-07-2003 haemophilus influenz ae type b vaccine, HbOC conjugate Amelia Benites MD Work Phone: [facility] Work Phone: 06-21-2003 measles, mumps and rubella virus vaccine Amelia Benites MD Work Phone: [facility] Work Phone: 06-21-2003 measles/mumps/rubell a virus vaccine SUMEET CHAVEZ WATCH DIAL PRINTER-PROC TECH [facility] 03-10-2003 hepatitis B pediatri c vaccine SUMEET CHAVEZ WATCH DIAL PRINTER-PROC TECH [facility] 03-10-2003 hepatitis B vaccine, pediatric or pediatric/adolescent dosage Amelia Benites MD Work Phone: [facility] Work Phone: 2002 diphtheria, tetanus toxoids and acellular pertussis vaccine Amelia Benites MD Work Phone: [facility] Work Phone: 2002 haemophilus influenz ae type b vaccine, HbOC conjugate Amelia Benites MD Work Phone: [facility] Work Phone: 2002 pneumococcal conjuga te vaccine, 7 valent Amelia Benites MD Work Phone: [facility] Work Phone: 2002 poliovirus vaccine, inactivated Amelia Benites MD Work Phone: [facility] Work Phone: 2002 diphtheria, tetanus toxoids and acellular pertussis vaccine Amelia Benites MD Work Phone: [facility] Work Phone: 2002 haemophilus influenz ae type b vaccine, HbOC conjugate Amelia Benites MD Work Phone: [facility] Work Phone: 2002 pneumococcal conjuga te vaccine, 7 valent Amelia Benites MD Work Phone: [facility] Work Phone: 2002 poliovirus vaccine, inactivated Amelia Benites MD Work Phone: [facility] Work Phone: 2002 diphtheria, tetanus toxoids and acellular pertussis vaccine Amelia Benites MD Work Phone: [facility] Work Phone: 2002 haemophilus influenz ae type b vaccine, HbOC conjugate Amelia Benites MD Work Phone: [facility] Work Phone: 2002 pneumococcal conjuga te vaccine, 7 valent Amelia Benites MD Work Phone: [facility] Work Phone: 2002 poliovirus vaccine, inactivated Amelia Benites MD Work Phone: [facility] Work Phone: 2002 hepatitis B pediatri c vaccine SUMEET CHAVEZ WATCH DIAL PRINTER-PROC TECH [facility] 2002 hepatitis B vaccine, pediatric or pediatric/adolescent dosage Amelia Benites MD Work Phone: [facility] Work Phone: 2002 hepatitis B vaccine, pediatric or pediatric/adolescent dosage Amelia Benites MD Work Phone: [facility] Work Phone: Payers Date Payer Category Payer Self-pay [id number] 2020 Unknown [id number] 2019 Medicaid [employer] [id number] 2019-Present [phone] [address] [place] [address] Medicaid [id number] 2019 Medicaid [id number] 2002 Unknown [id number] [id number] 2002 Unknown [id number] 2.16.840.1.880221.3.579.2.627 2002 Unknown [id number] 2.16.840.1.107077.3.579.2.627 2002 Unknown [id number] 2.16.840.1.920007.3.579.2.627 2002 Unknown [id number] 2.16.840.1.905979.3.579.2.627 2002 Unknown [id number] 2.840.1.381033.3.579.2.627 2002 Unknown [id number] 2.840.1.327245.3.579.2.479 Unknown [facility] [id number] Unknown [facility] *DO NOT USE* [id number] Unknown [facility] [id number] Unknown [id number] Unknown [id number] 2.0.1.261058.3.579.2.462 Unknown [id number] 2.840.1.027409.3.579.2.462 Unknown [id number] 2.840.1.509708.3.579.2.462 Unknown [id number] 2.840.1.283965.3.579.2.462 Unknown [id number] 2.840.1.720616.3.579.2.462 Unknown [id number] .840.1.401597.3.579.2.462 Unknown [id number] 2.840.1.158209.3.579.2.462 Unknown [id number] 2.840.1.860949.3.579.2.462 Unknown [id number] 2.840.1.403136.3.579.2.462 Unknown [id number] 2.840.1.148858.3.579.2.462 Unknown [id number] 2.840.1.145061.3.579.2.462 Unknown [id number] 2.16.840.1.141520.3.579.2.462 Unknown [id number] 2.16.840.1.193972.3.579.2.462 Unknown [id number] 2.16.840.1.776615.3.579.2.462 Unknown [id number] 2.16.840.1.795637.3.579.2.462 Unknown [id number] 2.16.840.1.361110.3.579.2.462 Unknown [id number] 2.16.840.1.966650.3.579.2.462 Unknown [id number] 2.16.840.1.233421.3.579.2.462 Unknown [id number] 2.16.840.1.875112.3.579.2.462 Unknown [id number] 2.16.840.1.667795.3.579.2.462 Unknown [id number] 2.16.840.1.990392.3.579.2.462 Unknown [id number] 2.16.840.1.568445.3.579.2.462 Unknown [id number] 2.16.840.1.080049.3.579.2.462 Unknown [id number] 2.16.840.1.558470.3.579.2.462 Unknown [id number] 2.16.840.1.249064.3.579.2.462 Unknown [id number] 2.16840.1.183389.3.579.2.462 Social History Date Type Detail Facility Start: 12-27-2021 End: 02-19-2023 Tobacco smoking status NHIS Never smoked tobacco [facility] Start: 08-29-2021 End: 09-21-2024 Alcohol intake Current non-drinker of alcohol (finding) [facility] Start: 04-23-2011 End: 12-27-2021 Tobacco Comment mother outdoors [facility] Start: 2002 Sex Assigned At Not on file [facility] Start: 08-19-2021 End: 02-14-2022 Exposure to SARS-CoV-2 (event) Not sure [facility] Start: 10-04-2021 History SDOH Alcohol Frequency 1 [facility] Start: 10-04-2021 History SDOH Alcohol Std Drinks 98 [facility] Start: 10-04-2021 History SDOH Social Connections Phone 5 [facility] Start: 10-04-2021 End: 02-13-2022 History SDOH Social Connections Membership 2 [facility] Start: 10-04-2021 History SDOH Social Connections Living 7 [facility] Start: 10-04-2021 History SDOH Physical Activity MPS 15 [facility] History of tobacco use Passive smoker [facility] Start: 12-27-2021 End: 02-19-2023 Tobacco use and exposure Smokeless tobacco non-user [facility] Start: 2002 Sex Assigned At Female [facility] Start: 10-03-2021 End: 09-30-2022 History of Social function [facility] Start: 10-03-2021 End: 09-30-2022 Social connection and isolation panel [facility] Do you belong to any clubs or organizations such as taoist groups, unions, fraternal or athletic groups, or school groups? No [facility] How often do you att end meetings of the clubs or organizations you belong to? Patient refused [facility] [facility] Are you now , , , , never or living with a partner? Never [facility] How often to you hav e a drink containing alcohol? Never [facility] Do you feel stress - tense, restless, nervous, or anxious, or unable to sleep at night because your mind is troubled all the time - these days [OSQ] Very much [facility] (I/We) worried wheth er (my/our) food would run out before (I/we) got money to buy more. Never true [facility] Start: 02-05-2023 End: 07-14-2023 Tobacco smoking status NHIS Unknown if ever smoked [facility] Start: 07-12-2020 Spouse/ Significant Other [facility] Start: 02-19-2023 Tobacco Comment Vape only [facility] Start: 06-30-2024 End: 10-09-2024 Tobacco smoking status NHIS Smokes tobacco daily (finding) [facility] Functional Status Date Assessment Result Facility 05-06-2023 Functional Status Assistive Device None A [facility] 02-22-2023 Functional Status Independent [facility] 02-22-2023 Functional Status ID band on [facility] 12-06-2022 Functional Status Activity Yasmineglen haile Independent [facility] 12-06-2022 Functional Status Standard Safet y ID band on, Call device within reach, Bed in low position, Wheels locked, Upper/Half-Length side-rails up, Phone within reach, personal items within reach, Bedside Cart Locked, Visitor at bedside [facility] 07-27-2022 Functional Status Independent [facility] 07-27-2022 Functional Status Standard Safet y ID band on, Call device within reach, Bed in low position, Wheels locked [facility] 02-28-2022 Functional Status ID band on, Call device within reach, Bed in low position, Wheels locked, Visitor at bedside [facility] 09-04-2014 Are you deaf, or do you have serious difficulty hearing No 09/04/2014 3:07 PM EDT Muna Vo Cma No [facility] 09-04-2014 Are you blind, or do you have serious difficulty seeing, even when wearing glasses No 09/04/2014 3:07 PM EDT Muna Vo Cma No [facility] 09-04-2014 Do you have serious difficulty walking or climbing stairs No 09/04/2014 3:07 PM EDT Muna Vo Cma No [facility] 09-04-2014 Do you have difficul ty dressing or bathing No 09/04/2014 3:07 PM EDT Muna Vo Cma No [facility] Mental Status Date Assessment Result Facility 10-09-2024 Cognitive function Level Of Cons ciousness Awake;Alert;Appropriate;Fol lows Commands [facility] Work Phone: 05-06-2023 Mental Status Orientation Oriented x 4 [facility] 02-22-2023 Mental Status Orientation Oriented x 4 [facility] 02-22-2023 Mental Status [facility]2022 Mental Status Orientation Oriented x 4 [facility] 12-06-2022 Mental Status [facility] 07-27-2022 Mental Status Orientation Oriented x 4 [facility] 02-28-2022 Mental Status Orientation Oriented x 4 [facility] 09-04-2014 Because of a physica l, mental, or emotional condition, do you have serious difficulty concentrating, remembering, or making decisions No 09/04/2014 3:07 PM EDT Muna Vo Cma No [facility] Clinical Notes 06-23-2016 to 09-21-2024 Kelly Mims RT(R) - 09/21/2024 7:20 PM EDTSBrenda harris APRN.PROC TECH - 09/21/2024 7:09 PM EDT Note Date & Type Note Facility 09-21-2024 History of Present illness Narrative Radiology Service Progress Note PATIENT NAME: Xin Lima DATE OF SERVICE: September 21, 2024 TIME: 7:11 PM PATIENT IDENTITY VERIFICATION COMPLETED USING TWO (2) IDENTIFIERS: Name and Date of confirmed by patient verbally. FALL SCREENING: Has the patient had 2 falls in the last year or 1 fall with injury or currently using an Ambulatory Assistive Device (Walker, Cane, Wheelchair, Crutches, etc.)? No PATIENT GENDER DATA: Assigned female at . status: : No status: NO. PATIENT RELEVANT IMPLANT DATA REVIEWED: Yes PATIENT PRESENTS WITH AN IMPLANTABLE OR ATTACHED LIBRARIAN HEAD: No RADIOLOGY DEPARTMENT: General X-ray: Exam(s) Completed: Upper Extremity X-Ray(s): Wrist, right PERIPHERAL IV DATA: Not applicable SIGNED BY: RT Christine(R) September 21, 2024 7:11 PM documented in this encounter [facility] 09-21-2024 Note HNO ID: [id number] Author: KELLY MIMS RT(Soo) Service: ? Author Type: Technologist Type: Progress Notes Filed: 09/21/2024 19:25 Note Text: Radiology Service Progress Note PATIENT NAME: Xin Lima DATE OF SERVICE: September 21, 2024 TIME: 7:11 PM PATIENT IDENTITY VERIFICATION COMPLETED USING TWO (2) IDENTIFIERS: Name and Date of confirmed by patient verbally. FALL SCREENING: Has the patient had 2 falls in the last year or 1 fall with injury or currently using an Ambulatory Assistive Device (Walker, Cane, Wheelchair, Crutches, etc.)? No PATIENT GENDER DATA: Assigned female at . status: : No status: NO. PATIENT RELEVANT IMPLANT DATA REVIEWED: Yes PATIENT PRESENTS WITH AN IMPLANTABLE OR ATTACHED LIBRARIAN HEAD: No RADIOLOGY DEPARTMENT: General X-ray: Exam(s) Completed: Upper Extremity X-Ray(s): Wrist, right PERIPHERAL IV DATA: Not applicable SIGNED BY: RT Christine(R) September 21, 2024 7:11 PM [facility] 09-21-2024 Note HNO ID: [id number] Author: BRENDA MORRELL APRN.PROC TECH Service: ? Author Type: Nurse Practitioner Type: Progress Notes Filed: 09/21/2024 19:40 Note Text: [facility] Subjective Xin Lima is a 24 year old female. Patient presents with: right wrist pain: X 1 hour-smacked it on a door HPI Patient is a 24 year old female with no major medical history that presents with a right wrist injury about an hour ago. She is most concerned that it is broken as she said it did start to swell. She believes it was a hyper flexion, pronating the wrist, denies any numbness or tingling in her hand. No pain in elbow or shoulder. Review of Systems Constitutional: Negative for fatigue and fever. Musculoskeletal: Positive for joint swelling. Negative for back pain, myalgias, neck pain and neck stiffness. Skin: Negative for wound. Objective BP 122/78 Pulse 70 Temp 36.2 ?C (97.2 ?F) (Tympanic) Resp 18 Wt 85.3 kg (188 lb 0.8 oz) LMP 03/23/2023 SpO2 100% BMI 34.40 kg/m? Physical Exam Vitals and nursing note reviewed. Constitutional: General: She is not in acute distress. Appearance: Normal appearance. She is normal weight. She is not toxic-appearing. HENT: Head: Normocephalic and atraumatic. Cardiovascular: Rate and Rhythm: Normal rate and regular rhythm. Pulses: Normal pulses. Heart sounds: Normal heart sounds. Pulmonary: Effort: Pulmonary effort is normal. Breath sounds: Normal breath sounds. Musculoskeletal: Right elbow: Normal. No swelling, deformity, effusion or lacerations. Normal range of motion. Right forearm: Normal. No swelling, edema, deformity, lacerations or tenderness. Right wrist: Tenderness present. No swelling, deformity, effusion, lacerations, bony tenderness, snuff box tenderness or crepitus. Normal range of motion. Normal pulse. Left wrist: Normal. Cervical back: Normal range of motion. Lymphadenopathy: Cervical: No cervical adenopathy. Neurological: Mental Status: She is alert. {ASSESSMENT/PLAN: 1. Right wrist pain - ICD9: 719.43, ICD10: M25.531 (primary diagnosis) - XR WRIST GENERAL 3V PA/LAT/OBL RIGHT 2. Contusion of right wrist, initial encounter - ICD9: 923.21, ICD10: S60.211A Tylenol and Ibuprofen Rest, ice and compression Follow up with PCP if symptoms persist Xray negative in clinic Brenda Morrell APRN.PROC TECH History and Record Review External record(s) reviewed: prior outpatient record. Findings from review of outpatient records: Previous medical history Differential Diagnoses - Right wrist contusion - Acute cellulitis - No neurovascular deficits Disposition The patient was discharged. OTC Medications were advised: Tylenol and ibuprofen patient is well-appearing nontoxic in no acute distress 24-year-old female presents with a right wrist injury. No snuffbox tenderness, or crepitus normal pulse no concerns for acute neurovascular deficits. No erythema or warmth or concerns of acute cellulitis or osteomyelitis. X-ray is pending, wet read no concerns for acute fracture. Rest, ice, elevation, and NSAIDs. Follow up with primary care providers. Return with any new or or worsening symptoms. Patient verbalized understanding and in agreement with plan. Patient discharged home. [facility] 09-21-2024 History of Present illness Narrative [facility] Subjective Xin Lima is a 24 year old female. Patient presents with: right wrist pain: X 1 hour-smacked it on a door HPI Patient is a 24 year old female with no major medical history that presents with a right wrist injury about an hour ago. She is most concerned that it is broken as she said it did start to swell. She believes it was a hyper flexion, pronating the wrist, denies any numbness or tingling in her hand. No pain in elbow or shoulder. Review of Systems Constitutional: Negative for fatigue and fever. Musculoskeletal: Positive for joint swelling. Negative for back pain, myalgias, neck pain and neck stiffness. Skin: Negative for wound. Objective BP 122/78 Pulse 70 Temp 36.2 C (97.2 F) (Tympanic) Resp 18 Wt 85.3 kg (188 lb 0.8 oz) LMP 03/23/2023 SpO2 100% BMI 34.40 kg/m Physical Exam Vitals and nursing note reviewed. Constitutional: General: She is not in acute distress. Appearance: Normal appearance. She is normal weight. She is not toxic-appearing. HENT: Head: Normocephalic and atraumatic. Cardiovascular: Rate and Rhythm: Normal rate and regular rhythm. Pulses: Normal pulses. Heart sounds: Normal heart sounds. Pulmonary: Effort: Pulmonary effort is normal. Breath sounds: Normal breath sounds. Musculoskeletal: Right elbow: Normal. No swelling, deformity, effusion or lacerations. Normal range of motion. Right forearm: Normal. No swelling, edema, deformity, lacerations or tenderness. Right wrist: Tenderness present. No swelling, deformity, effusion, lacerations, bony tenderness, snuff box tenderness or crepitus. Normal range of motion. Normal pulse. Left wrist: Normal. Cervical back: Normal range of motion. Lymphadenopathy: Cervical: No cervical adenopathy. Neurological: Mental Status: She is alert. {ASSESSMENT/PLAN: 1. Right wrist pain - ICD9: 719.43, ICD10: M25.531 (primary diagnosis) - XR WRIST GENERAL 3V PA/LAT/OBL RIGHT 2. Contusion of right wrist, initial encounter - ICD9: 923.21, ICD10: S60.211A Tylenol and Ibuprofen Rest, ice and compression Follow up with PCP if symptoms persist Xray negative in clinic Brenda Morrell APRN.KYRA History and Record Review External record(s) reviewed: prior outpatient record. Findings from review of outpatient records: Previous medical history Differential Diagnoses - Right wrist contusion - Acute cellulitis - No neurovascular deficits Disposition The patient was discharged. OTC Medications were advised: Tylenol and ibuprofen patient is well-appearing nontoxic in no acute distress 24-year-old female presents with a right wrist injury. No snuffbox tenderness, or crepitus normal pulse no concerns for acute neurovascular deficits. No erythema or warmth or concerns of acute cellulitis or osteomyelitis. X-ray is pending, wet read no concerns for acute fracture. Rest, ice, elevation, and NSAIDs. Follow up with primary care providers. Return with any new or or worsening symptoms. Patient verbalized understanding and in agreement with plan. Patient discharged home. documented in this encounter [facility] 05-24-2024 Evaluation note Diagnosis Onset Date Resolution Thoracic scoliosis acute r y 2024 10:45am [facility] Work Phone: [phone] History of Present illness Narrative* Moon Eisenberg, RT(R) - 04/12/2024 3:10 PM EST Radiology Service Progress Note PATIENT NAME: Xin Lima DATE OF SERVICE: April 12, 2024 TIME: 3:45 PM PATIENT IDENTITY VERIFICATION COMPLETED USING TWO (2) IDENTIFIERS: Name and Date of confirmedby patient verbally. FALL SCREENING: Has the patient had 2 falls in the last year or 1 fall with injury or currently using an Ambulatory Assistive Device (Walker, Cane, Wheelchair, Crutches, etc.)? No PATIENT GENDER DATA: Female. status: : No status: NO. PATIENT RELEVANT IMPLANT DATA REVIEWED: Not Applicable PATIENT PRESENTS WITH AN IMPLANTABLE OR ATTACHED LIBRARIAN HEAD: No RADIOLOGY DEPARTMENT: General X-ray: Exam(s) Completed: Spine X-Ray(s): Scoliosis Series , PA/LAT PERIPHERAL IV DATA: Not applicable SIGNED BY: RT Brenden(R) April 12, 2024 3:45 PM [facility] NoteHNO ID: [id number] Author: MOON EISENBERG RT(R) Service: ? Author Type: Technologist Type: Progress Notes Filed: 04/12/2024 15:45 Note Text: Radiology Service Progress Note PATIENT NAME: Xin Lima DATE OF SERVICE: April 12, 2024 TIME: 3:45 PM PATIENT IDENTITY VERIFICATION COMPLETED USING TWO (2) IDENTIFIERS: Name and Date of confirmed by patient verbally. FALL SCREENING: Has the patient had 2 falls in the last year or 1 fall with injury or currently using an Ambulatory Assistive Device (Walker, Cane, Wheelchair, Crutches, etc.)? No PATIENT GENDER DATA: Female. status: : No status: NO. PATIENT RELEVANT IMPLANT DATA REVIEWED: Not Applicable PATIENT PRESENTS WITH AN IMPLANTABLE OR ATTACHED LIBRARIAN HEAD: No RADIOLOGY DEPARTMENT: General X-ray: Exam(s) Completed: Spine X-Ray(s): Scoliosis Series , PA/LAT PERIPHERAL IV DATA: Not applicable SIGNED BY: RT Brenden(R) April 12, 2024 3:45 [facility]11-03-2024 NoteHNO ID: [id number] Author: GABINO HA APRN.PROC TECH Service: ? Author Type: Nurse Practitioner Type: Progress Notes Filed: 03/13/2024 14:55 Note Text: Subjective HPI Nontoxic-appearing female presents urgent care chief complaint neck pain. Patient states 1 hour ago she turned and felt a pulling sensation in her neck. Presents today for evaluation. OTC medications used none. No trauma. No numbness or tingling. No headaches. No LOC. Denies chance of . Is not breast-feeding. Past medical history prescription medications allergies reviewed. BP 122/80 Pulse 86 Temp 36 ?C (96.8 ?F) Resp 16 Wt 71.5 kg (157 lb 10.1 oz) LMP 03/23/2023 SpO2 97% BMI 28.83 kg/m? .Patient presents with: Neck Pain: x 1 hour, denies injury PAST MEDICAL HISTORY Diagnosis Date Achilles tendonitis, bilateral 01/23/2016 Nonorganic enuresis Pyelonephritis during 11/05/2021 Sprain of ankle 06/23/2016 PAST SURGICAL HISTORY Procedure Laterality Date NONE ALLERGIES Patient has no known allergies. MEDICATIONS REXULTI 0.5 mg tablet Take 1 tablet by mouth every afternoon. propranolol (INDERAL) 10 mg tablet Take 10 mg by mouth two times a day as needed. sertraline (ZOLOFT) 50 mg tablet Take 1.5 tablets by mouth once daily. mv, min #36-iron,carbonyl-FA (GERITOL COMPLETE) 16 mg iron- 0.38 mg tab Take 1 tablet by mouth once daily. nitrofurantoin monohydrate and macrocrystal (MACROBID) 100 mg capsule (Patient not taking: Reported on 03/13/2024) ARIPiprazole (ABILIFY) 5 mg tablet Take 1 tablet by mouth once daily. (Patient not taking: Reported on 03/13/2024) FAMILY HISTORY Problem Relation Age of Onset [...] Tobacco comments: Vape only Vaping Use Vaping status: Never Used Substance Use Topics Alcohol use: No Drug use: No Review of Systems Constitutional: Negative for chills, fever and malaise/fatigue. Musculoskeletal: Positive for neck pain. Negative for back pain, falls, joint pain and myalgias. Neurological: Negative for dizziness, loss of consciousness, weakness and headaches. Objective Physical Exam Constitutional: General: She is not in acute distress. Appearance: She is not toxic-appearing. HENT: Head: Normocephalic. Nose: Nose normal. Eyes: Pupils: Pupils are equal, round, and reactive to light. Neck: Comments: Pain with palpation highlighted area. No spinal tenderness. Normal range of motion however this is limited due to discomfort. No erythema edema. No rashes. Cardiovascular: Rate and Rhythm: Normal rate. Pulmonary: Effort: Pulmonary effort is normal. No respiratory distress. Musculoskeletal: Cervical back: Normal range of motion. Skin: General: Skin is warm and dry. Neurological: General: No focal deficit present. Mental Status: She is alert. ASSESSMENT/PLAN: 1. Neck pain - ICD9: 723.1, ICD10: M54.2 Diagnosed with neck pain. No trauma. No injury. No fevers. No illness. Has not tried any OTC medications at this point. Discussed ice/and/or heat. Will try NSAIDs. Follow-up with PCP if symptoms do not improve. Red flags ER evaluation discussed. Patient was educated on supportive therapies. Patient will follow up with primary care provider as needed. Patient was instructed to immediately proceed to emergency room for any new, worsening, or symptoms lasting longer than anticipated. The patient's clinical presentation is otherwise unremarkable at this time. Based on exam and clinical finding, the patient is stable for discharge. Plan of care was discussed with patient. Patient verbalizes understanding and agrees to plan of care. This note was generated using Fengxiafei software. It may contain errors in wording, punctuation, or spelling. Gabino Ha APRN.[facility]11-03-2024 History of Present illness Narrative* Gabino Ha APRN.[facility] - 03/13/2024 2:45 PM EST Images from the original note were not included. Subjective HPI Nontoxic-appearing female presents urgent care chief complaint neck pain. Patient states 1 hour agoshe turned and felt a pulling sensation in her neck. Presents today for evaluation. OTC medicationsused none. No trauma. No numbness or tingling. No headaches. No LOC. Denies chance of . Isnot breast- feeding. Past medical history prescription medications allergies reviewed. BP 122/80 Pulse 86 Temp 36 C (96.8 F) Resp 16 Wt 71.5 kg (157 lb 10.1 oz) LMP 03/23/2023 SpO2 97% BMI 28.83 kg/m .Patient presents with: Neck Pain: x 1 hour, denies injury PAST MEDICAL HISTORY Diagnosis Date Achilles tendonitis, bilateral 01/23/2016 Nonorganic enuresis Pyelonephritis during 11/05/2021 Sprain of ankle 06/23/2016 PAST SURGICAL HISTORY Procedure Laterality Date NONE ALLERGIES Patient has no known allergies. MEDICATIONS REXULTI 0.5 mg tablet Take 1 tablet by mouth every afternoon. propranolol (INDERAL) 10 mg tablet Take 10 mg by mouth two times a day as needed. sertraline (ZOLOFT) 50 mg tablet Take 1.5 tablets by mouth once daily. mv, min #36-iron,carbonyl-FA (GERITOL COMPLETE) 16 mg iron- 0.38 mg tab Take 1 tablet by mouth oncedaily. nitrofurantoin monohydrate and macrocrystal (MACROBID) 100 mg capsule (Patient not taking: Reportedon 03/13/2024) ARIPiprazole (ABILIFY) 5 mg tablet Take 1 tablet by mouth once daily. (Patient not taking: Reportedon 03/13/2024) FAMILY HISTORY Problem Relation Age of Onset [...] Tobacco comments: Vape only Vaping Use Vaping status: Never Used Substance Use Topics Alcohol use: No Drug use: No Review of Systems Constitutional: Negative for chills, fever and malaise/fatigue. Musculoskeletal: Positive for neck pain. Negative for back pain, falls, joint pain and myalgias. Neurological: Negative for dizziness, loss of consciousness, weakness and headaches. Objective Physical Exam Constitutional: General: She is not in acute distress. Appearance: She is not toxic-appearing. HENT: Head: Normocephalic. Nose: Nose normal. Eyes: Pupils: Pupils are equal, round, and reactive to light. Neck: Comments: Pain with palpation highlighted area. No spinal tenderness. Normal range of motion however this is limited due to discomfort. No erythema edema. No rashes. Cardiovascular: Rate and Rhythm: Normal rate. Pulmonary: Effort: Pulmonary effort is normal. No respiratory distress. Musculoskeletal: Cervical back: Normal range of motion. Skin: General: Skin is warm and dry. Neurological: General: No focal deficit present. Mental Status: She is alert. ASSESSMENT/PLAN: 1. Neck pain - ICD9: 723.1, ICD10: M54.2 Diagnosed with neck pain. No trauma. No injury. No fevers. No illness. Has not tried any OTC medications at this point. Discussed ice/and/or heat. Will try NSAIDs. Follow-up with PCP if symptoms do not improve. Red flags ER evaluation discussed. Patient was educated on supportive therapies. Patient will follow up with primary care provider as needed. Patient was instructed to immediately proceed to emergency room for any new, worsening, or symptoms lasting longer than anticipated. The patient's clinical presentation is otherwise unremarkable at this time. Based on exam and clinical finding, the patient is stable for discharge. Plan of care was discussed with patient. Patient verbalizes understanding and agrees to plan of care. This note was generated using Fengxiafei software. It may contain errors in wording, punctuation, or spelling. Gabino Ha APRN.PROC TECH [facility] NoteHNO ID: [id number] Author: ANA MARÍA VALDES APRN.PROC TECH Service: ? Author Type: Nurse Practitioner Type: Progress Notes Filed: 10/19/2023 18:52 Note Text: This note was created using Xceliantriter. Subjective Xin Correa is a 23 year old female. 23 year old female with PMH anemia, bipolar, and depression presents for illness. Acute onset of symptoms was 4 days ago +sinus pressure +nasal drainage +cough, sometimes dry and sometimes productive +sore throat +body aches +ear pain Has used Sudafed and Benadryl She is , and getting care She attends [facility] Of note she was treated for a UTI yesterday with Macrobid. The history is provided by the patient. No bilingual speech language pathologist was used. Cough This is a new problem. The current episode started more than 2 days ago. The problem occurs constantly. The problem has been gradually worsening. The cough is Non-productive. There has been no fever. Associated symptoms include chills, ear congestion, ear pain, headaches and rhinorrhea. Pertinent negatives include no chest pain, no sweats, no weight loss, no sore throat, no myalgias, no shortness of breath, no wheezing and no eye redness. Treatments tried: Sudafed and Benadryl. The treatment provided no relief. She is a smoker. Her past medical history does not include bronchitis, pneumonia, bronchiectasis, COPD, emphysema or asthma. PAST MEDICAL HISTORY Diagnosis Date Achilles tendonitis, bilateral 01/23/2016 Nonorganic enuresis Pyelonephritis during 11/05/2021 Sprain of ankle 06/23/2016 PAST SURGICAL HISTORY Procedure Laterality Date NONE ALLERGIES Patient has no known allergies. MEDICATIONS nitrofurantoin monohydrate and macrocrystal (MACROBID) 100 mg capsule sertraline (ZOLOFT) 50 mg tablet Take 1.5 tablets by mouth once daily. mv, min #36-iron,carbonyl-FA (GERITOL COMPLETE) 16 mg iron- 0.38 mg tab Take 1 tablet by mouth once daily. amoxicillin-clavulanate potassium (AUGMENTIN) 875-125 mg per tablet Take 1 tablet by mouth two times a day for 7 days. ARIPiprazole (ABILIFY) 5 mg tablet Take 1 [...] Drug use: No Review of Systems Constitutional: Positive for chills and fatigue. Negative for activity change, appetite change and weight loss. HENT: Positive for congestion, ear pain, rhinorrhea, sinus pressure and sinus pain. Negative for sore throat. Eyes: Negative for pain, discharge, redness and itching. Respiratory: Positive for cough. Negative for chest tightness, shortness of breath and wheezing. Cardiovascular: Negative for chest pain. Gastrointestinal: Negative for abdominal pain, diarrhea and vomiting. Musculoskeletal: Negative for arthralgias, back pain and myalgias. Skin: Negative for color change, pallor, rash and wound. Allergic/Immunologic: Negative for environmental allergies, food allergies and immunocompromised state. Neurological: Positive for headaches. Negative for dizziness and facial asymmetry. Hematological: Negative for adenopathy. Does not bruise/bleed easily. Psychiatric/Behavioral: Negative for agitation and behavioral problems. Objective BP 110/78 Pulse 102 Temp 36.3 ?C (97.4 ?F) (Tympanic) Resp 18 Wt 72.7 kg (160 lb 4.4 oz) LMP 03/23/2023 SpO2 98% BMI 29.31 kg/m? Physical Exam Vitals and nursing note reviewed. Constitutional: General: She is not in acute distress. Appearance: Normal appearance. She is normal weight. She is not ill-appearing, toxic-appearing or diaphoretic. HENT: Head: Normocephalic and atraumatic. Comments: +frontal sinus pressure +maxillary sinus pressure Right Ear: Ear canal and external ear normal. Left Ear: Ear canal and external ear normal. Ears: Comments: Left TM erythematous and bulging Nose: Congestion present. No rhinorrhea. Mouth/Throat: Mouth: Mucous membranes are moist. [...] murmur heard. No friction rub. Pulmonary: Effort: Pulmonar (more content not included)...[facility] 10-19-2023 History of Present illness Narrative* Ana María Valdes APRN.[facility] - 10/19/2023 5:30 PM EDT This note was created using NoteWriter. Subjective Xin Correa is a 23 year old female. 23 year old female with PMH anemia, bipolar, and depression presents for illness. Acute onset of symptoms was 4 days ago +sinus pressure +nasal drainage +cough, sometimes dry and sometimes productive +sore throat +body aches +ear pain Has used Sudafed and Benadryl She is , and getting care She attends [facility] Of note she was treated for a UTI yesterday with Macrobid. The history is provided by the patient. No bilingual speech language pathologist was used. Cough This is a new problem. The current episode started more than 2 days ago. The problem occurs constantly. The problem has been gradually worsening. The cough is Non-productive. There has been no fever.Associated symptoms include chills, ear congestion, ear pain, headaches and rhinorrhea. Pertinent negatives include no chest pain, no sweats, no weight loss, no sore throat, no myalgias, no shortnessof breath, no wheezing and no eye redness. Treatments tried: Sudafed and Benadryl. The treatment provided no relief. She is a smoker. Her past medical history does not include bronchitis, pneumonia, bronchiectasis, COPD, emphysema or asthma. PAST MEDICAL HISTORY Diagnosis Date Achilles tendonitis, bilateral 01/23/2016 Nonorganic enuresis Pyelonephritis during 11/05/2021 Sprain of ankle 06/23/2016 PAST SURGICAL HISTORY Procedure Laterality Date NONE ALLERGIES Patient has no known allergies. MEDICATIONS nitrofurantoin monohydrate and macrocrystal (MACROBID) 100 mg capsule sertraline (ZOLOFT) 50 mg tablet Take 1.5 tablets by mouth once daily. mv, min #36-iron,carbonyl-FA (GERITOL COMPLETE) 16 mg iron- 0.38 mg tab Take 1 tablet by mouth oncedaily. amoxicillin-clavulanate potassium (AUGMENTIN) 875-125 mg per tablet Take 1 tablet by mouth two times a day for 7 days. ARIPiprazole (ABILIFY) 5 mg tablet Take 1 [...] Drug use: No Review of Systems Constitutional: Positive for chills and fatigue. Negative for activity change, appetite change and weight loss. HENT: Positive for congestion, ear pain, rhinorrhea, sinus pressure and sinus pain. Negative for sore throat. Eyes: Negative for pain, discharge, redness and itching. Respiratory: Positive for cough. Negative for chest tightness, shortness of breath and wheezing. Cardiovascular: Negative for chest pain. Gastrointestinal: Negative for abdominal pain, diarrhea and vomiting. Musculoskeletal: Negative for arthralgias, back pain and myalgias. Skin: Negative for color change, pallor, rash and wound. Allergic/Immunologic: Negative for environmental allergies, food allergies and immunocompromised state. Neurological: Positive for headaches. Negative for dizziness and facial asymmetry. Hematological: Negative for adenopathy. Does not bruise/bleed easily. Psychiatric/Behavioral: Negative for agitation and behavioral problems. Objective BP 110/78 Pulse 102 Temp 36.3 C (97.4 F) (Tympanic) Resp 18 Wt 72.7 kg (160 lb 4.4 oz) LMP 03/23/2023 SpO2 98% BMI 29.31 kg/m Physical Exam Vitals and nursing note reviewed. Constitutional: General: She is not in acute distress. Appearance: Normal appearance. She is normal weight. She is not ill-appearing, toxic-appearing or diaphoretic. HENT: Head: Normocephalic and atraumatic. Comments: +frontal sinus pressure +maxillary sinus pressure Right Ear: Ear canal and external ear normal. Left Ear: Ear canal and external ear normal. Ears: Comments: Left TM erythematous and bulging Nose: Congestion present. No rhinorrhea. Mouth/Throat: Mouth: Mucous membranes are moist. [...] Left lower leg: No edema. Lymphadenopathy: Cervical: Cervical adenopathy present. Skin: General: Skin is warm and dry. Coloration: Skin is not jaundiced or pale. [...] Judgment normal. Assessment and Plan ASSESSMENT/PLAN: 1. Acute otitis media, left - ICD9: 382.9, ICD10: H66.92 (primary diagnosis) - Will begin treatment with as per antibiotic as written, see orders - The patient should also be given OTC cough and cold meds as needed, warm salt water gargles, throat lozenges and/or OTC throat spray as needed, and nasal saline gtts and suction prn for the first 5-7 days of treatment. - Supportive care with plenty of fluids, rest, and analgesia prn. - Follow up in 3-5 days if symptoms persist or worsen. 2. Rhinosinusitis - ICD9: 473.9, ICD10: J32.9 - The patient should also be given OTC cough and cold meds as needed, warm salt water gargles, throat lozenges and/or OTC throat spray as needed, and nasal saline gtts and suction prn for the first 5-7 days of treatment. - Supportive care with plenty of fluids, rest, and analgesia prn. - Follow up in 3-5 days if symptoms persist or worsen. Ana María Valdes APRN.PROC TECH documented in this encounterC[facility] History of Present illness Narrative* Clotilde John PA - 07/12/2023 12:56 PM EST This note was created using NoteWriter. Subjective Xin Garcia is a 23 year old female. HPI 23-year-old female 15 weeks presents for congestion, nausea, diarrhea x 1 week. Patient states that she has had congestion, mild cough for about a week. She is not coughing up any phlegm. She has not had any fevers. She has a little bit of nausea and diarrhea. She states her symptoms are improving. She is 15 weeks . She is still able to eat and drink. No pelvic pain or abdominal pain. No vaginal bleeding. She has a follow-up with her OB on Thursday. Patient would like testedfor COVID and flu. PAST MEDICAL HISTORY Diagnosis Date Achilles tendonitis, bilateral 01/23/2016 Nonorganic enuresis Pyelonephritis during 11/05/2021 Sprain of ankle 06/23/2016 PAST SURGICAL HISTORY Procedure Laterality Date NONE ALLERGIES Patient has no known allergies. MEDICATIONS sertraline (ZOLOFT) 50 mg tablet Take 1.5 tablets by mouth once daily. mv, min #36-iron,carbonyl-FA (GERITOL COMPLETE) 16 mg iron- 0.38 mg tab Take 1 tablet by mouth oncedaily. ARIPiprazole (ABILIFY) 5 mg tablet Take 1 [...] Constitutional: Negative for chills and fever. HENT: Positive for congestion. Negative for ear pain and sore throat. Respiratory: Positive for cough. Negative for shortness of breath. Cardiovascular: Negative for chest pain. Gastrointestinal: Positive for diarrhea and nausea. Negative for abdominal pain and vomiting. Objective BP 100/62 Pulse 82 Temp 36.8 C (98.2 F) Resp 20 Wt 67 kg (147 lb 9.6 oz) LMP 03/23/2023 SpO2 97% BMI 27.00 kg/m Physical Exam Vitals and nursing note reviewed. Constitutional: General: She is not in acute distress. Appearance: Normal appearance. She is not toxic-appearing. HENT: Right Ear: Tympanic membrane and ear canal normal. Left Ear: Tympanic membrane and ear canal normal. Nose: Nose normal. Mouth/Throat: Mouth: Mucous membranes are moist. Pharynx: No oropharyngeal exudate or posterior oropharyngeal erythema. Eyes: Conjunctiva/sclera: Conjunctivae normal. Cardiovascular: Rate and Rhythm: Normal rate and regular rhythm. Pulmonary: Effort: Pulmonary effort is normal. Breath sounds: Normal breath sounds. Abdominal: General: Abdomen is flat. Palpations: Abdomen is soft. Tenderness: There is no abdominal tenderness. Neurological: Mental Status: She is alert. Assessment and Plan ASSESSMENT/PLAN: 1. URI, acute - ICD9: 465.9, ICD10: J06.9 - Discussed viral etiology and rationale for treatment. - Symptomatic treatment with prn analgesia - Supportive care with fluids and rest -Follow-up with OB as scheduled Thursday. -Out of the window for Tamiflu and symptoms improving. - COVID & INFLUENZA A/B & RSV NAAT, ROUTINE Diagnosis and treatment plan were discussed and questions were answered to the patient's satisfaction. Pt acknowledged understanding of concepts and follow up plan. Specific signs and symptoms that would indicate the need for higher level of care were discussed in detail warranting prompt ER evaluation. ALEKS Zurita documented in this encounterC[facility]01-12-[facility]24 NotePap Smear Specimen AdequacyMay 22, 2023 5:06pmComment.Satisfactory for evaluation. Endocervical and/or squamous metaplasticcells (endocervical component)are present.[facility] INTER[facility]ACED A#[id number]Com[facility] on above: Satisfactory for evaluation. Endocervical and/or squamous metaplasticcells (endocervical component)are present.05-22-2023 NotePap Smear Specimen Adequacy May 22, 2023 5:06pmComment.Satisfactory for evaluation. Endocervical and/or squamous metaplasticcells (endocervical component)are present.[facility] INTER[facility]ACED A#[id number] Valley Hospital on above:Satisfactory for evaluation. Endocervical and/or squamous metaplasticcells (endocervical component)are present.05-10-2023 Note. MICRO - Microbiology PROCEDURE: Urine Culture [*1] [...] Locations *1: This test was performed at: [facility], [address] [place] [address], [id number] , [facility] ([place])05-06-2023 Hospital Discharge instructions Patient Education 05/06/2023 20:08:11 Hyperemesis Gravidarum [...] large meals. This can help keep your stomachfrom being empty. An empty stomach can make [...] B6 and kymberly. Don t try any agua-cfs-uodnaev medicines or homeremedies without talking with your provider first. Follow-up [...] or as directed by your healthcare provider [id number] [employer]. [address] [place] [address], [place] [address]. All rights reserved. This information is not intended as a substitute for professional medical care. Always follow yourhealthcare professional's instructions. Follow Up Care 05/06/2023 19:36:49 With:SUMEET CHAVEZ Address: [address] [place] [id number] [phone] When:2-4 days [facility] 12-27-2023 Note Discharge Instructions Thank you for allowing [facility] to assist you with your healthcare needs. The following is importantdischarge information regarding your hospital visit. Diagnosis from [...] SUMEET CHAVEZ When Within 2-4 days Where: [address] [place] [phone] Allergies NKA Medications Please ask your primary doctor or pharmacist before taking any other medication not listed, including over the counter drugs, herbal medications, vitamins and or supplements as they may interact withyour home medications. What How Much When Instructions [...] may report side effects to FDA at 1-866-GRW-5211. What other drugs will affect cephalexin? Tell your doctor about all your other medicines, especially: metformin; or probenecid. This list is not complete. Other drugs may affect cephalexin, including prescription and wfxu-nnk-gadhjhn medicines, vitamins, and herbal products. Not all [...] to ensure that the information provided by [employer]. ('[employer]') is accurate, up-to-date, and complete, but no guarantee is made to that effect. Drug information contained herein may be time sensitive. [employer] information has been compiled for use by healthcare practitioners and consumers in the [place] and therefore [employer] does not warrant that uses outside of the [place] are appropriate, unless specifically indicated otherwise. [employer] drug information does not endorse drugs, diagnose patients or recommend therapy. LineaQuattro drug information isan informational resource designed to assist licensed healthcare practitioners in caring for their p atients and/or to serve consumers viewing this service as a supplement to, and not a substitute for, the expertise, skill, knowledge and judgment of healthcare practitioners. The absence of a warningfor a given drug or drug combination in no way should be construed to indicate that the drug or drug combination is safe, effective or appropriate for any given patient. [employer] does not assume any responsibility for any aspect of healthcare administered with the aid of information [employer] provides. The information contained herein is not intended to cover all possible uses, directions, precautions, warnings, drug interactions, allergic reactions, or adverse effects. If you have questions about the drugs you are taking, check with your doctor, nurse or pharmacist. Copyright 7751-3917 [employer]. Version: 04.10. Revision Date: 12/10/2022. doxylamine (dox [place] a meen) [employer] What is the most important information [...] itching, watery eyes, and runny nose. Antihistamines cancause drowsiness and are sometimes used a sleep aids. Doxylamine is used to treat sneezing, runny nose, watery eyes, hives, skin rash, itching, and othercold or allergy symptoms. Doxylamine is also used [...] child younger than 6 years old. Always aska doctor before giving a cold or allergy [...] your thinking or reactions. Be careful if youdrive or do anything that requires you to be alert and able to see clearly. Ask a doctor or pharmacist before using any other cold, cough, allergy, or sleep medicine. Many combination medicines contain antihistamines. Taking certain products together can cause you to get toomuch of this medicine. Ask a doctor or [...] exercise and in hot weather. Doxylamine can decreasesweating and you may be more prone to [...] may report side effects to FDA at 4-142-TTM-6973. What other drugs will affect doxylamine? Ask a doctor or pharmacist before using this medicine if you are also using any other drugs, including prescription and ndzc-ziw-hzgfojc medicines, vitamins, and herbal products. Some medicines [...] to ensure that the information provided by [employer]. ('[employer]') is accurate, up-to-date, and complete, but no guarantee is made to that effect. Drug information contained herein may be time sensitive. [employer] information has been compiled for use by healthcare practitioners and consumers in the [place] and therefore [employer] does not warrant that uses outside of the [place] are appropriate, unless specifically indicated otherwise. [employer] drug information does not endorse drugs, diagnose patients or recommend therapy. [employer] drug information isan informational resource designed to assist licensed healthcare practitioners in caring for their p atients and/or to serve consumers viewing this service as a supplement to, and not a substitute for, the expertise, skill, knowledge and judgment of healthcare practitioners. The absence of a warningfor a given drug or drug combination in no way should be construed to indicate that the drug or drug combination is safe, effective or appropriate for any given patient. [employer] does not assume any responsibility for any aspect of healthcare administered with the aid of information [employer] provides. The information contained herein is not intended to cover all possible uses, directions, precautions, warnings, drug interactions, allergic reactions, or adverse effects. If you have questions about the drugs you are taking, check with your doctor, nurse or pharmacist. Copyright 4470-6628 [employer]. Version: 3.03. Revision Date: 05/21/2015. pyridoxine (vitamin [...] available without a prescription. Injectable pyridoxine must begiven by a healthcare professional. Pyridoxine may also [...] at home. Do not give yourself this medicineif you do not understand how to use [...] may report side effects to FDA at 8-304-BKD-0176. What other drugs will affect pyridoxine? Other drugs may interact with pyridoxine, including prescription and qelx-ahu-bctrwrh medicines, vitamins, and herbal products. Tell each of your health care providers about all medicines you use nowand any medicine you start or stop using. Where can I get more information? Your pharmacist can provide more information about pyridoxine. Remember, keep this and all other medicines out of the reach of children, never share your medicines with others, and use this medication only for the indication prescribed. Every effort has been made to ensure that the information provided by [employer]. ('[employer]') is accurate, up-to-date, and complete, but no guarantee is made to that effect. Drug information contained herein may be time sensitive. [employer] information has been compiled for use by healthcare practitioners and consumers in the [place] and therefore [employer] does not warrant that uses outside of the [place] are appropriate, unless specifically indicated otherwise. [employer] drug information does not endorse drugs, diagnose patients or recommend therapy. [employer] drug information isan informational resource designed to assist licensed healthcare practitioners in caring for their p atients and/or to serve consumers viewing this service as a supplement to, and not a substitute for, the expertise, skill, knowledge and judgment of healthcare practitioners. The absence of a warningfor a given drug or drug combination in no way should be construed to indicate that the drug or drug combination is safe, effective or appropriate for any given patient. [facility] does not assume any responsibility for any aspect of healthcare administered with the aid of information [facility] provides. The information contained herein is not intended to cover all possible uses, directions, precautions, warnings, drug interactions, allergic reactions, or adverse effects. If you have questions about the drugs you are taking, check with your doctor, nurse or pharmacist. Copyright 4572-3571 [facility] [employer]ave. Version: 2.04. Revision Date: 09/12/2016. Education Materials [...] large meals. This can help keep your stomachfrom being empty. An empty stomach can make [...] B6 and kymberly. Don t try any wwjp-hba-zbcwtmz medicines or homeremedies without talking with your provider first. Follow-up [...] or as directed by your healthcare provider 7289-4516 [employer]. [address] [place] [address], [place] [address]. All rights reserved. This information is not intended as a substitute for professional medical care. Always follow yourhealthcare professional's instructions. Additional Information VACCINATE! IT SAVES LIVES! Members of the community who have not yet received the COVID-19 vaccine and would like to receive it can visit one of [facility] vaccine clinics. There are many vaccine clinic locations within the [facility]. For locations and available times, please visit www.gettheshot.coronavirus.[place].gov/. It is important to note that some COVID mobile vaccine clinics are held outdoors and may be canceled in rainy or stormy conditions. To learn more about pediatric vaccinations (ages 5-11), we invite you to visit the [facility] webpage. [email or web address]/[email or web address] [email or web address] learn more about the COVID-19 vaccine, we invite you to visit the CDC website for a list of frequently asked questions. https://www.cdc.gov/coronavirus/2019-ncov/vaccines/faq.html [facility] Patient Portal Access Instructions: Stay connected with your healthcare team and access your personal medical information anytime with the [facility] Patient Portal. If you would like a full copy of your medical records please contact the [facility] Medical Records Department Thursday through Thursday between 8a.m. and 4:30p.m. Please follow the directions below to access the portal: 1.Access the email account you provided upon registration to the [facility].2.Look for an invitation email from [facility].3.Open the email and access the invitation link: Accept Invitation to [facility].Fill in the required condon to create your account. Sign into www.[facility] with your username and password that you [...] you will allow to register on the [facility] Patient Portal for access to your information. You can also access the [facility] Patient Portal on the [employer] yamileth. Simply click on Health Records under Netstory and then click on the [employer] logo. HOW TO SAFELY DISPOSE OF PRESCRIPTION MEDICATIONS Please use one of the following methods to safely dispose of your unused medications. 1.Use a drug disposal kit: the drug disposal pouch allows you to safely discard your old and unuseddrugs. Ask your nurse to give you one when you are discharged.2.Visit a local take-back location: Many local pharmacies and police departments have programs that collect old and unwanted prescriptiondrugs. Call your local pharmacy or go to http://Fibroblast.Bleachers/5F7Tq4j to find one close to you.3.Make use of household items: Use cat litter or old coffee grounds to dispose medications if other options arenot available. Mix your drugs with these household products, seal them in an airtight container andthrow it into the garbage. Call [facility]: [phone] to be sure your drugs can be [...] drowsiness, such as benzodiazepines, also known as benzos,including diazepam and alprazolam, muscle relaxants or sleep aids. Never sell or share prescriptionopioids. This is illegal. Store opioids in a secure place and out of reach of others (including children, family, friends and visitors). The last page(s) of this document has been signed and retained as a CHART COPY Signatures Patient Education Materials Hyperemesis Gravidarum Medication Leaflets cephalexin, doxylamine, pyridoxine (vitamin B6) My discharge plan and instructions have been reviewed and explained to me and I,CHERYXIN understand my current condition and have read and understand these discharge instructions. I have received a written copy of the plan/instructions. If I have questions, I am aware that I should contact my doctor. Patient/Upper And Bottom Lacer Hand Signature: Date/Time: Relationship to Patient: Witness Name/Signature: Date/Time: [facility]12-27-2023 Evaluation + Plan note Diagnostic Tests Pending * Urine Culture 05/06/23 Future Scheduled Tests Laboratory* Thyroid Stimulating Hormone 05/30/22 * Free T4 05/30/22 * Complete Blood Count 05/30/22 * Complete Metabolic Panel 05/30/22 [facility] 12-09-2023 History of Present illness Narrative* Ana María Valdes APRN.PROC TECH - 04/18/2023 1:59 PM EST This note was created using NoteWriter. Subjective Xin Garcia is a 22 year [...] She has 1 sexual partner. Contraceptives used includenothing. She is . She has missed her period. The patient's menstrual history has been irregular. She has had prior pregnancies. There were no sick contacts. She has received no recent medicalcare. PAST MEDICAL HISTORY Diagnosis Date Achilles tendonitis, [...] mg tab Take 1 tablet by mouth oncedaily. FAMILY HISTORY Problem Relation Age of Onset [...] Wt 66.7 kg (147 lb) LMP 03/23/2023 QrP654% BMI 26.89 kg/m Physical Exam Vitals and [...] clinic Advised patient to stop smoking Call CARDIOVASCULAR SURGEON Thursday to set up first appointment. Ana María Valdes APRN.PROC TECH documented [facility] encounterC[facility] Miscellaneous Notes* Telephone Encounter - Mckenzie Tang RN - 02/23/2023 9:44 AM EDT Pt calling states having irregular bleeding since IUD removed last week. Went to [facility] ER- just advised to follow up with [facility]. Pt is using tampons- advised to use asha pads as easier to gauge amount and frequency. Denies being symptomatic. Advised cycles may be irregular as well as bleeding for a couple months while body adjusts to no hormones. Bleeding and pain precautions reviewed. documented in this encounterC[facility]23 Hospital Discharge instructions Patient Education 02/22/2023 17:21:26 Urinary Tract Infections in Women Urinary Tract Infections in Women Urinary tract infections (UTIs) are most often caused by bacteria. These bacteria enter the urinarytract. The bacteria may come from outside the body. Or they may travel from the skin outside the rectum or vagina into the urethra. Female anatomy makes it easy for bacteria from the bowel to enter awoman s urinary tract, which is the most common source of UTI. This means women develop UTIs more often than men. Pain in or around the urinary tract is a common UTI symptom. But the only way to knowfor sure if you have a UTI for [...] feel the urge to urinate. And always urinatebefore going to sleep. Urine that stays in your bladder can lead to infection. Try to urinate before and after sex as well. Practice good personal hygiene. Wipe yourself from front to back after using the toilet. This helpskeep bacteria from getting into the urethra. Use condoms during sex. These help prevent UTIs caused by sexually transmitted bacteria. Also don'tuse spermicides during sex. These can increase the [...] If needed, more treatment may be started. 3320-50[address] [employer]. [address] [place] [address]. All rights reserved. This information is not intended as a substitute for professional medical care. Always follow yourhealthcare professional's instructions. Follow Up Care 02/22/2023 16:14:10 With:SUMEET CHAVEZ Address: [address] [place] [phone] When:2-4 days [facility] 10-15-2023 Emergency department Discharge summary Discharge Instructions Thank you for allowing [facility] to assist you with your healthcare needs. The following is importantdischarge information regarding your hospital visit. Diagnosis from Today's Visit UTI - Urinary tract infection Vaginal bleeding What to Do Next Instructions from Your Care Team No qualifying data available. Post Acute Orders No qualifying data available. You Need to Schedule the Following Appointments Follow Up with SUMEET CHAVEZ When Within 2-4 days Where: [address] [place] [phone] Allergies NKA Medications Please ask your primary doctor or pharmacist before taking any other medication not listed, including over the counter drugs, herbal medications, vitamins and or supplements as they may interact withyour home medications. What How Much When Instructions [...] caused by bacteria. These bacteria enter the urinarytract. The bacteria may come from outside the body. Or they may travel from the skin outside the rectum or vagina into the urethra. Female anatomy makes it easy for bacteria from the bowel to enter awoman s urinary tract, which is the most common source of UTI. This means women develop UTIs more often than men. Pain in or around the urinary tract is a common UTI symptom. But the only way to knowfor sure if you have a UTI for [...] feel the urge to urinate. And always urinatebefore going to sleep. Urine that stays in your bladder can lead to infection. Try to urinate before and after sex as well. Practice good personal hygiene. Wipe yourself from front to back after using the toilet. This helpskeep bacteria from getting into the urethra. Use condoms during sex. These help prevent UTIs caused by sexually transmitted bacteria. Also don'tuse spermicides during sex. These can increase the [...] If needed, more treatment may be started. 9309-4343 [employer]. [address] [place] [address]. All rights reserved. This information is not intended as a substitute for professional medical care. Always follow yourhealthcare professional's instructions. Additional Information VACCINATE! IT SAVES LIVES! Members of the community who have not yet received the COVID-19 vaccine and would like to receive it can visit one of [facility] vaccine clinics. There are many vaccine clinic locations within the [facility]. For locations and available times, please visit www.[email or web address]/. It is important to note that some COVID mobile vaccine clinics are held outdoors and may be canceled in rainy or stormy conditions. To learn more about pediatric vaccinations (ages 5-11), we invite you to visit the [facility] webpage. https://www.[email or web address]/pages/[email or web address]-Bsecilnogz-[email or web address] stions.htmlTo learn more about the COVID-19 vaccine, we invite you to visit the CDC website for a list of frequently asked questions. https://www.cdc.gov/coronavirus/2019-ncov/vaccines/faq.html [facility] Patient Portal Access Instructions: Stay connected with your healthcare team and access your personal medical information anytime with the [facility] Patient Portal. If you would like a full copy of your medical records please contact the [facility] Medical Records Department Thursday through Thursday between 8a.m. and 4:30p.m. Please follow the directions below to access the portal: 1.Access the email account you provided upon registration to the [facility].2.Look for an invitation email from [facility].3.Open the email and access the invitation link: Accept [facility]itation to [facility]4.Fill in the required condon to create your account. Sign into www.[facility] with your username and password that you [...] you will allow to register on the [facility] Patient Portal for access to your information. You can also access the [facility] Patient Portal on the [employer] yamileth. Simply click on Health Records under Netstory and then click on the [facility] logo. HOW TO SAFELY DISPOSE OF PRESCRIPTION MEDICATIONS Please use one of the following methods to safely dispose of your unused medications. 1.Use a drug disposal kit: the drug disposal pouch allows you to safely discard your old and unuseddrugs. Ask your nurse to give you one when you are discharged.2.Visit a local take-back location: Many local pharmacies and police departments have programs that collect old and unwanted prescriptiondrugs. Call your local pharmacy or go to http://bit.Bleachers/9M3Jp4j to find one close to you.3.Make use of household items: Use cat litter or old coffee grounds to dispose medications if other options arenot available. Mix your drugs with these household products, seal them in an airtight container andthrow it into the garbage. Call [facility]: [phone] to be sure your drugs can be [...] drowsiness, such as benzodiazepines, also known as benzos,including diazepam and alprazolam, muscle relaxants or sleep aids. Never sell or share prescriptionopioids. This is illegal. Store opioids in a [...] aware that I should contact my doctor. Patient/Upper And Bottom Lacer Hand Signature: Date/Time: Relationship to Patient: Witness Name/Signature: Date/Time: [facility]10-12-2023 History of Present illness Narrative * Kimberly Hernandez APRN.PROC TECH - 02/19/2023 9:04 AM EDT Xin presents for removal of IUD due [...] Plan of Care Visit completed when applicable. Kimberly Hernandez APRN.CNP PROCEDURE: Speculum placed in vagina, IUD string visualized and grasped with ring forceps. ASSESSMENT/PLAN: IUD removed without difficulty, intact, and patient tolerated procedure well. Contraception plans: none Reviewed pre-conception guidelines including folic acid supplementation, optimal timing of intercourse, avoidance of smoking, alcohol, exposure to environmental chemicals and need for evaluation if not within 12 months. Kimberly Hernandez APRN.KYRA documented in this encounterC[facility]08-15-2023 Miscellaneous Notes* Telephone Encounter - Anushka Mckenzie - 12/23/2022 3:40 PM EDT Pt called back and scheduled appt for 01/01. She is completely out of her medications. Asking if these can be sent now that she has f/u. * Telephone Encounter - Eduarda George LPN - 12/22/2022 12:53 PM EDT LMT[facility] needs to schedule FU prior to refills being sent * Telephone Encounter - Ruth Eason - 12/22/2022 12:05 PM EDT Patient has been identified by name and [...] and advise. Ruth Jose documented in this encounterC[facility]08-07-2023 Miscellaneous Notes* Telephone Encounter - Eduarda George LPN - 12/15/2022 3:53 PM EDT Spoke to sleep center and she will fax recent note over. Spoke to patient and she will call in to schedule a Fu with Samantha since we have not seen her since May. * Telephone Encounter - Lupis Doshi - 12/15/2022 3:33 PM EDT Please refer to tele enc from 12/01/22. Patient calling again to report that her sleep specialist is still trying to contact provider's office to get clearance on a new medication they would like to prescribe. They have sent fax and have been attempting to contact the office multiple times. Please contact Omaira Burns CNP in [facility] at [phone] to discuss plan of care. documented in this encounterC[facility]07-29-[facility]23 Hospital Discharge instructions Patient Education 12/06/2022 21:07:34 Back Exercises, [...] floor and hold for up to 5 seconds.Repeat 10 times on each side. Standin. Wall squats: Stand with your back against the wall. Move your feet about 12 inches away from thewall. Tighten your stomach muscles, and slowly bend [...] knees. At the same time, raise and straightenyour right arm and left leg until they are parallel to the ground. Hold for 2 seconds and come backslowly to a starting position. Repeat with left [...] both legs a few inches off the floorat the same time. Hold for 5 seconds [...] the ground (this is not a full sit- up). Keep your head in line with your body (don t bend your neck forward). Hold for 2 seconds, then slowly lower. 5323-4059 [employer]. [address] [place] [address]. All rights reserved. This information is not intended as a substitute for professional medical care. Always follow yourhealthcare professional's instructions. Follow Up Care 12/06/2022 20:09:52 With:SUMEET CHAVEZ Address: [address] [place] [address] [place] [phone] [phone] When:2-4 days [facility] 07-29-2023 Note Discharge Instructions Thank you for allowing [facility] to assist you with your healthcare needs. The following is importantdischarge information regarding your hospital visit. Diagnosis from [...] CHAVEZ When Within 2-4 days Where: [address] [facility] [place] [phone]- [phone] Allergies NKA Medications Please ask your primary doctor or pharmacist before taking any other medication not listed, including over the counter drugs, herbal medications, vitamins and or supplements as they may interact withyour home medications. What How Much When Instructions [...] floor and hold for up to 5 seconds.Repeat 10 times on each side. Standin. Wall squats: Stand with your back against the wall. Move your feet about 12 inches away from thewall. Tighten your stomach muscles, and slowly bend [...] knees. At the same time, raise and straightenyour right arm and left leg until they are parallel to the ground. Hold for 2 seconds and come backslowly to a starting position. Repeat with left [...] both legs a few inches off the floorat the same time. Hold for 5 seconds [...] the ground (this is not a full sit- up). Keep your head in line with your body (don t bend your neck forward). Hold for 2 seconds, then slowly lower. 9781-9057 [employer]. [address] [place] [address]. All rights reserved. This information is not intended as a substitute for professional medical care. Always follow yourhealthcare professional's instructions. Additional Information VACCINATE! IT SAVES LIVES! Members of the community who have not yet received the COVID-19 vaccine and would like to receive it can visit one of [facility] vaccine clinics. There are many vaccine clinic locations within the [facility]. For locations and available times, please visit www.[email or web address].gov/. It is important to note that some COVID mobile vaccine clinics are held outdoors and may be canceled in rainy or stormy conditions. To learn more about pediatric vaccinations (ages 5-11), we invite you to visit the [facility] webpage. https://www.[email or web address].org/pages/[email or web address]-Ggtjedqnkyd-Gihsamfmif-Bqgay-Quj stions.htmlTo learn more about the COVID-19 vaccine, we invite you to visit the CDC website for a list of frequently asked questions. https://www.cdc.gov/coronavirus/2019-ncov/vaccines/faq.html [facility] Patient Portal Access Instructions: Stay connected with your healthcare team and access your personal medical information anytime with the [facility] Patient Portal. If you would like a full copy of your medical records please contact the [facility] Medical Records Department Thursday through Thursday between 8a.m. and 4:30p.m. Please follow the directions below to access the portal: 1.Access the email account you provided upon registration to the [facility].2.Look for an invitation email from [facility].3.Open the email and access the invitation link: Accept Invitation to [facility]4.Fill in the required condon to create your [...] you will allow to register on the [facility] Patient Portal for access to your information. You can also access the [facility] Patient Portal on the [employer]. Simply click on Health Records under Netstory and then click on the [facility] logo. HOW TO SAFELY DISPOSE OF PRESCRIPTION MEDICATIONS Please use one of the following methods to safely dispose of your unused medications. 1.Use a drug disposal kit: the drug disposal pouch allows you to safely discard your old and unuseddrugs. Ask your nurse to give you one when you are discharged.2.Visit a local take-back location: Many local pharmacies and police departments have programs that collect old and unwanted prescriptiondrugs. Call your local pharmacy or go to http://bit.Bleachers/7E6Al6e to find one close to you.3.Make use of household items: Use cat litter or old coffee grounds to dispose medications if other options arenot available. Mix your drugs with these household products, seal them in an airtight container andthrow it into the garbage. Call [facility]: [phone] to be sure your drugs can be [...] drowsiness, such as benzodiazepines, also known as benzos,including diazepam and alprazolam, muscle relaxants or sleep aids. Never sell or share prescriptionopioids. This is illegal. Store opioids in a [...] aware that I should contact my doctor. Patient/Upper And Bottom Lacer Hand Signature: Date/Time: Relationship to Patient: Witness Name/Signature: Date/Time: [facility]04-10-2023 Miscellaneous Notes* Telephone Encounter - Eduarda George LPN - 08/18/2022 8:02 AM EDT Message to call office to schedule. * Telephone Encounter - Samantha Morin APRN.PROC TECH - 08/18/2022 7:56 AM EDT Needs to schedule an appointment and then refills will be provided. Was last seen in May. documented in this encounterC[facility]03-21-2023 Note. MICRO - Microbiology PROCEDURE: Urine Culture [*1] SOURCE: Urine BODY SITE: COLLECTED DATE/TIME: 07/27/2022 13:12 EDT RECEIVED DATE/TIME: 07/28/2022 15:13 EDT START DATE/TIME: 07/28/2022 15:13 EDT FREE TEXT SOURCE: FINAL REPORTS Final Report [] Verified Date/Time/Personnel: 07/29/2022 14:59 EDT >100,000 cfu/ml Multiple bacterial morphotypes present. Probable Contamination. Suggest recollection if clinically indicated. Performing Locations *1: This test was performed at: [address], [facility] , [facility] ([place])07-27-2022 Hospital Discharge instructions Patient Education 07/27/2022 14:53:46 Bladder Infection, Female (Adult) Bladder Infection, Female (Adult) Urine is normally doesn't have any bacteria in it. But bacteria can get into the urinary tract fromthe skin around the rectum. Or they can [...] bladder. This causes many of the symptoms. Themost common symptoms of a bladder infection are: [...] into the urine and travel up to thebladder, causing inflammation and infection. This usually happens [...] better. It is important to finish them tomake sure the infection has cleared. You can [...] needs to be changed. If directed, you cancall to find out the results. If X-rays [...] swelling in the outer vaginal area (labia) 3416-1530 [employer]. [address] [place] [address]. All rights reserved. This information is not intended as a substitute for professional medical care. Always follow yourhealthcare professional's instructions. 07/27/2022 13:19:32 Neck Spasm, No Trauma Neck Spasm A spasm of the neck muscles can happen after a sudden awkward neck movement. Sleeping with your neck in a crooked position can also cause spasm. Some people respond to emotional stress by tensing themuscles of their neck, shoulders, and upper back. [...] a warm shower or bath or a moisttowel heated in the microwave and massage. Others [...] of cloth. This is very important, especially inpeople with poor skin sensation. Try to reduce your stress level. Emotional stress can lead to neck muscle tension and get in the way of or delay the healing process. You may use osme-ehd-cudpjke pain medicine to control pain, unless another medicine was prescribed.If you have chronic liver or kidney disease [...] or as directed by your healthcare provider [place] 9677-1273 [employer]. [address] [place] [address], [place] [address]. All rights reserved. This information is not intended as a substitute for professional medical care. Always follow yourhealthcare professional's instructions. 07/27/2022 13:19:25 Neck Pain Neck [...] of neck pain. However, X-rays may be doneif you had a forceful physical injury, such [...] a warm shower or bath or a moisttowel heated in the microwave and massage. Others [...] type of cloth.This is very important, especially inpeople with poor skin sensations. Try to reduce your stress level. Emotional stress can lead to neck muscle tension and get in the way of or delay the healing process. You may use mtna-aqd-xpdmfqq pain medicine to control pain, unless another medicine was prescribed.If you have chronic liver or kidney disease or ever had a stomach ulcer or GI bleeding, talk with your healthcare provider before using these medicines. Follow-up care Follow up with your healthcare provider if your symptoms do not show signs of improvement after oneweek. Physical therapy or further tests may be [...] or as directed by your healthcare provider 9865-8354 [employer]. [address] [place] [address]. All rights reserved. This information is not intended as a substitute for professional medical care. Always follow yourhealthcare professional's instructions. Follow Up Care 07/27/2022 12:35:53 With:SUMEET CHAVEZ Address: [address] [place] [phone] When:2-4 days [facility] 03-19-2023 Note Discharge Instructions Thank you for allowing [facility] to assist you with your healthcare needs. The following is importantdischarge information regarding your hospital visit. Diagnosis from Today's Visit Neck pain What to Do Next Instructions from Your Care Team No qualifying data available. Post Acute Orders No qualifying data available. You Need to Schedule the Following Appointments Follow Up with SUMEET CHAVEZ When Within 2-4 days Where: [address] [place] [phone]- [phone] Allergies NKA Medications Please ask your primary doctor or pharmacist before taking any other medication not listed, including over the counter drugs, herbal medications, vitamins and or supplements as they may interact withyour home medications. What How Much When Instructions [...] may report side effects to FDA at 6-229-QTB-2958. What other drugs will affect cephalexin? Tell your doctor about all your other medicines, especially: metformin; or probenecid. This list is not complete. Other drugs may affect cephalexin, including prescription and syvt-myy-cwvrzeh medicines, vitamins, and herbal products. Not all [...] to ensure that the information provided by [employer]. ('[employer]') is accurate, up-to-date, and complete, but no guarantee is made to that effect. Drug information contained herein may be time sensitive. [employer] information has been compiled for use by healthcare practitioners and consumers in the [place] and therefore [employer] does not warrant that uses outside of the [place] are appropriate, unless specifically indicated otherwise. [employer] drug information does not endorse drugs, diagnose patients or recommend therapy. [employer] drug information isan informational resource designed to assist licensed healthcare practitioners in caring for their p atients and/or to serve consumers viewing this service as a supplement to, and not a substitute for, the expertise, skill, knowledge and judgment of healthcare practitioners. The absence of a warningfor a given drug or drug combination in no way should be construed to indicate that the drug or drug combination is safe, effective or appropriate for any given patient. [employer] does not assume any responsibility for any aspect of healthcare administered with the aid of information [employer] provides. The information contained herein is not intended to cover all possible uses, directions, precautions, warnings, drug interactions, allergic reactions, or adverse effects. If you have questions about the drugs you are taking, check with your doctor, nurse or pharmacist. Copyright 3401-9498 [employer]. Version: 10.03. Revision Date: 05/14/2020. cyclobenzaprine (kylie baum) Amrix, Comfort Pac with Cyclobenzaprine, Fexmid What is the [...] by blocking nerve impulses (or pain sensations) thatare sent to your brain. Cyclobenzaprine is used [...] in the past 14 days. A dangerous druginteraction could occur. MAO inhibitors include isocarboxazid, linezolid, [...] may report side effects to FDA at 9-649-IOH-7312. What other drugs will affect cyclobenzaprine? Using cyclobenzaprine with other drugs that make you drowsy can worsen this effect. Ask your doctorbefore using opioid medication, a sleeping pill, a [...] drugs may affect cyclobenzaprine, including prescription and mjrp-cdh-diqceth medicines, vitamins, and herbal products. Not all [...] to ensure that the information provided by [employer]. [employer]') is accurate, up-to-date, and complete, but no guarantee is made to that effect. Drug information contained herein may be time sensitive. [employer] information has been compiled for use by healthcare practitioners and consumers in the [place] and therefore [employer] does not warrant that uses outside of the [place] are appropriate, unless specifically indicated otherwise. [employer] drug information does not endorse drugs, diagnose patients or recommend therapy. [employer] drug information isan informational resource designed to assist licensed healthcare practitioners in caring for their p atients and/or to serve consumers viewing this service as a supplement to, and not a substitute for, the expertise, skill, knowledge and judgment of healthcare practitioners. The absence of a warningfor a given drug or drug combination in no way should be construed to indicate that the drug or drug combination is safe, effective or appropriate for any given patient. [employer] does not assume any responsibility for any aspect of healthcare administered with the aid of information [employer] provides. The information contained herein is not intended to cover all possible uses, directions, precautions, warnings, drug interactions, allergic reactions, or adverse effects. If you have questions about the drugs you are taking, check with your doctor, nurse or pharmacist. Copyright 4945-2822 [employer]. Version: 5.01. Revision Date: 02/03/2018. Education Materials Bladder Infection, Female (Adult) Urine is normally doesn't have any bacteria in it. But bacteria can get into the urinary tract fromthe skin around the rectum. Or they can [...] bladder. This causes many of the symptoms. Themost common symptoms of a bladder infection are: [...] into the urine and travel up to thebladder, causing inflammation and infection. This usually happens [...] better. It is important to finish them tomake sure the infection has cleared. You can [...] needs to be changed. If directed, you cancall to find out the results. If X-rays [...] swelling in the outer vaginal area (labia) 0760-3852 [employer]. [address] [place] [address]. All rights reserved. This information is not intended as a substitute for professional medical care. Always follow yourhealthcare professional's instructions. Neck Spasm A spasm of the neck muscles can happen after a sudden awkward neck movement. Sleeping with your neck in a crooked position can also cause spasm. Some people respond to emotional stress by tensing themuscles of their neck, shoulders, and upper back. [...] a warm shower or bath or a moisttowel heated in the microwave and massage. Others [...] of cloth. This is very important, especially inpeople with poor skin sensation. Try to reduce your stress level. Emotional stress can lead to neck muscle tension and get in the way of or delay the healing process. You may use fumy-wii-exkspfh pain medicine to control pain, unless another medicine was prescribed.If you have chronic liver or kidney disease [...] as directed by your healthcare provider Bree [phone] [employer]. [address] [place] [address], [place] [address]. All rights reserved. This information is not intended as a substitute for professional medical care. Always follow yourhealthcare professional's instructions. Neck Pain There are several [...] of neck pain. However, X-rays may be doneif you had a forceful physical injury, such [...] a warm shower or bath or a moisttowel heated in the microwave and massage. Others [...] type of cloth.This is very important, especially inpeople with poor skin sensations. Try to reduce your stress level. Emotional stress can lead to neck muscle tension and get in the way of or delay the healing process. You may use iigh-fwv-eykuicx pain medicine to control pain, unless another medicine was prescribed.If you have chronic liver or kidney disease or ever had a stomach ulcer or GI bleeding, talk with your healthcare provider before using these medicines. Follow-up care Follow up with your healthcare provider if your symptoms do not show signs of improvement after oneweek. Physical therapy or further tests may be [...] or as directed by your healthcare provider [phone] [employer]. [address] [place] [address], [place] [address]. All rights reserved. This information is not intended as a substitute for professional medical care. Always follow yourhealthcare professional's instructions. Additional Information VACCINATE! IT SAVES LIVES! Members of the community who have not yet received the COVID-19 vaccine and would like to receive it can visit one of [facility] vaccine clinics. There are many vaccine clinic locations within the State. For locations and available times, please visit [email or web address]/. It is important to note that some COVID mobile vaccine clinics are held outdoors and may be canceled in rainy or stormy conditions. To learn more about pediatric vaccinations (ages 5-11), we invite you to visit the [facility] webpage. [email or web address] [email or web address] learn more about the COVID-19 vaccine, we invite you to visit the CDC website for a list of frequently asked questions. https://www.cdc.gov/coronavirus/2019-ncov/vaccines/faq.html [facility] Patient Portal Access Instructions: Stay connected with your healthcare team and access your personal medical information anytime with the [facility] Patient Portal. If you would like a full copy of your medical records please contact the [facility] Medical Records Department Thursday through Thursday between 8a.m. and 4:30p.m. Please follow the directions below to access the portal: 1.Access the email account you provided upon registration to the hospital.2.Look for an invitation email from [facility].3.Open the email and access the invitation link: Accept Invitation to [facility].Fill in the required condon to create your account. Sign into www.[facility] with your username and password that you [...] you will allow to register on the [facility] Patient Portal for access to your information. You can also access the [facility] Patient Portal on the Thinktwice. Simply click on Health Records under Netstory and then click on the [facility] logo. HOW TO SAFELY DISPOSE OF PRESCRIPTION MEDICATIONS Please use one of the following methods to safely dispose of your unused medications. 1.Use a drug disposal kit: the drug disposal pouch allows you to safely discard your old and unuseddrugs. Ask your nurse to give you one when you are discharged.2.Visit a local take-back location: Many local pharmacies and police departments have programs that collect old and unwanted prescriptiondrugs. Call your local pharmacy or go to http://Fibroblast.Bleachers/6D7Yq1c to find one close to you.3.Make use of household items: Use cat litter or old coffee grounds to dispose medications if other options arenot available. Mix your drugs with these household products, seal them in an airtight container andthrow it into the garbage. Call [facility]: [phone] to be sure your drugs can be [...] drowsiness, such as benzodiazepines, also known as benzos,including diazepam and alprazolam, muscle relaxants or sleep aids. Never sell or share prescriptionopioids. This is illegal. Store opioids in a [...] been reviewed and explained to me and ICHERY ERICA understand my current condition and have read and understand these discharge instructions. I have received a written copy of the plan/instructions. If I have questions, I am aware that I should contact my doctor. Patient/Upper And Bottom Lacer Hand Signature: Date/Time: Relationship to Patient: Witness Name/Signature: Date/Time: [facility]03-19-2023 Note ORIGINAL EXAMINATION: CTA OF THE NECK [...] Date: 07/27/2022 2:37:27 PM Ordering Provider: CORTNEY WAKEFIELD [facility]03-19-2023 Note ORIGINAL EXAMINATION: CTA OF THE NECK [...] Sign Date: 07/27/2022 2:37:27 PM Ordering Provider: [facility]03-17-2023 Miscellaneous Notes* Telephone Encounter - Daisy Bartlett RN - 07/25/2022 11:24 AM EDT Patient notified of results. Patient verbalizes understanding. Daisy Bartlett RN * Telephone Encounter - Ailyn Trinidad MA - 07/25/2022 8:03 AM EDT Left message for pt to call back. Ailyn Trinidad MA * Telephone Encounter - ALEKS Zurita - 07/25/2022 7:09 AM EDT Negative for COVID and flu [facility] History of Present illness Narrative* Hermann Friedman APRN.PROC TECH - 07/24/2022 3:05 PM EDT Subjective HPI HPI Xin Garcia is a [...] mg tab Take 1 tablet by mouth oncedaily. ARIPiprazole (ABILIFY) 5 mg tablet Take 1 [...] - COVID WITH FLUA+B, ROUTINE Hermann Friedman APRN.PROC TECH documented in this encounterC[facility] Note. MICRO - Microbiology PROCEDURE: Urine Culture [*1] [...] Locations *1: This test was performed at: [address], [facility] , [facility] ([place])05-30-2022 Evaluation + Plan note Future Scheduled Tests Laboratory* Thyroid Stimulating Hormone 05/30/22 * Free T4 05/30/22 * Complete Blood Count 05/30/22 * Complete Metabolic Panel 05/30/22 [facility] 01-10-2023 Instructions* Patient Instructions* Samantha Morin APRN.CNP - 05/20/2022 3:22 PM EST Theo [...] - Call the National Suicide Hotline at 6-408-ESJQTGC ( ) or 5-937-342-TALK (6222) - Text 4HOPE to 168637 Medication Update: Abilify 5 mg - take 1 tablet once daily. Continue Zoloft at the same dose. Next appointment: --Schedule in 4 weeks or sooner if needed -- You may call the department appointment line at [phone] to schedule your appointment. -- Please call my nurse Eduarda at [phone] or send me a message in [employer] with any questions or concerns between appointments. documented in this encounterC[facility] History of Present illness Narrative* Samantha Morin APRN.CNP - 05/20/2022 3:00 PM EST Images from the original note were not [...] appointment. Patient denies any involuntary movement related sideeffects. CC: Follow up regarding mood and anxiety [...] from Zoloft. She continues to work at [employer]. She denies any additional work related stress. [...] which included preparing to see the patient, rcuq-bv-pvcs patient care, completing clinical documentation, and counseling and educating the patient/family/caregiver, ordering medications/labs. Samantha Morin APRN.CNP May 20, 2022 3:00 PM This note was partially generated using [employer]i voice recognition system. Note was reviewed for accuracy. There may be minor misspellings or grammar miscues with [employer]i voice recognition. documented in this encounterC[facility]12[facility] Instructions* Patient Instructions* Samantha Morin APRN.CNP - 04/18/2022 1:43 PM EST Theo Benavidez, It was good to meet and talk with you today. Below is a summary of the plan that we discussed during your appointment for reference. Of course, if you have any questions or concerns do not hesitate to reach out to me via a message or call. Jaguar, Samantha Morin APRN.CNP PLAN AND FOLLOW UP: YOU SHOULD [...] - Call the National Suicide Hotline at 3-466-ZKKWABI ( ) or 0-999-368-TALK (2403) - Text 4HOPE to 552439 Medication Update: - Abilify (Aripiprazole) 2 mg - take 1 tablet once daily. - Continue Zoloft at the same dose. Next appointment: --Schedule in 4 weeks or sooner if needed -- You may call the department appointment line at [phone] to schedule your appointment. -- Please call my nurse Eduarda at [phone] or send me a message in [employer] with any questions or concerns between appointments. documented in this encounterC[facility]12-[facility] History of Present illness Narrative* Samantha Morin APRN.CNP - 04/18/2022 1:00 PM EST Images from the original note were not [...] dad. They have been together for 6 to7 years. 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 REFERRAL SOURCE: PCP - Dr. Reyes CHIEF COMPLAINT: So I have been seeing Dr. Reyes since I was born. A few years ago, I got diagnosed with BALJINDER and Depression. I had my son in February 2021, and I am struggling with post depression. HPI: Today she shares that she started struggling with post depression after giving to her son. She has been struggling with more feelings of depression. She has a lack of motivation. She hasbeen taking Zoloft 75 mg and has noticed it helping with her sadness. She felt that when she tried the Prozac, she was not herself and experienced more irritability. Denies any side effects from the Zoloft. She is no longer breast feeding. When she was younger, she experienced episodes of depression. She would isolate in her room and herappetite would decrease. She suffered with a lack [...] diagnosed with ADHD in [address] Reyes. She was prescribed Adderall in the past. [...] brain off. She is tired but has ahard time going to sleep. Son is sleeping through the night. Interest: no interest Guilt: none Energy: fluctuates with mood or stress Concentration: fluctuates. Has a history of ADHD diagnosis. Appetite: decreased. Has been low since May 2 years ago when she had [place]. Psychomotor Activity: psychomotor activity was WNL. Suicide: [...] of the panic attack in 2 months. Doesnot know what triggers her panic symptoms. Seems [...] mg tab Take 1 tablet by mouth oncedaily. 30 tablet 2 No current facility-administered medications for this visit. VITAL SIGNS: There were no vitals filed for this visit. ROS: Patient is concerned about being underweight. PSYCHIATRIC HISTORY: Prior Diagnosis: ADHD, Anxiety Disorder, and Major Depressive Disorder Prior Provider: No prior psychiatrist Therapist: No prior therapist Current Floral Merchandiser: No Last Hospitalization: Denies hospitalization. ECT: No [...] The patient was born and raised in [place], [place]. She completed Grade School. She described [...] population = 50. Five points is a clinicallymeaningful difference.) 04/14/2022 Physical T-Score 42.3 Mental T-Score [...] which included preparing to see the patient, flkf-yw-dqvr patient care, completing clinical documentation, obtaining and/or reviewing separately obtained history, counseling and educating the patient/family/caregiver, ordering medications, chris ts, or procedures, communicating with other HCPs (not separately reported), independently interpreting results (not separately reported), and communicating results to the patient/family/caregiver. ADD ON PSYCHOTHERAPY CODE : No SIGNATURE: Samantha Morin APRN.CNP PATIENT NAME: Xin Garcia DATE: April 18, 2022 TIME: 1:00 PM PAGER : documented in this encounterC[facility]-2022 Miscellaneous Notes* Telephone Encounter - Eduarda George LPN - 03/14/2022 8:45 AM EDT Patient scheduled 04/18. * Telephone Encounter - Eric Reyes MD - 03/14/2022 8:05 AM EDT Consult order has been placed. This note was partially generated using Dragon voice recognition system, and there may be some incorrect words, spellings, and punctuation that were not noted in checking the note before saving. Eric Reyes MD * Telephone Encounter - Eduarda George LPN - 03/14/2022 7:[address] Reyes, yes, Behavioral Health is psychiatry, I just want to make sure that the patients insurance covers correctly with the referral. * Telephone Encounter - Eric Reyes MD - 03/13/2022 4:04 PM EDT Is Behavioral Health able to prescribe antidepressants? That is the primary purpose of this referral. This note was partially generated using [employer] voice recognition system, and there may be some incorrect words, spellings, and punctuation that were not noted in checking the note before saving. Eric Reyes MD * Telephone Encounter - Eduarda George LPN - 03/13/2022 3:22 PM EDT Please change order to CONSULT TO BEHAVIORAL HEALTH and re route back. Thank you!!! * Telephone Encounter - Lupis Doshi - 03/13/2022 3:05 PM EDT Patient is being referred for consult to psychiatry by Dr. Reyes. Please contact the patient to advise on plan of care. Thank you. documented in this encounterC[facility]11-03-2022 Miscellaneous Notes* Telephone Encounter - Marisela Guerrier RN - 03/13/2022 3:03 PM EDT Spoke with patient. Med check scheduled for one month with PCP. Transferred to [facility] to schedule with psychiatry. Marisela Guerrier RN * Telephone Encounter - Eric Reyes MD - 03/13/2022 2:39 PM EDT 1. The referral request is actually for psychiatry. Please help the patient with this referral. Theorder has been entered into the computer. 2. Prescription generated for Zoloft 75 mg daily. I have already advised the patient to start the Zoloft the day after stopping the Prozac. She will need a follow-up visit in 1 month. Please help thepatient's schedule this. This note was partially generated using Fengxia[employer]i voice recognition system, and there may be some incorrect words, spellings, and punctuation that were not noted in checking the note before saving. Eric Reyes MD * Telephone Encounter - Moon Tiwari LPN - 03/13/2022 2:19 PM EDT Referral for Psychology. Pt would also like to switch medication from Prozac to 75mg of Zoloft. Pt spoke with Dr. Reyes regarding the changes while at child's appointment. Moon Tiwari LPN documented in this encounterC[facility] Hospital Discharge instructions Patient Education 02/28/2022 20:22:12 Pleurisy Pleurisy [...] 3 days. When you resume activity, don't letyourself get too tired. Don't smoke. Also stay away from secondhand smoke. You may use imjy-mbe-mdcxsxd medicines to control pain, unless another pain [...] neck, arm, or back Coughing up blood [id number] [employer]. [address] [place] [address]. All rights reserved. This information is not intended as a substitute for professional medical care. Always follow yourhealthcare professional's instructions. 02/28/2022 20:21:16 Pleurisy Pleurisy If [...] 3 days. When you resume activity, don't letyourself get too tired. Don't smoke. Also stay away from secondhand smoke. You may use ivqy-hdn-voyblxq medicines to control pain, unless another pain [...] neck, arm, or back Coughing up blood [phone] [employer]. [address] [place] [address]. All rights reserved. This information is not intended as a substitute for professional medical care. Always follow yourhealthcare professional's instructions. 02/28/2022 20:21:04 Viral Syndrome (Adult) [...] tests to know the difference. Watch for thewarning signs listed below for when to seek medical advice. Home care Follow these guidelines for taking care of yourself at home: If symptoms are severe, rest at home for the first 2 to 3 days. Stay away from cigarette smoke - both your smoke and the smoke from others. You may use zrop-jaz-chetiqm acetaminophen or ibuprofen for fever, muscle aching, [...] replacement and sports drinks; and decaffeinated teas andcoffee. If you have been diagnosed with a kidney disease, ask your healthcare provider how much andwhat types of fluids you should drink to prevent dehydration. If you have kidney disease, drinking too much fluid can cause it build up in the your body and be dangerous to your health. Xqqo-yui-xvcequs remedies won't shorten the length of the [...] or as directed by your healthcare provider 7495-2794 [employer]. [address] [place] [address], [place] [address]. All rights reserved. This information is not intended as a substitute for professional medical care. Always follow yourhealthcare professional's instructions. Follow Up Care 02/28/2022 19:34:49 With:Follow up with primary care provider Address:Unknown When:2-4 days Comments:Schedule appointment for follow-up if your symptoms or not improving.Do not smoke. Drink plenty of fluids and rest.Use a vaporizer at bedside to help with cough and congestion as needed.Use Tylenol, Advil or Aleve for pain and fever as needed.May use xgmg-bkq-wqvngyx cough and cold medicines like Ro bitussin for symptomatic relief as needed.Return to the ED if symptoms worsen. [facility] 10-21-2022 Note Discharge Instructions Thank you for allowing [facility] to assist you with your healthcare needs. The following is importantdischarge information regarding your hospital visit. Diagnosis from [...] pain and fever as needed. May use tbud-wos-emlalpd cough and cold medicines like Robitussin for symptomatic relief as needed. Return to the ED if symptoms worsen. Allergies NKA Medications Please ask your primary doctor or pharmacist before taking any other medication not listed, including over the counter drugs, herbal medications, vitamins and or supplements as they may interact withyour home medications. What How Much When Why [...] 3 days. When you resume activity, don't letyourself get too tired. Don't smoke. Also stay away from secondhand smoke. You may use nncv-ysf-veouxbf medicines to control pain, unless another pain [...] neck, arm, or back Coughing up blood 8050-5815 [employer]. [address] [place] [address], [place] [address]. All rights reserved. This information is not intended as a substitute for professional medical care. Always follow yourhealthcare professional's instructions. Pleurisy If you have pleurisy, [...] 3 days. When you resume activity, don't letyourself get too tired. Don't smoke. Also stay away from secondhand smoke. You may use zrbf-nvk-gcpbfdk medicines to control pain, unless another pain [...] neck, arm, or back Coughing up blood [phone] [employer]. [address] [place] [address]. All rights reserved. This information is not intended as a substitute for professional medical care. Always follow yourhealthcare professional's instructions. Viral Syndrome (Adult) A viral [...] tests to know the difference. Watch for thewarning signs listed below for when to seek medical advice. Home care Follow these guidelines for taking care of yourself at home: If symptoms are severe, rest at home for the first 2 to 3 days. Stay away from cigarette smoke - both your smoke and the smoke from others. You may use sftw-piz-ecjoubw acetaminophen or ibuprofen for fever, muscle aching, [...] replacement and sports drinks; and decaffeinated teas andcoffee. If you have been diagnosed with a kidney disease, ask your healthcare provider how much andwhat types of fluids you should drink to prevent dehydration. If you have kidney disease, drinking too much fluid can cause it build up in the your body and be dangerous to your health. Hrzf-uir-mjgnlco remedies won't shorten the length of the [...] or as directed by your healthcare provider [phone] [employer]. [address] [place] [address]. All rights reserved. This information is not intended as a substitute for professional medical care. Always follow yourhealthcare professional's instructions. Additional Information VACCINATE! IT SAVES LIVES! Members of the community who have not yet received the COVID-19 vaccine and would like to receive it can visit one of [facility] vaccine clinics. There are many vaccine clinic locations within the [facility]. For locations and available times, please visit [email or web address]. It is important to note that some COVID mobile vaccine clinics are held outdoors and may be canceled in rainy orstormy conditions. To learn more about pediatric vaccinations (ages 5-11), we invite you to visit the [facility] webpage. [email or web address] [email or web address] learn more about the COVID-19 vaccine, we invite you to visit the [facility] website for a list of frequently asked questions. [email or web address] _[email or web address] [facility] Patient Portal Access Instructions: Stay connected with your healthcare team and access your personal medical information anytime with the [facility] Patient Portal. If you would like a full copy of your medical records please contact the [facility] Medical Records Department Thursday through Thursday between 8a.m. and 4:30p.m. Please follow the directions below to access the portal: 1.Access the email account you provided upon registration to the [facility].2.Look for an invitation email from [facility].3.Open the email and access the invitation link: Accept Invitation to [facility]4.Fill in the required condon to create your account. Sign into www.[facility] with your username and password that you [...] you will allow to register on the [facility] Patient Portal for access to your information. You can also access the [facility] Patient Portal on the [employer] yamileth. Simply click on Health Records under [employer] and then click on the [employer] logo. HOW TO SAFELY DISPOSE OF PRESCRIPTION MEDICATIONS Please use one of the following methods to safely dispose of your unused medications. 1.Use a drug disposal kit: the drug disposal pouch allows you to safely discard your old and unuseddrugs. Ask your nurse to give you one when you are discharged.2.Visit a local take-back location: Many local pharmacies and police departments have programs that collect old and unwanted prescriptiondrugs. Call your local pharmacy or go to [email or web address] to find one close to you.3.Make use of household items: Use cat litter or old coffee grounds to dispose medications if other options arenot available. Mix your drugs with these household products, seal them in an airtight container andthrow it into the garbage. Call [facility]: [phone] to be sure your drugs can be [...] drowsiness, such as benzodiazepines, also known as benzos,including diazepam and alprazolam, muscle relaxants or sleep aids. Never sell or share prescriptionopioids. This is illegal. Store opioids in a [...] aware that I should contact my doctor. Patient/Upper And Bottom Lacer Hand Signature: Date/Time: Relationship to Patient: Witness Name/Signature: Date/Time: [facility]10-07-2022 History of Present illness Narrative * Eric Reyes MD - 02/14/2022 9:29 AM EDT The patient was seen for [...] ordered or obtained, is reviewed by a machine fancy stitcher before being considered final. Additional recommendations may be made based on the final results. - Return to clinic should current symptoms (if present) worsen, other problems develop, or as needed. ADDITIONAL & DICTATED PORTION: ADDITIONAL HISTORY The following Nursing History was reviewed with the family: Patient presents with: Med Check: Med Check - Pt states she is doing better but not quite there. The patient is here for follow-up of anxiety and depression. She is currently on Prozac 30 mg daily(increased at the last visit). As noted in the nursing history, she feels she is not quite where she wishes to be in terms of symptom control. She does feel significant improvement has occurred. No suicidal ideation. No other side effects from the medication. Review of the growth chart shows weightgain has continued to occur. SCARED Rating Scale Panic/somatic 13 cutoff equals 7 Generalized anxiety 5 cutoff equals 9 Separation 2 cutoff equals 5 Social 8 cutoff equals 8 School avoidance 1 cutoff equals 3 TOTAL 29 cutoff equals 25 PHQ-9 score today was 10. Questions 12 and 13 which screen for suicidal ideation were both answeredNO Review of systems negative for fevers. No [...] to 40 mg daily. Recheck at a ptnd-an-ggtu visit in 1 month. Return to clinic sooner for any difficulties. I spent a total of 30-39 minutes on the date of service. This included preparing to see the patient; wrub-oi-hmym patient care; obtaining and/or reviewing separately obtained history; performing a medically appropriate examination; counseling and educatingthe patient/family/caregiver; and completing clinical documentation. As applicable, this also included ordering medications, tests, or procedures; independently interpreting results; communicating results to the patient/family/caregiver; and care coordination (not separately reported). This note was partially generated using Fengxiafei voice recognition system, and there may be some incorrect words, spellings, and punctuation that were not noted in checking the note before saving. Eric Reyes M.D. documented in [facility] encounterC[facility] Miscellaneous Notes* Telephone Encounter - Eric Reyes MD - 02/11/2022 12:07 PM EDT The information below was reviewed. Eric Reyes M.D. * Telephone Encounter - Jane Koch RN - 02/11/2022 11:26 AM EDT Spoke with patient, denies any medical conditions. Is aware waiver unable to be signed, verbalizes understanding Jane Koch RN * Telephone Encounter - Eric Reyes MD - 02/11/2022 11:06 AM EDT I am not aware of any medical conditions the patient has that would require a medical vaccination waiver. Could you please check with the patient as to whether she has conditions I am unaware of? This note was partially generated using Fengxiafei voice recognition system, and there may be some incorrect words, spellings, and punctuation that were not noted in checking the note before saving. 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 Pt wonders if you would sign a waiver for her not to get the vaccine? Patient has been identified by name and birthdate. Duration of symptoms: N/A Person calling: self Call patient at: on cell [phone] (home) [phone] (cell) Was an appointment scheduled: No Closing statement: Results or non-symptom based questions: Thank you for calling [facility], your call will be returned within the next business day. Alma Rosen LPN documented in this encounterC[facility]09-06-2022 History of Present illness Narrative* Eric Reyes MD - 01/14/2022 2:30 PM EDT The patient was seen for the [...] ordered or obtained, is reviewed by a machine fancy stitcher before being considered final. Additional recommendations may be made based on the final results. - Return to clinic should current symptoms (if present) worsen, other problems develop, or as needed. ADDITIONAL & DICTATED PORTION: ADDITIONAL HISTORY The following Nursing History was reviewed with the family: Patient presents with: Med Check: Pt reports she doesn't feel any different on the medication, ? Dose increase The patient was prescribed Prozac 20 mg daily in late September. Due to numerous items going on in her life, the medication was used sparsely until about 3 weeks ago. She feels she has been using it consistently over the past 3 weeks. She does not feel it is helping her anxiety. SCARED survey results areshown below. No adverse side effects have been [...] This included preparing to see the patient; cqzy-lv-jxxj patient care; obtaining and/or reviewing separately obtained history; performing a medically appropriate examination; counseling and educatingthe patient/family/caregiver; and completing clinical documentation. As applicable, this also included ordering medications, tests, or procedures; independently interpreting results; communicating results to the patient/family/caregiver; and care coordination (not separately reported). This note was partially generated using Fengxiafei voice recognition system, and there may be some incorrect words, spellings, and punctuation that were not noted in checking the note before saving. Eric Reyes M.D. documented in this encounterCleveland [facility]08-30-2022 History of Present illness Narrative* Lourdes Davila RN - 01/07/2022 1:[address] Garzon, Xin was provided with a pair of Power Step original full length inserts, size 8- 81/2, and instructed/educated in its application, wear, and care. All questions were answered, and patient was able to demonstrate competence with the necessary skills to utilize the above equipment. Lourdes Davila RN * Dino Garzon - 01/07/2022 1:18 PM EDT Images from the original note were not included. Consultation requested by Dr. Reyes for an opinion regarding flatfoot. My final [...] gave her much relief in the hip orknees. She states wearing lace up tennis shoes or boots makes her pain worse in her knees PAIN EVALUATION 01/07/2022 1303 Pain Level: 5 Pain Location: Knee-Left bilateral knees Description: Aching Duration Amount of Time: 1 Duration Units: Months Frequency: Continuous Intervention/Comfort measure: Medication Comments: Tylenol, ibuprofen with mild relief No results found for: HBA1C PCP: Eric Reyes MD PAST MEDICAL HISTORY Diagnosis Date Achilles tendonitis, bilateral 01/23/2016 Nonorganic enuresis Pyelonephritis during 11/05/2021 Sprain of ankle 06/23/2016 Current Outpatient Medications Medication Sig FLUoxetine (PROZAC) 20 mg capsule Take 1 capsule by mouth once daily. mv, min #36-iron,carbonyl-FA (GERITOL COMPLETE) 16 mg iron- 0.38 mg tab Take 1 tablet by mouth oncedaily. LORATA-DINE D 10-240 mg Tb24 Take 1 [...] pain in knees worse. So I do haveconcerns that a custom orthotic or powerstep may make her knee pain worse. If she continues to haveknee and hip pain, I would recommend having patient see Dr. Farah for consultation. Dino Garzon DPM Podiatry [address] [facility] [address] Dept: [phone] Dept * Berenice Carrero RN - 01/07/2022 1:02 PM EDT Patient presents with: Left Knee - Knee [...] ibuprofen with mild relief documented in this encounterC[facility]08-30-2022 History of Present illness Narrative* RT Marisol(R) - 01/07/2022 12:20 PM EDT Radiology Service Progress Note PATIENT NAME: Xin Garcia DATE OF SERVICE: January 07, 2022 TIME: 12:30 PM PATIENT IDENTITY VERIFICATION COMPLETED USING TWO (2) IDENTIFIERS: Name and Date of confirmedby patient verbally. FALL SCREENING: Has the patient had 2 falls in the last year or 1 fall with injury or currently using an Ambulatory Assistive Device (Walker, Cane, Wheelchair, Crutches, etc.)? No PATIENT GENDER DATA: Female. status: : No status: NO. PATIENT RELEVANT IMPLANT DATA REVIEWED: Not Applicable RADIOLOGY DEPARTMENT: General X-ray: Exam(s) Completed: Lower Extremity X- Ray(s): Feet, Bilateral and Wt. Bearing PERIPHERAL IV DATA: Not applicable SIGNED BY: RT Marisol(R) January 07, 2022 12:30 PM documented in this encounterCleveland Clinic [facility]08-19-2022 History of Present illness Narrative* Eric Reyes MD - 12/27/2021 1:25 PM EDT The patient was seen for the [...] limp. No edema noted to either lower extremity.No increase in calf size to either lower extremity (as compared to the other extremity). Severe pesplanus bilaterally. GENERAL RECOMMENDATIONS: - Issues discussed in [...] ordered or obtained, is reviewed by a machine fancy stitcher before being considered final. Additional recommendations may [...] 3 days ago with R hip pain. The patient has been experiencing bilateral knee pain for 2 to 3 weeks. The pain is located along the sides of the patella bilaterally. Radiates upwards toward the hips. Patient describes the pain asfeels like someone shattering my knee with a hammer and feels like it (kneecap) is going to pop out of place. No edema, erythema, or joint effusion has been noted. The patient started a new job 1month ago. The job entails standing in place for 12 hours at a time. No sports or other increased activities have been present. Patient not on oral contraceptives. No associated fevers. Patient also fell onto her right knee 3 days ago. Since that time she has had soreness in her righthip. No other joint complaints have been present. Review of systems negative for fevers. Patient has shown some weight loss. No eye, ear, nose, throat complaints. No lymphadenopathy. No bleeding or bruising. No cough, wheezing, shortness of breath. No vomiting, diarrhea, abdominal pain. No rash. Past medical history positive for pes planus and patellofemoral syndrome. The patient did have shoeinserts when she was being treated with patellofemoral [...] consistent with patellofemoral syndrome. No evidence of Blackwell-Schlatter's (and the patient's age would argue against [...] cancellations. The patient and I checked her StARTinitiativehart account, and the appointment is visible in her account. 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 The patient is planning to speak with her employer on Thursday regarding this. Should a note be required, we would be pleased to provide such a note. Should the knee pain worsen, swelling develop in either leg, or other issues develop, then the patient should be evaluated immediately. For the right hip s reyes I recommended Motrin. I spent a total of 30-39 minutes on the date of service. This included preparing to see the patient; weoz-ke-ivfx patient care; obtaining and/or reviewing separately obtained history; performing a medically appropriate examination; counseling and educatingthe patient/family/caregiver; and completing clinical documentation. As applicable, this also included ordering medications, tests, or procedures; independently interpreting results; communicating results to the patient/family/caregiver; and care coordination (not separately reported). This note was partially generated using Fengxiafei voice recognition system, and there may be some incorrect words, spellings, and punctuation that were not noted in checking the note before saving. Eric Reyes M.D. documented in this encounterC[facility]07-05-2022 NoteHNO ID: [id number] Author: Dominik Singh MD Service: ? Author Type: Physician Type: Progress Notes Filed: 11/12/2021 4:58 PM Note Text: Patient is here for ultrasound. Please see image section in [facility] for results. Blanca Mccormick [facility]07-05-2022 History of Present illness Narrative* Dominik Singh MD - 11/12/2021 4:57 PM EDT Patient is here for ultrasound. Please see image section in Epic for results. Blanca Mccormick MD documented in this encounterCleveland Clinic [facility]06-28-2022 History of Past illness Narrative* Problem Noted Date Resolved Date Pyelonephritis during 11/05/2021 11/05/2021 Encounter for IUD insertion 07/07/202110/10 Overview: Mirena placed Sprain of ankle 06/23/2016 08/16/2018 Achilles tendonitis, bilateral 01/23/2016 0 08/16/2018 documented as of this encounter (statuses as of 11/05/2021) [facility] History of Past illness Narrative* Problem Noted Date Resolved Date Pyelonephritis during 11/05/2021 11/05/2021 Encounter for IUD insertion 07/07/202110/10 Overview: Mirena placed Sprain of ankle 06/23/2016 08/16/2018 Achilles tendonitis, bilateral 01/23/2016 0 08/16/2018 documented as of this encounter (statuses as of 11/12/2021) [facility] of Past illness Narrative* Problem Noted Date Resolved Date Pyelonephritis during 11/05/2021 11/05/2021 Encounter for IUD insertion 07/07/202110/10 Overview: Mirena placed Sprain of ankle 06/23/2016 08/16/2018 Achilles tendonitis, bilateral 01/23/2016 0 08/16/2018 documented as of this encounter (statuses as of 12/27/2021) [facility] of [facility] illness Narrative* Problem Noted Date Resolved Date Pyelonephritis during 11/05/2021 11/05/2021 Encounter for IUD insertion 07/07/202110/10 Overview: Mirena placed Sprain of ankle 06/23/2016 08/16/2018 Achilles tendonitis, bilateral 01/23/2016 0 08/16/2018 documented as of this encounter (statuses as of 01/06/2022) [facility] of [facility] illness Narrative* Problem Noted Date Resolved Date Pyelonephritis during 11/05/2021 11/05/2021 Encounter for IUD insertion 07/07/202110/10 Overview: Mirena placed Sprain of ankle 06/23/2016 08/16/2018 Achilles tendonitis, bilateral 01/23/2016 0 08/16/2018 documented as of this encounter (statuses as of 01/08/2022) [facility] Narrative* Problem Noted Date Resolved Date Pyelonephritis during 11/05/2021 11/05/2021 Encounter for IUD insertion 07/07/202110/10 Overview: Mirena placed Sprain of ankle 06/23/2016 08/16/2018 Achilles tendonitis, bilateral 01/23/2016 0 08/16/2018 documented as of this encounter (statuses as of 01/08/2022) [facility] Narrative* Problem Noted Date Resolved Date Pyelonephritis during 11/05/2021 11/05/2021 Encounter for IUD insertion 07/07/202110/10 Overview: Mirena placed Sprain of ankle 06/23/2016 08/16/2018 Achilles tendonitis, bilateral 01/23/2016 0 08/16/2018 documented as of this encounter (statuses as of 01/14/2022) [facility] Narrative* Problem Noted Date Resolved Date Pyelonephritis during 11/05/2021 11/05/2021 Encounter for IUD insertion 07/07/202110/10 Overview: Mirena placed Sprain of ankle 06/23/2016 08/16/2018 Achilles tendonitis, bilateral 01/23/2016 0 08/16/2018 documented as of this encounter (statuses as of 02/11/2022) [facility] Narrative* Problem Noted Date Resolved Date Pyelonephritis during 11/05/2021 11/05/2021 Encounter for IUD insertion 07/07/202110/10 Overview: Mirena placed Sprain of ankle 06/23/2016 08/16/2018 Achilles tendonitis, bilateral 01/23/2016 0 08/16/2018 documented as of this encounter (statuses as of 02/14/2022) [facility] Narrative* Problem Noted Date Resolved Date Pyelonephritis during 11/05/2021 11/05/2021 Encounter for IUD insertion 07/07/202110/10 Overview: Mirena placed Sprain of ankle 06/23/2016 08/16/2018 Achilles tendonitis, bilateral 01/23/2016 0 08/16/2018 documented as of this encounter (statuses as of 03/13/2022) [facility] Narrative* Problem Noted Date Resolved Date Pyelonephritis during 11/05/2021 11/05/2021 Encounter for IUD insertion 07/07/202110/10 Overview: Mirena placed Sprain of ankle 06/23/2016 08/16/2018 Achilles tendonitis, bilateral 01/23/2016 0 08/16/2018 documented as of this encounter (statuses as of 03/14/2022) [facility] Narrative* Problem Noted Date Resolved Date Pyelonephritis during 11/05/2021 11/05/2021 Encounter for IUD insertion 07/07/202110/10 Overview: Mirena placed Sprain of ankle 06/23/2016 08/16/2018 Achilles tendonitis, bilateral 01/23/2016 0 08/16/2018 documented as of this encounter (statuses as of 04/11/2022) [facility] Narrative* Problem Noted Date Resolved Date Pyelonephritis during 11/05/2021 11/05/2021 Encounter for IUD insertion 07/07/202110/10 Overview: Mirena placed Sprain of ankle 06/23/2016 08/16/2018 Achilles tendonitis, bilateral 01/23/2016 0 08/16/2018 documented as of this encounter (statuses as of 04/28/2022) [facility] Narrative* Problem Noted Date Resolved Date Pyelonephritis during 11/05/2021 11/05/2021 Encounter for IUD insertion 07/07/202110/10 Overview: Mirena placed Sprain of ankle 06/23/2016 08/16/2018 Achilles tendonitis, bilateral 01/23/2016 0 08/16/2018 documented as of this encounter (statuses as of 05/20/2022) [address]28-2022 History of Past illness Narrative* Problem Noted Date Resolved Date Pyelonephritis during 11/05/2021 11/05/2021 Encounter for IUD insertion 07/07/202110/10 Overview: Mirena placed Sprain of ankle 06/23/2016 08/16/2018 Achilles tendonitis, bilateral 01/23/2016 0 08/16/2018 documented as of this encounter (statuses as of 07/24/2022) [facility] Narrative* Problem Noted Date Resolved Date Pyelonephritis during 11/05/2021 11/05/2021 Encounter for IUD insertion 07/07/202110/10 Overview: Mirena placed Sprain of ankle 06/23/2016 08/16/2018 Achilles tendonitis, bilateral 01/23/2016 0 08/16/2018 documented as of this encounter (statuses as of 07/25/2022) [facility] Narrative* Problem Noted Date Resolved Date Pyelonephritis during 11/05/2021 11/05/2021 Encounter for IUD insertion 07/07/202110/10 Overview: Mirena placed Sprain of ankle 06/23/2016 08/16/2018 Achilles tendonitis, bilateral 01/23/2016 0 08/16/2018 documented as of this encounter (statuses as of 08/18/2022) [facility] Narrative* Problem Noted Date Diagnosed Date Resolved Date Pyelonephritis during 11/05/2021 11/05/2021 Encounter for IUD insertion 07/07/2021 11/05/2021 Overview: Mirena placed Sprain of ankle 06/23/2016 08/16/2018 Achilles tendonitis, bilateral 01/23/2016 08/16/2018 documented as of this encounter (statuses as of 12/16/2022) [address]28-2022 History of Past illness Narrative* Problem Noted Date Diagnosed Date Resolved Date Pyelonephritis during 11/05/2021 11/05/2021 Encounter for IUD insertion 07/07/2021 11/05/2021 Overview: Mirena placed Sprain of ankle 06/23/2016 08/16/2018 Achilles tendonitis, bilateral 01/23/2016 08/16/2018 documented as of this encounter (statuses as of 12/25/2022) [address]28-2022 History of Past illness Narrative* Problem Noted Date Diagnosed Date Resolved Date Pyelonephritis during 11/05/2021 11/05/2021 Encounter for IUD insertion 07/07/2021 11/05/2021 Overview: Mirena placed Sprain of ankle 06/23/2016 08/16/2018 Achilles tendonitis, bilateral 01/23/2016 08/16/2018 documented as of this encounter (statuses as of 02/19/2023) [address]28-2022 History of Past illness Narrative* Problem Noted Date Diagnosed Date Resolved Date Pyelonephritis during 11/05/2021 11/05/2021 Encounter for IUD insertion 07/07/2021 11/05/2021 Overview: Mirena placed Sprain of ankle 06/23/2016 08/16/2018 Achilles tendonitis, bilateral 01/23/2016 08/16/2018 documented as of this encounter (statuses as of 02/23/2023) [address]-2022 History of Past illness Narrative* Problem Noted Date Diagnosed Date Resolved Date Pyelonephritis during 11/05/2021 11/05/2021 Encounter for IUD insertion 07/07/2021 11/05/2021 Overview: Mirena placed Sprain of ankle 06/23/2016 08/16/2018 Achilles tendonitis, bilateral 01/23/2016 08/16/2018 documented as of this encounter (statuses as of 04/18/2023) [facility]arrative* Problem Noted Date Diagnosed Date Resolved Date Pyelonephritis during 11/05/2021 11/05/2021 Encounter for IUD insertion 07/07/2021 11/05/2021 Overview: Mirena placed Sprain of ankle 06/23/2016 08/16/2018 Achilles tendonitis, bilateral 01/23/2016 08/16/2018 documented as of this encounter (statuses as of 07/12/2023) [facility] History of Present illness Narrative* Mckenzie Garcia APRN.LAURA - 11/05/2021 12:33 PM EDT Xin Garcia [...] cycle GI: No nausea, vomiting, or diarrhea DRY WALL PLASTERER: Negative for abnormal vaginal bleeding, abnormal vaginal [...] Level: 3 - Low documented in this encounterCleveland Clinic [facility]05-28-2022 History of Present illness Narrative* Eric Reyes MD - 10/05/2021 8:57 AM EDT The [...] ordered or obtained, is reviewed by a machine fancy stitcher before being considered final. Additional recommendations may [...] This is being prescribed by her outside CARDIOVASCULAR SURGEON doctor. This has provided good control of [...] 20 mg daily. Follow-up in the office (pqhl-mb-ihxp visit) in 1 month. Suicide precautions again reviewed and patient to be seen immediately by a crisis evaluation team in the emergency room or at [facility] for any suicidal ideation. I spent a total of 30-39 minutes on the date of service. This included preparing to see the patient; [id number] patient care; obtaining and/or reviewing separately obtained history; performing a medically appropriate examination; counseling and educatingthe patient/family/caregiver; and completing clinical documentation. As applicable, this also included ordering medications, tests, or procedures; independently interpreting results; communicating results to the patient/family/caregiver; and care coordination (not separately reported). This note was partially generated using Fengxiafei voice recognition system, and there may be some incorrect words, spellings, and punctuation that were not noted in checking the note before saving. Eric Reyes M.D. documented in this encounterC[facility] Miscellaneous Notes* Telephone Encounter - Moon [...] results. Cory Keys RN documented in this encounterC[facility]04-21-[facility]22 History of Present illness Narrative* Amelia Benites MD - 08/29/2021 9:51 AM EDT cc Fatigue (dx with mono on 05/18 and seen PCP in July ) HPI 21-year-old female here for concern about exhaustion and fatigue. This has continued and possibly worsened since she was diagnosed in May with mononucleosis by her PCP Dr. Reyes Lab work at the time showed hemoglobin of 10.3. She was instructed to start azwq-nsr-alxjocc iron supplementation and have a recheck in 6 months. She was unable to tolerate daily iron supplements because of stomach upset. She was seen by her [employer]Y WALL P[employer]ERER in June who suggested she take Geritol and she has been using that on a somewhat regular basis since then. Seen by PCP in July for recheck of mononucleosis and at the time had a palpable spleen tip. Patient concerned because she has continued to have extreme fatigue. She has a 6-month-old who she cares with with baby's father [...] which included preparing to see the patient, bjyk-fq-ugsk patient care, completing clinical documentation, obtaining and/or reviewing separately obtained history, performing a medically appropriate examination, counseling and educating the pat ient/family/caregiver, ordering medications, tests, or procedures and communicating results to the patient/family/caregiver. documented in this encounterC[facility]-13-2017 History of Past illness Narrative* Problem Noted Date Resolved Date Sprain of ankle 06/23/2016 08/16/2018 Achilles tendonitis, bilateral 01/23/2016 0 08/16/2018 documented as of this encounter (statuses as of 08/30/2021) [facility] History of Past illness Narrative* Problem Noted Date Resolved Date Sprain of ankle 06/23/2016 08/16/2018 Achilles tendonitis, bilateral 01/23/2016 0 08/16/2018 documented as of this encounter (statuses as of 09/02/2021) [facility] History of Past illness Narrative* Problem Noted Date Resolved Date Sprain of ankle 06/23/2016 08/16/2018 Achilles tendonitis, bilateral 01/23/2016 0 08/16/2018 documented as of this encounter (statuses as of 10/05/2021) [facility] No data available for this section [facility] Evaluation + Plan note Future Appointments Appointment Date:06/17/2022 10:30:00 AM Scheduled Provider:SUMEET CHAVEZ Location:[facility] Appointment Type:PC OV Follow Up Future Scheduled Tests Laboratory* Thyroid Stimulating Hormone 05/30/22 * Free T4 05/30/22 * Complete Blood Count 05/30/22 * Complete Metabolic Panel 05/30/22 [facility] Evaluation + Plan note Future Appointments Appointment Date:08/11/2022 01:00:00 PM Scheduled Provider:OMAIRA BURNS Location:[facility] Appointment Type:PC OV Sleep Consult Appointment Date:09/23/2022 01:30:00 PM Scheduled Provider:SUMEET CHAVEZ Location:[facility] Appointment Type:PC OV Follow Up Diagnostic Tests Pending * Urine Culture 07/27/22 Future Scheduled Tests Laboratory* Thyroid Stimulating Hormone 05/30/22 * Free T4 05/30/22 * Complete Blood Count 05/30/22 * Complete Metabolic Panel 05/30/22 [facility] Evaluation note* Diagnosis Malaise and fatigue- Primary Other malaise and fatigue [facility]* Diagnosis Anxiety- Primary Anxiety state, unspecified Depression, unspecified depression type documented in this encounter [facility]* Diagnosis Surveillance of previously prescribed intrauterine contraceptive device- Primary Abdominal cramping Abdominal pain, unspecified site Menorrhagia with regular cycle Excessive or frequent menstruation Displacement of intrauterine contraceptive device, initial encounter documented in this encounter [facility]* Diagnosis Complication of intrauterine device (IUD), unspecified complication, initial encounter ([facility])- Primary documented in this encounter [facility]* Diagnosis Flat feet, bilateral- Primary Pain in both knees, unspecified chronicity Injury of right hip, initial encounter documented in this encounter [facility]* Diagnosis Bilateral foot pain- Primary Pain in limb documented in this encounter [facility]* Diagnosis Bilateral foot pain Pain in limb documented in this encounter [facility]* Diagnosis Pes planus of both feet- Primary Posterior tibial tendon dysfunction Other disorders of synovium, tendon, and bursa documented in this encounter [facility]* Diagnosis Anxiety- Primary Anxiety state, unspecified documented in this encounter [facility]* Diagnosis Anxiety- Primary Anxiety state, unspecified Depression, unspecified depression type [facility]* Diagnosis Depression, unspecified depression type- Primary Anxiety Anxiety state, unspecified documented in this encounter [facility]* Diagnosis Depression, unspecified depression type- Primary Anemia, unspecified type documented in this encounter [facility]* Diagnosis Bipolar 2 disorder (HCC)- Primary Other bipolar disorders BALJINDER (generalized anxiety disorder) Generalized anxiety disorder documented in this encounter [facility]* Diagnosis Bipolar 2 disorder (HCC)- Primary Other bipolar disorders BALJINDER (generalized anxiety disorder) Generalized anxiety disorder documented in this encounter [facility] note* Diagnosis URI, acute- Primary Acute upper respiratory infections of unspecified site Throat pain documented in this encounter [facility] noteNo assessment information availableWLakeHealth [facility] Work Phone: Evaluation note* Diagnosis Encounter for IUD removal- Primary Encounter for removal of intrauterine contraceptive device documented in this encounter [facility] note* Diagnosis Missed period- Primary Irregular menstrual cycle Positive urine test examination or test, positive result documented in this encounter [facility] note* Diagnosis Onset Date Resolution Status Hx of recurrent urinary tract infection acute acute Supervision of high-risk acute Vaping nicotine dependence, tobacco product acute Depression chronic [facility] Work Phone: evaluation note* Diagnosis Onset Date Resolution Status Hx of recurrent urinary tract infection acute acute Supervision of high-risk acute Vaping nicotine dependence, tobacco product acute Depression chronic Hx of recurrent urinary tract infection acute acute Supervision of high-risk acute Vaping nicotine dependence, tobacco product acute Depression chronic [facility] Work Phone: Evaluation note* Diagnosis URI, acute- Primary Acute upper respiratory infections of unspecified site documented in this encounter [facility] note* Diagnosis Onset Date Resolution Status Hx of recurrent urinary tract infection acute acute Supervision of high-risk acute Vaping nicotine dependence, tobacco product acute Depression chronic Hx of recurrent urinary tract infection acute acute Supervision of high-risk acute Vaping nicotine dependence, tobacco product acute Depression chronic Hx of recurrent urinary tract infection acute acute Supervision of high-risk acute Vaping nicotine dependence, tobacco product acute Depression chronic [facility] Work Phone: Evaluation note* Diagnosis Acute otitis media, left- Primary Unspecified otitis media Rhinosinusitis Unspecified sinusitis (chronic) documented in this encounter [facility] note* Diagnosis Neck pain- Primary Cervicalgia documented in this encounter [facility] note* Diagnosis Right wrist pain- Primary Pain in joint, forearm Contusion of right wrist, initial encounter Right wrist pain Pain in joint, forearm documented in this encounter [facility] note* Diagnosis Right wrist pain Pain in joint, forearm [facility] No data available for this section [facility] Discharge instructions Additional Instructions You have a urinary tract infection. I prescribed an antibiotic, nausea medicine, and pain medication. You can also take sqor-vxw-eedfvyc Tylenol every 6 hours as needed. If symptoms worsen please come back to the emergency room.[facility] Work Phone: Progress note No data available for this section [facility] Reason for referral (narrative)* Diagnostic Procedure Only (Routine) - Authorized Specialty Diagnoses / Procedures Referred By Contac t Referred To Contact [facility] Diagnoses Abdominal cramping Menorrhagia with regular cycle Displacement of intrauterine contraceptive device, initial encounter Procedures PELVIC US WHI US PELVIC NONOBSTETRIC REAL-TIME IMAGE COMPLETE Mckenzie Garcia APRN.CNM [address] [place] [address] [facility] [address] [place] [address] Referral ID Status Reason Start Date Expiration Date Visits Requested Visits Authorized [id number] Authorized Auto-Generat ed Referral 11/05/2021 11/05/2022 1 1 [facility] for referral (narrative)* Diagnostic Procedure Only (Routine) - Pending Review Specialty Diagnoses / Procedures Referred By Contac t Referred To Contact XR IMAGING Diagnoses Bilateral foot pain Procedures XR FOOT GENERAL 3V AP/LAT/OBL BILATERAL RADEX FOOT COMPLETE MINIMUM 3 VIEWS Dino Garzon [address] [place] [address] Xr Imaging Referral ID Status Reason Start Date Expiration Date Visits Requested Visits Authorized [id number] Pending Review Auto-Generat ed Referral 01/06/2022 02/05/2023 1 1 [facility] for referral (narrative)* Diagnostic Procedure Only (Routine) - Closed Specialty Diagnoses / Procedures Referred By Contac t Referred To Contact XR IMAGING Diagnoses Bilateral foot pain Procedures XR FOOT GENERAL 3V AP/LAT/OBL BILATERAL RADEX FOOT COMPLETE MINIMUM 3 VIEWS Dino Garzon [address] [place] [address] Xr Imaging Referral ID Status Reason Start Date Expiration Date V isits Requested Visits Authorized [id number] Closed Auto-Generate d Referral 01/06/2022 02/05/2023 1 1 [facility] for referral (narrative)No reason for referral information availableWLakeHealth [facility] Work Phone: [facility] for [facility] Narrative* Diagnostic Procedure Only (Routine) - Closed Specialty Diagnoses / Procedures Referred By Contac t Referred To Contact [facility] Diagnoses Abdominal cramping Menorrhagia with regular cycle Displacement of intrauterine contraceptive device, initial encounter Procedures PELVIC US WHI US PELVIC NONOBSTETRIC REAL-TIME IMAGE COMPLETE Mckenzie Garcia, WATCH DIAL PRINTER.[facility] [address] [place] [address] [facility] [address] [place] [address] Referral ID Status Reason Start Date Expiration Date V isits Requested Visits Authorized [id number] Closed Auto-Generate d Referral 11/05/2021 11/05/2022 1 1 [facility] for visit Narrative* Diagnostic Procedure Only (Routine) - Closed Specialty Diagnoses / Procedures Referred By Contac t Referred To Contact XR IMAGING Diagnoses Bilateral foot pain Procedures XR FOOT GENERAL 3V AP/LAT/OBL BILATERAL RADEX FOOT COMPLETE MINIMUM 3 VIEWS Dino Garzon [address] [place] [address] Xr Imaging Referral ID Status Reason Start Date Expiration Date V isits Requested Visits Authorized [id number] Closed Auto-Generate d Referral 01/06/2022 02/05/2023 1 1 [facility] for visit Narrative* Diagnostic Procedure Only (Urgent) - Closed Specialty Diagnoses / Procedures Referred By Contac t Referred To Contact XR IMAGING Diagnoses Right wrist pain Procedures XR WRIST GENERAL 3V PA/LAT/OBL RIGHT RADEX WRIST COMPLETE MINIMUM 3 VIEWS Brenda Morrell APRN.PROC TECH [address] [place] [address] Phone: tel: fax: [place] [id number] Referral ID Status Reason Start Date Expiration Date V isits Requested Visits Authorized [id number] Closed Auto-Generate d Referral 09/21/2024 10/21/2025 1 1 [facility] Summary Purpose Family History No Family History Records Found Relationship Condition Age at Onset Recorded Date/T terrell grandfather Cerebrovascular accident (CVA) Unknown grandmother Malignant neoplasm of breast Unknown Advance Directives No Advanced Directives Records Found Advance Directive Response Recorded Date/ Time Living Will No February 05, 2023 6:46pm Power of Electronic Console Display Operator No January 6:46pm Advance Directive Response Recorded Date/ Time Living Will No February 17 6:49am Power of Electronic Console Display Operator No February 17, 2023 6:49am Advance Directive Response Recorded Date/ Time Living Will No June 30 025 9:57pm Do you have a Healthcare Power of Electronic Console Display Operator? No June 30, 2024 9:57pm Advance Directive Response Recorded Date/ Time Living Will No June 30 9:57pm Do you have a Healthcare Power of Electronic Console Display Operator? No June 30, 2024 9:57pm Do you have a Healthcare Power of Electronic Console Display Operator? No October 09, 2024 7:43pm Reason for Referral Specialty Diagnoses / Procedures Referred By Contac t Referred To Contact Diagnoses Depression, unspecified depression type Anxiety Procedures CONSULT TO PSYCHIATRY OFFICE/OUTPATIENT [facility] 60-74 MINUTES Eric Reyes MD [address] [place] [address] Referral ID Status Reason Start Date Expiration Date Visits Requested Visits Authorized [id number] Pending Review PCP Requested Referral 03/13/2022 03/13/2023 1 1 Chief Complaint and Reason for Visit Chief Complaint abd pain Chief Complaint abd pain VAGINAL BLEEDING LMP 03/23 Reason for Visit Hx of recurrent urin kam tract infection Supervision of high-risk Vaping nicotine dependence, tobacco product Depression Chief Complaint LMP 03/23 12 [facility] OB Reason for Visit Hx of recurrent urin kam tract infection Supervision of high-risk Vaping nicotine dependence, tobacco product Depression Hx of recurrent urinary tract infection Supervision of high-risk Vaping nicotine dependence, tobacco product Depression Chief Complaint LMP 03/23 12 [facility] OB 16 W[facility] OB Reason for Visit Hx of recurrent urin kam tract infection Supervision of high-risk Vaping nicotine dependence, tobacco product Depression Hx of recurrent urinary tract infection Supervision of high-risk Vaping nicotine dependence, tobacco product Depression Hx of recurrent urinary tract infection Supervision of high-risk Vaping nicotine dependence, tobacco product Depression Chief Complaint Admit Date THORACIC SPINE May 24, 2024 1 0:45am Room 2 May 24, 2024 1 0:57am THORACIC SCOLIOSIS/RX HERE June 12:00pm COUGH June 27, 2024 7:35pm ear pain June 30, 2024 8:01pm Reason for Visit Admit Date Thoracic scoliosis May 24, 2024 1 0:45am Chief Complaint Admit Date THORACIC SCOLIOSIS/RX HERE June 12:00pm COUGH June 27, 2024 7:35pm ear pain June 30, 2024 8:01pm General illness October 09, 2024 7:14p m Additional Source Comments Source Comments (unrecognize d section and content) In the event this informatio n is protected by the Federal Confidentiality of Alcohol and Drug Abuse Patient Records regulations: The Federal rules restrict any use of the information to criminally investigate or prosecute any alcohol or drug abuse patient.[facility] HospitalIn the event this information is protected by the Federal Confidentiality of Alcohol and Drug Abuse Patient Records regulations: The Federal rules restrict any use of the information to criminally investigate or prosecute any alcohol or drug abuse patient.[facility] HospitalIn the event this information is protected by the Federal Confidentiality of Alcohol and Drug Abuse Patient Records regulations: The Federal rules restrict any use of the information to criminally investigate or prosecute any alcohol or drug abuse patient.[facility] HospitalIn the event this information is protected by the Federal Confidentiality of Alcohol and Drug Abuse Patient Records regulations: The Federal rules restrict any use of the information to criminally investigate or prosecute any alcohol or drug abuse patient.[facility] HospitalIn the event this information is protected by the Federal Confidentiality of Alcohol and Drug Abuse Patient Records regulations: The Federal rules restrict any use of the information to criminally investigate or prosecute any alcohol or drug abuse patient.[facility] HospitalIn the event this information is protected by the Federal Confidentiality of Alcohol and Drug Abuse Patient Records regulations: The Federal rules restrict any use of the information to criminally investigate or prosecute any alcohol or drug abuse patient.[facility] HospitalIn the event this information is protected by the Federal Confidentiality of Alcohol and Drug Abuse Patient Records regulations: The Federal rules restrict any use of the information to criminally investigate or prosecute any alcohol or drug abuse patient.[facility] HospitalIn the event this information is protected by the Federal Confidentiality of Alcohol and Drug Abuse Patient Records regulations: The Federal rules restrict any use of the information to criminally investigate or prosecute any alcohol or drug abuse patient.[facility] HospitalIn the event this information is protected by the Federal Confidentiality of Alcohol and Drug Abuse Patient Records regulations: The Federal rules restrict any use of the information to criminally investigate or prosecute any alcohol or drug abuse patient.[facility] HospitalIn the event this information is protected by the Federal Confidentiality of Alcohol and Drug Abuse Patient Records regulations: The Federal rules restrict any use of the information to criminally investigate or prosecute any alcohol or drug abuse patient.[facility] HospitalIn the event this information is protected by the Federal Confidentiality of Alcohol and Drug Abuse Patient Records regulations: The Federal rules restrict any use of the information to criminally investigate or prosecute any alcohol or drug abuse patient.[facility] HospitalIn the event this information is protected by the Federal Confidentiality of Alcohol and Drug Abuse Patient Records regulations: The Federal rules restrict any use of the information to criminally investigate or prosecute any alcohol or drug abuse patient.[facility] HospitalIn the event this information is protected by the Federal Confidentiality of Alcohol and Drug Abuse Patient Records regulations: The Federal rules restrict any use of the information to criminally investigate or prosecute any alcohol or drug abuse patient.[facility] HospitalIn the event this information is protected by the Federal Confidentiality of Alcohol and Drug Abuse Patient Records regulations: The Federal rules restrict any use of the information to criminally investigate or prosecute any alcohol or drug abuse patient.[facility] HospitalIn the event this information is protected by the Federal Confidentiality of Alcohol and Drug Abuse Patient Records regulations: The Federal rules restrict any use of the information to criminally investigate or prosecute any alcohol or drug abuse patient.[facility] HospitalIn the event this information is protected by the Federal Confidentiality of Alcohol and Drug Abuse Patient Records regulations: The Federal rules restrict any use of the information to criminally investigate or prosecute any alcohol or drug abuse patient.[facility] HospitalIn the event this information is protected by the Federal Confidentiality of Alcohol and Drug Abuse Patient Records regulations: The Federal rules restrict any use of the information to criminally investigate or prosecute any alcohol or drug abuse patient.[facility] HospitalIn the event this information is protected by the Federal Confidentiality of Alcohol and Drug Abuse Patient Records regulations: The Federal rules restrict any use of the information to criminally investigate or prosecute any alcohol or drug abuse patient.[facility] HospitalIn the event this information is protected by the Federal Confidentiality of Alcohol and Drug Abuse Patient Records regulations: The Federal rules restrict any use of the information to criminally investigate or prosecute any alcohol or drug abuse patient.[facility] HospitalIn the event this information is protected by the Federal Confidentiality of Alcohol and Drug Abuse Patient Records regulations: The Federal rules restrict any use of the information to criminally investigate or prosecute any alcohol or drug abuse patient.[facility] HospitalIn the event this information is protected by the Federal Confidentiality of Alcohol and Drug Abuse Patient Records regulations: The Federal rules restrict any use of the information to criminally investigate or prosecute any alcohol or drug abuse patient.[facility] HospitalIn the event this information is protected by the Federal Confidentiality of Alcohol and Drug Abuse Patient Records regulations: The Federal rules restrict any use of the information to criminally investigate or prosecute any alcohol or drug abuse patient.[facility] HospitalIn the event this information is protected by the Federal Confidentiality of Alcohol and Drug Abuse Patient Records regulations: The Federal rules restrict any use of the information to criminally investigate or prosecute any alcohol or drug abuse patient.[facility] HospitalIn the event this information is protected by the Federal Confidentiality of Alcohol and Drug Abuse Patient Records regulations: The Federal rules restrict any use of the information to criminally investigate or prosecute any alcohol or drug abuse patient.[facility] HospitalIn the event this information is protected by the Federal Confidentiality of Alcohol and Drug Abuse Patient Records regulations: The Federal rules restrict any use of the information to criminally investigate or prosecute any alcohol or drug abuse patient.[facility] HospitalIn the event this information is protected by the Federal Confidentiality of Alcohol and Drug Abuse Patient Records regulations: The Federal rules restrict any use of the information to criminally investigate or prosecute any alcohol or drug abuse patient.[facility] HospitalIn the event this information is protected by the Federal Confidentiality of Alcohol and Drug Abuse Patient Records regulations: The Federal rules restrict any use of the information to criminally investigate or prosecute any alcohol or drug abuse patient.[facility] HospitalIn the event this information is protected by the Federal Confidentiality of Alcohol and Drug Abuse Patient Records regulations: The Federal rules restrict any use of the information to criminally investigate or prosecute any alcohol or drug abuse patient.[facility] Hospital[facility] the event this information is protected by the Federal Confidentiality of Alcohol and Drug Abuse Patient Records regulations: The Federal rules restrict any use of the information to criminally investigate or prosecute any alcohol or drug abuse patient.[facility] the event this information is protected by the Federal Confidentiality of Alcohol and Drug Abuse Patient Records regulations: The Federal rules restrict any use of the information to criminally investigate or prosecute any alcohol or drug abuse patient.[facility] HospitalIn the event this information is protected by the Federal Confidentiality of Alcohol and Drug Abuse Patient Records regulations: The Federal rules restrict any use of the information to criminally investigate or prosecute any alcohol or drug abuse patient.[facility] Reason for Visit (unrecogniz ed section and content) Reason Comments Fatigue dx with mono on 05/18 and seen PCP in July Reason Comments Results Reason Comments Discuss anxiety [...] she is doing better but not quite there. Reason Comments Referral Request Reason Comments Behavioral Health Appointment Reason Comments Reason Comments New Patient Evaluation Reason Comments Follow Up Reason Comments Throat Problem Pt reported throat p ain, x3 days. Reason Onset Date Comments Refill Request 08/17/2022 Reason Comments Medication Problem Reason Onset Date Comments Refill Request 12/22/2022 Refill Request 12/23/2022 Reason Comments PREGNACY TEST Wanting confirmation , at home test positive Reason Comments Cough Congestion, fatigue, nausea, diarrhea x 1 week Reason Comments Cough Cough, congestion, S T, bodyaches, sinus and drainage x 4 days Reason Comments Neck Pain x 1 hour, denies inj ury Reason Comments right wrist pain X 1 hour-smacked it on a door Care Teams (unrecognized sec tion and content) Team Status: Active Member Role Status Dates Sury Crook VSC, DO Primary Care Provider Active Team Status: Active Member Role Status Dates ALEKS Forbes Attending Provider Active Star t: June 27, 2024 ALEKS Forbes Referring Provider Active Star t: June 27, 2024 Sury CESAR, DO Primary Care Provider Active Start: June 27, 2024 Team Status: Inactive Member Role Status Dates Sury CESAR, DO Primary Care Provider Active Start: June 27, 2024 End: June 27, 2024 Ed Physician Provider Attending Provider Active Start: June 27, 2024 End: June 27, 2024 Ed Physician Provider Emergency Provider Active Start: June 27, 2024 End: June 27, 2024 Team Status: Inactive Member Role Status Dates Sury CESAR, DO Primary Care Provider Active Start: June 30, 2024 End: June 30, 2024 Dr. Madi Calhoun MD Attending Provider Active S tart: June 30, 2024 End: June 30, 2024 Dr. Madi Calhoun MD Emergency Provider Active S tart: June 30, 2024 End: June 30, 2024 Team Status: Inactive Member Role Status Dates Sury CESAR, DO Primary Care Provider Active Start: September 15, 2024 End: September 15, 2024 TATIANA Butterfield Attending Provider Active Start: September 15, 2024 End: September 15, 2024 Team Status: Inactive Member Role Status Dates Sury CESAR, DO Primary Care Provider Active Start: October 09, 2024 End: October 09, 2024 Dr. Madi Calhoun MD Emergency Provider Active S tart: October 09, 2024 End: October 09, 2024 Crate Tier Relationship Specialty Start Date End Date Eric Reyes MD [address] [place] [address] PCP - General 02 Crate Tier Relationship Specialty Start Date End Date Eric Reyes MD [address] [place] [address] PCP - General 02 Crate Tier Relationship Specialty [place] [address] [place] [address], [place] [address] PCP - General 02 Crate Tier Relationship Specialty Start Date End Date PlayEric garcia MD [address] [place] [address], [place] [address] PCP - General 02 Crate Tier Relationship Specialty Start Date End Date Eric Reyes MD [address] [place] [address], [place] [address] PCP - General 02 Crate Tier Relationship Specialty Start Date End Date Eric Reyes MD [address] [place] [address], [place] [address] PCP - General 02 Crate Tier Relationship Specialty Start Date End Date Eric Reyes MD [address] [place] [address], [place] [address] PCP - General 02 Crate Tier Relationship Specialty Start Date End Date Eric Reyes MD [address] [place] [address], [place] [address] PCP - General 02 Crate Tier Relationship Specialty Start Date End Date Eric Reyes MD [address] [place] [address], [place] [address] PCP - General 02 Crate Tier Relationship Specialty Start Date End Date Eric Reyes MD [address] [place] [address], [place] [id number] PCP - General 02 Crate Tier Relationship Specialty Start Date End Date Eric Reyes MD [address] [place] [address] PCP - General 02 Crate Tier Relationship Specialty Start Date End Date Eric Reyes MD [address] [place], [place] [address] PCP - General 02 Crate Tier Relationship Specialty Start Date End Date Eric Reyes MD [address] [place], [place] [id number] PCP - General 02 Team Status: Active Member Role Status Dates Dr. Eric Reyes MD Family Provider Active Sumeet Chavez NP, AOC DIRECTOR COMBAT OPERATIONS OFFICER-C Primary Care Provider Active Team Status: Inactive Member Role Status Dates Dr. Alejandro Nunez , Emergency Provider Active Sumeet Chavez AOC DIRECTOR COMBAT OPERATIONS OFFICER, AOC DIRECTOR COMBAT OPERATIONS OFFICER-C Primary Care Provider Active Team Status: Inactive Member Role Status Dates Sumeet Chavez NP, AOC DIRECTOR COMBAT OPERATIONS OFFICER-C Primary Care Provider, Referr ing Provider Active Guerline Lane CNM Attending Provider Active Team Status: Inactive Member Role Status Dates Dr. Alejandro Nunez DO Attending Provider, Emergency P alia Active Sumeet Chavez NP, AOC DIRECTOR COMBAT OPERATIONS OFFICER-C Primary Care Provider Active Team Status: Inactive Member Role Status Dates Sumeet Chavez NP, AOC DIRECTOR COMBAT OPERATIONS OFFICER-C Primary Care Provider Active Dr. Alonzo Martinez MD Attending Provider, Emergency Provider Active Team Status: Inactive Member Role Status Dates Sumeet Chavez NP, AOC DIRECTOR COMBAT OPERATIONS OFFICER-C Primary Care Provider Active Guerline Lane CNM Attending Provider, Referring Pr ovider Active Team Status: Inactive Member Role Status Dates Sumeet Chavez AOC DIRECTOR COMBAT OPERATIONS OFFICER, AOC DIRECTOR COMBAT OPERATIONS OFFICER-C Primary Care Provider, Referr ing Provider Active Jimy Celis NP, AOC DIRECTOR COMBAT OPERATIONS OFFICER-C Attending Provider Active Team Status: Inactive Member Role Status Dates Sumeet Chavez NP, AOC DIRECTOR COMBAT OPERATIONS OFFICER-C Primary Care Provider, Referr ing Provider Active Brittni Vo CNM Attending Provider Active Team Status: Inactive Member Role Status Dates Sumeet Chavez AOC DIRECTOR COMBAT OPERATIONS OFFICER, AOC DIRECTOR COMBAT OPERATIONS OFFICER-C Primary Care Provider Active Brittni Vo CNM Attending Provider, Referring Pro vider Active Team Status: Inactive Member Role Status Dates Sumeet Chavez AOC DIRECTOR COMBAT OPERATIONS OFFICER, AOC DIRECTOR COMBAT OPERATIONS OFFICER-C Primary Care Provider Active Start: May 24, 2024 End: May 24, 2024 Sumeet Chavez AOC DIRECTOR COMBAT OPERATIONS OFFICER, AOC DIRECTOR COMBAT OPERATIONS OFFICER-C Referring Provider Active Start: May 24, 2024 End: May 24, 2024 ALEKS Forbes Attending Provider Active Star t: May 24, 2024 End: May 24, 2024 Team Status: Inactive Member Role Status Dates Sumeet Chavez AOC DIRECTOR COMBAT OPERATIONS OFFICER, AOC DIRECTOR COMBAT OPERATIONS OFFICER-C Primary Care Provider Active Start: May 24, 2024 End: May 24, 2024 Dr. Vladimir Terry MD Attending Provider Active S tart: May 24, 2024 End: May 24, 2024 Crate Tier Relationship Specialty Start Date End Date Bala Crook DO [address] [place] [address] PCP - General Family Medicine 09/21/24 Crate Tier Relationship Specialty Start Date End Date Bala Crook DO [address] [place] [address] PCP - General Family Medicine 09/21/24 INFORMATION SOURCE (unrecogn ized section and content) DATE CREATED AUTHOR 11/13/2021 [facility] DATE CREATED AUTHOR AUTHOR'S ORGANIZ ATION 05/15/2023 [facility] ([place] DATE CREATED AUTHOR AUTHOR'S ORGANIZ ATION 08/07/2023 [facility] DATE CREATED AUTHOR AUTHOR'S ORGANIZ ATION 09/23/2024 [facility] DATE CREATED AUTHOR AUTHOR'S ORGANIZ ATION 10/14/2024 [facility] Care Team (unrecognized sect ion and content) Care Team Personnel Name: PHYSICIAN, NONE Position: Physician Member Role: Primary Care Physician Care Team Related Persons Name: FRANCISCO MONTES DE OCA Name: JASS MONTES DE OCA Address: [address] [place] [address] Care Team Personnel Name: SUMEET CHAVEZ SUNNY-PROC TECH Position: P4 Advanced Practice Nurse Member Role: Primary Care Physician Address: Address: [address] [facility] [place] [address]- Care Team Related Persons Name: FRANCISCO MONTES DE OCA Goals (unrecognized section and content) Goals may be documented in a n alternate section FOR RECORDS PERTAINING TO PATIENTS WHO ARE [...] BE BASED ON THE PRIMARY CLINICAL RECORDS. [facility] [employer] provides no warranty or guarantee of the accuracy or completeness of information in this document.
[2024-10-14] MEDS: Metoclopramide 10 MG Tablet PO (23:40)
[2024-10-14 23:46] LABS: Bacteria 0 SEEN /hpf (None Seen); Mucous, Urine 0 SEEN /hpf (<or=2+); Squamous Epithelial Cells - UA 0 SEEN /hpf (5-10)
[2024-10-15 00:56] LABS: Color, Urine Straw (Yellow); Glucose, Dipstick Normal (Normal); Ketone-Dipstick Negative (Negative); Leukocyte Esterase-Dipstick Negative /ul (Negative); Nitrite-Dipstick Negative (Negative); Occult Blood-Urine 25 /ul (Negative); Protein-Dipstick Negative (Negative); Urine Bilirubin Dipstick Negative (Negative); Urine Clarity Clear (Clear); Urine Urobilinogen Normal (Normal); Urine pH 6.5 (5.0 - 8.0)
[2024-10-15 01:15] LABS: Red Blood Cells-Urine 0-5 SEEN /hpf (0-5); White Blood Cells 0-5 SEEN /hpf (0-5)
[2024-10-15 02:03] VITALS: BP 112/74; PULSE 93; RESP 16; TEMP 36.4; O2SAT 98
== END 2024-10-15 02:05 | disposition home or self-care (01) ==
PROVIDERS: Emergency Provider Emergency Medicine; PCP Family Medicine; Visit Provider Emergency Medicine
DX: R11.0 Nausea (principal); T37.0X5A Adverse effect of sulfonamides, initial encounter; R51.9 Headache, unspecified; F17.290 Nicotine dependence, other tobacco product, uncomplicated
CPT/HCPCS: 81001; 99282

== ENCOUNTER → 2025-02-15 | Outpatient (CLI) | payer MEDICAID, SELFPAY ==
--- NOTE | 2025-02-15 12:59 | NEURO ---
NCS and/or EMG Patient Report Ordering Doctor: Lupis Hart DATE OF SERVICE: 02/15/25 Reema presents with complaints of numbness and tingling bilaterally in the 4th and 5th digits of the hands. Electrodiagnostic findings: Median motor nerve demonstrates normal distal latency, amplitude and conduction velocity bilaterally. Normal ulnar motor response bilaterally, including conduction across the elbow. Sensory responses are within normal limits. Needle EMG testing was performed in the upper limbs. All muscles tested showed no evidence of denervation with normal motor unit action potentials. Electrodiagnostic impression: This is a normal electrodiagnostic study of the upper limbs. There is no electrodiagnostic evidence for peripheral neuropathy, including carpal tunnel or cubital tunnel syndrome. Multi Select Codes Neurology Neurology Interp Codes: 47349-84 Musc test done w/n test comp (interp) (2) and 69085-76 Nrv cndj test 13/> studies (interp)
== END | disposition home or self-care (01) ==
PROVIDERS: PCP Family Medicine; Referring Provider Nurse Practitioner Family; Visit Provider Nurse Practitioner Family
DX: R20.2 Paresthesia of skin (principal)
CPT/HCPCS: 95886; 95913